=== PATIENT | male | born 1945 | race Caucasian/White ===

== ENCOUNTER → 2017-11-04 11:43 | Outpatient (CLI) | payer OTHER, SELFPAY | PROVIDERS: Family Provider Family Medicine; PCP Family Medicine; Visit Provider Orthopaedic Surgery | DX: Z01.818 Encounter for other preprocedural examination (principal); E78.2 Mixed hyperlipidemia; Z12.5 Encounter for screening for malignant neoplasm of prostate | CPT/HCPCS: 93005 ==

== ENCOUNTER → 2017-11-05 07:19 | Outpatient (CLI) | payer OTHER, SELFPAY ==
[2017-11-05 09:30] LABS: Add Manual Diff / Slide Review NO; Basophils Percent Auto 0.7 % (0-2); Eosinophils Percent Auto 2.9 % (2-4); Hematocrit 37.7 % (41-53); Hemoglobin 13.3 g/dL (13.5-17.5); Lymphocytes Percent Auto 21.4 % (25-40); Mean Corpuscular HGB Conc 35.3 % (30-36); Mean Corpuscular Volume 87.9 fL (80-100); Monocytes Percent Auto 10.5 % (3-14); Neutrophils Absolute Auto 3200 /uL (3000-5900); Neutrophils Percent Auto 64.5 % (50-75); Platelet Count 149 X10^3/uL (150-400); Red Blood Cell Count 4.29 X10^6/uL (4.5-5.9); Red Cell Distribution Width 13.4 % (11.6-14.8)
[2017-11-05 10:06] LABS: BUN Creatinine Ratio 35.7 (6-22); Blood Urea Nitrogen 25 mg/dL (9-20); Calcium 9.8 mg/dL (8.4-10.2); Carbon Dioxide 27 mmol/L (22-32); Chloride 101 mmol/L (98-107); Cholesterol 225 mg/dL (140-199); Estimated Glomerular Filt Rate > 60.0 mL/min (>60); Glucose 127 mg/dL (80-110); HDL Cholesterol 46 mg/dL (40-60); HEMOLYSIS < 15 (0-50); LDL Cholesterol Calculated 140 mg/dL (<100); Potassium 4.2 mmol/L (3.4-5.1); Sodium 142 mmol/L (137-145); Triglycerides 194 mg/dL (35-150)
[2017-11-05 10:23] LABS: Prostate Specific Antigen Scrn < 0.064 ng/mL (0.1-4.0)
== END ==
PROVIDERS: Family Provider Family Medicine; PCP Family Medicine; Visit Provider Orthopaedic Surgery
DX: E78.2 Mixed hyperlipidemia (principal); Z12.5 Encounter for screening for malignant neoplasm of prostate; Z01.818 Encounter for other preprocedural examination
CPT/HCPCS: 36415; 80048; 80061; 85025; G0103

== ENCOUNTER 2017-11-12 06:32 | Inpatient (IN) | payer OTHER, SELFPAY ==
[2017-11-09 13:07] VITALS: BMI 37.3
[2017-11-12] VITALS (15 sets, daily range): BP systolic 114–166; BP diastolic 68–95; PULSE 67–101; RESP 12–22; TEMP 36.2–37.1; O2SAT 91–98; BMI 37.3
--- NOTE | 2017-11-12 | PATH_ITS ---
[facility] Accession Number: [id number] . 01 Material submitted: . L5 FRACTURE SITE . 02 Diagnosis: Bone from L5 Fracture Site: Fragments of bone and fibrous tissue, negative for evidence of neoplasm. [facility]/11/15/2017 . 02 Electronically signed: . Jose Irene MD, Pathologist NPI- [id number] . 01 Gross description: . Received one formalin-filled container, labeled with the patient's name, labeled L5 fracture site. The specimen consists of multiple 0.3-0.5 cm, pink-land to land-prieto, rough fragments of bone. the specimen is filtered and entirely submitted in one cassette. The specimen will be placed in Decal for softening. ([id number]) /FRR . 02 Pathologist provided ICD-10: S32.050A . 02 CPT . 116485, [id number] Performed at: 01 [facility] [address] [facility], [place], [place] [id number] MD Pee Archer MD Phone: [phone] Performed at: 02 [facility] [address] [place], [place] [id number] MD Quentin Aleman MD Phone: [phone]
--- NOTE | 2017-11-12 07:28 | PM.PREOP ---
Pre-operative Note Interval Note Pre-op Check: History & Physical Reviewed by Physician and Exam Performed
--- NOTE | 2017-11-12 07:39 | PM.OP.1 ---
Operative Date/Time/Diagnoses - Date of procedure: 11/12/17 Time of procedure: 12:20 Pre-op diagnosis: L5 fracture Lumbar stenosis with radiculopathy Lumbar spondylolisthesis Post-op diagnosis: same Procedure & Clinicians Procedure: L5-S1 TLIF (post/post innerbody fusion) with cage L4, L5, S1 screws Iliac crest bone graft L4-5 laminectomy L5-S1 laminectomy Microscope Same procedure as scheduled: Yes Indications: 71-year-old male with intractable right leg pain. He was found to have an acute fracture through his transverse process pedicle and facet on the right side at L5. The fracture was causing foraminal stenosis corresponding with the severe right leg pain. He requested operative intervention after failing conservative management. Risks and benefits of surgery were discussed and appropriate consent obtained. Surgeon: Buddy Tavera Anesthesia Type: General Operative Notes Findings: none Closure Type: primary Specimen(s): none sent Implants & Drains: Nuvasive Reline MAS screws Globus Rise cage Applied: catheter Estimated Blood Loss (mL): 650 Procedure in detail: The patient was brought to the operating room and intubated on the table. A time-out was performed. He was then rolled over to the well-padded Marco A table in the prone position. Preoperative antibiotics were given. The back was prepped and draped in the standard sterile fashion. His initial intraoperative films showed collapse on the right side with progression and rotation to a grade 2 spondylolisthesis at L5-S1. Using fluoroscopy, a 4 cm longitudinal incision was made to the right of the midline. We used Bovie to come down to and split the lumbodorsal fascia. Using fluoroscopy and monitoring, we then percutaneously placed Jamshidi needles down the pedicles of L4, L5, and S1 on the right side. These were changed out to guidewires and then we tapped and then placed the NuVasive MAS Reline screw shanks. We then opened up the retractors and used Bovie to clear up the posterolateral gutter as well as medially along the lamina to the spinous processes. A bur was used to decorticate the transverse processes. Using a combination of bur and Kerrison rongeurs, a laminectomy was performed at L4-5 and L5-S1 from the right side. We performed a complete facetectomy at L5-S1 for the decompression. We traced out the L4 and L5 nerve roots. This was separate and distinct from the TLIF approach as we had to do such an extensive decompression of the neural foramen to adequately explore the nerve roots as well as the lumbar fracture. The L5 nerve root was getting crushed between the collapse and listhesis. We could barely passed a ball probe part of the way out the foramen. The L4 root was encased in thick fibrinous tissue consistent with probable fracture callus. Some of this bone and fracture callus material sent off for pathology. We then began the TLIF portion. The disc was prepped with bipolar and then an annulotomy was performed. We performed a diskectomy using a combination of paddles, emma, Kerrison, and curettes. We distracted the disc using a paddle and locked the retractor in an open position. We then filled the disc space with Osteocell bone graft. We then placed the globus Rise cage under fluoroscopy and then filled this in with more bone graft. The distraction on the retractor was released to compress down. This completed the posterior interbody fusion portion of the TLIF at L5-S1. At this point we were able to run the ball probe out through the neural foramen and everything was wide open as we had had so much distraction. We then placed the screw heads, joann, and locked down the set screws. The wound was copiously irrigated. A small stab incision was made over the PSIS. We used a Jamshidi needle to aspirate several mL of bone marrow from the pelvis. This was mixed with the remaining Osteocell and combined with all of the locally harvested bone graft and placed in the posterolateral gutter for the posterior fusion of the TLIF at L5-S1. The fascia was closed. We then went to the opposite side. Again using fluoroscopy, a 3 cm incision was made and Bovie was used to come down to split the fascia. Using neural monitoring and fluoroscopy, Jamshidi needles were advanced down the pedicles of L5 and S1 on the left side. These were switched over guidewires, tapped, and screws placed. We then placed a joann and locked the set screws on this side. The wound was irrigated. The fascia was closed. Vancomycin powder was placed in the wounds. The superficial and skin were closed. A sterile dressing was placed. The patient was then rolled over extubated and brought to recovery room without complications. Complications: none Condition: stable Disposition: PACU Plan for aftercare: Inpatient. Up with physical therapy.
[2017-11-12] MEDS: LACTATED RINGERS 1,000 ML 42 ML IV ×4 (07:54→13:10)
--- NOTE | 2017-11-12 08:00 | DI.RAD.S_ITS ---
PROCEDURE: XR LUMBAR SPINE 2-3V INDICATIONS: L5-S1 TLIF TECHNIQUE: 2 views of the lumbar spine were acquired. COMPARISON: [facility], RF, LUMBAR TRANSFORAMINAL KATERYNA, 10/11/2017, 7:17. [facility], CT, L-SPINE WITHOUT CONTRAST, 10/01/2017, 8:24. [facility] [place], CR, XR LUMBAR SPINE 2 OR 3 VIEWS, 07/15/2017, 8:42. [facility] [place], CR, XR LUMBAR SPINE 2 OR 3 VIEWS, 03/10/2017, 9:07. [facility], CR, L-SPINE 2-3 VIEWS, 06/18/2016, 9:32. [facility], CR, L-SPINE 2-3 VIEWS, 03/29/2012, 14:47. FINDINGS: Bones: This study represents surgical intervention in addition to previous postsurgical change along the lumbosacral spine. The most recent prior lumbosacral spine imaging was from CT scanning 10/01/17 at [facility], documenting a left-sided L2-L4 facet of transverse pedicle screws and a unilateral left vertical fixation joann present at that time. The current study shows addition of a set of left-sided L5-S1 transverse pedicle screws and a vertical fixation joann. Additionally, there is a set of L4-S1 transverse pedicle screws and a vertical fixation joann and interbody disc prosthesis L5-S1. Soft tissues: Overlying bowel gas pattern is normal. No suspicious soft tissue calcifications. IMPRESSION: Normal postsurgical alignment after revision of previous posterior spine fusion procedures, as detailed above. Fixation now includes previous left L2-L4 posterior fixation in addition to new posterior left-sided L5-S1 fixation. Also present is new right-sided L4-S1 posterior fusion. Dictated by: Miguel Ángel Donnelly M.D. on 11/12/2017 at 13:30 Approved by: Miguel Ángel Donnelly M.D. on 11/12/2017 at 13:45
[2017-11-12] MEDS: CEFAZOLIN 2 GM/100 ML FROZ.PIGGY IV ×2 (08:03→19:47)
[2017-11-12] MEDS: ACETAMINOPHEN 325 MG TABLET 975 MG PO (08:12)
[2017-11-12] MEDS: GABAPENTIN 600 MG TABLET PO (08:13)
--- NOTE | 2017-11-12 08:48 | SUR.OPER ---
Prone on spine table, head in foam head support, padded chest and pelvic supports, gel pad at knees, lower legs supported by pillows; nipples, genitalia and toes free of pressure, arms secured on foam padded arm boards at <90 degrees abduction. Tape over blanket at thigh secured to table.
[2017-11-12] MEDS: THROMBIN (BOVINE) 5,000 UNIT VIAL 5000 UNIT TOP (08:56)
[2017-11-12] MEDS: SODIUM CHLORIDE 0.9% 1,000 ML, GENTAMICIN 80 MG IRR ×2 (08:57→11:44)
[2017-11-12] MEDS: BUPIVACAINE LIPOSOME 266 MG/20 ML VIAL INJ (08:57)
[2017-11-12] MEDS: VANCOMYCIN 1,000 MG VIAL 1000 MG TOP (08:57)
[2017-11-12] MEDS: BUPIVACAINE 0.5% (PF) 30 ML VIAL 20 ML INJ (08:59)
[2017-11-12] MEDS: CEFAZOLIN 1 GM VIAL 2 GM IV (12:06)
[2017-11-12] MEDS: HYDROMORPHONE 2 MG INJ 0.5 MG IV ×4 (13:05→13:25)
[2017-11-12] MEDS: LACTATED RINGERS 1,000 ML 125 ML IV ×2 (15:00→22:24)
--- NOTE | 2017-11-12 15:26 | PC.NURSE ---
Pt arrived to room around 1400. He is a&ox3 but groggy. Denies pain. Incision to lower back with bulky dressing that is cdi. Pt is on LR at 125cc/hr. He has feeling to back and lower extremities. CMS wnl at this time and patient denies any numbness or tingling. SCDs present and pt is tolerating well. 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 He is 95% on ra with cpap on. Report passed on to cammy Clement .
[2017-11-12] MEDS: NEO/POLYMIX B/DEX OPHTH SUSP 1 DROPS EYE-BOTH ×2 (17:39→20:29)
[2017-11-12] MEDS: LISINOPRIL 20 MG TABLET PO (17:39)
[2017-11-12] MEDS: OXYCODONE/ACETAMINOPHEN 5/325 TABLET 2 TAB PO ×2 (17:39→22:01)
--- NOTE | 2017-11-12 18:03 | PT.IIE ---
Current Diagnoses Spinal stenosis, lumbar region with neurogenic claudication (11/12/17) Unspecified fracture of fifth lumbar vertebra, subsequent encounter for fracture with routine healing (11/12/17) Other specified postprocedural states (11/12/17) Surgery Performed Operation Date: 11/12/17 07:45 Actual Procedures p L5-S1 TLIF (posterior instrumented fusion )W/ Bone Graft - Buddy Tavera MD s L4-L5, L5-S1 Laminectomy - Buddy Tavera MD Surgical History (Last Updated 11/09/17 @ 13:36 by Jana Chan RN) History of back surgery (Acute) History of lumbar spinal fusion (Acute) History of penile implant (Acute) History of radical retropubic prostatectomy (Acute) History of tonsillectomy and adenoidectomy (Acute) History of vein stripping (Acute) Hx of right inguinal hernia repair (Acute) History of cataract removal with insertion of prosthetic lens (03/12/09) History of cataract removal with insertion of prosthetic lens (04/09/09) Status post LASIK surgery Status post biopsy (05/10/09) Status post bunionectomy Status post eye surgery (08/18/13) Status post eye surgery (08/29/13) Status post laminectomy Status post radical cystoprostatectomy (11/23/08) Status post sclerotherapy of varicose veins Status post tonsillectomy and adenoidectomy Medical History (Last Updated 11/09/17 @ 13:27 by Jana Chan, MATY) DDD (degenerative disc disease) (Acute) Diverticulosis (Acute) HTN (hypertension) (Acute) Hyperlipidemia (Acute) Internal hemorrhoids (Acute) JOANIE on CPAP (Acute) Prostate cancer (Acute) Scoliosis (Acute) Physical Therapy Inpatient Evaluation/Re-Eval M1 PT/OT-IP Prior Functional Status Start: 11/12/17 17:56 Freq: NEEDED Status: Active Protocol: Document 11/12/17 17:56 [facility] (Rec: 11/12/17 18:03 [facility] [id number]) Medical Review Prior Functional Status Medical History Reviewed Yes Diet/Fluid Consistency Regular Mobility and Gait Pt has been using 4WW for past 2 months due to start of RLE pain. 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 Son is staying with her while he is in hospital. Social History Household Members spouse Living Arrangements House Number of Floors (Floors) Two Floors Number of Stairs To Enter/Railing? Only requires use of main level though; 1 SHORTY Home Environment High Toilet Walk in Shower Built-In Shower Seat Home Equipment Four Wheel Walker Long Handled Shoe Horn Lead Electrical Engineer Sock Aid Grab Bars In Shower Employment Status Retired M2 PT-IP Current Condition Start: 11/12/17 17:56 Freq: NEEDED Status: Active Protocol: Document 11/12/17 17:56 [facility] (Rec: 11/12/17 18:03 [facility] [id number]) Physical Therapy Current Condition Current Condition Evaluation Date 11/12/17 Treatment Diagnosis TLIF Onset Date 11/12/17 Precautions Lumbar Precautions Log Roll No Twisting Limit Bending Lifting Restriction of 10 lbs Gait Belt above Incisional Area Weight Bearing Status Weight Bearing Status Full Weight Bearing M3 PT-IP Subjective Start: 11/12/17 17:56 Freq: NEEDED Status: Active Protocol: Document 11/12/17 17:56 [facility] (Rec: 11/12/17 18:03 [facility] [id number]) Subjective Physical Therapy Visit Type Type Initial Evaluation Visit Start Time 17:10 Visit Stop Time 17:55 Total Visit Minutes 45 Physical Therapy Visit Comments Patient/Caregiver Goals Pt wants to go home when he is safe and his pain is managable Therapy Pain Assessment Pain When Pain Assessed During Mobility Pain Present Pain Present Pain Reported Location Right Lower Leg Intensity 5 Scale Used Numeric (1 - 10) Description Aching M4 PT-IP Mobility and Gait Start: 11/12/17 17:56 Freq: NEEDED Status: Active Protocol: Document 11/12/17 17:56 [facility] (Rec: 11/12/17 18:03 [facility] [id number]) PT-Bed Mobility Assessment Rolling Type of Rolling Log Rolling Roll to Right Level of Assist Minimal Assistance Supine to Sit Supine to Sit Moderate Assistance Bedrails Scooting Scooting to Edge of Bed Standby Assistance PT-Transfer Assessment Sit to and From Stand Sit to and from Stand Moderate Assistance Equipment Transfer Assistive Device Gait Belt Front Wheeled Walker Orthotic/Prosthetic Devices or Brace: No Gait Assessment Gait Gait Assistance Required: Contact Guard Assist Distance (Feet) (feet) 8 Able to Maintain Weight Bearing Status Yes During Gait Assistive Devices Assistive Device Gait Belt Front Wheeled Walker Orthotic/Prosthetic Devices or Brace: No Gait Deviations General Gait Pattern Antalgic Decreased Stride Length Flexed Trunk Factors Limiting Gait Function Factors Limiting Gait Function Decreased Strength Pain PT-Balance Assessment Sitting Balance and Reactions Static Sitting Balance Ability Good Dynamic Sitting Balance Ability Good Standing Balance and Reactions Static Standing Balance Ability Fair Dynamic Standing Balance Ability Poor M5 PT-IP Objective Assessments Start: 11/12/17 17:56 Freq: NEEDED Status: Active Protocol: Document 11/12/17 17:56 [facility] (Rec: 11/12/17 18:03 [facility] [id number]) Orientation Orientation/Cognition Level of Alertness Alert Strength Lower Extremity Strength Assessment Bilaterally Impaired Muscle Tone Muscle Tone WNL No M6 PT-IP Treatment Start: 11/12/17 17:56 Freq: NEEDED Status: Active Protocol: Document 11/12/17 17:56 [facility] (Rec: 11/12/17 18:03 [facility] [id number]) Physical Therapy Treatment Education Education Provided Precautions Post-Op Packet Safety M7 PT-IP Assessment and Plan Start: 11/12/17 17:56 Freq: NEEDED Status: Active Protocol: Document 11/12/17 17:56 [facility] (Rec: 11/12/17 18:03 [facility] [id number]) PT Summary Assessment and Plan Potential Rehabilitation Potential Good Status of Condition at Evaluation Evolving Summary Impairments Pain Strength Balance Bed Mobility Transfers Gait Assessment Summary Pt is very motivated and cooperative with realistic expectations after lumbar surgery. He is likey to progress well, but will require a high level of mobility when he returns home as he is CG for his . Pt would benefit from . Goals Bed Mobility Goal Independent Transfer Goal Independent Four Wheeled Walker Gait Goal Independent Four Wheel Walker Gait Distance 150ft Other Goals Up/down 1 step without rail indep Days to Meet Goals 4 Frequency of Treatment Frequency Of Treatment Twice a Day Treatment Plan Physical Therapy Treatment Plan Bed Mobility Training Transfer Training Gait Training Therapeutic Exercise Balance Retraining Discharge Planning Hot or Cold Pack Other Recommendations and Next Treatment Gait & advance log rolling Focus Recommendations To Nursing Amount of Assist Needed 1 Person Assist Discharge Recommendations PT Discharge Recommendations Home Home Health Provider Visit Care Team Role Provider Type Franco Damon MD Family Provider Physician Primary Care Provider Specialty: Family Practice Buddy Tavera MD Admit Provider Physician Attending Provider Specialty: Orthopedic Surgery
[2017-11-12] MEDS: SENNOSIDES 8.6 MG TABLET 17.2 MG PO (20:29)
[2017-11-12] MEDS: DOCUSATE 100 MG CAPSULE PO (20:29)
[2017-11-12] MEDS: GABAPENTIN 300 MG CAPSULE PO (20:29)
[2017-11-13] VITALS (7 sets, daily range): BP systolic 120–148; BP diastolic 51–83; PULSE 75–99; RESP 16–18; TEMP 37.1–38.5; O2SAT 92–97
[2017-11-13] MEDS: MELOXICAM 7.5 MG TABLET PO (00:32)
[2017-11-13] MEDS: OXYCODONE/ACETAMINOPHEN 5/325 TABLET 2 TAB PO (01:52)
[2017-11-13] MEDS: CEFAZOLIN 2 GM/100 ML FROZ.PIGGY IV (04:09)
--- NOTE | 2017-11-13 04:18 | PC.NURSE ---
Pt. C/O pain even after medicated with Mobic & 2 tabs. of Percocet. Woke up with the pain scale of 7/10, states I slept for a little while, but my Rt. leg & back very painful. the medication only lasted not even an hour. RELIGIOUS EDUCATOR Dilaudid initiated, re-assessed in 30 mins. reported pain level was down to 3-4/10 pain scale. Will monitor.
[2017-11-13] MEDS: HYDROMORPHONE PCA 6 MG/30 ML PCA.VIAL IV ×2 (05:55→14:19)
[2017-11-13 06:05] LABS: Hemoglobin 10.2 g/dL (13.5-17.5)
[2017-11-13 06:09] LABS: BUN Creatinine Ratio 21.7 (6-22); Blood Urea Nitrogen 13 mg/dL (9-20); Calcium 8.6 mg/dL (8.4-10.2); Carbon Dioxide 26 mmol/L (22-32); Chloride 101 mmol/L (98-107); Estimated Glomerular Filt Rate > 60.0 mL/min (>60); Glucose 132 mg/dL (80-110); HEMOLYSIS < 15 (0-50); Sodium 137 mmol/L (137-145)
--- NOTE | 2017-11-13 07:37 | PM.PNPO.1 ---
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 Mostly R lower back pain but still pain down the back of the right leg (although much better). Exam Vital Signs (past 8 hours): Vital Signs - 8 hr 11/13/17 00:05 11/13/17 05:47 Temperature 98.7 F 99.0 F Pulse Rate 77 78 Respiratory Rate 16 16 Blood Pressure 124/58 H 120/58 L Pulse Oximetry 96 97 Pulse Oximetry 97 Oxygen Delivery Method Room Air Oxygen Flow Rate 0 Const Orientation: alert and oriented x3 Back/Spine/Pelvis Other: dressing CDI 5/5 motor BLE except 4/5 R EHL Objective Labs Result Diagrams: 11/13/17 05:36 11/13/17 05:36 Labs: Laboratory Results - last 24 hr 11/13/17 11/13/17 05:36 05:36 Hgb 10.2 L Hct 29.0 L Sodium 137 Potassium 4.0 Chloride 101 Carbon Dioxide 26 BUN 13 Creatinine 0.60 L Estimated GFR > 60.0 BUN/Creatinine Ratio 21.7 Glucose 132 H Calcium 8.6 Assessment & Plan Post-op Postoperative Procedures Operation Date: 11/12/17 07:45 Actual Procedures Side Surgeon p L5-S1 TLIF (posterior instrumented fusion )W/ Bone Graft Buddy Tavera MD s L4-L5, L5-S1 Laminectomy Buddy Tavera MD Doing well after surgery. The leg pain should continue to improve as the inflammation along the nerve calms down. Mobilize with PT. Time Spent With Patient less than 15 minutes Quality VTE Deep Vein Thrombosis/Pulmonary Embolism Present on Admission: No
--- NOTE | 2017-11-13 09:11 | CM.DANOTE ---
DCP: assessment: Case received, EMR reviewed, discussed POC with ortho ISABEL Rosales and met with pt. Introduced self and role. DCP template completed with info currently available. Pt is a 71 year old male who admitted yesterday for a planned spinal surgery. He notes this is his 5th spinal procure, all but the first one under care of Surgeon: Dr. Tavera. PCP: Dr. Melisa Damon Payer: [facility] FIFI. PT and OT are ordered. Pt reports his d/c goal as home when his pain is controlled (severe L side pain last night) and he is able to manage basic functional mobility. He says he and his were swimming at the pool 5 x week and he looks forward to being able to return to this after he recovers. His sons Ananth and Ramiro (both living in [place]) will be staying over to assist with Eulalia and to support pt in his recovery. Currently Ananth is at the home. Pt uses a 4ww but says he has access to a FWW owned by very helpful neighbors Gilberto and Ayush Simpson. Gilberto is part of the Machining Technician program. 2018 Senior Resource Guide discussed as pt and his are making plans for future needs and pt readily accepts a copy.
[2017-11-13] MEDS: MULTIVIT,CALC,MINS/IRON/FOLIC 1 TABLET 1 TAB PO (09:41)
[2017-11-13] MEDS: DOCUSATE 100 MG CAPSULE PO ×2 (09:42→20:40)
[2017-11-13] MEDS: NEO/POLYMIX B/DEX OPHTH SUSP 1 DROPS EYE-BOTH ×3 (09:42→20:41)
[2017-11-13] MEDS: LISINOPRIL 20 MG TABLET PO (09:47)
[2017-11-13] MEDS: ASPIRIN EC 81 MG TABLET PO (09:48)
--- NOTE | 2017-11-13 11:29 | PT.IPTN ---
Current Diagnoses Spinal stenosis, lumbar region with neurogenic claudication (11/12/17) Unspecified fracture of fifth lumbar vertebra, subsequent encounter for fracture with routine healing (11/12/17) Other specified postprocedural states (11/12/17) Surgery Performed Operation Date: 11/12/17 07:45 Actual Procedures p L5-S1 TLIF (posterior instrumented fusion )W/ Bone Graft - Buddy Tavera MD s L4-L5, L5-S1 Laminectomy - Buddy Tavera MD Physical Therapy Treatment Note M2 PT-IP Current Condition Start: 11/12/17 17:56 Freq: NEEDED Status: Active Protocol: Document 11/13/17 11:00 [facility] (Rec: 11/13/17 11:29 [facility] [id number]) Physical Therapy Current Condition Current Condition Evaluation Date 11/12/17 Treatment Diagnosis TLIF Onset Date 11/12/17 Precautions Lumbar Precautions Log Roll No Twisting Limit Bending Lifting Restriction of 10 lbs Gait Belt above Incisional Area Weight Bearing Status Weight Bearing Status Weight Bear as Tolerated M3 PT-IP Subjective Start: 11/12/17 17:56 Freq: NEEDED Status: Active Protocol: Document 11/13/17 11:00 [facility] (Rec: 11/13/17 11:29 [facility] [id number]) Subjective Physical Therapy Visit Type Type Treatment Note Visit Start Time 10:30 Visit Stop Time 11:00 Total Visit Minutes 30 Number of INVENTORY ACCOUNTANT Visits 0 Physical Therapy Visit Comments Patient Comments Pt's goal is to be able to go home, his son can only stay with his at home until Wednesday. Therapy Pain Assessment Pain When Pain Assessed At Rest Pain Present Pain Present Pain Reported Location Right Lower Leg Intensity 6 Scale Used Numeric (1 - 10) Description Aching Burning Stabbing Pain Behaviors Facial Grimacing Wincing Pain Management Techniques Modification of Treatment Timing of Activity with Medications M4 PT-IP Mobility and Gait Start: 11/12/17 17:56 Freq: NEEDED Status: Active Protocol: Document 11/13/17 11:00 [facility] (Rec: 11/13/17 11:29 [facility] [id number]) PT-Bed Mobility Assessment Rolling Type of Rolling Log Rolling Level of Assist Moderate Assistance 1 Person Assistance Supine to Sit Supine to Sit Moderate Assistance 1 Person Assistance Bedrails Scooting Scooting to Edge of Bed Moderate Assistance PT-Transfer Assessment Sit to and From Stand Sit to and from Stand Minimal Assistance 1 Person Assistance Use of Upper Extremities Equipment Transfer Assistive Device Front Wheeled Walker Transfers Transfer Destination Chair Transfer Technique Stand Step Pivot Transfer Ability Level of Assist Moderate Assistance 1 Person Assistance Use of Upper Extremities Comments Mobility Comments Pt without heel contact on ground, forward flexed posture , max VC for posture and safety. Required manual assistance with FWW management. Gait Assessment Gait Gait Assistance Required: Moderate Assistance 1 Person Assist Distance (Feet) (feet) 10 Assistive Devices Assistive Device Gait Belt Gait Deviations General Gait Pattern Antalgic Decreased Stride Length Decreased Feet Clearance Flexed Trunk Step-to Gait Wide Based Gait Factors Limiting Gait Function Factors Limiting Gait Function Decreased Activity Tolerance Decreased Strength Pain Poor Balance Poor Safety Awareness Comments Gait Comments Wide based gait, bilateral foot ER. Max VC for turning and safety with gait, and manual assistance wth FWW management. BP 131/78 after session. PT-Balance Assessment Sitting Balance and Reactions Static Sitting Balance Ability Fair Dynamic Sitting Balance Ability Fair Standing Balance and Reactions Static Standing Balance Ability Poor Dynamic Standing Balance Ability Poor Device Used FWW M5 PT-IP Objective Assessments Start: 11/12/17 17:56 Freq: NEEDED Status: Active Protocol: Document 11/13/17 11:00 [facility] (Rec: 11/13/17 11:29 [facility] [id number]) Orientation Orientation/Cognition Level of Alertness Alert M6 PT-IP Treatment Start: 11/12/17 17:56 Freq: NEEDED Status: Active Protocol: Document 11/13/17 11:00 [facility] (Rec: 11/13/17 11:29 [facility] [id number]) Physical Therapy Treatment Education Education Provided Precautions Safety M7 PT-IP Assessment and Plan Start: 11/12/17 17:56 Freq: NEEDED Status: Active Protocol: Document 11/13/17 11:00 [facility] (Rec: 11/13/17 11:29 [facility] [id number]) PT Summary Assessment and Plan Summary Assessment Summary Pt with pain in bilateral LEs, R>L. Pt unable to get either heel onto ground during standing, and demonstrated forward flexed posture which significantly increases his risk for falls. Pt fatigued very rapidly, and a chair had to be placed behind pt to safely sit down. Pt is not safe to return home on this date. He is motivated to improve and d/c home, but pt will need to improve mobility and activity tolerance much greater to be cleared by PT. Goals Bed Mobility Goal Independent Transfer Goal Independent Four Wheeled Walker Gait Goal Independent Four Wheel Walker Gait Distance 150ft Other Goals Up/down 1 step without rail indep Days to Meet Goals 4 Frequency of Treatment Frequency Of Treatment Twice a Day Treatment Plan Physical Therapy Treatment Plan Bed Mobility Training Transfer Training Gait Training Therapeutic Exercise Balance Retraining Discharge Planning Hot or Cold Pack Other Recommendations and Next Treatment Gait, standing, & advance log Focus rolling Recommendations To Nursing Amount of Assist Needed 2 Person Assist Discharge Recommendations PT Discharge Recommendations Home Equipment Needed for Home Before FWW Discharge
--- NOTE | 2017-11-13 12:59 | PT.IPTN ---
Current Diagnoses Spinal stenosis, lumbar region with neurogenic claudication (11/12/17) Unspecified fracture of fifth lumbar vertebra, subsequent encounter for fracture with routine healing (11/12/17) Other specified postprocedural states (11/12/17) Surgery Performed Operation Date: 11/12/17 07:45 Actual Procedures p L5-S1 TLIF (posterior instrumented fusion )W/ Bone Graft - Buddy Tavera MD s L4-L5, L5-S1 Laminectomy - Buddy Tavera MD Physical Therapy Treatment Note M2 PT-IP Current Condition Start: 11/12/17 17:56 Freq: NEEDED Status: Active Protocol: Document 11/13/17 12:50 [facility] (Rec: 11/13/17 12:59 [facility] [id number]) Physical Therapy Current Condition Current Condition Evaluation Date 11/12/17 Treatment Diagnosis TLIF Onset Date 11/12/17 Precautions Lumbar Precautions Log Roll No Twisting Limit Bending Lifting Restriction of 10 lbs Gait Belt above Incisional Area Weight Bearing Status Weight Bearing Status Weight Bear as Tolerated M3 PT-IP Subjective Start: 11/12/17 17:56 Freq: NEEDED Status: Active Protocol: Document 11/13/17 12:50 [facility] (Rec: 11/13/17 12:59 [facility] [id number]) Subjective Physical Therapy Visit Type Type Treatment Note Visit Start Time 12:30 Visit Stop Time 12:50 Total Visit Minutes 20 Notes Partial co-treat with RORY Gonzales Number of FLATWORK FEEDER Visits 0 Physical Therapy Visit Comments Patient Comments Pt wishes to get BTB, states he feels hot. Therapy Pain Assessment Pain When Pain Assessed At Rest Pain Present Pain Present Pain Reported Location Right Lower Leg Intensity 6 Scale Used Numeric (1 - 10) Description Stabbing Throbbing Pain Behaviors Facial Grimacing Wincing Pain Management Techniques Modification of Treatment M4 PT-IP Mobility and Gait Start: 11/12/17 17:56 Freq: NEEDED Status: Active Protocol: Document 11/13/17 12:50 [facility] (Rec: 11/13/17 12:59 [facility] [id number]) PT-Bed Mobility Assessment Rolling Type of Rolling Log Rolling Level of Assist Moderate Assistance 2 Person Assistance Sit to Supine Sit to Supine Moderate Assistance 2 Person Assistance Scooting Scooting to Edge of Bed Contact Guard Assistance PT-Transfer Assessment Sit to and From Stand Sit to and from Stand Minimal Assistance 1 Person Assistance Use of Upper Extremities Equipment Transfer Assistive Device Front Wheeled Walker Transfers Transfer Destination Bed Transfer Technique Stand Step Pivot Transfer Ability Level of Assist Moderate Assistance 1 Person Assistance Use of Upper Extremities Comments Mobility Comments Forward flexed posture, VC for posture and leg positioning. Short steps, difficulty turning req. manual assist with FWW. Gait Assessment Gait Gait Assistance Required: Moderate Assistance 1 Person Assist Distance (Feet) (feet) 10 Assistive Devices Assistive Device Gait Belt Front Wheeled Walker Gait Deviations General Gait Pattern Antalgic Decreased Stride Length Decreased Feet Clearance Flexed Trunk Step-to Gait Wide Based Gait Factors Limiting Gait Function Factors Limiting Gait Function Decreased Activity Tolerance Decreased Strength Pain Poor Balance Poor Safety Awareness Comments Gait Comments Fatigues rapidly. PT-Balance Assessment Sitting Balance and Reactions Static Sitting Balance Ability Fair Dynamic Sitting Balance Ability Fair Standing Balance and Reactions Static Standing Balance Ability Poor Dynamic Standing Balance Ability Poor Device Used FWW M5 PT-IP Objective Assessments Start: 11/12/17 17:56 Freq: NEEDED Status: Active Protocol: Document 11/13/17 12:50 [facility] (Rec: 11/13/17 12:59 [facility] [id number]) Orientation Orientation/Cognition Level of Alertness Alert M6 PT-IP Treatment Start: 11/12/17 17:56 Freq: NEEDED Status: Active Protocol: Document 11/13/17 12:50 [facility] (Rec: 11/13/17 12:59 [facility] [id number]) Physical Therapy Treatment Education Education Provided Safety M7 PT-IP Assessment and Plan Start: 11/12/17 17:56 Freq: NEEDED Status: Active Protocol: Document 11/13/17 12:50 [facility] (Rec: 11/13/17 12:59 [facility] [id number]) PT Summary Assessment and Plan Summary Assessment Summary Pt required 2 assist to get from sit to supine with reverse log roll. He fatigues very rapidly, and his step length decreases significantly to the point where he is hardly advancing either LE ( more difficulty advancing L foot due to RLE pain). Pt appears to be anxious, requires cuing to calm down, likely due to pain. Pt is not safe to return home at this point, and may not be able to return home unless he makes significant improvements. Along with pain, pt appears to have very poor activity tolerance. Goals Bed Mobility Goal Independent Transfer Goal Independent Four Wheeled Walker Gait Goal Independent Four Wheel Walker Gait Distance 150ft Other Goals Up/down 1 step without rail indep Days to Meet Goals 4 Frequency of Treatment Frequency Of Treatment Twice a Day Treatment Plan Physical Therapy Treatment Plan Bed Mobility Training Transfer Training Gait Training Therapeutic Exercise Balance Retraining Discharge Planning Hot or Cold Pack Other Recommendations and Next Treatment gait, log roll, review Focus precautions Recommendations To Nursing Amount of Assist Needed 2 Person Assist Discharge Recommendations PT Discharge Recommendations Home SNF Rehab Equipment Needed for Home Before FWW Discharge
[2017-11-13] MEDS: hydrOXYzine pamoate 25 MG CAPSULE PO (14:21)
--- NOTE | 2017-11-13 15:03 | OT.IP.EVAL ---
Current Diagnoses Spinal stenosis, lumbar region with neurogenic claudication (11/12/17) Unspecified fracture of fifth lumbar vertebra, subsequent encounter for fracture with routine healing (11/12/17) Other specified postprocedural states (11/12/17) Surgery Performed Operation Date: 11/12/17 07:45 Actual Procedures p L5-S1 TLIF (posterior instrumented fusion )W/ Bone Graft - Buddy Tavera MD s L4-L5, L5-S1 Laminectomy - Buddy Tavera MD Past Medical History (Last Updated 11/09/17 @ 13:27 by Jana Chan RN) DDD (degenerative disc disease) (Acute) Diverticulosis (Acute) HTN (hypertension) (Acute) Hyperlipidemia (Acute) Internal hemorrhoids (Acute) JOANIE on CPAP (Acute) Prostate cancer (Acute) Scoliosis (Acute) Surgical History (Last Updated 11/09/17 @ 13:36 by Jana Chan RN) History of back surgery (Acute) History of lumbar spinal fusion (Acute) History of penile implant (Acute) History of radical retropubic prostatectomy (Acute) History of tonsillectomy and adenoidectomy (Acute) History of vein stripping (Acute) Hx of right inguinal hernia repair (Acute) History of cataract removal with insertion of prosthetic lens (03/12/09) History of cataract removal with insertion of prosthetic lens (04/09/09) Status post LASIK surgery Status post biopsy (05/10/09) Status post bunionectomy Status post eye surgery (08/18/13) Status post eye surgery (08/29/13) Status post laminectomy Status post radical cystoprostatectomy (11/23/08) Status post sclerotherapy of varicose veins Status post tonsillectomy and adenoidectomy Occupational Therapy Inpatient Evaluation/Re-Eval M1 PT/OT-IP Prior Functional Status Start: 11/12/17 17:56 Freq: NEEDED Status: Active Protocol: Document 11/12/17 17:56 [facility] (Rec: 11/12/17 18:03 [facility] [id number]) Medical Review Prior Functional Status Medical History Reviewed Yes Diet/Fluid Consistency Regular Mobility and Gait Pt has been using 4WW for past 2 months due to start of RLE pain. 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 Son is staying with her while he is in hospital. Social History Household Members spouse Living Arrangements House Number of Floors (Floors) Two Floors Number of Stairs To Enter/Railing? Only requires use of main level though; 1 SHORTY Home Environment High Toilet Walk in Shower Built-In Shower Seat Home Equipment Four Wheel Walker Long Handled [place] Wildlife Officer Sock Aid Grab Bars In Shower Employment Status Retired M1 PT/OT-IP Prior Functional Status Start: 11/13/17 14:48 Freq: NEEDED Status: Active Protocol: Document 11/13/17 12:30 [facility] (Rec: 11/13/17 15:02 [facility] [id number]) Medical Review Prior Functional Status Medical History Reviewed Yes Diet/Fluid Consistency Regular Mobility and Gait Pt has been using 4WW for past 2 months due to start of RLE pain. 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 Son is staying with her while he is in hospital. Activities of Daily Living and IADL's States was independent prior with all ADL's and someone came to help with cleaning. Social History Household Members spouse Living Arrangements House Number of Floors (Floors) Two Floors Number of Stairs To Enter/Railing? Only requires use of main level though; 1 SHORTY Home Environment High Toilet Walk in Shower Built-In Shower Seat Home Equipment Four Wheel Walker Long Handled [place] Wildlife Officer Sock Aid Grab Bars In Shower Employment Status Retired M2 OT-IP Current Condition Start: 11/13/17 14:48 Freq: Status: Active Protocol: Document 11/13/17 12:30 [facility] (Rec: 11/13/17 15:02 [facility] [id number]) Occupational Therapy Current Condition Post Operative Precautions Lumbar Precautions Log Roll No Twisting Limit Bending Lifting Restriction of 10 lbs Gait Belt above Incisional Area Weight Bearing Status Weight Bearing Status Weight Bear as Tolerated M3 OT- IP Subjective and Pain Start: 11/13/17 14:48 Freq: Status: Active Protocol: Document 11/13/17 12:30 [facility] (Rec: 11/13/17 15:02 [facility] [id number]) OT- Subjective Occupational Therapy Visit Type Type Initial Evaluation Visit Start Time 13:05 Visit Stop Time 13:40 Total Visit Minutes 35 Occupational Therapy Visit Comments Patient/Caregiver Goals To get stronger and be able to go home. OT Pain Assessment Pain When Pain Assessed During Mobility Pain Present Pain Present Pain Reported M6 OT- IP Functional Cognition Start: 11/13/17 14:48 Freq: Status: Active Protocol: Document 11/13/17 12:30 [facility] (Rec: 11/13/17 15:02 [facility] [id number]) Cognitive Factors Limiting Selfcare Function Cognitive Ability Level of Alertness Alert Patient Orientation Name Age Birthday Month Date Year Day of Week Place Situation Attention Span Ability Capable of Focused Attention Capable of Sustained Attention Ability to Follow Commands Able to Follow Multi-Step Commands Memory Description Immediate Intact Short Term Intact Compounder Sterile Products Intact Working Impaired Safety Awareness Underestimates Need for Assistance Cognitive Comments Cognitive Assessment Comments Pt able to recall baack precautions however inconsistent for telling providers as to what help he will have at home. OT- Vision and Hearing OT- Hearing Assessment OT- Hearing Assessment WFL OT- Vision Assessment Visual Acuity WFL M7 OT- IP Mobility and Balance Start: 11/13/17 14:48 Freq: Status: Active Protocol: Document 11/13/17 12:30 [facility] (Rec: 11/13/17 15:02 [facility] [id number]) OT- Bed Mobility Assessment Sit to Supine Sit to Supine Assist Maximum Assistance 2 Person Assistance OT-Transfer Assessment Sit to and From Stand Sit to and from Stand Moderate Assistance 1 Person Assistance Transfers Transfer Ability Moderate Assistance Use of Upper Extremities Technique Transfer Destination Bed Devices Transfer Assistive Devices Front Wheeled Walker Comments Mobility Comments Pt does not straighten up when up on his feet and heavily dependent fro his arms on FWW plus assist of therapist. M8 OT- IP Objective Assessments Start: 11/13/17 14:48 Freq: Status: Active Protocol: Document 11/13/17 12:30 [facility] (Rec: 11/13/17 15:02 [facility] [id number]) OT Gross Range of Motion Upper Extremity Range of Motion ROM Impairments WFL OT Strength Comments Strength Comments WFL M9 OT- IP Assessment and Plan Start: 11/13/17 14:48 Freq: Status: Active Protocol: Document 11/13/17 12:30 [facility] (Rec: 11/13/17 15:02 [facility] [id number]) OT Summary Assessment and Plan Potential Rehabilitation Potential Fair Analytic Complexity at Evaluation Low Summary OT Impairments Pain Range of Motion Strength Balance Functional Cognition Functional Mobility Grooming Dressing Toileting Bathing Toilet Transfers Shower Transfers Progress Towards Goals Slow Progress due to Pain Slow Progress due to Activity Tolerance Slow Progress due to Cognition Assessment Summary At this time pain, activity tolerance, LB dressing, bathing, functional mobilty, and bed mobility requiring extensive assist and would benefit from 24/7 assist at home versus skilled rehab. 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 Goals Grooming Goal Standby Assistance Dressing Goal Minimal Assistance Toileting Goal Minimal Assistance Bathing Goal Moderate Assistance Toilet Transfer Goal Minimal Assistance Shower Transfer Goal Minimal Assistance Patient/Caregiver Education Goal Caregiver Independent Assisting Patient Days to Meet Goals 7 Frequency of Treatment Frequency Of Treatment Once a Day Treatment Plan OT Treatment Plan ADL Training Functional Cognition Training Functional Mobility Patient/Family Education Discharge Planning Discharge Recommendations OT Discharge Recommendations Home with 24/7 Assist SNF Rehab Other Discharge Recommendations At this time pt would need assist at all times or would benefit from short skilled rehab to improve ADl and functional mobility needs to MOD I. Home Equipment Needs Pt has all AED at home.
[2017-11-13] MEDS: GABAPENTIN 300 MG CAPSULE PO (20:40)
[2017-11-13] MEDS: CLOTRIMAZOLE/BETAMETHASONE CRM 15 GM 1 APPLIC TOP (20:40)
[2017-11-13] MEDS: SENNOSIDES 8.6 MG TABLET 17.2 MG PO (20:40)
[2017-11-14 00:06] VITALS: BP 148/87; PULSE 83; RESP 16; TEMP 37.2; O2SAT 97
--- NOTE | 2017-11-14 05:58 | PC.NURSE ---
Pt. refused to DC hannah @ 0600. States I'll wait until I get up with PT this morning. Will report to day RN.
[2017-11-14] MEDS: HYDROMORPHONE PCA 6 MG/30 ML PCA.VIAL IV (06:10)
--- NOTE | 2017-11-14 07:35 | P.PN_ITS ---
Subjective Date Patient Seen: 11/14/17 Time Patient Seen: 07:33 Interval history: He had a rough time in PT yesterday. Leg pain is still very severe with standing. Exam Vital Signs (past 8 hours): Vital Signs - 8 hr 3 11/14/17 00:06 Temperature 99.0 F Pulse Rate 83 Respiratory Rate 16 Blood Pressure 148/87 H Pulse Oximetry 97 Pulse Oximetry 97 Oxygen Delivery Method Room Air Oxygen Flow Rate 0 Back/Spine/Pelvis Other: dressing cdi 5/5 motor BLE except 4/5 R AT/EHL Objective Labs Result Diagrams: 11/13/17 05:36 11/13/17 05:36 Assessment & Plan Post-op Postoperative Procedures Operation Date: 11/12/17 07:45 Actual Procedures Side Surgeon p L5-S1 TLIF (posterior instrumented fusion )W/ Bone Graft Buddy Tavera MD s L4-L5, L5-S1 Laminectomy Buddy Tavera MD He's having a rough time still. I am going to add IV steroids to try to calm the nerve pain down. dc standards analyst and young Time Spent With Patient less than 15 minutes Quality VTE Deep Vein Thrombosis/Pulmonary Embolism Present on Admission: No
[2017-11-14 08:00] VITALS: BP 152/86; PULSE 82; RESP 17; TEMP 37.3; O2SAT 97
[2017-11-14] MEDS: NEO/POLYMIX B/DEX OPHTH SUSP 1 DROPS EYE-BOTH ×3 (08:24→20:43)
[2017-11-14] MEDS: ASPIRIN EC 81 MG TABLET PO (08:25)
[2017-11-14] MEDS: LISINOPRIL 20 MG TABLET PO (08:25)
[2017-11-14] MEDS: MULTIVIT,CALC,MINS/IRON/FOLIC 1 TABLET 1 TAB PO (08:25)
[2017-11-14] MEDS: DOCUSATE 100 MG CAPSULE PO ×2 (08:25→20:44)
[2017-11-14] MEDS: DEXAMETHASONE 10 MG/ML VIAL IV (08:26)
[2017-11-14] MEDS: OXYCODONE/ACETAMINOPHEN 5/325 TABLET 2 TAB PO ×4 (08:28→20:45)
--- NOTE | 2017-11-14 13:15 | PT.IPTN ---
Current Diagnoses Spinal stenosis, lumbar region with neurogenic claudication (11/12/17) Unspecified fracture of fifth lumbar vertebra, subsequent encounter for fracture with routine healing (11/12/17) Other specified postprocedural states (11/12/17) Surgery Performed Operation Date: 11/12/17 07:45 Actual Procedures p L5-S1 TLIF (posterior instrumented fusion )W/ Bone Graft - Buddy Tavera MD s L4-L5, L5-S1 Laminectomy - Buddy Tavera MD Physical Therapy Treatment Note M2 PT-IP Current Condition Start: 11/12/17 17:56 Freq: NEEDED Status: Active Protocol: Document 11/14/17 10:34 RCC (Rec: 11/14/17 13:15 RCC [email or web address]) Physical Therapy Current Condition Current Condition Evaluation Date 11/12/17 Treatment Diagnosis TLIF Onset Date 11/12/17 Precautions Lumbar Precautions Log Roll No Twisting Limit Bending Lifting Restriction of 10 lbs Gait Belt above Incisional Area Weight Bearing Status Weight Bearing Status Weight Bear as Tolerated M3 PT-IP Subjective Start: 11/12/17 17:56 Freq: NEEDED Status: Active Protocol: Document 11/14/17 10:34 RCC (Rec: 11/14/17 13:15 RCC [email or web address]) Subjective Physical Therapy Visit Type Type Treatment Note Visit Start Time 10:00 Visit Stop Time 10:34 Total Visit Minutes 34 Notes Pt given dexamethasone this a. m. taken off of [facility]. Number of BIAS CUTTER Visits 0 Physical Therapy Visit Comments Patient Comments Pt feels a little better, did not have a good night. He thinks his is going to stay with their eldest son until he is ready to return to assistance for her. Therapy Pain Assessment Pain When Pain Assessed At Rest Pain Present Pain Present Pain Reported Location Right Lower Leg Intensity 5 Scale Used Numeric (1 - 10) Description Sharp Spasm Pain Behaviors Wincing Pain Management Techniques Modification of Treatment M4 PT-IP Mobility and Gait Start: 11/12/17 17:56 Freq: NEEDED Status: Active Protocol: Document 11/14/17 10:34 RCC (Rec: 11/14/17 13:15 RCC [email or web address]) PT-Bed Mobility Assessment Rolling Type of Rolling Log Rolling Roll to Left Level of Assist Moderate Assistance 1 Person Assistance Supine to Sit Supine to Sit Moderate Assistance 1 Person Assistance Scooting Scooting to Edge of Bed Contact Guard Assistance PT-Transfer Assessment Sit to and From Stand Sit to and from Stand Minimal Assistance 1 Person Assistance Equipment Transfer Assistive Device Gait Belt Front Wheeled Walker Transfers Transfer Destination Chair Transfer Technique Stand Step Pivot Transfer Ability Level of Assist Minimal Assistance 1 Person Assistance Comments Mobility Comments Wide FWW given to pt. Gait Assessment Gait Gait Assistance Required: Minimum Assistance Distance (Feet) (feet) 25 Assistive Devices Assistive Device Front Wheeled Walker Gait Deviations General Gait Pattern Antalgic Decreased Stride Length Decreased Feet Clearance Flexed Trunk Step-to Gait Wide Based Gait Factors Limiting Gait Function Factors Limiting Gait Function Decreased Activity Tolerance Decreased Strength Pain Poor Balance Poor Safety Awareness Comments Gait Comments Slow paced gait, B LE ER and VC for upright posture continuously throughout session. PT-Balance Assessment Sitting Balance and Reactions Static Sitting Balance Ability Good Dynamic Sitting Balance Ability Good Standing Balance and Reactions Static Standing Balance Ability Fair Dynamic Standing Balance Ability Poor Device Used wide FWW M5 PT-IP Objective Assessments Start: 11/12/17 17:56 Freq: NEEDED Status: Active Protocol: Document 11/13/17 12:50 RCC (Rec: 11/13/17 12:59 RCC [id number]) Orientation Orientation/Cognition Level of Alertness Alert M6 PT-IP Treatment Start: 11/12/17 17:56 Freq: NEEDED Status: Active Protocol: Document 11/14/17 10:34 RCC (Rec: 11/14/17 13:15 RCC [email or web address]) Physical Therapy Treatment Education Education Provided Precautions Safety M7 PT-IP Assessment and Plan Start: 11/12/17 17:56 Freq: NEEDED Status: Active Protocol: Document 11/14/17 10:34 RCC (Rec: 11/14/17 13:15 RCC [email or web address]) PT Summary Assessment and Plan Summary Progress Towards Goals Slow Progress due to Pain Slow Progress due to Activity Tolerance Assessment Summary Pt with slight improvement with tolerance to gait, but still significantly slow paced and multiple standing rest breaks required. Pt seems to have had a fair response to dexamethasone and oral medications, and more alert. Pt is still well below a safe functional level to recommend home d/c, as he requires assistance with all mobility and cannot ambulate safe household distances. He is very motivated and would greatly benefit from the continuation of skilled physical therapy treatment to continue to progress. Pt likely will not be safe to d/c home this date or tomorrow, and if he does not meet established physical therapy goals it would be ideal for him to d/c to SNF rehabilitation to get to a safe level of mobility to promote a safe d/c, decrease fall risk and risk for further injury or damage to surgical repair. Goals Bed Mobility Goal Independent Transfer Goal Independent Four Wheeled Walker Gait Goal Independent Four Wheel Walker Gait Distance 150ft Other Goals Up/down 1 step without rail indep Days to Meet Goals 4 Frequency of Treatment Frequency Of Treatment Twice a Day Treatment Plan Physical Therapy Treatment Plan Bed Mobility Training Transfer Training Gait Training Therapeutic Exercise Balance Retraining Discharge Planning Hot or Cold Pack Other Recommendations and Next Treatment gait, log roll, standing Focus balance. Recommendations To Nursing Amount of Assist Needed 2 Person Assist Discharge Recommendations PT Discharge Recommendations Home SNF Rehab Equipment Needed for Home Before FWW Discharge
[2017-11-14] MEDS: DEXAMETHASONE 4 MG/ML VIAL IV ×2 (13:28→18:11)
--- NOTE | 2017-11-14 14:06 | PT.IPTN ---
Current Diagnoses Spinal stenosis, lumbar region with neurogenic claudication (11/12/17) Unspecified fracture of fifth lumbar vertebra, subsequent encounter for fracture with routine healing (11/12/17) Other specified postprocedural states (11/12/17) Surgery Performed Operation Date: 11/12/17 07:45 Actual Procedures p L5-S1 TLIF (posterior instrumented fusion )W/ Bone Graft - Buddy Tavera MD s L4-L5, L5-S1 Laminectomy - Buddy Tavera MD Physical Therapy Treatment Note M2 PT-IP Current Condition Start: 11/12/17 17:56 Freq: NEEDED Status: Active Protocol: Document 11/14/17 10:34 RCC (Rec: 11/14/17 13:15 RCC [email or web address]) Physical Therapy Current Condition Current Condition Evaluation Date 11/12/17 Treatment Diagnosis TLIF Onset Date 11/12/17 Precautions Lumbar Precautions Log Roll No Twisting Limit Bending Lifting Restriction of 10 lbs Gait Belt above Incisional Area Weight Bearing Status Weight Bearing Status Weight Bear as Tolerated M3 PT-IP Subjective Start: 11/12/17 17:56 Freq: NEEDED Status: Active Protocol: Document 11/14/17 13:20 CLB (Rec: 11/14/17 14:06 CLB [id number]) Subjective Physical Therapy Visit Type Type Treatment Note Visit Start Time 13:20 Visit Stop Time 13:45 Total Visit Minutes 25 Number of DIRECTOR VETERINARY Visits 1 Physical Therapy Visit Comments Patient Comments Pt states he feels like the steroid is helping. Therapy Pain Assessment Pain When Pain Assessed During Mobility Pain Present Pain Present Pain Reported Location Right Lower Leg Intensity 6 Scale Used Numeric (1 - 10) Description Aching Radiating Pain Behaviors Facial Grimacing Wincing Pain Management Techniques Modification of Treatment Timing of Activity with Medications M4 PT-IP Mobility and Gait Start: 11/12/17 17:56 Freq: NEEDED Status: Active Protocol: Document 11/14/17 13:20 CLB (Rec: 11/14/17 14:06 CLB [id number]) PT-Transfer Assessment Sit to and From Stand Sit to and from Stand Minimal Assistance 1 Person Assistance Use of Upper Extremities Equipment Transfer Assistive Device Gait Belt Front Wheeled Walker Transfers Transfer Destination Chair Toilet Transfer Technique ambulated Transfer Ability Level of Assist Minimal Assistance 1 Person Assistance Comments Mobility Comments Pt needs Min A and continues to need VC for posture. He needed CGA for standing balance when using toilet and cues for toilet/chair approach . Gait Assessment Gait Gait Assistance Required: Minimum Assistance Distance (Feet) (feet) 20 Assistive Devices Assistive Device Gait Belt Front Wheeled Walker Gait Deviations General Gait Pattern Antalgic Decreased Stride Length Decreased Feet Clearance Flexed Trunk Step-to Gait Wide Based Gait Factors Limiting Gait Function Factors Limiting Gait Function Decreased Activity Tolerance Decreased Strength Pain Poor Balance Poor Safety Awareness Comments Gait Comments Pt continues to ambulate slowly needing assist with walker and cues for step sequencing. PT-Balance Assessment Sitting Balance and Reactions Static Sitting Balance Ability Good Dynamic Sitting Balance Ability Good Standing Balance and Reactions Static Standing Balance Ability Fair Dynamic Standing Balance Ability Poor Device Used wide FWW M5 PT-IP Objective Assessments Start: 11/12/17 17:56 Freq: NEEDED Status: Active Protocol: Document 11/13/17 12:50 RCC (Rec: 11/13/17 12:59 RCC [id number]) Orientation Orientation/Cognition Level of Alertness Alert M6 PT-IP Treatment Start: 11/12/17 17:56 Freq: NEEDED Status: Active Protocol: Document 11/14/17 10:34 RCC (Rec: 11/14/17 13:15 RCC [email or web address]) Physical Therapy Treatment Education Education Provided Precautions Safety M7 PT-IP Assessment and Plan Start: 11/12/17 17:56 Freq: NEEDED Status: Active Protocol: Document 11/14/17 13:20 CLB (Rec: 11/14/17 14:06 CLB [id number]) PT Summary Assessment and Plan Summary Progress Towards Goals Slow Progress due to Pain Slow Progress due to Activity Tolerance Assessment Summary Pt continues to ambulate slowly needing assist with walker and cues for step sequencing. Pt has poor safety awareness with walker and needed VC's to manuver around doorways and bed. Pt also needs cues to prevent breaking BLT back precautions. Pt would benefit from skilled rehab to increase gait tolerance and endurance and for overall safety before returning home. Goals Bed Mobility Goal Independent Transfer Goal Independent Four Wheeled Walker Gait Goal Independent Four Wheel Walker Gait Distance 150ft Other Goals Up/down 1 step without rail indep Days to Meet Goals 4 Frequency of Treatment Frequency Of Treatment Twice a Day Treatment Plan Physical Therapy Treatment Plan Bed Mobility Training Transfer Training Gait Training Therapeutic Exercise Balance Retraining Discharge Planning Hot or Cold Pack Other Recommendations and Next Treatment gait, log roll, standing Focus balance. Recommendations To Nursing Amount of Assist Needed 2 Person Assist Discharge Recommendations PT Discharge Recommendations Home SNF Rehab Equipment Needed for Home Before FWW Discharge
--- NOTE | 2017-11-14 14:20 | PC.NURSE ---
Pts young cath removed at 1230. Pt has since voided. Given 2 percocet after working with p.t. and pt sitting up in chair. D/cd Dilaudid [employer] ARCHIT[employer] per MD order. Pt is ambulating with walker and doing better. He is still weak but getting to bathroom and after decadron started pt is feeling better. Allergies state that he is allergic to Corticosteroids but pt only gets the hiccups when with steroids and he tolerated iv decadron well, o hiccups. He is resting comfortably at this time.
[2017-11-14 16:19] VITALS: BP 140/84; PULSE 99; RESP 18; TEMP 36.3; O2SAT 93
[2017-11-14] MEDS: hydrOXYzine pamoate 25 MG CAPSULE PO (18:12)
[2017-11-14 20:31] VITALS: BP 154/82; PULSE 84; RESP 18; TEMP 36.4; O2SAT 96
[2017-11-14] MEDS: GABAPENTIN 300 MG CAPSULE PO (20:44)
[2017-11-14] MEDS: SENNOSIDES 8.6 MG TABLET 17.2 MG PO (20:44)
[2017-11-14 23:28] VITALS: BP 153/76; PULSE 77; RESP 18; TEMP 36.8; O2SAT 96
[2017-11-15] MEDS: hydrOXYzine pamoate 25 MG CAPSULE PO ×5 (01:27→21:54)
[2017-11-15] MEDS: OXYCODONE/ACETAMINOPHEN 5/325 TABLET 2 TAB PO (01:28)
[2017-11-15] MEDS: DEXAMETHASONE 4 MG/ML VIAL IV ×2 (01:28→06:29)
--- NOTE | 2017-11-15 05:19 | PC.NURSE ---
Addendum entered by Irene Mack R.N. 11/15/17 07:04: 0630- dressing changed to back. (silver dollar sized drainage spot to dressing.) Original Note: Assumed care of pt from outgoing shift at 2300 6-10. pt asleep, rr regular on cpap. no distress at this time. bed in lowest, locked position . belongings and call light within reach. bed alarm on. side rails up x4 at pt request/ for pt safety. will continue to monitor pt for safety. 0115 update- assessment completed and charted, pt complains of pain and medication given per AUG. pt alert and oriented. pt able to log roll. denies further needs at this time. will continue to monitor pt for safety.
[2017-11-15 05:38] VITALS: BP 137/80; PULSE 67; RESP 19; TEMP 36.3; O2SAT 98
[2017-11-15] MEDS: OXYCODONE/ACETAMINOPHEN 5/325 TABLET 1 TAB PO ×4 (06:29→21:54)
[2017-11-15] MEDS: SODIUM CHLORIDE 0.9% FLUSH 10 ML IV ×3 (06:30→21:54)
[2017-11-15 07:30] VITALS: BP 142/89; PULSE 84; RESP 16; TEMP 36.6; O2SAT 99
--- NOTE | 2017-11-15 07:37 | P.DS_ITS ---
History of Present Illness Date Patient Seen: 11/15/17 Time Patient Seen: 07:20 Chief complaint: L551 TLIF w/bone graft L45 and L5S1 see col notes Narrative: Patient admitted 11/12/2017 status post the above procedure. He is postop day 3. He feels that his pain is better controlled now. He is voiding and had a bowel movement yesterday. He is still not stable enough to be discharged home and will go to a SNF instead. Discharge Providers Date of admission: 11/12/17 06:32 Primary care physician: Franco Damon MD Consults: 11/12/17 14:35 Consult to Discharge Planning Routine Comment: Consult to Occupational Therapy Evaluate & Treat Comment: Physician Instructions: Evaluate and treat Consult to Physical Therapy Evaluate & Treat Comment: Physician Instructions: Evaluate and Treat 11/12/17 16:23 Consult to Dietitian, Adult Routine Comment: Reason For Exam: Recent 30 pound weight loss per pt since September 05 Discharge provider: Maci Avila PA-C Summary Discharge Diagnosis: Patient admitted 11/12/2017 status post the above procedure. He is postop day 3. He feels that his pain is better controlled now. He is voiding and had a bowel movement yesterday. He is still not stable enough to be discharged home and will go to a SNF instead. Exam Vital Signs (past 8 hours): Vital Signs - 8 hr 3 11/15/17 05:38 Temperature 97.3 F L Pulse Rate 67 Respiratory Rate 19 Blood Pressure 137/80 H Pulse Oximetry 98 Pulse Oximetry 98 Oxygen Delivery Method Room Air Oxygen Flow Rate 0 Narrative Exam Narrative: Patient is well-developed well-nourished in no acute distress. Patient is oriented x3. Exam of patient's dressing is clean dry and intact, calves are soft and nontender. He is neurovascularly intact in both lower extremities. Respirations are normal and extremities are well perfused. Objective Labs Result Diagrams: 11/13/17 05:36 11/13/17 05:36 Discharge Plan Discharge Plan Patient Disposition: SNF Transfer to: [facility] Transportation: Facility vehicle I certify the postop hospital nursing home care is medically necessary on a continuing basis for any conditions for which he/ she received care during this hospitalization.: Yes The receiving facility has agreed to accept transfer and provide medical treatment.: Yes Discharge Med Rec/Prescriptions Prescriptions: New gabapentin [Neurontin] 300 mg Capsule 300 mg PO BEDTIME Qty: 30 RF: 0 hydroxyzine pamoate 25 mg Capsule 25 mg PO Q4HR PRN (Reason: muscle spasms) Qty: 60 RF: 0 oxycodone 10 mg tablet 10 mg PO Q4-6H PRN (Reason: pain) Qty: 60 RF: 0 Continue MULTIVITAMIN (#MULTIPLE VITAMINS) 1 cap PO Q DAY Qty: 0 RF: 0 Flaxseed Oil (#FLAXSEED OIL) 2 tab PO BID Qty: 0 RF: 0 lisinopril [Prinivil] 20 MG tablet 20 mg PO Q DAY Qty: 90 RF: 3 clotrimazole-betamethasone [Lotrisone] 15 GM cream 1 cre TP BID Qty: 45 RF: 3 aspirin 81 mg Tablet,Delayed Release (Dr/Ec) 81 mg PO DAILY RF: 0 oxycodone-acetaminophen 7.5-325 mg tablet 1 - 2 tab PO Q6HR PRN (Reason: pain) RF: 0 Discontinued oxycodone-acetaminophen [Percocet] 5 MG/325 MG tablet 1 - 2 tab PO Q4HP PRNQty: 20 RF: 0 oxycodone-acetaminophen 7.5 MG/325 MG tablet 1 - 2 tab PO Q6HP PRNQty: 20 RF: 0 oxycodone-acetaminophen 5-325 mg tablet 1 - 2 tab PO Q4H PRN (Reason: Pain, Severe) RF: 0 oxycodone-acetaminophen 5-325 mg tablet 1 - 2 tab PO Q4H PRN (Reason: Pain, Severe) RF: 0 oxycodone-acetaminophen 5-325 mg tablet 1 - 2 tab PO Q4HR PRN (Reason: Pain, Severe) RF: 0 Follow up/Referrals: Franco Damon MD [Primary Care Provider] - (appt: Follow up in 2 weeks' time at regularly scheduled post-op appointment.) Provider Discharge Instructions Diet: Diet as Tolerated Activity: WBAT, walk once an hour, no lifting greater than 20 lbs Cold/Heat Therapy: Apply ice to incision site as needed Wound Care Report to your healthcare provider any signs of infection, such as:: chills, fever and night sweats Dressing: Keep dressing clean, dry and intact. Do not remove. Special Rehabilitation Services Reason for rehabilitation: Post-operative therapy Rehab type: Physical therapy and Occupational therapy Visit Report/Discharge Packet Instructions: DI for Transforaminal Lumbar Interbody Fusion Visit Report Forms: Stroke Signs & Symptoms Discharge Data Primary Care Provider: Franco Damon Attending Provider: Buddy Tavera Admit Date/Time: 11/12/17 06:32 Quality VTE Deep Vein Thrombosis/Pulmonary Embolism Present on Admission: No
[2017-11-15 08:23] VITALS: BP 142/89; PULSE 84
[2017-11-15] MEDS: DOCUSATE 100 MG CAPSULE PO ×2 (08:23→21:53)
[2017-11-15] MEDS: ASPIRIN EC 81 MG TABLET PO (08:23)
[2017-11-15] MEDS: LISINOPRIL 20 MG TABLET PO (08:23)
[2017-11-15] MEDS: MULTIVIT,CALC,MINS/IRON/FOLIC 1 TABLET 1 TAB PO (08:23)
[2017-11-15] MEDS: NEO/POLYMIX B/DEX OPHTH SUSP 1 DROPS EYE-BOTH ×3 (08:29→21:54)
--- NOTE | 2017-11-15 08:29 | CM.DPNOTE ---
SNF/Planning: PT and OT both recommending SNF. Met with patient. Patient is certain he will require a SNF and would like SW to initiate SNF auth. Patient provided with [facility] SNF choice and would like [facility] to review for acceptance. SW asked admin to fax SNF auth packet to [facility]. Called and left voicemail for [facility] to review patient for acceptance. Plan: SNF. SW to work on SNF auth with [place], follow up with [facility] for acceptance and complete PASRR.
--- NOTE | 2017-11-15 10:36 | P.PN_ITS ---
Subjective Date Patient Seen: 11/15/17 Time Patient Seen: 10:33 Interval history: Hospital day 4, postop day 3 following L4-5, L5-S1 laminectomy by Dr. Tavera. Patient apparently initially thought he might be able to go home but he is having continued right leg pain and difficulty with transferring from bed to chair. Having difficulty with ambulation needing assist. The patient is at home alone and does not have anyone to help him at this time. PT and OT both feel patient would benefit from short stay at SNF. He did note some improvement with prednisone given yesterday. Exam Vital Signs (past 8 hours): Vital Signs - 8 hr 3 11/15/17 05:38 11/15/17 07:30 11/15/17 08:23 Temperature 97.3 F L 97.8 F Pulse Rate 67 84 84 Respiratory Rate 19 16 Blood Pressure 137/80 H 142/89 H 142/89 H Pulse Oximetry 98 99 Pulse Oximetry 99 Oxygen Delivery Method Room Air Oxygen Flow Rate 0 Narrative Exam Narrative: Alert, oriented and no acute distress sitting in chair complaining of low back and right leg pain. The back. Dressing to lumbar area is dry without drainage or inflammation. Legs. No calf pain or swelling. Pulses symmetrical. Good sensation to touch to the lower legs. Good strength on foot dorsiflexion plantar flexion. Objective Labs Result Diagrams: 11/13/17 05:36 11/13/17 05:36 Assessment & Plan Post-op Postoperative Procedures Operation Date: 11/12/17 07:45 Actual Procedures Side Surgeon p L5-S1 TLIF (posterior instrumented fusion )W/ Bone Graft Buddy Tavera MD s L4-L5, L5-S1 Laminectomy Buddy Tavera MD Assessment: Status post L4-5, L5-S1 laminectomy, L5-S1 TLIF. Plan: I had the patient would benefit from few days of stay at SNF prior to going home as he is not a completely stable and still needing some assist with transfers and ambulation. He is alone at home at this time. Others fall risk involved. Await authorization from insurance. Time Spent With Patient less than 15 minutes Quality VTE Deep Vein Thrombosis/Pulmonary Embolism Present on Admission: No
[2017-11-15 11:00] VITALS: BP 150/82; PULSE 76; RESP 16; TEMP 36.5; O2SAT 100
--- NOTE | 2017-11-15 11:20 | OT.IP.TRT ---
Current Diagnoses Spinal stenosis, lumbar region with neurogenic claudication (11/12/17) Unspecified fracture of fifth lumbar vertebra, subsequent encounter for fracture with routine healing (11/12/17) Other specified postprocedural states (11/12/17) Surgery Performed Operation Date: 11/12/17 07:45 Actual Procedures p L5-S1 TLIF (posterior instrumented fusion )W/ Bone Graft - Buddy Tavrea MD s L4-L5, L5-S1 Laminectomy - Buddy Tavera MD Occupational Therapy Treatment Note M2 OT-IP Current Condition Start: 11/13/17 14:48 Freq: Status: Active Protocol: Document 11/13/17 12:30 [facility] (Rec: 11/13/17 15:02 [facility] [email or web address]) Occupational Therapy Current Condition Post Operative Precautions Lumbar Precautions Log Roll No Twisting Limit Bending Lifting Restriction of 10 lbs Gait Belt above Incisional Area Weight Bearing Status Weight Bearing Status Weight Bear as Tolerated M3 OT- IP Subjective and Pain Start: 11/13/17 14:48 Freq: Status: Active Protocol: Document 11/15/17 09:15 [facility] (Rec: 11/15/17 11:19 [facility] [email or web address]) OT- Subjective Occupational Therapy Visit Type Type Treatment Note Visit Start Time 09:15 Visit Stop Time 10:45 Total Visit Minutes 90 Occupational Therapy Visit Comments Patient Comments Pt agreeable to get up to shower and brush his teeth. OT Pain Assessment Pain When Pain Assessed During Mobility Pain Present Pain Present Pain Reported Location Right Lower Leg Intensity 6 Scale Used Numeric (1 - 10) Description Shooting Pain Behaviors Facial Grimacing Management Techniques Apply Cold Re-positioning M4 OT- IP ADL's Start: 11/13/17 14:48 Freq: Status: Active Protocol: Document 11/15/17 09:15 [facility] (Rec: 11/15/17 11:19 [facility] [email or web address]) OT ADL-Grooming General Evaluation Grooming Ability Contact Guard Assistance Areas Needing Assistance Retrieving/Set-up of Grooming Items Comments OT Grooming Comments Pt needing vc to keep FWW in front of him as trying to place walker to the left of himself. CGA for balance when letting go of FWW and counter for grooming needs. OT ADL-Oral Care General Eval Oral Care Ability Independent Standby Assistance Comments Oral Care Comments SBA for balance otherwise independent. OT ADL-Dressing General Eval Upper Body Dressing Ability Standby Assistance Lower Body Dressing Ability Moderate Assistance Areas Needing Assistance Underpants/Brief Socks Assistive Devices Dressing Assistive Devices Clinical Support Associate Sock Aid Comments OT Dressing Comments Pt needing MOD vc to use AED for LB dressing as trying to bend over to get his foot in, had to assist MODA for brief and CGA for balance while standing to pull up brief over his hips. Per pt able to comfortable cross his left foot to mecca the socks , however recommneded to use socks aid. Assist had to be given for right foot as pt's foot too wide for sock aid. Pt states has a wider sock aid at home. OT ADL-Toileting General Evaluation Toileting Ability Moderate Assistance Areas Needing Assistance Perform Perineal Hygiene Devices Toileting Assistive Devices Grab Bars Comments OT Toileting Comments Per Pt aid had to assist for pericare needs. Pt heavy use of grab brs and vc not to twist. OT ADL-Bathing Bathing Type Bathing Type Shower General Evaluation Bathing Ability Moderate Assistance Areas Needing Assistance Retrieving/Setting Up Items Wash/Dry Back Wash/Dry Lower Extremities Devices Bathing Equipment Long Handled Sponge or Napoleon Shower Chair with Arms Grab Bars Comments OT Bathing Comments Pt not able to reach to get his feet and also needing assist for his back. Pt needs MOD vc to remember not to bend down or twist while showering while sitting. M6 OT- IP Functional Cognition Start: 11/13/17 14:48 Freq: Status: Active Protocol: Document 11/15/17 09:15 [facility] (Rec: 11/15/17 11:19 [facility] [email or web address]) Cognitive Factors Limiting Selfcare Function Cognitive Ability Level of Alertness Alert Patient Orientation Name Age Birthday Month Date Year Day of Week Place Situation Attention Span Ability Capable of Focused Attention Capable of Sustained Attention Ability to Follow Commands Able to Follow Multi-Step Commands Memory Description Immediate Intact Short Term Intact Short Term Impaired Halfway Intact Working Impaired Safety Awareness Decreased Ability to Apply Precautions Underestimates Need for Assistance Cognitive Comments Cognitive Assessment Comments Pt able to recall back precautions, but having trouble inicorporating during ADL needs and needs MOD vc to correct him. M7 OT- IP Mobility and Balance Start: 11/13/17 14:48 Freq: Status: Active Protocol: Document 11/15/17 09:15 [facility] (Rec: 11/15/17 11:19 [facility] [email or web address]) OT- Bed Mobility Assessment Rolling Type of Rolling Roll to Right Supine to Sit Supine to Sit Assist Moderate Assistance Sit to Supine Sit to Supine Assist Moderate Assistance OT-Transfer Assessment Sit to and From Stand Sit to and from Stand Minimal Assistance Transfers Transfer Ability Contact Guard Assistance Minimal Assistance Technique Transfer Destination Bed Chair Shower Stall Toilet Transfer Technique Stand Step Pivot Devices Transfer Assistive Devices Front Wheeled Walker Comments Mobility Comments Pt continues to need MAX A vc for safety of log roll and hands on assist of MODA to guide him throught the sequence and to be sure pt not twisting. Pt has trouble coming up and going do from sidelying and needs physical assist. Pt also needing vc to place one hand on surface sitting up from as pt tends to pull on FWW or heavily lean onto FWW to sit when in a fall risk. OT- Balance Assessment Sitting Balance and Reactions Static Sitting Balance Ability Normal Dynamic Sitting Balance Ability Normal Standing Balance and Reactions Static Standing Balance Ability Good Dynamic Standing Balance Ability Fair M8 OT- IP Objective Assessments Start: 11/13/17 14:48 Freq: Status: Active Protocol: Document 11/13/17 12:30 [facility] (Rec: 11/13/17 15:02 [facility] [email or web address]) OT Gross Range of Motion Upper Extremity Range of Motion ROM Impairments WFL OT Strength Comments Strength Comments WFL M9 OT- IP Assessment and Plan Start: 11/13/17 14:48 Freq: Status: Active Protocol: Document 11/15/17 09:15 [facility] (Rec: 11/15/17 11:19 [facility] [email or web address]) OT Summary Assessment and Plan Potential Rehabilitation Potential Excellent Analytic Complexity at Evaluation Low Summary OT Impairments Pain Balance Functional Cognition Functional Mobility Dressing Toileting Bathing Progress Towards Goals Slow Progress due to Pain Slow Progress due to Cognition Assessment Summary At this time pt continues to need MODA for bed mobility and MOD to MAX vc for safety for back precautions during ADl and functional mobility needs. Pt would benefit from short rehab stay to continue to practice with safety and incorporation of back precautions for needs as pt is a high fall risk at this time . Goals Grooming Goal Standby Assistance Dressing Goal Standby Assistance Toileting Goal Standby Assistance Bathing Goal Minimal Assistance Toilet Transfer Goal Standby Assistance Shower Transfer Goal Contact Guard Assistance Patient/Caregiver Education Goal Caregiver Independent Assisting Patient Days to Meet Goals 5 Frequency of Treatment Frequency Of Treatment Once a Day Treatment Plan OT Treatment Plan ADL Training Functional Cognition Training Functional Mobility Patient/Family Education Discharge Planning Discharge Recommendations OT Discharge Recommendations SNF Rehab Other Discharge Recommendations At this time pt would need assist at all times or would benefit from short skilled rehab to improve ADl and functional mobility needs to MOD I. Home Equipment Needs Pt has all AED at home.
[2017-11-15 16:10] VITALS: BP 168/87; PULSE 73; RESP 18; TEMP 37.2; O2SAT 99
[2017-11-15 20:00] VITALS: BP 142/74; PULSE 71; RESP 16; TEMP 36.8; O2SAT 96
[2017-11-15] MEDS: GABAPENTIN 300 MG CAPSULE PO (21:53)
[2017-11-15] MEDS: SENNOSIDES 8.6 MG TABLET 17.2 MG PO (21:54)
--- NOTE | 2017-11-15 22:49 | PC.NURSE ---
Evening Shift Note A&O, VSS, 96% on RA, CMS intact. Percocet/Vistaril for pain. Up w/ SBA/FWW to bathroom. Dressing intact w/ old drainage. L H PIV SL. DC to rehab tomorrow.
[2017-11-16 01:41] VITALS: BP 146/79; PULSE 68; RESP 18; TEMP 36.6; O2SAT 99
[2017-11-16] MEDS: OXYCODONE/ACETAMINOPHEN 5/325 TABLET 1 TAB PO ×2 (01:52→06:02)
[2017-11-16] MEDS: hydrOXYzine pamoate 25 MG CAPSULE PO ×4 (01:52→21:27)
[2017-11-16 06:03] VITALS: BP 140/69; PULSE 62; RESP 18; TEMP 36.6; O2SAT 98
--- NOTE | 2017-11-16 07:48 | P.PN_ITS ---
Subjective Date Patient Seen: 11/16/17 Time Patient Seen: 07:47 Interval history: He is about 50% better after the steroid medication. Able to get up and move to the bathroom but still requiring assistance up and down the halls. Exam Vital Signs (past 8 hours): Vital Signs - 8 hr 3 11/16/17 01:41 11/16/17 06:03 Temperature 97.8 F 97.8 F Pulse Rate 68 62 Respiratory Rate 18 18 Blood Pressure 146/79 H 140/69 H Pulse Oximetry 99 98 Pulse Oximetry 98 Oxygen Delivery Method Room Air Oxygen Flow Rate 0 Back/Spine/Pelvis Other: Minimal dry drainage. 5/5 motor in both lower extremities Objective Labs Result Diagrams: 11/13/17 05:36 11/13/17 05:36 Assessment & Plan Post-op Postoperative Procedures Operation Date: 11/12/17 07:45 Actual Procedures Side Surgeon p L5-S1 TLIF (posterior instrumented fusion )W/ Bone Graft Buddy Tavera MD s L4-L5, L5-S1 Laminectomy Buddy Tavera MD he is doing much better. I think he should be fine for discharge to SNF today. Time Spent With Patient less than 15 minutes Quality VTE Deep Vein Thrombosis/Pulmonary Embolism Present on Admission: No
[2017-11-16 07:50] VITALS: BP 157/87; PULSE 62; RESP 20; TEMP 36.5
[2017-11-16] MEDS: DOCUSATE 100 MG CAPSULE PO (09:15)
[2017-11-16] MEDS: NEO/POLYMIX B/DEX OPHTH SUSP 1 DROPS EYE-BOTH ×2 (09:15→15:00)
[2017-11-16] MEDS: LISINOPRIL 20 MG TABLET PO (09:15)
[2017-11-16] MEDS: MULTIVIT,CALC,MINS/IRON/FOLIC 1 TABLET 1 TAB PO (09:15)
[2017-11-16] MEDS: ASPIRIN EC 81 MG TABLET PO (09:16)
--- NOTE | 2017-11-16 10:10 | PT.IPTN ---
Current Diagnoses Spinal stenosis, lumbar region with neurogenic claudication (11/12/17) Unspecified fracture of fifth lumbar vertebra, subsequent encounter for fracture with routine healing (11/12/17) Other specified postprocedural states (11/12/17) Surgery Performed Operation Date: 11/12/17 07:45 Actual Procedures p L5-S1 TLIF (posterior instrumented fusion )W/ Bone Graft - Buddy Tavera MD s L4-L5, L5-S1 Laminectomy - Buddy Tavera MD Physical Therapy Treatment Note M2 PT-IP Current Condition Start: 11/12/17 17:56 Freq: NEEDED Status: Active Protocol: Document 11/14/17 10:34 [facility] (Rec: 11/14/17 13:15 [facility] [email or web address]) Physical Therapy Current Condition Current Condition Evaluation Date 11/12/17 Treatment Diagnosis TLIF Onset Date 11/12/17 Precautions Lumbar Precautions Log Roll No Twisting Limit Bending Lifting Restriction of 10 lbs Gait Belt above Incisional Area Weight Bearing Status Weight Bearing Status Weight Bear as Tolerated M3 PT-IP Subjective Start: 11/12/17 17:56 Freq: NEEDED Status: Active Protocol: Document 11/15/17 09:25 [facility] (Rec: 11/15/17 10:18 [facility] [email or web address]) Subjective Physical Therapy Visit Type Type Treatment Note Visit Start Time 09:25 Visit Stop Time 09:52 Total Visit Minutes 27 Number of EARLY CHILDHOOD EDUCATION SPECIALIST Visits 2 Physical Therapy Visit Comments Patient Comments Pt states he is still having pain from his buttocks to the arch of his foot especially with ambulation and bed mobility. Therapy Pain Assessment Pain When Pain Assessed During Mobility Pain Present Pain Present Pain Reported Location Right Lower Leg Intensity 6 Scale Used Numeric (1 - 10) Description Radiating Sharp Pain Behaviors Facial Grimacing Holding Area Wincing Pain Management Techniques Modification of Treatment Timing of Activity with Medications M4 PT-IP Mobility and Gait Start: 11/12/17 17:56 Freq: NEEDED Status: Active Protocol: Document 11/15/17 09:25 [facility] (Rec: 11/15/17 10:18 [facility] [email or web address]) PT-Bed Mobility Assessment Rolling Type of Rolling Log Rolling Level of Assist Moderate Assistance 1 Person Assistance Supine to Sit Supine to Sit Moderate Assistance 1 Person Assistance Sit to Supine Sit to Supine Moderate Assistance 1 Person Assistance PT-Transfer Assessment Sit to and From Stand Sit to and from Stand Contact Guard Assistance 1 Person Assistance Use of Upper Extremities Transfers Transfer Destination Bed Chair Transfer Technique ambulated Transfer Ability Level of Assist Moderate Assistance 1 Person Assistance Use of Upper Extremities Comments Mobility Comments Pt needs Mod A for bed mobility and Max verbal cues for sequencing log roll and to prevent breaking back precautions. Gait Assessment Gait Gait Assistance Required: Contact Guard Assist 1 Person Assist Distance (Feet) (feet) 130 Assistive Devices Assistive Device Gait Belt Front Wheeled Walker Gait Deviations General Gait Pattern Antalgic Decreased Stride Length Decreased Feet Clearance Flexed Trunk Step-to Gait Comments Gait Comments Pt increased ambulation w/CGA but needed VC for walker use, step sequencing and posture for safety. Pt needed rest breaks during gait due to increased shooting pain in RLE . PT-Balance Assessment Sitting Balance and Reactions Static Sitting Balance Ability Good Dynamic Sitting Balance Ability Good Standing Balance and Reactions Static Standing Balance Ability Fair Dynamic Standing Balance Ability Poor Device Used wide FWW M5 PT-IP Objective Assessments Start: 11/12/17 17:56 Freq: NEEDED Status: Active Protocol: Document 11/13/17 12:50 [facility] (Rec: 11/13/17 12:59 [facility] [id number]) Orientation Orientation/Cognition Level of Alertness Alert M6 PT-IP Treatment Start: 11/12/17 17:56 Freq: NEEDED Status: Active Protocol: Document 11/14/17 10:34 [facility] (Rec: 11/14/17 13:15 [facility] [email or web address]) Physical Therapy Treatment Education Education Provided Precautions Safety M7 PT-IP Assessment and Plan Start: 11/12/17 17:56 Freq: NEEDED Status: Active Protocol: Document 11/15/17 09:25 [facility] (Rec: 11/15/17 10:18 [facility] [email or web address]) PT Summary Assessment and Plan Summary Progress Towards Goals Slow Progress due to Pain Slow Progress due to Activity Tolerance Assessment Summary Pt continues to need Mod A for bed mobility with Max cues for sequencing log roll to prevent breaking back precautions. Pt needs cues for safety when ambulating and CGA for balance due to pain in RLE. Pt would benefit from skilled rehab to increase activity tolerance, endurance and safety. Goals Bed Mobility Goal Independent Transfer Goal Independent Four Wheeled Walker Gait Goal Independent Four Wheel Walker Gait Distance 150ft Other Goals Up/down 1 step without rail indep Days to Meet Goals 4 Frequency of Treatment Frequency Of Treatment Twice a Day Treatment Plan Physical Therapy Treatment Plan Bed Mobility Training Transfer Training Gait Training Therapeutic Exercise Balance Retraining Discharge Planning Hot or Cold Pack Recommendations To Nursing Amount of Assist Needed 1 Person Assist Discharge Recommendations PT Discharge Recommendations SNF Rehab Equipment Needed for Home Before FWW Discharge
[2017-11-16 11:00] VITALS: BP 143/87; PULSE 71; RESP 18; TEMP 36.6; O2SAT 99
[2017-11-16] MEDS: OXYCODONE/ACETAMINOPHEN 5/325 TABLET 2 TAB PO ×3 (12:03→21:26)
[2017-11-16 15:40] VITALS: BP 129/78; PULSE 65; RESP 18; TEMP 36.7; O2SAT 99
--- NOTE | 2017-11-16 15:54 | CM.DPC ---
DCP Cont: Per PT/OT, recommending SNF rehab at d/c before safe return home alone. RONNA spoke to David Fonseca CM for the pt, and she confirmed that they received updated clinicals and their Physician would be reviewing for SNF auth. SW updated the pt and he is aware that [facility] has not auth'd SNF yet. Pt stated he would only go to [facility] due to location and that if [facility] was not an option then he had a brother, neighbors, and some friends who could assist in his home if needed and his kids would take care of pt's spouse who has Parkinsons. RONNA received call back from Marian at [facility] stating pt's SNF auth was denied and Marian called pt with update and pt decision is to appeal. Marian provided SW with the appeal process information and phone number and RONNA met bedside with pt and supported him in calling the appeal line with [facility] and Marian's phone number for the pt. The appeal process has begun and could take up to 72 hours for determination. SW updated RN, PT/OT, and could not reach MD/PA for update on SNF denial and appeal process. Plan: SW to follow closely in the morning to determine appeal process outcome vs pt progressing enough to return home with family/friend support. JOON Orr
--- NOTE | 2017-11-16 16:00 | OT.IP.TRT ---
Current Diagnoses Spinal stenosis, lumbar region with neurogenic claudication (11/12/17) Unspecified fracture of fifth lumbar vertebra, subsequent encounter for fracture with routine healing (11/12/17) Other specified postprocedural states (11/12/17) Surgery Performed Operation Date: 11/12/17 07:45 Actual Procedures p L5-S1 TLIF (posterior instrumented fusion )W/ Bone Graft - Buddy Tavera MD s L4-L5, L5-S1 Laminectomy - Buddy Tavera MD Occupational Therapy Treatment Note M2 OT-IP Current Condition Start: 11/13/17 14:48 Freq: Status: Active Protocol: Document 11/13/17 12:30 [facility] (Rec: 11/13/17 15:02 [facility] [email or web address]) Occupational Therapy Current Condition Post Operative Precautions Lumbar Precautions Log Roll No Twisting Limit Bending Lifting Restriction of 10 lbs Gait Belt above Incisional Area Weight Bearing Status Weight Bearing Status Weight Bear as Tolerated M3 OT- IP Subjective and Pain Start: 11/13/17 14:48 Freq: Status: Active Protocol: Document 11/16/17 11:52 [facility] (Rec: 11/16/17 16:00 [facility] [id number]) OT- Subjective Occupational Therapy Visit Type Type Treatment Note Visit Start Time 11:13 Visit Stop Time 11:52 Total Visit Minutes 39 Occupational Therapy Visit Comments Patient Comments I hope my pain will get better now. OT Pain Assessment Pain When Pain Assessed After Treatment Pain Present Pain Present Pain Reported Location Right Lower Leg Intensity 4 Scale Used Numeric (1 - 10) Description Acute M4 OT- IP ADL's Start: 11/13/17 14:48 Freq: Status: Active Protocol: Document 11/16/17 11:52 [facility] (Rec: 11/16/17 16:00 [facility] [id number]) OT [id number] General Evaluation Self-Feeding Ability Independent OT ADL-Dressing General Eval Lower Body Dressing Ability Standby Assistance Areas Needing Assistance Pants/Shorts Socks Assistive Devices Dressing Assistive Devices Oriental Rug Repairer Sock Aid Comments OT Dressing Comments Pt familiar with mine patrol and sock aid use from previous back surgeries. Trial of wide sock aid successful today and pt able to don and doff socks with SBA and min cues for use of new AED. Pt has long shoe horn at home and wears slip on shoes. Provided resource info for wide sock aid. OT ADL-Toileting Devices Toileting Assistive Devices Toilet Paper Aid Comments OT Toileting Comments Provided education and resource information for 2 types of toilet paper aid and provided education re: body mechanics during toileting. OT ADL-Bathing Comments OT Bathing Comments Pt has long bath sponge at home. M6 OT- IP Functional Cognition Start: 11/13/17 14:48 Freq: Status: Active Protocol: Document 11/16/17 11:52 [facility] (Rec: 11/16/17 16:00 [facility] [id number]) Cognitive Factors Limiting Selfcare Function Cognitive Ability Level of Alertness Alert Cognitive Comments Cognitive Assessment Comments Pt very verbal and needs cues to direct attention to task. Pt recalls 3/3 spine precautions. M7 OT- IP Mobility and Balance Start: 11/13/17 14:48 Freq: Status: Active Protocol: Document 11/15/17 09:15 [facility] (Rec: 11/15/17 11:19 [facility] [email or web address]) OT- Bed Mobility Assessment Rolling Type of Rolling Roll to Right Supine to Sit Supine to Sit Assist Moderate Assistance Sit to Supine Sit to Supine Assist Moderate Assistance OT-Transfer Assessment Sit to and From Stand Sit to and from Stand Minimal Assistance Transfers Transfer Ability Contact Guard Assistance Minimal Assistance Technique Transfer Destination Bed Chair Shower Stall Toilet Transfer Technique Stand Step Pivot Devices Transfer Assistive Devices Front Wheeled Walker Comments Mobility Comments Pt continues to need MAX A vc for safety of log roll and hands on assist of MODA to guide him throught the sequence and to be sure pt not twisting. Pt has trouble coming up and going do from sidelying and needs physical assist. Pt also needing vc to place one hand on surface sitting up from as pt tends to pull on FWW or heavily lean onto FWW to sit when in a fall risk. OT- Balance Assessment Sitting Balance and Reactions Static Sitting Balance Ability Normal Dynamic Sitting Balance Ability Normal Standing Balance and Reactions Static Standing Balance Ability Good Dynamic Standing Balance Ability Fair M8 OT- IP Objective Assessments Start: 11/13/17 14:48 Freq: Status: Active Protocol: Document 11/13/17 12:30 [facility] (Rec: 11/13/17 15:02 [facility] [email or web address]) OT Gross Range of Motion Upper Extremity Range of Motion ROM Impairments WFL OT Strength Comments Strength Comments WFL M9 OT- IP Assessment and Plan Start: 11/13/17 14:48 Freq: Status: Active Protocol: Document 11/16/17 11:52 [facility] (Rec: 11/16/17 16:00 [facility] [id number]) OT Summary Assessment and Plan Potential Rehabilitation Potential Excellent Summary OT Impairments Pain Progress Towards Goals Progressing Toward Goals Assessment Summary Pt familiar with lower body dressing AED from previous back surgery but has not used recently. He will benefit from further practice to achieve modified independence. Pt has decreased activity tolerance due to current pain level. Note pt's has Parkinson's and cannot provide any assist to pt at home. Pt needs to be independent with all self care and functional mobility/ transfers to return home. Pt does have paid caregiver who can assist with IADLS 1-2x week. Goals Grooming Goal Independent Dressing Goal Independent Long Handled Shoe Horn Oriental Rug Repairer Sock Aid Toileting Goal Independent Toilet Paper Aid Bathing Goal Independent Grab Bars Hand Held Shower Sprayer Long Handled Sponge or Venus Toilet Transfer Goal Independent ADA High Toilet Shower Transfer Goal Independent Shower Chair Grab Bars Patient/Caregiver Education Goal Demonstrate Post-Op Precautions Demonstrate Energy Conservation and Pacing Days to Meet Goals 4 Frequency of Treatment Frequency Of Treatment Once a Day Treatment Plan OT Treatment Plan ADL Training Functional Cognition Training Functional Mobility Patient/Family Education Discharge Planning Discharge Recommendations OT Discharge Recommendations Home with / Assist vs. SNF Rehab
--- NOTE | 2017-11-16 16:35 | PT.IPTN ---
Current Diagnoses Spinal stenosis, lumbar region with neurogenic claudication (11/12/17) Unspecified fracture of fifth lumbar vertebra, subsequent encounter for fracture with routine healing (11/12/17) Other specified postprocedural states (11/12/17) Surgery Performed Operation Date: 11/12/17 07:45 Actual Procedures p L5-S1 TLIF (posterior instrumented fusion )W/ Bone Graft - Buddy Tavera MD s L4-L5, L5-S1 Laminectomy - Buddy Tavera MD Physical Therapy Treatment Note M2 PT-IP Current Condition Start: 11/12/17 17:56 Freq: NEEDED Status: Active Protocol: Document 11/14/17 10:34 [facility] (Rec: 11/14/17 13:15 [facility] [email or web address]) Physical Therapy Current Condition Current Condition Evaluation Date 11/12/17 Treatment Diagnosis TLIF Onset Date 11/12/17 Precautions Lumbar Precautions Log Roll No Twisting Limit Bending Lifting Restriction of 10 lbs Gait Belt above Incisional Area Weight Bearing Status Weight Bearing Status Weight Bear as Tolerated M3 PT-IP Subjective Start: 11/12/17 17:56 Freq: NEEDED Status: Active Protocol: Document 11/16/17 16:33 [facility] (Rec: 11/16/17 16:34 [facility] [email or web address]) Subjective Physical Therapy Visit Type Type Patient Refusal Notes Pt refused therapy stating he had just got back into bed and agreed to walk with nursing staff later this evening. Will check back with pt in AM.
[2017-11-16] MEDS: MAGNESIUM HYDROXIDE 30 ML UDC PO (17:29)
[2017-11-16] MEDS: GABAPENTIN 300 MG CAPSULE PO (21:27)
--- NOTE | 2017-11-16 22:36 | PC.NURSE ---
Evening Shift Note A&O, VSS, 99% RA. CMS intact. Percocet/Vistaril for pain. Up w/ SBA/FWW to bathroom. Dressing D/I w/ old drainage. No IV access. Dc to rehab tomorrow if approval of pt's insurance.
[2017-11-17] VITALS (7 sets, daily range): BP systolic 122–146; BP diastolic 57–84; PULSE 57–88; RESP 16–20; TEMP 36.3–37.4; O2SAT 95–99
[2017-11-17] MEDS: OXYCODONE/ACETAMINOPHEN 5/325 TABLET 2 TAB PO (01:15)
[2017-11-17] MEDS: hydrOXYzine pamoate 25 MG CAPSULE PO ×4 (01:16→23:45)
[2017-11-17] MEDS: OXYCODONE/ACETAMINOPHEN 5/325 TABLET 1 TAB PO ×4 (08:11→23:45)
--- NOTE | 2017-11-17 08:12 | PC.NURSE ---
patient is a&o x3 pleasant and cooperative w/ staff and is able to make needs known. Patient was up walking in room when nurse came to round. Discussed w/ patient the need to use call light w/ needs to have staff in room when up and walking around. Patient states understanding, just that he forgot he needs to call. Dr. Tavera in room rounding on patient is discussing plan to D/C, at this time issue w/ d/c is insurance has refused to pay of SNIF for rehab. CMS intact, PP ++, SBA w/ fww. Drg. to site is Dry and intact w/ some sero/sang drainage to center of the drg. covering bulk of drg. Call light w/ in reach, up to chair for breakfast.
--- NOTE | 2017-11-17 08:17 | P.PN_ITS ---
Subjective Date Patient Seen: 11/17/17 Time Patient Seen: 08:16 Interval history: still with R leg spasms but better. insurance denied SNF, appealing Exam Vital Signs (past 8 hours): Vital Signs - 8 hr 3 11/17/17 01:32 11/17/17 04:58 Temperature 97.7 F 97.4 F L Pulse Rate 57 L 57 L Respiratory Rate 18 18 Blood Pressure 130/84 H 144/78 H Pulse Oximetry 97 95 Pulse Oximetry 95 Oxygen Delivery Method Room Air Oxygen Flow Rate 98 Back/Spine/Pelvis Other: 5/5 BLE Objective Labs Result Diagrams: 11/13/17 05:36 11/13/17 05:36 Assessment & Plan Post-op Postoperative Procedures Operation Date: 11/12/17 07:45 Actual Procedures Side Surgeon p L5-S1 TLIF (posterior instrumented fusion )W/ Bone Graft Buddy Tavera MD s L4-L5, L5-S1 Laminectomy Buddy Tavera MD Making progress. Ready for a SNF but not for DC straight home. May be able to dc tomorrow. Time Spent With Patient less than 15 minutes Quality VTE Deep Vein Thrombosis/Pulmonary Embolism Present on Admission: No
[2017-11-17] MEDS: ASPIRIN EC 81 MG TABLET PO (10:09)
[2017-11-17] MEDS: MULTIVIT,CALC,MINS/IRON/FOLIC 1 TABLET 1 TAB PO (10:10)
[2017-11-17] MEDS: DOCUSATE 100 MG CAPSULE PO ×2 (10:10→19:43)
[2017-11-17] MEDS: LISINOPRIL 20 MG TABLET PO (10:10)
[2017-11-17] MEDS: MELOXICAM 7.5 MG TABLET PO (10:13)
--- NOTE | 2017-11-17 13:38 | PT.IPTN ---
Current Diagnoses Spinal stenosis, lumbar region with neurogenic claudication (11/12/17) Unspecified fracture of fifth lumbar vertebra, subsequent encounter for fracture with routine healing (11/12/17) Other specified postprocedural states (11/12/17) Surgery Performed Operation Date: 11/12/17 07:45 Actual Procedures p L5-S1 TLIF (posterior instrumented fusion )W/ Bone Graft - Buddy Tavera MD s L4-L5, L5-S1 Laminectomy - Buddy Tavera MD Physical Therapy Treatment Note M2 PT-IP Current Condition Start: 11/12/17 17:56 Freq: NEEDED Status: Active Protocol: Document 11/14/17 10:34 RCC (Rec: 11/14/17 13:15 RCC [email or web address]) Physical Therapy Current Condition Current Condition Evaluation Date 11/12/17 Treatment Diagnosis TLIF Onset Date 11/12/17 Precautions Lumbar Precautions Log Roll No Twisting Limit Bending Lifting Restriction of 10 lbs Gait Belt above Incisional Area Weight Bearing Status Weight Bearing Status Weight Bear as Tolerated M3 PT-IP Subjective Start: 11/12/17 17:56 Freq: NEEDED Status: Active Protocol: Document 11/17/17 11:47 CLB (Rec: 11/17/17 13:38 CLB [email or web address]) Subjective Physical Therapy Visit Type Type Treatment Note Visit Start Time 11:47 Visit Stop Time 12:10 Total Visit Minutes 23 Number of VICE PRESIDENT & GENERAL MANAGER [employer] [place] Visits 3 Physical Therapy Visit Comments Patient Comments Pt continues to c/o pain in right calf during sit<>stand and ambulation. Therapy Pain Assessment Pain When Pain Assessed During Mobility Pain Present Pain Present Pain Reported Location Right Lower Leg Intensity 6 Scale Used Numeric (1 - 10) Pain Behaviors Facial Grimacing Wincing Pain Management Techniques Modification of Treatment Timing of Activity with Medications M4 PT-IP Mobility and Gait Start: 11/12/17 17:56 Freq: NEEDED Status: Active Protocol: Document 11/17/17 11:47 CLB (Rec: 11/17/17 13:38 CLB [id number]) PT-Transfer Assessment Sit to and From Stand Sit to and from Stand Minimal Assistance 1 Person Assistance Use of Upper Extremities Equipment Transfer Assistive Device Gait Belt Front Wheeled Walker Transfers Transfer Destination Chair Toilet Transfer Technique ambulated Transfer Ability Level of Assist Contact Guard Assistance Comments Mobility Comments Pt needing increased assistance with sit-stand due to pain in RLE. Gait Assessment Gait Gait Assistance Required: Contact Guard Assist 1 Person Assist Distance (Feet) (feet) 130 Assistive Devices Assistive Device Gait Belt Front Wheeled Walker Gait Deviations General Gait Pattern Antalgic Decreased Stride Length Decreased Feet Clearance Flexed Trunk Step-to Gait Comments Gait Comments Pt continues to need Max cuing for posture and walker use. Pt pushes walker too far out in front and leans forward. Pt needed several rest breaks during ambulation. M5 PT-IP Objective Assessments Start: 11/12/17 17:56 Freq: NEEDED Status: Active Protocol: Document 11/13/17 12:50 RCC (Rec: 11/13/17 12:59 RCC [id number]) Orientation Orientation/Cognition Level of Alertness Alert M6 PT-IP Treatment Start: 11/12/17 17:56 Freq: NEEDED Status: Active Protocol: Document 11/14/17 10:34 RCC (Rec: 11/14/17 13:15 RCC [email or web address]) Physical Therapy Treatment Education Education Provided Precautions Safety M7 PT-IP Assessment and Plan Start: 11/12/17 17:56 Freq: NEEDED Status: Active Protocol: Document 11/17/17 11:47 CLB (Rec: 11/17/17 13:38 CLB [id number]) PT Summary Assessment and Plan Summary Progress Towards Goals Slow Progress due to Pain Slow Progress due to Activity Tolerance Assessment Summary Pt needed increased assist with sit-stand and continues to need cues for safety and posture when ambulating. Pt needs assist with standing balance during urination. Pt would benefit from skilled rehab due to increased pain and safety as pt is 's main caregiver and will need to be independent once home. Goals Bed Mobility Goal Independent Transfer Goal Independent Four Wheeled Walker Gait Goal Independent Four Wheel Walker Gait Distance 150ft Other Goals Up/down 1 step without rail indep Frequency of Treatment Frequency Of Treatment Twice a Day Treatment Plan Other Recommendations and Next Treatment stairs, gait, standing balance Focus . Recommendations To Nursing Amount of Assist Needed 1 Person Assist Discharge Recommendations PT Discharge Recommendations SNF Rehab
--- NOTE | 2017-11-17 15:29 | PT.IPTN ---
Current Diagnoses Spinal stenosis, lumbar region with neurogenic claudication (11/12/17) Unspecified fracture of fifth lumbar vertebra, subsequent encounter for fracture with routine healing (11/12/17) Other specified postprocedural states (11/12/17) Surgery Performed Operation Date: 11/12/17 07:45 Actual Procedures p L5-S1 TLIF (posterior instrumented fusion )W/ Bone Graft - Buddy Tavera MD s L4-L5, L5-S1 Laminectomy - Buddy Tavera MD Physical Therapy Treatment Note M2 PT-IP Current Condition Start: 11/12/17 17:56 Freq: NEEDED Status: Active Protocol: Document 11/14/17 10:34 RCC (Rec: 11/14/17 13:15 RCC [email or web address]) Physical Therapy Current Condition Current Condition Evaluation Date 11/12/17 Treatment Diagnosis TLIF Onset Date 11/12/17 Precautions Lumbar Precautions Log Roll No Twisting Limit Bending Lifting Restriction of 10 lbs Gait Belt above Incisional Area Weight Bearing Status Weight Bearing Status Weight Bear as Tolerated M3 PT-IP Subjective Start: 11/12/17 17:56 Freq: NEEDED Status: Active Protocol: Document 11/17/17 14:20 CLB (Rec: 11/17/17 15:28 CLB [email or web address]) Subjective Physical Therapy Visit Type Type Treatment Note Visit Start Time 14:20 Visit Stop Time 14:45 Total Visit Minutes 25 Number of PECAN GROWER Visits 4 Physical Therapy Visit Comments Patient Comments Pt c/o pain in right calf during sit<>stand, stair training and ambulation. Therapy Pain Assessment Pain When Pain Assessed During Mobility Pain Present Pain Present Pain Reported Location Right Lower Leg Intensity 7 Scale Used Numeric (1 - 10) Description Cramping Sharp Pain Behaviors Facial Grimacing Moaning Wincing Pain Management Techniques Modification of Treatment Timing of Activity with Medications M4 PT-IP Mobility and Gait Start: 11/12/17 17:56 Freq: NEEDED Status: Active Protocol: Document 11/17/17 14:20 CLB (Rec: 11/17/17 15:28 CLB [email or web address]) PT-Transfer Assessment Sit to and From Stand Sit to and from Stand Minimal Assistance 1 Person Assistance Use of Upper Extremities Equipment Transfer Assistive Device Gait Belt Front Wheeled Walker Transfers Transfer Destination Chair Transfer Ability Level of Assist Minimal Assistance Comments Mobility Comments Pt Pt continuingto need increased assistance with sit- stand due to pain in RLE. Gait Assessment Gait Gait Assistance Required: Contact Guard Assist 1 Person Assist Distance (Feet) (feet) 130 Assistive Devices Assistive Device Gait Belt Front Wheeled Walker Gait Deviations General Gait Pattern Antalgic Decreased Stride Length Decreased Feet Clearance Flexed Trunk Step-to Gait Comments Gait Comments Pt needs cues for safety and posture during ambulation to prevent falls and breaking back precautions. Stair Climbing Assessment Evaluation Level of Assist On Stairs Minimal Assistance Devices Stair Climbing Assistive Devices Front Wheel Walker Technique/Endurance Stair Climbing Direction Ascend and Descend Stair Climbing Technique Step to Step Number of Steps Climbed 1 Query Text: Stair Climbing Set # Repetitions (reps) 2 Comments Stair Climbing Comments Pt needing Min A and Max cuing for sequencing walker and steps as well as foot placement. M5 PT-IP Objective Assessments Start: 11/12/17 17:56 Freq: NEEDED Status: Active Protocol: Document 11/13/17 12:50 RCC (Rec: 11/13/17 12:59 RCC [id number]) Orientation Orientation/Cognition Level of Alertness Alert M6 PT-IP Treatment Start: 11/12/17 17:56 Freq: NEEDED Status: Active Protocol: Document 11/14/17 10:34 RCC (Rec: 11/14/17 13:15 RCC [email or web address]) Physical Therapy Treatment Education Education Provided Precautions Safety M7 PT-IP Assessment and Plan Start: 11/12/17 17:56 Freq: NEEDED Status: Active Protocol: Document 11/17/17 14:20 CLB (Rec: 11/17/17 15:28 CLB [email or web address]) PT Summary Assessment and Plan Summary Impairments Pain Strength Coordination Bed Mobility Activity Tolerance Progress Towards Goals Slow Progress due to Pain Slow Progress due to Activity Tolerance Assessment Summary Pt still having severe pain in RLE which makes it difficult for him to progress with transfers and gait. Pt had difficulty with stair training due to pain and needed Max cues for safety. Goals Bed Mobility Goal Independent Transfer Goal Independent Four Wheeled Walker Gait Goal Independent Four Wheel Walker Gait Distance 150ft Other Goals Up/down 1 step without rail indep Frequency of Treatment Frequency Of Treatment Twice a Day Treatment Plan Other Recommendations and Next Treatment platform stair, gait and bed Focus mobility. Recommendations To Nursing Amount of Assist Needed 1 Person Assist Discharge Recommendations PT Discharge Recommendations SNF Rehab Equipment Needed for Home Before FWW Discharge
--- NOTE | 2017-11-17 17:13 | OT.IP.TRT ---
Current Diagnoses Spinal stenosis, lumbar region with neurogenic claudication (11/12/17) Unspecified fracture of fifth lumbar vertebra, subsequent encounter for fracture with routine healing (11/12/17) Other specified postprocedural states (11/12/17) Surgery Performed Operation Date: 11/12/17 07:45 Actual Procedures p L5-S1 TLIF (posterior instrumented fusion )W/ Bone Graft - Buddy Tavera MD s L4-L5, L5-S1 Laminectomy - Buddy Tavera MD Occupational Therapy Treatment Note M2 OT-IP Current Condition Start: 11/13/17 14:48 Freq: Status: Active Protocol: Document 11/13/17 12:30 CCC (Rec: 11/13/17 15:02 CCC [email or web address]) Occupational Therapy Current Condition Post Operative Precautions Lumbar Precautions Log Roll No Twisting Limit Bending Lifting Restriction of 10 lbs Gait Belt above Incisional Area Weight Bearing Status Weight Bearing Status Weight Bear as Tolerated M3 OT- IP Subjective and Pain Start: 11/13/17 14:48 Freq: Status: Active Protocol: Document 11/17/17 09:54 PJM (Rec: 11/17/17 17:13 PJM [id number]) OT- Subjective Occupational Therapy Visit Type Type Treatment Note Visit Start Time 09:12 Visit Stop Time 09:54 Total Visit Minutes 42 Occupational Therapy Visit Comments Patient Comments My R leg is still really sore . OT Pain Assessment Pain When Pain Assessed After Treatment Pain Present Pain Present Pain Reported Location Right Lower Leg Intensity 4 Scale Used Numeric (1 - 10) Description Aching Cramping Pain Behaviors Facial Grimacing Guarding Management Techniques Distraction Re-positioning Timing of Activity with Medications M4 OT- IP ADL's Start: 11/13/17 14:48 Freq: Status: Active Protocol: Document 11/17/17 09:54 PJM (Rec: 11/17/17 17:13 PJM [email or web address]) OT [id number] General Evaluation Self-Feeding Ability Independent OT ADL-Grooming General Evaluation Grooming Ability Standby Assistance Comments OT Grooming Comments pt stood at sink 4 min with no loss of balance noted OT ADL-Oral Care General Eval Oral Care Ability Standby Assistance Comments Oral Care Comments standing at sink; provided education re: body mechanics while standing at sink OT ADL-Dressing General Eval Upper Body Dressing Ability Standby Assistance Lower Body Dressing Ability Standby Assistance Areas Needing Assistance Underpants/Brief Socks Assistive Devices Dressing Assistive Devices Outpatient Services Director Sock Aid Comments OT Dressing Comments Pt still needs occasional cues for use of nail polish brush machine feeder and sock aid for lower body dressing seated in chair. Provided education re: chair selection at home, sitting posture and body mechanics. Pt verbalizes understanding. OT ADL-Toileting General Evaluation Toileting Ability Standby Assistance Comments OT Toileting Comments standing at toilet with FWW for urination; pt has not yet ordered toilet paper aid OT ADL-Bathing Bathing Type Bathing Type Sponge Bath General Evaluation Bathing Ability Standby Assistance Areas Needing Assistance Retrieving/Setting Up Items Comments OT Bathing Comments upper body sponge bath completed in chair M6 OT- IP Functional Cognition Start: 11/13/17 14:48 Freq: Status: Active Protocol: Document 11/16/17 11:52 PJM (Rec: 11/16/17 16:00 PJM [email or web address]) Cognitive Factors Limiting Selfcare Function Cognitive Ability Level of Alertness Alert Cognitive Comments Cognitive Assessment Comments Pt very verbal and needs cues to direct attention to task. Pt recalls 3/3 spine precautions. M7 OT- IP Mobility and Balance Start: 11/13/17 14:48 Freq: Status: Active Protocol: Document 11/17/17 09:54 PJM (Rec: 11/17/17 17:13 PJM [email or web address]) OT-Transfer Assessment Sit to and From Stand Sit to and from Stand Contact Guard Assistance 1 Person Assistance Use of Upper Extremities OT- Gait Assessment Gait Gait Assistance Required: Contact Guard Assist Assistive Devices Assistive Device Gait Belt Front Wheeled Walker Comments Gait Ability Comments pt ambulate total of 20 ft in room with FWW; no LOB noted OT- Balance Assessment Sitting Balance and Reactions Static Sitting Balance Ability Normal Dynamic Sitting Balance Ability Normal Standing Balance and Reactions Static Standing Balance Ability Good Dynamic Standing Balance Ability Fair Comments Other Balance Tests/Deviations/Treatment Pt needs verbal cues to : achieve good balance before attempting clothing management tasks M8 OT- IP Objective Assessments Start: 11/13/17 14:48 Freq: Status: Active Protocol: Document 11/13/17 12:30 CCC (Rec: 11/13/17 15:02 CCC [email or web address]) OT Gross Range of Motion Upper Extremity Range of Motion ROM Impairments WFL OT Strength Comments Strength Comments WFL M9 OT- IP Assessment and Plan Start: 11/13/17 14:48 Freq: Status: Active Protocol: Document 11/17/17 09:54 PJM (Rec: 11/17/17 17:13 PJM [email or web address]) OT Summary Assessment and Plan Potential Rehabilitation Potential Excellent Summary OT Impairments Pain Balance Functional Mobility Dressing Toileting Bathing Toilet Transfers Shower Transfers Progress Towards Goals Progressing Toward Goals Assessment Summary Pt making daily progress with independence in self care tasks. RLE spasms and cramping limit activity tolerance. Pt still not independent with gait per P.T. notes. Pt's cannot provide any assist at home due to Parkinson's, so pt needs to be indep prior to return home. Other family, friends to assist with IADLS after d/c PRN. Goals Grooming Goal Independent Dressing Goal Independent Long Handled [place] Outpatient Services Director Sock Aid Toileting Goal Independent Toilet Paper Aid Bathing Goal Independent Grab Bars Hand Held Shower Sprayer Long Handled Sponge or Whitt Toilet Transfer Goal Independent ADA High Toilet Shower Transfer Goal Independent Shower Chair Grab Bars Patient/Caregiver Education Goal Demonstrate Post-Op Precautions Demonstrate Energy Conservation and Pacing Days to Meet Goals 2 Treatment Plan OT Treatment Plan ADL Training Functional Cognition Training Functional Mobility Patient/Family Education Discharge Planning Discharge Recommendations OT Discharge Recommendations Home with 24/7 Assist SNF Rehab
[2017-11-17] MEDS: GABAPENTIN 300 MG CAPSULE PO (19:43)
[2017-11-17] MEDS: NEO/POLYMIX B/DEX OPHTH SUSP 1 DROPS EYE-BOTH (19:44)
[2017-11-18 03:15] VITALS: BP 142/81; PULSE 71; RESP 16; TEMP 36.9; O2SAT 96
[2017-11-18 08:00] VITALS: BP 137/73; PULSE 78; RESP 18; TEMP 36.4; O2SAT 98
[2017-11-18] MEDS: DOCUSATE 100 MG CAPSULE PO (08:28)
[2017-11-18] MEDS: LISINOPRIL 20 MG TABLET PO (08:28)
[2017-11-18] MEDS: MULTIVIT,CALC,MINS/IRON/FOLIC 1 TABLET 1 TAB PO (08:28)
[2017-11-18] MEDS: hydrOXYzine pamoate 25 MG CAPSULE PO (08:28)
[2017-11-18] MEDS: ASPIRIN EC 81 MG TABLET PO (08:29)
[2017-11-18] MEDS: MELOXICAM 7.5 MG TABLET PO (08:29)
[2017-11-18] MEDS: NEO/POLYMIX B/DEX OPHTH SUSP 1 DROPS EYE-BOTH (08:29)
--- NOTE | 2017-11-18 10:15 | PT.IPTN ---
Current Diagnoses Spinal stenosis, lumbar region with neurogenic claudication (11/12/17) Unspecified fracture of fifth lumbar vertebra, subsequent encounter for fracture with routine healing (11/12/17) Other specified postprocedural states (11/12/17) Surgery Performed Operation Date: 11/12/17 07:45 Actual Procedures p L5-S1 TLIF (posterior instrumented fusion )W/ Bone Graft - Buddy Tavera MD s L4-L5, L5-S1 Laminectomy - Buddy Tavera MD Physical Therapy Treatment Note M2 PT-IP Current Condition Start: 11/12/17 17:56 Freq: NEEDED Status: Active Protocol: Document 11/14/17 10:34 RCC (Rec: 11/14/17 13:15 RCC [email or web address]) Physical Therapy Current Condition Current Condition Evaluation Date 11/12/17 Treatment Diagnosis TLIF Onset Date 11/12/17 Precautions Lumbar Precautions Log Roll No Twisting Limit Bending Lifting Restriction of 10 lbs Gait Belt above Incisional Area Weight Bearing Status Weight Bearing Status Weight Bear as Tolerated M3 PT-IP Subjective Start: 11/12/17 17:56 Freq: NEEDED Status: Active Protocol: Document 11/18/17 10:15 GGD (Rec: 11/18/17 12:09 GGD [email or web address]) Subjective Physical Therapy Visit Type Type Treatment Note Visit Start Time 09:35 Visit Stop Time 10:15 Total Visit Minutes 40 Number of FOOT CUTTER Visits 5 Physical Therapy Visit Comments Patient Comments Pt states that pain is better. Therapy Pain Assessment Pain When Pain Assessed During Mobility Pain Present Pain Present Pain Reported M4 PT-IP Mobility and Gait Start: 11/12/17 17:56 Freq: NEEDED Status: Active Protocol: Document 11/18/17 10:15 GGD (Rec: 11/18/17 12:09 GGD [email or web address]) PT-Bed Mobility Assessment Supine to Sit Supine to Sit Contact Guard Assistance Bedrails Sit to Supine Sit to Supine Standby Assistance Bedrails Scooting Scooting to Edge of Bed Independent Scooting Up and Down in Bed Minimal Assistance PT-Transfer Assessment Sit to and From Stand Sit to and from Stand Contact Guard Assistance Use of Upper Extremities Equipment Transfer Assistive Device Gait Belt Front Wheeled Walker Transfers Transfer Destination Bed Chair Toilet Transfer Technique ambulated Transfer Ability Level of Assist Contact Guard Assistance Gait Assessment Gait Gait Assistance Required: Contact Guard Assist 1 Person Assist Distance (Feet) (feet) 200 Assistive Devices Assistive Device Gait Belt Front Wheeled Walker Gait Deviations General Gait Pattern Antalgic Decreased Stride Length Decreased Feet Clearance Flexed Trunk Comments Gait Comments needs cues for posture. Stair Climbing Assessment Evaluation Level of Assist On Stairs Standby Assistance Devices Stair Climbing Assistive Devices Front Wheel Walker Technique/Endurance Stair Climbing Direction Ascend and Descend Stair Climbing Technique Step to Step Number of Steps Climbed 1 Query Text: Stair Climbing Set # Repetitions (reps) 2 M5 PT-IP Objective Assessments Start: 11/12/17 17:56 Freq: NEEDED Status: Active Protocol: Document 11/13/17 12:50 RCC (Rec: 11/13/17 12:59 RCC [id number]) Orientation Orientation/Cognition Level of Alertness Alert M6 PT-IP Treatment Start: 11/12/17 17:56 Freq: NEEDED Status: Active Protocol: Document 11/18/17 10:15 GGD (Rec: 11/18/17 12:09 GGD [email or web address]) Physical Therapy Treatment Education Education Provided Precautions Safety M7 PT-IP Assessment and Plan Start: 11/12/17 17:56 Freq: NEEDED Status: Active Protocol: Document 11/18/17 10:15 GGD (Rec: 11/18/17 12:09 GGD [email or web address]) PT Summary Assessment and Plan Summary Assessment Summary Pt progressing with mobility. He needs less cues and assist with mobility. He was safe and stable on the stairs. Frequency of Treatment Frequency Of Treatment Twice a Day Treatment Plan Other Recommendations and Next Treatment platform stair, gait and bed Focus mobility. Recommendations To Nursing Amount of Assist Needed 1 Person Assist Discharge Recommendations PT Discharge Recommendations Home with Assistance Home Health Outpatient PT
--- NOTE | 2017-11-18 11:29 | PM.DS.1 ---
History of Present Illness Chief complaint: L551 TLIF w/bone graft L45 and L5S1 see col notes Narrative: Patient admitted 11/12/2017 status post the above procedure. He is postop day 6. Patient has been cleared by Physical therapy and Occupational therapy to go home. Patient would like to go home. Discharge Providers Date of admission: 11/12/17 06:32 Primary care physician: Franco Damon MD Consults: 11/12/17 14:35 Consult to Discharge Planning Routine Comment: Consult to Occupational Therapy Evaluate & Treat Comment: Physician Instructions: Evaluate and treat Consult to Physical Therapy Evaluate & Treat Comment: Physician Instructions: Evaluate and Treat 11/12/17 16:23 Consult to Dietitian, Adult Routine Comment: Reason For Exam: Recent 30 pound weight loss per pt since September 05 Discharge provider: Maci Avila PA-C Summary Discharge Diagnosis: Right L5 vertebral fracture with stenosis Hospital Course: Patient admitted after L5S1 TLIF (posterior instrumented fusion) with bone graft, L45 and L5S1 laminectomies on 11/12/2017. Patient was taken to the surgical floor and had physical therapy and occupational therapy who originally recommended the patient be discharged to SNF. However patient did not meet SNF criteria. Patient was stable to be discharged home on 11/18/2017. Status at Discharge Cognitive/behavioral status at discharge: Alert and oriented x4. Functional status at discharge: uses cane/walker Overall status at discharge: patient is progressing back to baseline Time Spent with Patient Less than 30 minutes Exam Vital Signs (past 8 hours): Vital Signs - 8 hr 11/18/17 08:00 Temperature 97.5 F L Pulse Rate 78 Respiratory Rate 18 Blood Pressure 137/73 H Pulse Oximetry 98 Pulse Oximetry 98 Oxygen Delivery Method Room Air Oxygen Flow Rate 0 Narrative Exam Narrative: Patient is well-developed well-nourished in no acute distress. Patient alert and oriented x3. On examination surgical dressing is clean dry and intact. No signs of discharge. Right calf is soft compressible negative Holmans sign. He is neurovascularly intact in both lower extremities. He is perfusing well. Objective Labs Result Diagrams: 11/13/17 05:36 11/13/17 05:36 Discharge Plan Discharge Plan Patient Disposition: Home, Self-Care Discharge comment: I believe that the patient's right calf pain is secondary to nerve pain related to the surgery. D/c home Discharge Med Rec/Prescriptions Prescriptions: New gabapentin [Neurontin] 300 mg Capsule 300 mg PO BEDTIME Qty: 30 RF: 0 hydroxyzine pamoate 25 mg Capsule 25 mg PO Q4HR PRN (Reason: muscle spasms) Qty: 60 RF: 0 oxycodone 10 mg tablet 10 mg PO Q4-6H PRN (Reason: pain) Qty: 60 RF: 0 Continue MULTIVITAMIN (#MULTIPLE VITAMINS) 1 cap PO Q DAY Qty: 0 RF: 0 Flaxseed Oil (#FLAXSEED OIL) 2 tab PO BID Qty: 0 RF: 0 lisinopril [Prinivil] 20 MG tablet 20 mg PO Q DAY Qty: 90 RF: 3 clotrimazole-betamethasone [Lotrisone] 15 GM cream 1 cre TP BID Qty: 45 RF: 3 aspirin 81 mg Tablet,Delayed Release (Dr/Ec) 81 mg PO DAILY RF: 0 oxycodone-acetaminophen 7.5-325 mg tablet 1 - 2 tab PO Q6HR PRN (Reason: pain) RF: 0 Discontinued oxycodone-acetaminophen [Percocet] 5 MG/325 MG tablet 1 - 2 tab PO Q4HP PRNQty: 20 RF: 0 oxycodone-acetaminophen 7.5 MG/325 MG tablet 1 - 2 tab PO Q6HP PRNQty: 20 RF: 0 oxycodone-acetaminophen 5-325 mg tablet 1 - 2 tab PO Q4H PRN (Reason: Pain, Severe) RF: 0 oxycodone-acetaminophen 5-325 mg tablet 1 - 2 tab PO Q4H PRN (Reason: Pain, Severe) RF: 0 oxycodone-acetaminophen 5-325 mg tablet 1 - 2 tab PO Q4HR PRN (Reason: Pain, Severe) RF: 0 Follow up/Referrals: [facility] [Provider Group] - 11/24/17 3:00 pm (Delonte De Los Santos PA-C, [address] office.) Provider Discharge Instructions Diet: Diet as Tolerated Activity: WBAT, walk once an hour, no lifting greater than 20 lbs Cold/Heat Therapy: Apply ice to incision site as needed Wound Care Report to your healthcare provider any signs of infection, such as:: chills, fever, night sweats, increased pain and unusual drainage Dressing: Keep dressing clean, dry and intact. Do not remove. Visit Report/Discharge Packet Instructions: DI for Laminectomy, DI for Transforaminal Lumbar Interbody Fusion Stand Alone Forms: Surgery Discharge Visit Report Forms: Stroke Signs & Symptoms Discharge Data Primary Care Provider: Franco Damon Attending Provider: Buddy Tavera Admit Date/Time: 11/12/17 06:32 Quality VTE Deep Vein Thrombosis/Pulmonary Embolism Present on Admission: No
--- NOTE | 2017-11-18 17:02 | OT.IP.TRT ---
Current Diagnoses Spinal stenosis, lumbar region with neurogenic claudication (11/12/17) Unspecified fracture of fifth lumbar vertebra, subsequent encounter for fracture with routine healing (11/12/17) Other specified postprocedural states (11/12/17) Surgery Performed Operation Date: 11/12/17 07:45 Actual Procedures p L5-S1 TLIF (posterior instrumented fusion )W/ Bone Graft - Buddy Tavera MD s L4-L5, L5-S1 Laminectomy - Buddy Tavera MD Occupational Therapy Treatment Note M3 OT- IP Subjective and Pain Start: 11/13/17 14:48 Freq: Status: Active Protocol: Document 11/18/17 11:23 PJM (Rec: 11/18/17 17:02 PJM [email or web address]) OT- Subjective Occupational Therapy Visit Type Type Treatment Note Visit Start Time 10:25 Visit Stop Time 11:23 Total Visit Minutes 58 Occupational Therapy Visit Comments Patient Comments I think I am doing well enough that I could go home today. OT Pain Assessment Pain When Pain Assessed After Treatment Pain Present Pain Present Pain Reported Location Right Lower Leg Intensity 4 Scale Used primarily in R posterior calf, pt discussed with PRoberto during this session Description Sharp Shooting Pain Behaviors Facial Grimacing Guarding Wincing Management Techniques Re-positioning Timing of Activity with Medications M4 OT- IP ADL's Start: 11/13/17 14:48 Freq: Status: Active Protocol: Document 11/18/17 11:23 PJM (Rec: 11/18/17 17:02 PJM [email or web address]) OT ADL-Grooming General Evaluation Grooming Ability Independent Comments OT Grooming Comments standing at sink to brush hair with FWW OT ADL-Oral Care General Eval Oral Care Ability Independent Comments Oral Care Comments standing at sing with FWW OT ADL-Dressing General Eval Upper Body Dressing Ability Independent Lower Body Dressing Ability Minimal Assistance Areas Needing Assistance Socks Shoes Assistive Devices Dressing Assistive Devices Long Handled Shoe Horn Staff Educator Sock Aid Comments OT Dressing Comments Pt needing min assist with socks and shoes due to tight fit and sandal back strap. Pt states he will have 24 assist from friend and or sons at home for next 2-3 days. OT ADL-Toileting General Evaluation Toileting Ability Independent Devices Toileting Assistive Devices Grab Bars Raised Toilet Seat Comments OT Toileting Comments pt to order toilet paper aid OT ADL-Bathing Bathing Type Bathing Type Shower General Evaluation Bathing Ability Standby Assistance Areas Needing Assistance Retrieving/Setting Up Items Wash/Dry Upper Body Devices Bathing Equipment Hand Held Shower Sprayer Shower Chair with Arms Grab Bars Comments OT Bathing Comments Pt will have long bath sponge at home also. Son can provide SBA per pt. M7 OT- IP Mobility and Balance Start: 11/13/17 14:48 Freq: Status: Active Protocol: Document 11/18/17 11:23 PJM (Rec: 11/18/17 17:02 PJ [email or web address]) OT-Transfer Assessment Sit to and From Stand Sit to and from Stand Independent Technique Transfer Destination Chair Toilet Devices Transfer Assistive Devices Front Wheeled Walker Comments Mobility Comments SBA for shower stall transfer with FWW and grab bars as per home set up. Pt has built in seat with wall grab bar. OT- Gait Assessment Gait Gait Assistance Required: Independent Assistive Devices Assistive Device Front Wheeled Walker Comments Gait Ability Comments Still needs occasional cues for posture but no LOB throughout session. OT- Balance Assessment Sitting Balance and Reactions Static Sitting Balance Ability Good Dynamic Sitting Balance Ability Good Standing Balance and Reactions Static Standing Balance Ability Good Dynamic Standing Balance Ability Good M9 OT- IP Assessment and Plan Start: 11/13/17 14:48 Freq: Status: Active Protocol: Document 11/18/17 11:23 PJM (Rec: 11/18/17 17:02 PJ [email or web address]) OT Summary Assessment and Plan Potential Rehabilitation Potential Good Summary Progress Towards Goals Safe For Discharge Goals Met Assessment Summary All OT goals achieved for this admission. Pt to d/c home today with 24 hr assist for first several days. Discharge Recommendations OT Discharge Recommendations Home with Assistance Home Equipment Needs P to order wide sock aid and toilet paper aid. Has resource information.
--- NOTE | 2017-11-19 10:14 | CM.DPNOTE ---
DC Note/Late Entry: Pt went home yesterday per notes. Pt was cleared by therapy team. Oupt PT scheduled. Updated David Ladd that pt had DC home 11/18/17. SHASHI
== END 2017-11-18 13:33 | disposition home or self-care (01) | DRG 455 ==
PROVIDERS: Admitting Provider Orthopaedic Surgery; Family Provider Family Medicine; PCP Family Medicine; Visit Provider Orthopaedic Surgery
PROC: 0SG30AJ Fusion of Lumbosacral Joint with Interbody Fusion Device, Posterior Approach, Anterior Column, Open Approach (ICD-10-PCS; principal; 2017-11-12 07:45)
PROC: 0SG30AJ Fusion of Lumbosacral Joint with Interbody Fusion Device, Posterior Approach, Anterior Column, Open Approach (ICD-10-PCS; 2017-11-12 07:45)
DX: M84.48XA Pathological fracture, other site, initial encounter for fracture (principal); M48.062 Spinal stenosis, lumbar region with neurogenic claudication; M48.07 Spinal stenosis, lumbosacral region; M43.16 Spondylolisthesis, lumbar region; G47.30 Sleep apnea, unspecified; I10 Essential (primary) hypertension; E66.9 Obesity, unspecified; Z68.37 Body mass index [BMI] 37.0-37.9, adult; M79.604 Pain in right leg; R25.2 Cramp and spasm
CPT/HCPCS: 36415; 36592; 72100; 76001; 80048; 85014; 85018; 94762; 97116; 97162; 97165; 97530; 97535; C1776; C1788; C9290; J0330; J0690; J1100; J1170; J2250; J2405; J2704; J3010

== ENCOUNTER 2018-01-11 11:15 | Outpatient (RCR) | payer OTHER, SELFPAY ==
[2017-11-12 16:03] VITALS: BMI 37.3
--- NOTE | 2017-12-28 15:12 | PT.OIE ---
Current Diagnoses Benign paroxysmal vertigo, unspecified ear (12/28/17) Benign paroxysmal vertigo, left ear (12/28/17) Past Medical History (Last Updated 11/09/17 @ 13:27 by Jana Chan RN) DDD (degenerative disc disease) (Acute) Diverticulosis (Acute) HTN (hypertension) (Acute) Hyperlipidemia (Acute) Internal hemorrhoids (Acute) JOANIE on CPAP (Acute) Prostate cancer (Acute) Scoliosis (Acute) Past Surgical History (Last Updated 11/09/17 @ 13:36 by Jana Chan RN) History of back surgery (Acute) History of lumbar spinal fusion (Acute) History of penile implant (Acute) History of radical retropubic prostatectomy (Acute) History of tonsillectomy and adenoidectomy (Acute) History of vein stripping (Acute) Hx of right inguinal hernia repair (Acute) History of cataract removal with insertion of prosthetic lens (03/12/09) History of cataract removal with insertion of prosthetic lens (04/09/09) Status post LASIK surgery Status post biopsy (05/10/09) Status post bunionectomy Status post eye surgery (08/18/13) Status post eye surgery (08/29/13) Status post laminectomy Status post radical cystoprostatectomy (11/23/08) Status post sclerotherapy of varicose veins Status post tonsillectomy and adenoidectomy Provider Visit Care Team Role Provider Type Franco Damon MD Attending Provider Physician Family Provider Primary Care Provider Specialty: Family Practice Address: [address] [place] [address] Email: [email or web address] Physical Therapy Initial Evaluation PT-OP-A Visit Information Start: 12/28/17 13:33 Freq: Status: Active Protocol: Document 12/28/17 15:10 MDD (Rec: 12/28/17 16:02 MDD [email or web address]) Out-Patient Physical Therapy Visit Information Visit Information Visit Type Initial Evaluation Visit Start Time 14:33 Visit Stop Time 15:12 Total Visit Minutes 45 Visit Number 1 Number of MECHANICAL DESIGN ENGINEER Visits 0 Evaluation Information Evaluation Date 12/28/17 PT-OP-B Current Condition Start: 12/28/17 13:33 Freq: Status: Active Protocol: Document 12/28/17 15:10 MDD (Rec: 12/28/17 16:02 MDD [email or web address]) Current Condition History of Current Condition Onset Date 6 weeks ago Current Complaints low level dizziness, intermittent History of Current Condition Pt recently underwent lumbar surgery (6 weeks ago) and began to feel intermittent dizziness shortly after his surgery. He has a history of intermittent BPPV (every few years). When it occurs, he typically comes in for a few sessions of PT and symptoms are relieved. He reports that he currently only really feels symptoms at night when turning in bed. Still recovering from his surgery and ambulating gingerly. He also notes that he lost 40# since his surgery and was suffering from percocet withdrawal. His taste has changed a bit as well. It is hard for him to identify if the dizzy symptoms are the same as his previous incidences of BPPV or attributed to his medical issues since his surgery. Denies nausea. Treatment Goals Patient/Caregiver Goals resolve dizziness. 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 PT-OP-C Subjective Start: 12/28/17 13:33 Freq: Status: Active Protocol: Document 12/28/17 15:10 MDD (Rec: 12/28/17 16:02 MDD [email or web address]) Patient Questionnaires ABC- Activity Specific Balance Confidence Scale ABC Score 69% ABC Functional Impairment 20 to <40% Impaired (Score 61- 80) PT-OP-G Mobility & Gait Start: 12/28/17 13:33 Freq: Status: Active Protocol: Document 12/28/17 15:10 MDD (Rec: 12/28/17 16:02 MDD [email or web address]) OP Mobility Evaluation Bed Mobility Rolling slow and cautious Supine to and from Sit log roll, slow and cautious OP Gait Assessment Gait Gait Assistance Required: Independent Distance (Feet) (feet) 30 Able to Maintain Weight Bearing Status Yes During Gait Assistive Devices Assistive Device None Gait Deviations General Gait Pattern Antalgic Wide Based Gait Factors Limiting Gait Function Factors Limiting Gait Function Limited Range of Motion PT-OP-O Vestibular Start: 12/28/17 13:33 Freq: Status: Active Protocol: Document 12/28/17 15:10 MDD (Rec: 12/28/17 16:02 [facility] [email or web address]) Vestibular Assessment Visual Testing Smooth Pursuits Horizontal nml Smooth Pursuits Vertical nml Saccades Horizontal nml Saccades Vertical nml Gaze Evoked Nystagmus With Fixation Negative Gaze Evoked Nystagmus Without Fixation Negative Convergence Test WNL Head Shake Negative Vestibulo-Ocular Reflex (VOR1) Negative Positional Testing Pep-Hallpike Negative Left Negative Right Rolling Test Negative Left Negative Right Supine to Sit Negative Sit to Supine Negative PT-OP-T Assessment and Plan Start: 12/28/17 13:33 Freq: Status: Active Protocol: Document 12/28/17 15:10 MDD (Rec: 12/28/17 16:02 [facility] [email or web address]) Physical Therapy Assessment Rehab Potential Rehabilitation Potential Good Evaluation Complexity Number of Personal Factors/Comorbidities 1-2 Number of Body Systems Impaired 1-2 Clinical Presentation at Evaluation Stable Impairments Impairments Activity Tolerance Gait ROM Vestibular Goals One Impairment vestibular Short Term Goal (STG) Pt will report no dizziness during the night for the next 2 weeks. STG Duration 2 weeks Assessment Summary Assessment Pt is a pleasant gentleman complaining of intermittent dizziness that is mostly only affecting him at night. On examination today, he does not have any positive signs and symptoms that would suggest BPPV. Radha Hallpike and roll tests were negative. We will do an additional f/u appointment in 1-2 weeks to reassess. Physical Therapy Plan Frequency and Duration Frequency of Treatment 1x/Week Duration of Treatment 2-3 weeks Plan of Care Start Date 12/28/17 Plan of Care End Date 01/18/18 Therapeutic Interventions Therapeutic Interventions Balance Training Canalithic Repositioning Self-Care/Home Management Vestibular Rehabilitation Next Visit Focus/Plan Next Note Type Treatment Note Next Visit Plan Reassess dizziness symptoms, roll test, radha hallpike as needed. May d/c at this time due to resolution of symptoms.
--- NOTE | 2017-12-28 15:12 | PT.OPPOC ---
Current Diagnoses Benign paroxysmal vertigo, unspecified ear (12/28/17) Benign paroxysmal vertigo, left ear (12/28/17) Provider Visit Care Team Role Provider Type Franco Damon MD Attending Provider Physician Family Provider Primary Care Provider Specialty: Family Practice Address: [address] [place] [address], [id number] Email: [email or web address] Plan Of Care PT-OP-T Assessment and Plan Start: 12/28/17 13:33 Freq: Status: Active Protocol: Document 12/28/17 15:10 MDD (Rec: 12/28/17 16:02 MDD [email or web address]) Physical Therapy Assessment Rehab Potential Rehabilitation Potential Good Evaluation Complexity Number of Personal Factors/Comorbidities 1-2 Number of Body Systems Impaired 1-2 Clinical Presentation at Evaluation Stable Impairments Impairments Activity Tolerance Gait ROM Vestibular Goals One Impairment vestibular Short Term Goal (STG) Pt will report no dizziness during the night for the next 2 weeks. STG Duration 2 weeks Assessment Summary Assessment Pt is a pleasant gentleman complaining of intermittent dizziness that is mostly only affecting him at night. On examination today, he does not have any positive signs and symptoms that would suggest BPPV. Julia Hallpike and roll tests were negative. We will do an additional f/u appointment in 1-2 weeks to reassess. Physical Therapy Plan Frequency and Duration Frequency of Treatment 1x/Week Duration of Treatment 2-3 weeks Plan of Care Start Date 12/28/17 Plan of Care End Date 01/18/18 Therapeutic Interventions Therapeutic Interventions Balance Training Canalithic Repositioning Self-Care/Home Management Vestibular Rehabilitation Next Visit Focus/Plan Next Note Type Treatment Note Next Visit Plan Reassess dizziness symptoms, roll test, julia hallpike as needed. May d/c at this time due to resolution of symptoms. Plan of Care Dates Plan of Care Start Date 12/28/17 Plan of Care End Date 01/18/18 Please Sign and Return: I have reviewed this Plan of Care and certify that the skilled therapy services above are required to meet the patient?s needs. Physician Signature Date Printed Name and Credentials Clinical Instructor Signature Printed Name and Credentials
--- NOTE | 2018-01-11 11:35 | PT.OTN ---
Current Diagnoses Benign paroxysmal vertigo, unspecified ear (01/11/18) Benign paroxysmal vertigo, left ear (01/11/18) Physical Therapy Treatment Note PT-OP-A Visit Information Start: 12/28/17 13:33 Freq: Status: Active Protocol: Document 01/11/18 11:35 MDD (Rec: 01/11/18 11:38 MDD [email or web address]) Out-Patient Physical Therapy Visit Information Visit Information Visit Type Administrative Note Visit Start Time 11:20 Visit Stop Time 11:30 Total Visit Minutes 10 Visit Number 2 Number of FPGA DESIGN ENGINEER Visits 0 Evaluation Information Evaluation Date 12/28/17 PT-OP-O Vestibular Start: 12/28/17 13:33 Freq: Status: Active Protocol: Document 01/11/18 11:35 MDD (Rec: 01/11/18 11:38 MDD [email or web address]) Vestibular Assessment Visual Testing Smooth Pursuits Horizontal nml Smooth Pursuits Vertical nml Saccades Horizontal nml Saccades Vertical nml Gaze Evoked Nystagmus With Fixation Negative Gaze Evoked Nystagmus Without Fixation Negative Convergence Test WNL Head Shake Negative Vestibulo-Ocular Reflex (VOR1) Negative Positional Testing Supine to Sit Negative Sit to Supine Negative PT-OP-T Assessment and Plan Start: 12/28/17 13:33 Freq: Status: Active Protocol: Document 01/11/18 11:35 MDD (Rec: 01/11/18 11:38 MDD [email or web address]) Physical Therapy Assessment Rehab Potential Rehabilitation Potential Good Goals One Impairment vestibular Short Term Goal (STG) Pt will report no dizziness during the night for the next 2 weeks. STG Duration 2 weeks Progress Towards Goals Progress Towards Goals Goals Met Progress Comments Pt has not had any dizziness at night since his last visit. Assessment Summary Assessment Pt demonstrates resolution of dizzy symptoms since his last visit. Physical Therapy Plan Discharge Physical Therapy Discharge Reasons Goals Met
== END 2018-03-21 16:09 ==
LOC: PHYS 11:15
PROVIDERS: Family Provider Family Medicine; PCP Family Medicine; Visit Provider Family Medicine
DX: H81.10 Benign paroxysmal vertigo, unspecified ear (principal); H81.12 Benign paroxysmal vertigo, left ear
CPT/HCPCS: 97161

== ENCOUNTER 2018-03-21 11:23 | Emergency (ER) | payer OTHER, SELFPAY ==
[2017-11-12 16:03] VITALS: BMI 37.3
[2018-03-21 11:25] VITALS: BP 143/85; PULSE 92; RESP 14; TEMP 36.4; O2SAT 96; BMI 31.8
--- NOTE | 2018-03-21 12:07 | ED_ITS ---
HPI - Abdominal Pain General Chief Complaint: Abdominal Pain Stated Complaint: CONSTIPATION, PAIN IN [place], WEIGHT LOSS Time Seen by Provider: 03/21/18 11:42 Source: patient Mode of arrival: ambulatory Limitations: no limitations History of Present Illness HPI narrative: 72-year-old male here for evaluation of abdominal pain and constipation. Patient states that he saw his primary care doctor's office at the end the last week and was prescribed medications for constipation. He states that he normally has soft bowel movements every day but has had small bowel movements over the past week / month. Does have abdominal pain periumbilical left-sided. Some nausea but no vomiting. Has had prostate cancer in the past and has had a prostate removal surgery. Also has been told that he has had diverticulosis in the past. No blood in his stool. No change in urination. No fevers. Related Data Home Medications Medication Instructions Recorded Confirmed Flaxseed Oil (#FLAXSEED OIL) 2 tab PO BID #0 03/22/11 03/18/18 MULTIVITAMIN (#MULTIPLE VITAMINS) 1 cap PO Q DAY #0 03/22/11 03/18/18 aspirin 81 mg PO DAILY 11/12/17 03/18/18 Previous Rx's Medication Instructions Recorded lisinopril [Prinivil] 20 mg PO Q DAY #90 tab 04/14/17 clotrimazole-betamethasone 1 1 applictn TOP BID 14 Days #15 gram 02/09/18 %-0.05 % topical cream Allergies Allergy/AdvReac Type Severity Reaction Status Date / Time Corticosteroids AdvReac Mild HICCUPS X Verified 03/21/18 11:31 (Glucocorticoids) 24 HRS walnut [WALNUT] AdvReac Mild canker Verified 03/21/18 11:31 sores in mouth Review of Systems Constitutional Denies fever(s) Cardiovascular Denies chest pain and Denies dyspnea Respiratory Denies dyspnea Gastrointestinal Gastrointestinal: Reports abdominal pain, Reports constipation, Denies diarrhea , Reports nausea and Denies vomiting Genitourinary Denies dysuria Musculoskeletal Denies myalgias and Denies arthralgias Integumentary/Breasts Denies lesions and Denies rash Neurologic Denies confusion Psychiatric Denies confusion Hematologic/Lymphatic Denies easy bleeding and Denies easy bruising [facility] Medical History Chronic back pain (Chronic 1996) Diverticulosis (Chronic) HTN (hypertension) (Chronic 1995) Hyperlipidemia (Chronic) Internal hemorrhoids (Chronic) Lumbar disc disease (Chronic 1996) Scoliosis (Chronic) Cataracts, bilateral (Resolved 2008) DDD (degenerative disc disease) (Resolved 09/11/09) Prostate cancer (Resolved 2008) Sleep apnea (Resolved 1998) Surgical History Anesthesia (Resolved) History of cataract removal with insertion of prosthetic lens (Resolved 03/12/09 ) History of cataract removal with insertion of prosthetic lens (Resolved 04/09/09 ) History of colonoscopy with polypectomy (Resolved 04/12/17) History of lumbar spinal fusion (Resolved 06/18/16) History of penile implant (Resolved 05/22/11) History of radical prostatectomy (Resolved 11/23/08) Hx of right inguinal hernia repair (Resolved 12/1965) S/P matrixectomy of toe (Resolved 03/05/09) Status post LASIK surgery (Resolved 05/1999) Status post YAG capsulotomy of left eye (Resolved 08/18/13) Status post YAG capsulotomy of right eye (Resolved 08/29/13) Status post biopsy (Resolved 05/10/09) Status post bunionectomy (Resolved 08/1976) Status post epidural steroid injection (Resolved 01/22/09) Status post epidural steroid injection (Resolved 11/19/09) Status post laminectomy (Resolved 12/1997) Status post lumbar surgery (Resolved 01/27/10) Status post lumbar surgery (Resolved 03/29/12) Status post sclerotherapy of varicose veins (Resolved 01/2004) Status post tonsillectomy and adenoidectomy (Resolved ~1952) Status post eye surgery (08/18/13) Status post eye surgery (08/29/13) Status post radical cystoprostatectomy (11/23/08) Family History Brother Age: 70 Diabetes mellitus Obesity Brother Age: 67 Drug abuse Father Cancer Diabetes mellitus Heart disease Hypertension High cholesterol Stroke Sister Age: 74 Arthritis Mother No problems noted. Social History household members: spouse Smoking Status: Never smoker alcohol intake: current Exam Initial Vital Signs Initial Vital Signs: Vital Signs Temperature 97.6 F 03/21/18 11:25 Pulse Rate 92 H 03/21/18 11:25 Respiratory Rate 14 03/21/18 11:25 Blood Pressure 143/85 H 03/21/18 11:25 Pulse Oximetry 96 03/21/18 11:25 Const General: cooperative, healthy appearing, comfortable, well developed, well groomed and No acute distress Orientation: alert, awake and oriented x3 HENMT Head: normal to inspection and normocephalic Resp Effort & Inspection: normal respiratory effort Auscultation: clear to auscultation bilaterally Cardio Rate: regular rate Rhythm: regular rhythm GI Inspection: non-distended Palpation: soft, No firm and tender ( Periumbilical) Other: does have a painful umbilicus. Skin Lesions: no lesions Rashes: no rashes Neuro General: alert, awake and oriented x3 Extrem General: normal to inspection, full ROM and No edema Psych Appearance: grossly normal and well kempt Course Orders Ordered: ED Orders 03/21/18 12:30 Complete Blood Count AUTO DIFF Stat Comprehensive Metabolic Panel Stat Lipase Stat 03/21/18 12:56 CT abdomen pelvis w con Stat Discontinued Medications Sodium Chloride (Normal Saline 0.9%) 1,000 mls @ 1,000 mls/hr IV BOLUS ONE Stop: 03/21/18 13:15 Last Admin: 03/21/18 12:33 Dose: 1,000 mls/hr Vital Signs - 8 hr 03/21/18 11:25 03/21/18 12:55 Temperature 97.6 F Pulse Rate 92 H 81 Respiratory Rate 14 16 Blood Pressure 143/85 H Blood Pressure [Left Arm] 127/77 Pulse Oximetry 96 96 MDM - Abdominal Pain Lab Data Attestation: I reviewed the patient's lab results. Result diagrams: 03/21/18 12:30 03/21/18 12:30 Lab Results 03/21/18 03/21/18 Range/Units 12:30 12:30 WBC 7.9 (4.5-11.0) X10^3/uL RBC 4.31 L (4.5-5.9) X10^6/uL Hgb 12.7 L (13.5-17.5) g/dL Hct 37.2 L (41-53) % MCV 86.4 (80-100) fL MCH 29.4 (26-34) PG MCHC 34.0 (30-36) % RDW 12.7 (11.6-14.8) % Plt Count 190 (150-400) X10^3/uL Neut % (Auto) 73.1 (50-75) % Lymph % (Auto) 13.1 L (25-40) % [place] % (Auto) 11.6 (3-14) % Eos % (Auto) 1.7 L (2-4) % Baso % (Auto) 0.5 (0-2) % Neut # (Auto) 5700 (0455-2716) /uL Sodium 142 (137-145) mmol/L Potassium 4.6 (3.4-5.1) mmol/L Chloride 101 (98-107) mmol/L Carbon Dioxide 28 (22-32) mmol/L BUN 23 H (9-20) mg/dL Creatinine 0.90 (0.66-1.25) mg/dL Estimated GFR > 60.0 (>60) mL/min BUN/Creatinine Ratio 25.6 H (6-22) Glucose 127 H (80-110) mg/dL Calcium 9.8 (8.4-10.2) mg/dL Total Bilirubin 0.9 (0.2-1.3) mg/dL AST 99 H (17-59) IU/L ALT 133 H (21-72) IU/L Alkaline Phosphatase 276 H (38-126) U/L Total Protein 7.9 (6.3-8.2) g/dL Albumin 4.8 (3.5-5.0) g/dL Globulin 3.1 (1.7-4.1) g/dL Albumin/Globulin Ratio 1.5 (1.0-2.8) Lipase 147 (23-300) U/L Point of care testing: Urine Dip Bedside Urine Glucose Negative Bedside Urine Bilirubin - Negative Bedside Urine Ketone - Negative Urine Specific [place] 1.020 Bedside Urine Occult Blood - Negative Bedside Urine pH 6.0 Bedside Urine Protein +/- 15 Bedside Urine Urobilinogen - Negative Bedside Urine Nitrite - Negative Bedside Urine Leukocytes - Negative Esterase Imaging Data CT scan - abdomen: Radiologist's impression: PROCEDURE: CT ABDOMEN PELVIS W CON INDICATIONS: Left-sided abdominal pain and umbilical pain TECHNIQUE: After the administration of intravenous contrast, 5 mm thick sections acquired from the diaphragm to the symphysis. 5 mm coronal and sagittal reformats were acquired. For radiation dose reduction, the following was used: automated exposure control, adjustment of mA and/or kV according to patient size. COMPARISON: None. FINDINGS: Image quality: Excellent. ABDOMEN: Lung bases: Lung bases are clear. Heart size is normal. Atherosclerotic calcifications are noted visualized coronary vasculature. Solid organs: Numerous hypoattenuating, heterogeneously enhancing lesions are scattered throughout the liver concerning for metastatic disease. Gallbladder is within normal limits. Biliary system is non dilated. There is a 4.8 x 5.5 x 4.9 cm heterogeneously enhancing mass arising from the tail of the pancreas. Pancreatic mass surrounds the distal splenic artery. Multiple hypoattenuating, heterogeneously enhancing lesions are noted in the spleen concerning for metastatic disease. No adrenal nodules. Kidneys demonstrate normal size and enhancement, without hydronephrosis. Peritoneum and bowel: Bowel loops demonstrate normal wall thickness and caliber. Scattered colonic diverticuli without evidence of diverticulitis. No free fluid or air. The appendix is normal. Nodes and vessels: Periportal lymphadenopathy is noted with largest node measuring 1.6 cm in short axis. Gastrohepatic lymphadenopathy is noted with largest node measuring 1.2 cm in short axis. Periaortic lymphadenopathy is noted with largest node measuring 1.4 cm and the short axis. Multiple left lower quadrant mesenteric lymph nodes with spiculated margins are noted ranging in size from 1 cm-2.2 cm.. Aorta and inferior vena cava are normal in size. Scattered atherosclerotic calcifications involving the abdominal and pelvic vasculature. Miscellaneous: No ventral hernias. PELVIS: Genitourinary: Bladder wall thickness is normal. Penile prosthesis with left lower pelvic reservoir is noted. Prostate is surgically absent. Miscellaneous: No inguinal hernias or adenopathy. Bones: 9 mm lytic lesion noted in the anterior margin of the T12 vertebral body. No vertebral body compression fractures. Macro spine. Postsurgical changes noted in the lumbosacral spine. IMPRESSION: 1. Large heterogeneously enhancing mass arising from the tail of pancreas highly suspicious for pancreatic carcinoma. 2. Multiple hepatic and splenic metastatic lesions. 3. Gastrohepatic, periportal, periaortic and left mesenteric metastatic lymphadenopathy. 4. 9 mm T12 lytic lesion concerning for osseous metastatic disease. Dictated by: Christianne Myers MD, PhD on 03/21/2018 at 13:18 Approved by: Christianne Myers MD, PhD on 03/21/2018 at 13:40 [facility] Narrative Medical decision making narrative: patient's CT scan shows no signs of obstruction. He does have diverticula but no signs of diverticulitis. No signs of an umbilical hernia. Appendix is normal. Patient's CT scan is concerning for metastatic pancreatic cancer. I did discuss this with the patient. I did discuss his findings. I do suspect that this could be the reason for his abdominal pain. There is no signs of obstruction secondary to this. I contacted the patient's primary doctor and talked to his nurse. We were able to schedule an appointment for him on of this week. Patient was informed of this. He states that he may have to change just appointment. All questions were answered at the time of discharge. Discharge Plan Departure Patient Disposition: Home Clinical Impression: Mass of pancreas, Constipation Instructions: Constipation Activity Restrictions/Additional Instructions: you have an appointment scheduled for of this week at 0915 in the morning with your primary doctor. If you cannot make this appointment call them to reschedule. your CT scan is very concerning for pancreatic cancer. It is a poor that you follow-up with your primary care doctor regarding this. Return to the emergency department for any new or worsening symptoms Prescriptions: No Action MULTIVITAMIN (#MULTIPLE VITAMINS) 1 cap PO Q DAY Qty: 0 RF: 0 Flaxseed Oil (#FLAXSEED OIL) 2 tab PO BID Qty: 0 RF: 0 lisinopril [Prinivil] 20 MG tablet 20 mg PO Q DAY Qty: 90 RF: 3 clotrimazole-betamethasone [Lotrisone] 1-0.05 % cream 1 applictn TOP BID 14 Days Qty: 15 RF: 2 aspirin 81 mg Tablet,Delayed Release (Dr/Ec) 81 mg PO DAILY RF: 0
[2018-03-21] MEDS: SODIUM CHLORIDE 0.9% 1,000 ML 1000 ML IV (12:33)
[2018-03-21 12:40] LABS: Add Manual Diff / Slide Review NO; Basophils Percent Auto 0.5 % (0-2); Eosinophils Percent Auto 1.7 % (2-4); Hematocrit 37.2 % (41-53); Hemoglobin 12.7 g/dL (13.5-17.5); Lymphocytes Percent Auto 13.1 % (25-40); Mean Corpuscular Hemoglobin 29.4 PG (26-34); Mean Corpuscular Volume 86.4 fL (80-100); Monocytes Percent Auto 11.6 % (3-14); Neutrophils Absolute Auto 5700 /uL (3000-5900); Neutrophils Percent Auto 73.1 % (50-75); Platelet Count 190 X10^3/uL (150-400); Red Blood Cell Count 4.31 X10^6/uL (4.5-5.9); Red Cell Distribution Width 12.7 % (11.6-14.8); White Blood Cell Count 7.9 X10^3/uL (4.5-11.0)
[2018-03-21 12:52] LABS: Alanine Aminotransferase 133 IU/L (21-72); Albumin 4.8 g/dL (3.5-5.0); Albumin Globulin Ratio 1.5 (1.0-2.8); Alkaline Phosphatase 276 U/L (38-126); Aspartate Aminotransferase 99 IU/L (17-59); BUN Creatinine Ratio 25.6 (6-22); Bilirubin Total 0.9 mg/dL (0.2-1.3); Blood Urea Nitrogen 23 mg/dL (9-20); Calcium 9.8 mg/dL (8.4-10.2); Carbon Dioxide 28 mmol/L (22-32); Chloride 101 mmol/L (98-107); Estimated Glomerular Filt Rate > 60.0 mL/min (>60); Globulin 3.1 g/dL (1.7-4.1); Glucose 127 mg/dL (80-110); HEMOLYSIS < 15 (0-50); Lipase 147 U/L (23-300); Potassium 4.6 mmol/L (3.4-5.1); Sodium 142 mmol/L (137-145); Total Protein 7.9 g/dL (6.3-8.2)
[2018-03-21 12:55] VITALS: BP 127/77; PULSE 81; RESP 16; O2SAT 96
--- NOTE | 2018-03-21 12:56 | DI.CT.S_ITS ---
PROCEDURE: CT ABDOMEN PELVIS W CON INDICATIONS: Left-sided abdominal pain and umbilical pain TECHNIQUE: After the administration of intravenous contrast, 5 mm thick sections acquired from the diaphragm to the symphysis. 5 mm coronal and sagittal reformats were acquired. For radiation dose reduction, the following was used: automated exposure control, adjustment of mA and/or kV according to patient size. COMPARISON: None. FINDINGS: Image quality: Excellent. ABDOMEN: Lung bases: Lung bases are clear. Heart size is normal. Atherosclerotic calcifications are noted visualized coronary vasculature. Solid organs: Numerous hypoattenuating, heterogeneously enhancing lesions are scattered throughout the liver concerning for metastatic disease. Gallbladder is within normal limits. Biliary system is non dilated. There is a 4.8 x 5.5 x 4.9 cm heterogeneously enhancing mass arising from the tail of the pancreas. Pancreatic mass surrounds the distal splenic artery. Multiple hypoattenuating, heterogeneously enhancing lesions are noted in the spleen concerning for metastatic disease. No adrenal nodules. Kidneys demonstrate normal size and enhancement, without hydronephrosis. Peritoneum and bowel: Bowel loops demonstrate normal wall thickness and caliber. Scattered colonic diverticuli without evidence of diverticulitis. No free fluid or air. The appendix is normal. Nodes and vessels: Periportal lymphadenopathy is noted with largest node measuring 1.6 cm in short axis. Gastrohepatic lymphadenopathy is noted with largest node measuring 1.2 cm in short axis. Periaortic lymphadenopathy is noted with largest node measuring 1.4 cm and the short axis. Multiple left lower quadrant mesenteric lymph nodes with spiculated margins are noted ranging in size from 1 cm-2.2 cm.. Aorta and inferior vena cava are normal in size. Scattered atherosclerotic calcifications involving the abdominal and pelvic vasculature. Miscellaneous: No ventral hernias. PELVIS: Genitourinary: Bladder wall thickness is normal. Penile prosthesis with left lower pelvic reservoir is noted. Prostate is surgically absent. Miscellaneous: No inguinal hernias or adenopathy. Bones: 9 mm lytic lesion noted in the anterior margin of the T12 vertebral body. No vertebral body compression fractures. Macro spine. Postsurgical changes noted in the lumbosacral spine. IMPRESSION: 1. Large heterogeneously enhancing mass arising from the tail of pancreas highly suspicious for pancreatic carcinoma. 2. Multiple hepatic and splenic metastatic lesions. 3. Gastrohepatic, periportal, periaortic and left mesenteric metastatic lymphadenopathy. 4. 9 mm T12 lytic lesion concerning for osseous metastatic disease. Dictated by: Christianne Myers MD, PhD on 03/21/2018 at 13:18 Approved by: Christianne Myers MD, PhD on 03/21/2018 at 13:40
[2018-03-21 14:00] VITALS: BP 160/86; PULSE 86; RESP 16; O2SAT 98
[2018-03-21 14:17] VITALS: BP 160/86; PULSE 86; RESP 16; O2SAT 98
== END 2018-03-21 14:19 | disposition home or self-care (01) ==
PROVIDERS: Emergency Provider Emergency Medicine; PCP Family Medicine
DX: K86.9 Disease of pancreas, unspecified (principal); K59.00 Constipation, unspecified
CPT/HCPCS: 36591; 74177; 80053; 81003; 83690; 85025; 96360; 96361; 99283; 99285; Q9967

== ENCOUNTER → 2018-03-28 10:07 | Outpatient (CLI) | payer OTHER, SELFPAY ==
[2018-03-25 09:47] VITALS: BMI 37.3
--- NOTE | 2018-03-28 | DI.CT.S_ITS ---
PROCEDURE: CT CHEST W CON INDICATIONS: PANCREATIC CANCER TECHNIQUE: After the administration of intravenous contrast, 5 mm thick sections acquired from the pulmonary apices to the posterior costophrenic angles. 7 mm thick coronal and sagittal MIP reformats were acquired. For radiation dose reduction, the following was used: automated exposure control, adjustment of mA and/or kV according to patient size. COMPARISON: [facility], CT, CT ABDOMEN PELVIS W CON, 03/21/2018, 12:49. [facility], CR, CHEST 2 VIEW, 11/21/2008, 8:14. FINDINGS: Image quality: Excellent. Lungs and pleura: No acute air space opacities. No pleural effusions or pneumothorax. Central and peripheral airways are patent and normal in caliber. Mediastinum: Heart size is normal. No pericardial effusion. No mediastinal or hilar adenopathy by size criteria. Thoracic aorta and central pulmonary arteries are normal in size. Esophagus is normal in caliber. No hiatal hernia. Bones and chest wall: No suspicious bony lesions. No vertebral body compression fractures. No axillary or supraclavicular adenopathy by size criteria. Thyroid gland appears normal where well visualized. Abdomen: Visualized upper abdominal solid organs again show evidence of underlying malignancy. The liver, for example, contains a multitude of metastatic lesions previously documented 03/21/18. Careful measurements over several of these metastatic liver lesions show a consistent pattern of mild growth in size despite the short time interval, in my opinion. 3 separate lesions measured in the same area within each lesion have increased by 2 mm, 6 mm, and 4 mm respectively shown in the montage set of selected images. The mass effect within the liver parenchyma produces appreciable effacement of the intrahepatic IVC when compared to the prior study from 03/21/18. Mild adenopathy in the gastrohepatic ligament appears stable. A large mass at the pancreatic tail associated with focal adjacent splenic hypodensity appears stable over time. Upper abdominal bowel loops are normal in caliber. IMPRESSION: 1. No pulmonary mass lesion is found. 2. Interval growth in size of multiple hepatic metastatic lesions from a comparison CT of the abdomen/pelvis performed 03/21/18. The increased mass effect within the liver parenchyma is most convincingly demonstrated by comparing the appearance of the intrahepatic IVC previously to the current study, and the current study shows the IVC to be appreciably effaced versus normal in appearance previously. 3. Stable mild upper abdominal adenopathy, stable appearance of a large pancreatic tail mass with associated subjacent splenic hypoenhancement focally, most likely representing early invasive change affecting either the parenchyma directly, or the blood flow to that portion of the parenchyma. Dictated by: Miguel Ángel Donnelly M.D. on 03/28/2018 at 11:04 Approved by: Miguel Ángel Donnelly M.D. on 03/28/2018 at 11:20
--- NOTE | 2018-03-30 13:31 | ONC.NAV ---
Description: T/C Activity: Pt left a message that he was having very severe nose-bleeds, and requested a call with instructions on what to do. RICE DRIER relayed this to Becky, outside barrel lathe operator.
--- NOTE | 2018-04-01 10:43 | ONC.NAV ---
Description: T/C from pt re: concerns moving forward with treatment Activity: Pt called to express concerns re: moving forward with his port placement, stating that I might be too far gone for chemo, and my [id number] says it's a very invasive surgery. He's concerned about what the results of his recent labs are, and is questioning whether it will be worth it. FUEL CELL SYSTEMS ENGINEER offered teaching and reassurance re: calling and asking these types of questions, and suggested that we ask Dr. Mace to call him and discuss these concerns. He was agreeable to this plan. FUEL CELL SYSTEMS ENGINEER will speak with Dr. Mace and request that he call patient.
== END ==
PROVIDERS: PCP Family Medicine; Visit Provider Internal Medicine Hematology & Oncology
DX: C25.9 Malignant neoplasm of pancreas, unspecified (principal)
CPT/HCPCS: 71260; Q9967

== ENCOUNTER 2018-03-29 09:18 | Day surgery (SDC) | payer OTHER, SELFPAY ==
[2018-03-25 09:47] VITALS: BMI 37.3
[2018-03-29] VITALS (12 sets, daily range): BP systolic 123–157; BP diastolic 71–96; PULSE 65–91; RESP 15–20; TEMP 36.7–37.5; O2SAT 94–100; BMI 32.2
--- NOTE | 2018-03-29 | PATH_ITS ---
[facility] Accession Number: [id number] . 01 Material submitted: . LIVER . 01 Clinical history: . PANCREATIC TAIL MASS WITH MULTIPLE LIVER LESIONS PRESUMED ADENOCARCINOMA . 02 Diagnosis: Liver, Core Needle Biopsies: Adenocarcinoma, moderately differentiated, with a pancreaticobiliary or upper gastrointestinal immunophenotype. Please see comment. MRV/04/01/2018 . 02 Comment: The immunophenotype is compatible with a pancreaticobiliary or upper gastrointestinal adenocarcinoma in the appropriate clinical and radiologic context. . As part of routine it quality analyst, Dr. Milan also reviewed this case and agrees with the diagnosis. Dr. Akbar called Dr. Mace's office on 03/31/2018 and on 04/01/2018 to discuss the results. . 02 Electronically signed: . Irene Akbar MD, Pathologist NPI- [id number] . 01 Gross description: . Received in one formalin-filled container labeled with the patient's name and labeled pancreatic metastatic liver lesions, are multiple 0.1 cm in diameter cylindrical-shaped portions of tissue which range in length from 0.1 cm to 0.5 cm. The specimen is filtered, wrapped, and entirely submitted in one cassette. (DC:[id number]) /FRR . 02 Microscopic: . Immunohistochemical stains were performed to characterize the cells of interest. Control stains showed appropriate reactivity. . RESULTS: Cytokeratin 7: Uniformly positive. CDX2: Variably positive. CK20: Negative. . INTERPRETATION: The pattern of expression is consistent with a pancreaticobiliary or upper gastrointestinal immunophenotype. Lung carcinoma with an enteric immunophenotype can not be completely excluded. . * This test was developed and its performance characteristics determined by [employer]. It has not been cleared or approved by the U.S. Food and Drug Administration. The FDA has determined that such clearance or approval is not necessary. This test is used for clinical purposes. It should not be regarded as investigational or for research. . 02 Pathologist provided ICD-10: C78.7 . 02 CPT . 494976, X99632, Y26846 Performed at: 01 [facility] [address] [id number] MD Pee Archer MD Phone: [phone] Performed at: 02 [facility] [address] [place] [id number] MD Quentin Aleman MD Phone: [phone]
--- NOTE | 2018-03-29 10:58 | DI.CT.S_ITS ---
PROCEDURE: CT BIOPSY LIVER Sedation analgesia for 30 minutes. INDICATIONS: liver lesion TECHNIQUE: The indications, alternatives, benefits, risks, and possible complications of the procedure were communicated to the patient. Informed written consent from the patient was obtained and placed in the chart. Continuous EKG and hemodynamic monitoring was started by trained personnel. The patient was brought to the CT suite and supervisor uranium processing spiral CT imaging was performed with localization grid. The appropriate site for percutaneous access to the biopsy target was marked, was prepped and draped sterilely, and was infused with local anaesthesia. Under CT guidance, a core biopsy trocar and needle set was advanced to the biopsy target, and specimen(s) were obtained. The trocar and needle were then removed, and the patient was sent for post-procedure monitoring. COMPARISON: None. FINDINGS: Biopsy site: Anterior left lateral hepatic segment mass in this patient with pancreatic tail mass and multiple liver metastatic lesions. Needle: 20 gauge biopsy needle with introducer trocar. Number of passes: 6 Medications: 1% lidocaine for local anaesthesia. IV Fentanyl and Versed for conscious sedation for 30 minutes (see nursing record). Complications: None. IMPRESSION: Successful CT-guided biopsy of a anterior left lateral hepatic segment liver mass in the setting of multifocal hepatic metastatic disease presumably from pancreatic adenocarcinoma. At termination of the study no hemorrhage was present at the anterior transhepatic access site, and a single small gas bubble was identifiable within the target lesion that was biopsied for histologic analysis. Dictated by: Miguel Ángel Donnelly M.D. on 03/29/2018 at 15:32 Approved by: Miguel Ángel Donnelly M.D. on 03/29/2018 at 15:36
[2018-03-29 14:58] LABS: Hematocrit 33.4 % (41-53); Hemoglobin 11.4 g/dL (13.5-17.5)
--- NOTE | 2018-03-29 15:30 | SUR.PHASEII ---
dressing intact no drainage and artea looks intact with no signs of bleeding or infection. pt had post op h& h and results were reviewd with dr Donnelly and pt prior to discharge. dr Donnelly also came and spoke with and examined pt prior to discharge
[2018-03-29] MEDS: fentaNYL 100 MCG/2 ML INJ IV (16:43)
[2018-03-29] MEDS: MIDAZOLAM 2 MG/2 ML VIAL 1 MG IV (16:43)
== END 2018-03-29 15:28 ==
LOC: OR 09:22
PROVIDERS: Radiology Diagnostic Radiology; PCP Family Medicine; Visit Provider Internal Medicine Hematology & Oncology
PROC: BF25ZZZ Computerized Tomography (CT Scan) of Liver (ICD-10-PCS; CPT 47000; principal; 2018-03-29 10:30)
DX: C78.7 Secondary malignant neoplasm of liver and intrahepatic bile duct (principal); C25.9 Malignant neoplasm of pancreas, unspecified; I10 Essential (primary) hypertension; E78.5 Hyperlipidemia, unspecified
CPT/HCPCS: 36415; 47000; 77012; 85014; 85018; J2250; J3010

== ENCOUNTER 2018-04-06 09:14 | Day surgery (SDC) | payer OTHER, SELFPAY ==
[2018-03-25 09:47] VITALS: BMI 37.3
[2018-04-04 08:10] VITALS: BMI 30.9
--- NOTE | 2018-04-06 | DI.RAD.S_ITS ---
PROCEDURE: XR CHEST 1V INDICATIONS: Port placement TECHNIQUE: One view of the chest was acquired. COMPARISON: [facility], , CHEST 2 VIEW, 11/21/2008, 8:14. FINDINGS: Surgical changes and devices: A Port-A-Cath from a left-sided approach extends into the confluence of the right and left brachiocephalic veins and the upper margin of the superior vena cava the Lungs and pleura: No pleural effusions or pneumothorax. Lungs are clear. Mediastinum: Mediastinal contours appear normal. Heart size is normal. Bones and chest wall: No suspicious bony lesions. Overlying soft tissues appear unremarkable. IMPRESSION: No pneumothorax after central line placement as noted. Dictated by: Miguel Ángel Donnelly M.D. on 04/06/2018 at 13:43 Approved by: Miguel Ángel Donnelly M.D. on 04/06/2018 at 13:44
--- NOTE | 2018-04-06 | PATH_ITS ---
[facility] Accession Number: [id number] . 01 Material submitted: . PART A: ANTRAL BIOPSY PART B: DUODENAL BIOPSY PART C: GE JUNCTION BIOPSY . 02 Diagnosis: A. Antral Biopsy: Antral mucosa with hyperemia, but negative for significant inflammation. Negative for Helicobacter on H/E stain. Negative for intestinal metaplasia. Negative for dysplasia and malignancy. . B. Biopsies Duodenum: Fragments of normal appearing duodenum mucosa. Normal delicate mucosal villi are present. Negative for significant inflammation, dysplasia and malignancy. . C. Gastroesophageal Junction Biopsy: Fragments of squamous epithelium with nonspecific reactive changes and no glandular epithelium identified. Negative for dysplasia and malignancy. Negative for intraepithelial eosinophils. [facility]/04/07/2018 . 02 Electronically signed: . Jose Irene MD, Pathologist NPI- [id number] . 01 Gross description: . Received three formalin-filled containers each labeled with the patient's name. . A. In a container labeled antral are two 0.2 to 0.4 cm portions of tissue. Entirely submitted in cassette A. B. In a container labeled duodenal, the specimen consists of a 0.3 cm portion of tissue. Entirely submitted in cassette B. C. In a container labeled GE junction, the specimen consists of a 0.1 cm portion of tissue. Entirely submitted in cassette C. ([facility] [place]:[id number]) /[facility] . 02 Pathologist provided ICD-10: R10.13 . 02 CPT . 970064, 699528, 247402 Performed at: 01 [facility] [address] [address], [place], [place] [id number] MD Pee Archer MD Phone: [phone] Performed at: 02 [facility] [address] [place] [id number] MD Quentin Aleman MD Phone: [phone]
[2018-04-06 10:12] VITALS: BP 146/92; PULSE 104; RESP 16; TEMP 36.4; O2SAT 99; BMI 30.4
[2018-04-06 10:25] VITALS: BMI 30.4
[2018-04-06] MEDS: LACTATED RINGERS 1,000 ML 42 ML IV (10:43)
--- NOTE | 2018-04-06 11:10 | SUR.OPER ---
Supine on padded OR bed, head on pillow, arms secured on padded arm boards at <90 degrees abduction, legs uncrossed, safety belt at thigh, tape over blanket over lower legs.
--- NOTE | 2018-04-06 11:18 | PM.PREOP ---
Pre-operative Note Interval Note Pre-op Check: Yes History & Physical Reviewed by Physician Changes: No
[2018-04-06] MEDS: CEFAZOLIN 2 GM/100 ML FROZ.PIGGY IV (11:40)
[2018-04-06] MEDS: BUPIVACAINE 0.5% (PF) VIAL 30 ML INJ (11:44)
[2018-04-06] MEDS: SODIUM CHLORIDE 0.9% FLUSH 10 ML IV (11:44)
[2018-04-06] MEDS: LIDOCAINE 1% W/EPI INJ 20 ML INJ (11:45)
--- NOTE | 2018-04-06 12:27 | P.OP_ITS ---
Operative Date/Time/Diagnoses Date of procedure: 04/06/18 Time of procedure: 12:23 Pre-op diagnosis: Metastatic pancreatic cancer Post-op diagnosis: same Procedure & Clinicians Procedure: Left subclavian port placement and esophagogastroduodenoscopy with biopsies Same procedure as scheduled: Yes Indications: Metastatic pancreatic cancer in need of chemotherapy Abdominal pain and nausea Surgeon: Flakita Smallwood Click Yes if Unassisted: Yes Anesthesia Type: General (Goetter) Operative Notes Findings: 1. Duodenal ulcerations with stigmata of recent bleeding 2. Functioning pylorus 3. Normal-appearing antrum without evidence of gastritis 4. GE junction at 42 cm from the incisors. Mildly irregular Z-line. 5. Normal-appearing posterior oropharynx 6. Power port in good position in the superior vena cava Closure Type: primary Implants & Drains: Low-profile power port Estimated Blood Loss (mL): 5 Procedure in detail: After obtaining informed consent, the patient was brought to the operating room and placed in the supine position on the operating table. Following successful induction of general endotracheal anesthesia, appropriate padding of all bony prominences, and placement of appropriate monitors, the left chest was prepped and draped in a standard surgical fashion. A timeout was held per SCOAP protocol. A mixture of local anesthetics was infiltrated in the deltopectoral groove on the left side. The right subclavian vein was accessed via the Seldinger technique and a wire was gently placed into the vein. Fluoroscopy was used to verify position of the wire in the subclavian vein. We next created a pocket of approximately 2 cm inferior to the access site of the vein. This was checked for size and found to fit the port nicely. The included tunneling device was used to place the tubing and the pocket connecting it to the access site of the subclavian vein. The tubing was trimmed to an appropriate length and connected to the Port-A-Cath. The Port-A-Cath was sewn into place in the pocket using interrupted Prolene sutures. The pocket was closed in 2 layers. The dilator and introducer were then gently passed over the wire and into the subclavian vein. The wire and dilator were removed leaving only the introducer. The tubing was then placed in the introducer and the introducer removed per architectural draftsman's directions. The port was then flushed with saline solution and found to be functional and in good position. It was then hep- locked with 2000 units of heparin. The incision was closed in 2 layers with Vicryl and Monocryl sutures. Dermabond was applied to the skin. All sponge, needle, and instrument counts were correct at the conclusion of this portion of the procedure. We now turned our attention to the endoscopy portion of the procedure. A bite block was gently placed between the patient's teeth. The endoscope was lubricated and then passed into the patient's posterior oropharynx. The esophagus was cannulated under direct vision and the scope was passed to the second portion of the duodenum without difficulty. The scope was then withdrawn with careful examination of all areas of the upper GI tract and mucosa. In the stomach, the instrument was retroflexed and the GE junction examined. The scope was straightened and the procedure continued with examination of the remainder of the upper GI tract. Findings are noted above. Air was aspirated from the stomach and the endoscope gently removed from the esophagus. The patient was allowed to wake from anesthesia without difficulty and taken to the postanesthesia care unit in good condition Complications: none Disposition: PACU Plan for aftercare: 1. Discharge to home 2. The port is ready for use 3. Await pathology results 4. We will contact you with these results and any further recommendations.
[2018-04-06 12:29] VITALS: BP 137/82; PULSE 89; RESP 10; TEMP 36.7; O2SAT 96
[2018-04-06 12:35] VITALS: BP 134/86; PULSE 85; RESP 21; O2SAT 96
[2018-04-06 12:45] VITALS: BP 159/91; PULSE 85; RESP 21; O2SAT 99
[2018-04-06 12:55] VITALS: BP 142/85; PULSE 84; RESP 22; TEMP 37.1; O2SAT 98
[2018-04-06 13:05] VITALS: BP 141/85; PULSE 82; RESP 18; TEMP 36.7; O2SAT 98
--- NOTE | 2018-04-06 13:50 | SUR.PHASEII ---
1330: IV D/C'd cannula intact 1336: Pt at bedside getting dressed. Denies dizziness at this time and Pt is stable on feet. Discharge home instructions reviewed with Pt and and both indicate understanding. 1337: [employer] called for Pt and to be picked up at the ER entrance 1343: Pt d/c'd Phase II in stable condition and has met discharge criteria
== END 2018-04-06 13:43 | disposition home or self-care (01) ==
PROVIDERS: PCP Family Medicine; Visit Provider Surgery
PROC: (CPT 36561; principal; 2018-04-06 10:15)
PROC: 0DJ08ZZ Inspection of Upper Intestinal Tract, Via Natural or Artificial Opening Endoscopic (ICD-10-PCS; CPT 43235; 2018-04-06 10:15)
DX: C25.9 Malignant neoplasm of pancreas, unspecified (principal); Z45.2 Encounter for adjustment and management of vascular access device; D50.0 Iron deficiency anemia secondary to blood loss (chronic); K26.4 Chronic or unspecified duodenal ulcer with hemorrhage
CPT/HCPCS: 36561; 43239; 71045; C1788; J0690; J1644; J2250; J2405; J2704; J3010

== ENCOUNTER 2018-04-15 01:36 | Emergency (ER) | payer OTHER, SELFPAY ==
[2018-03-25 09:47] VITALS: BMI 37.3
[2018-04-15 01:46] VITALS: BP 157/87; PULSE 108; RESP 20; TEMP 36.7; O2SAT 98; BMI 30.4
--- NOTE | 2018-04-15 02:23 | ED_ITS ---
HPI - Epistaxis General Chief complaint: Nasal Problem Stated complaint: BLOODY NOSE X2 HOURS Time Seen by Provider: 04/15/18 01:50 Source: patient Mode of arrival: ambulatory Limitations: no limitations History of Present Illness HPI Narrative: This is a 72-year-old gentleman who comes in with complaint of bleeding from the right nostril. Patient states it started about midnight. He states that he has had problems with having thin blood because he has terminal cancer and has had issues with coagulopathy. Patient states that he remotely had issues with nosebleeds when he was younger. He does use a CPAP and states his nose and mouth have been very dry recently. He did have any other trauma recently. He is not on any blood thinners currently. Patient is not having any lightheadedness, no shortness of breath, no chest pain. No nausea or vomiting currently. He has been taking antinausea medications for chronic nausea from his chemotherapy. Related Data Home Medications Medication Instructions Recorded Confirmed MULTIVITAMIN (#MULTIPLE VITAMINS) 1 cap PO Q DAY #0 03/22/11 04/08/18 dexamethasone 4 mg PO DAILY 04/14/18 04/14/18 lorazepam 0.5 mg PO Q6HR PRN 04/14/18 04/14/18 Previous Rx's Medication Instructions Recorded zolpidem 5 mg tablet 5 mg PO BEDTIME PRN #20 tab 03/22/18 alprazolam 1 mg tablet 1 mg PO Q8H PRN #45 tab 03/31/18 hydromorphone 2 mg PO Q6H PRN #14 tab 04/06/18 olanzapine 10 mg PO DAILY #16 tab 04/11/18 prochlorperazine maleate 10 mg PO Q6H PRN #30 tab 04/11/18 ondansetron [Zofran ODT] 4 mg PO Q6-8H PRN #30 tab 04/12/18 Allergies Allergy/AdvReac Type Severity Reaction Status Date / Time Corticosteroids AdvReac Mild HICCUPS X Verified 04/04/18 08:14 (Glucocorticoids) 24 HRS walnut [WALNUT] AdvReac Mild canker Verified 04/04/18 08:14 sores in mouth Review of Systems Review of Systems All systems reviewed & are unremarkable except as noted in HPI and below ENT Ears, Nose, Mouth, and Throat: Denies dizziness, Reports epistaxis, Denies nasal congestion, Denies nasal discharge and Denies nasal trauma Cardiovascular Denies chest pain and Denies dyspnea Respiratory Denies dyspnea Gastrointestinal Gastrointestinal: Denies nausea and Denies vomiting Neurologic Denies dizziness FOR[facility]LY [facility] Medical History Hepatic lesion (Acute) Unexplained weight loss (Acute) Chronic back pain (Chronic 1996) Diverticulosis (Chronic) HTN (hypertension) (Chronic 1995) Hyperlipidemia (Chronic) Internal hemorrhoids (Chronic) Lumbar disc disease (Chronic 1996) Scoliosis (Chronic) Cataracts, bilateral (Resolved 2008) DDD (degenerative disc disease) (Resolved 09/11/09) Prostate cancer (Resolved 2008) Sleep apnea (Resolved 1998) Surgical History History of laminectomy (Acute) Anesthesia (Resolved) History of cataract removal with insertion of prosthetic lens (Resolved 03/12/09 ) History of cataract removal with insertion of prosthetic lens (Resolved 04/09/09 ) History of colonoscopy with polypectomy (Resolved 04/12/17) History of lumbar spinal fusion (Resolved 06/18/16) History of penile implant (Resolved 05/22/11) History of radical prostatectomy (Resolved 11/23/08) Hx of right inguinal hernia repair (Resolved 12/1965) S/P matrixectomy of toe (Resolved 03/05/09) Status post LASIK surgery (Resolved 05/1999) Status post YAG capsulotomy of left eye (Resolved 08/18/13) Status post YAG capsulotomy of right eye (Resolved 08/29/13) Status post biopsy (Resolved 05/10/09) Status post bunionectomy (Resolved 08/1976) Status post epidural steroid injection (Resolved 01/22/09) Status post epidural steroid injection (Resolved 11/19/09) Status post laminectomy (Resolved 12/1997) Status post lumbar surgery (Resolved 01/27/10) Status post lumbar surgery (Resolved 03/29/12) Status post sclerotherapy of varicose veins (Resolved 01/2004) Status post tonsillectomy and adenoidectomy (Resolved ~1952) Status post eye surgery (08/18/13) Status post eye surgery (08/29/13) Status post radical cystoprostatectomy (11/23/08) Social History household members: spouse Smoking Status: Never smoker alcohol intake: current Exam Narrative Exam Narrative: GEN: well nourished, well appearing male, alert and oriented x 3 , patient appears to be in mild distress. HEENT: Atraumatic, pupils are equal round reactive to light, extraocular movements are intact, right ear has active bleeding with a large clot removed. Patient I am not able to visualize an actual source. As the bleeding is too brisk. there is dried blood in the mouth also, none from the left nare. TMs are clear with no fluid.. Throat is clear without any exudates, erythema, tonsillar enlargement or uvular deviation HEART: Regular rate and rhythm without murmur, clicks, rubs. LUNGS:Lungs clear to auscultation, no wheezes, rales, crackles, chest moves symmetrically ABD:bowel sounds normal, soft, non-tender, no guarding, rebound, rigidity, no masses noted, no hepatosplenomegaly MSCL: Non-tender, no muscle atrophy, muscles strength 5/5 upper and lower extremities, full range of motion, normal gait NEURO:CN 2-12 intact, sensation normal Initial Vital Signs Initial Vital Signs: Vital Signs Temperature 98.1 F 04/15/18 01:46 Pulse Rate 108 H 04/15/18 01:46 Respiratory Rate 20 04/15/18 01:46 Blood Pressure 157/87 H 04/15/18 01:46 Pulse Oximetry 98 04/15/18 01:46 Course Vital Signs - 8 hr 04/15/18 01:46 04/15/18 03:11 04/15/18 05:02 Temperature 98.1 F Pulse Rate 108 H 100 H 72 Respiratory Rate 20 18 18 Blood Pressure 157/87 H 129/79 Blood Pressure [Right Arm] 127/80 Pulse Oximetry 98 97 98 MDM - Epistaxis MDM Narrative Medical decision making narrative: Patient's bleeding is stopped with the rhino rocket in place. After removal there is a small area on the lateral portion of the nose there is able to cauterize that had some ooze. I did not see any other obvious areas of bleeding. After 25 min patient did not have any additional bleeding and was DC home with a nasal clamp, Afrin directions as well as ENT referral. Discharge Plan Departure Patient Disposition: Home Clinical Impression: Epistaxis Discharge Date/Time: 04/15/18 05:03 Interventions: ED Discharge Assessment Last Done: 04/15/18 05:02 Instructions: DI for Nosebleed Activity Restrictions/Additional Instructions: Follow-up with the ENT specialist provided. Follow directions as noted below. Return to emergency department if self-care directions do not work and urine able to stop the bleeding, or if you become lightheaded, began vomiting. Use medications as directed. Nosebleed self-care - With the right self-care, most nosebleeds stop on their own. Here's what you should do: 1. Blow your nose. This might increase the bleeding for a moment, but that's OK. 2. Sit or stand while bending forward a little at the waist. DO NOT lie down or tilt your head back. 3. Pinch the soft area towards the bottom of your nose, below the bone (picture 1). DO NOT candy separator hard the bridge of your nose between your eyes. That will not work. DO NOT press on just 1 side, even if the bleeding is only on 1 side. That will not work either. 4. Squeeze your nose shut for at least 15 minutes. (In children, squeeze for only 5 minutes.) Use a clock to time yourself. Do not release the pressure before the time is up to check if the bleeding has stopped. If you keep checking , you will ruin your chances of getting the bleeding to stop. If you follow these steps, and your nose keeps bleeding, repeat all the steps once more. Apply pressure for a total of at least 30 minutes (or 10 minutes for children). If you are still bleeding, go to the emergency room or an urgent care clinic. What if I get repeated nosebleeds? - Frequent nosebleeds can be caused by: Breathing dry air all the time Using cold or allergy nasal sprays too much Frequent colds Snorting drugs into your nose, such as cocaine In some cases, repeat nosebleeds can be a sign that your blood does not clot like it should. If that is the case, there are often other clues. For instance, people with clotting problems bruise easily and might bleed more than you would expect after a small cut or scrape. Nosebleed treatment - If you end up seeing a doctor or nurse for your nosebleed , he or she will make sure you can breathe OK. Then he or she will try to get the bleeding to stop. To do that, he or she might have to put a device or some packing material up your nose. What can I do to keep from getting nosebleeds? - You can: Use a humidifier (a machine that makes the air less dry) in your bedroom when you sleep Keep the inside of your nose moist with a nasal saline spray or gel Not pick your nose, or at least clip your nails before you do to avoid injury Prescriptions: No Action MULTIVITAMIN (#MULTIPLE VITAMINS) 1 cap PO Q DAY Qty: 0 RF: 0 zolpidem [Ambien] 5 mg tablet 5 mg PO BEDTIME PRN (Reason: insomnia) Qty: 20 RF: 0 alprazolam 1 mg tablet 1 mg PO Q8H PRN (Reason: anxiety) Qty: 45 RF: 0 olanzapine 10 mg Tablet 10 mg PO DAILY Qty: 16 RF: 0 prochlorperazine maleate 10 mg Tablet 10 mg PO Q6H PRN (Reason: Nausea) Qty: 30 RF: 0 ondansetron [Zofran ODT] 4 mg Tablet,Disintegrating 4 mg PO Q6-8H PRN (Reason: Nausea) Qty: 30 RF: 2 lorazepam 0.5 mg Tablet 0.5 mg PO Q6HR PRN (Reason: Nausea) RF: 0 dexamethasone 4 mg Tablet 4 mg PO DAILY RF: 0 hydromorphone 2 mg tablet 2 mg PO Q6H PRN (Reason: pain after surgery) Qty: 14 RF: 0 Referrals: Franco Damon MD [Primary Care Provider] - Keaton Mcmahon MD [Physician] -
--- NOTE | 2018-04-15 02:48 | PC.NURSE ---
DR Breen applied nasal pack to right nare,bleeding controlled.
[2018-04-15 03:11] VITALS: BP 127/80; PULSE 100; RESP 18; O2SAT 97
[2018-04-15 05:02] VITALS: BP 129/79; PULSE 72; RESP 18; O2SAT 98
== END 2018-04-15 05:03 | disposition home or self-care (01) ==
PROVIDERS: Emergency Provider Emergency Medicine; PCP Family Medicine
DX: R04.0 Epistaxis (principal)
CPT/HCPCS: 99282

== ENCOUNTER → 2018-04-18 11:37 | Outpatient (CLI) | payer OTHER, SELFPAY ==
[2018-03-25 09:47] VITALS: BMI 37.3
--- NOTE | 2018-04-22 09:41 | DIET.PN ---
Met for initial consultation during pt's oncology infusion per his request Reports wt loss, ongoing nausea, N/V on chemo tx days. Has taste changes and no appetite. Forces himself to eats - only able to take small quantities at time. DX: pandreatic cancer, stage IV. Palliative chemotherapy Wt: 4 month ago- 240# Now- 220# Wt change: 20# loss for 8% change Assessment: Inadequate PO nutrition r/t side effects of cancer tx; moderate pcm r/t anorexia AEB rapid wt loss w/8% change INtervention: Porvided ed on strategies for dealing w/side effects of tx - taste changes, anorexia, wt loss. Encouraged nutrient dense food choices, continue small frequent feedings Plan: No f/u planned. Pt or famly may call w/questions, concerns.
== END ==
PROVIDERS: PCP Family Medicine; Visit Provider Internal Medicine Hematology & Oncology
DX: R63.4 Abnormal weight loss (principal)
CPT/HCPCS: 97802

== ENCOUNTER → 2018-05-03 08:54 | Outpatient (CLI) | payer OTHER, SELFPAY ==
[2018-03-25 09:47] VITALS: BMI 37.3
--- NOTE | 2018-05-03 08:56 | DI.US.S_ITS ---
PROCEDURE: US PERIPH VENOUS LOW EXTREM RT INDICATIONS: SWELLING IN RIGHT LEG TECHNIQUE: Real-time imaging, as well as color and pulse Doppler interrogation, were performed of the lower extremity deep veins from the inguinal ligament to the popliteal fossa. COMPARISON: None. FINDINGS: Thrombus is identified within the popliteal vein, which does not extend into the superficial femoral vein. Otherwise, the superficial femoral vein, profunda femoral vein, saphenous confluence and common femoral vein are patent and demonstrate normal compressibility, Doppler augmentation, and color flow. IMPRESSION: Small deep vein thrombosis of the popliteal vein. Note: Concordant findings were discussed with Samantha Juarez R.N. by the grinding wheel inspector at 0914 hours (PST) on 05/03/18. Dictated by: Adams Gunderson M.D. on 05/03/2018 at 8:32 Approved by: Adams Gunderson M.D. on 05/03/2018 at 8:34
== END ==
PROVIDERS: PCP Family Medicine; Visit Provider Internal Medicine Hematology & Oncology
DX: I82.431 Acute embolism and thrombosis of right popliteal vein (principal); R60.0 Localized edema
CPT/HCPCS: 93971

== ENCOUNTER 2018-05-14 09:00 | Emergency (ER) | payer OTHER, SELFPAY ==
[2018-05-03 11:43] VITALS: BMI 37.3
--- NOTE | 2018-05-14 09:14 | ED.EPISTAXIS ---
HPI - Epistaxis General Chief complaint: Nasal Problem Stated complaint: nose bleeds Time Seen by Provider: 05/14/18 09:02 Source: patient Mode of arrival: ambulatory Limitations: no limitations History of Present Illness HPI Narrative: 72-year-old male, nonsmoker presents by himself with a chief complaint of left-sided epistaxis this morning. He has no stranger to nose bleeds and has been a frequent visitor to emergency department and ear nose and throat, in fact doctor Ozzie quintero called ahead to notify us of this patient's plan to visit. He is chronically dizzy, weak and lightheaded and is terminal with stomach cancer. He states the symptoms are no worse than normal. He is taking Coumadin for a DVT in his lower extremity. He states his numbers have been stable lately. He also admits he frequently has trouble with his platelets. He is not actively bleeding and had placed a cotton swab with Afrin prior to his arrival. MD complaint: epistaxis Location: left nostril Onset (ago): hour(s) Duration: now resolved Context: history of previous Treatment prior to arrival: nose pinching Related Data Home Medications Medication Instructions Recorded Confirmed MULTIVITAMIN (#MULTIPLE VITAMINS) 1 cap PO Q DAY #0 03/22/11 04/21/18 dexamethasone 4 mg PO DAILY 04/14/18 04/14/18 Previous Rx's Medication Instructions Recorded zolpidem 5 mg tablet 5 mg PO BEDTIME PRN #20 tab 03/22/18 hydromorphone 2 mg PO Q6H PRN #14 tab 04/06/18 prochlorperazine maleate 10 mg PO Q6H PRN #30 tab 04/11/18 ondansetron [Zofran ODT] 4 mg PO Q6-8H PRN #30 tab 04/12/18 enoxaparin [Lovenox] 100 mg SUBCUT Q12H #60 ml 05/09/18 lorazepam 0.5 mg PO Q6HR PRN #60 tab 05/09/18 olanzapine 10 mg PO DAILY #16 tab 05/09/18 Allergies Allergy/AdvReac Type Severity Reaction Status Date / Time Corticosteroids AdvReac Mild HICCUPS X Verified 04/04/18 08:14 (Glucocorticoids) 24 HRS walnut [WALNUT] AdvReac Mild canker Verified 04/04/18 08:14 sores in mouth Review of Systems Review of Systems All systems reviewed & are unremarkable except as noted in HPI and below Constitutional Denies chills, Denies fever(s), Denies lethargy and Denies weakness Eyes Denies change in vision, Denies eye discharge, Denies irritation and Denies loss of vision ENT Ears, Nose, Mouth, and Throat: Denies change in voice, Reports epistaxis, Denies neck pain and Denies sore throat Cardiovascular Denies chest pain, Denies irregular heart rhythm, Denies lightheadedness, Denies palpitations, Denies dyspnea, Denies dyspnea on exertion and Denies orthopnea Respiratory Denies cough, Denies dyspnea, Denies dyspnea on exertion and Denies wheezing Gastrointestinal Gastrointestinal: Denies abdominal pain, Denies change in bowel habits, Denies diarrhea, Denies nausea and Denies vomiting Genitourinary Denies hematuria, Denies flank pain, Denies urinary incontinence and Denies urinary urgency Musculoskeletal Denies neck pain Integumentary/Breasts Denies pruritus, Denies erythema, Denies rash and Denies wounds Neurologic Denies confusion, Denies loss of vision and Denies weakness Psychiatric Denies anxiety, Denies confusion, Denies depression, Denies homicidal ideation and Denies suicidal ideation Endocrine Denies palpitations Hematologic/Lymphatic Denies easy bruising Allergic/Immunologic Denies wheezing PFSH Medical History Hepatic lesion (Acute) Unexplained weight loss (Acute) Chronic back pain (Chronic 1996) Diverticulosis (Chronic) HTN (hypertension) (Chronic 1995) Hyperlipidemia (Chronic) Internal hemorrhoids (Chronic) Lumbar disc disease (Chronic 1996) Scoliosis (Chronic) Cataracts, bilateral (Resolved 2008) DDD (degenerative disc disease) (Resolved 09/11/09) Prostate cancer (Resolved 2008) Sleep apnea (Resolved 1998) Surgical History History of laminectomy (Acute) Anesthesia (Resolved) History of cataract removal with insertion of prosthetic lens (Resolved 03/12/09) History of cataract removal with insertion of prosthetic lens (Resolved 04/09/09) History of colonoscopy with polypectomy (Resolved 04/12/17) History of lumbar spinal fusion (Resolved 06/18/16) History of penile implant (Resolved 05/22/11) History of radical prostatectomy (Resolved 11/23/08) Hx of right inguinal hernia repair (Resolved 12/1965) S/P matrixectomy of toe (Resolved 03/05/09) Status post LASIK surgery (Resolved 05/1999) Status post YAG capsulotomy of left eye (Resolved 08/18/13) Status post YAG capsulotomy of right eye (Resolved 08/29/13) Status post biopsy (Resolved 05/10/09) Status post bunionectomy (Resolved 08/1976) Status post epidural steroid injection (Resolved 01/22/09) Status post epidural steroid injection (Resolved 11/19/09) Status post laminectomy (Resolved 12/1997) Status post lumbar surgery (Resolved 01/27/10) Status post lumbar surgery (Resolved 03/29/12) Status post sclerotherapy of varicose veins (Resolved 01/2004) Status post tonsillectomy and adenoidectomy (Resolved ~1952) Status post eye surgery (08/18/13) Status post eye surgery (08/29/13) Status post radical cystoprostatectomy (11/23/08) Family History Brother Age: 70 Diabetes mellitus Obesity Brother Age: 67 Drug abuse Father Cancer Diabetes mellitus Heart disease Hypertension High cholesterol Stroke Sister Age: 74 Arthritis Mother No problems noted. Social History household members: spouse Smoking Status: Never smoker alcohol intake: current Exam Narrative Exam Narrative: GEN: Ill-appearing 72-year-old male appears older than stated age, appears unwell and pale EYES: Pupils are equal, round, and reactive to light and accommodation. Extraoccular muscles are intact bilaterally. There is no subconjunctival hemorrhage or exudate. NOSE: fresh clots in L nare, no active bleeding. CHEST: Lungs are clear to auscultation bilaterally and free of wheezes, rales, or rhonchi. Heart rate is regular rhythm, there are no murmurs, clicks, rubs, or gallops. There is no chest wall tenderness. ABD: Abdomen is soft and nontender. There is no guarding or rebound. Bowel sounds are normal in all 4 quadrants. There is no mass or organomegaly. EXT: Full painless ROM of all extremities with no loss of sensation or strength. SKIN: Warm, pink, and dry. No erythema or rash Pale Initial Vital Signs Initial Vital Signs: Vital Signs Temperature 98 F 05/14/18 09:17 Pulse Rate 102 H 05/14/18 09:17 Respiratory Rate 18 05/14/18 09:17 Blood Pressure 137/77 05/14/18 09:17 Pulse Oximetry 100 05/14/18 09:17 Procedures Epistaxis Control Time Out Performed: No Nostril: left Nose Prepped With: oxymetazoline Direct Inspection: yes Clots Removed by: blowing nose Cautery Used: none Patient Tolerated Procedure: well Course Orders Ordered: Discontinued Medications Oxymetazoline HCl (Afrin) 2 sprays NASAL NOW ONE Stop: 05/14/18 09:15 Last Admin: 05/14/18 10:00 Dose: 2 sprays Vital Signs - 8 hr 05/14/18 10:34 Pulse Rate 93 H Respiratory Rate 14 Blood Pressure [Left Arm] 123/76 Pulse Oximetry 98 MDM - Epistaxis Lab Data Result diagrams: 05/14/18 09:20 Lab Results 05/14/18 05/14/18 Range/Units 09:20 09:20 WBC 3.0 L (4.5-11.0) X10^3/uL RBC 2.38 L (4.5-5.9) X10^6/uL Hgb 8.5 L (13.5-17.5) g/dL Hct 25.3 L (41-53) % MCV 105.9 H (80-100) fL MCH 35.5 H (26-34) PG MCHC 33.5 (30-36) % RDW 22.2 H (11.6-14.8) % Plt Count 106 L (150-400) X10^3/uL Neut % (Auto) 74.4 (50-75) % Lymph % (Auto) 17.1 L (25-40) % [place] % (Auto) 7.0 (3-14) % Eos % (Auto) 0.7 L (2-4) % Baso % (Auto) 0.8 (0-2) % Neut # (Auto) 2200 L (6492-7125) /uL RBC Morphology See below Anisocytosis 2+ H PT 18.8 H (10.1-12.7) SECONDS INR 1.6 H (0.9-1.3) Discharge Plan Departure Patient Disposition: Home Clinical Impression: Acute anterior epistaxis Discharge Date/Time: 05/14/18 10:42 Interventions: ED Discharge Assessment Last Done: 05/14/18 10:35 Instructions: DI for Nosebleed Activity Restrictions/Additional Instructions: *You have been diagnosed with [ nosebleed ] *What to do: * continue to Take medications as directed. Please apply vaseline to your nostrils a few times daily *Follow up with your ENT provider on Wednesday. Let them know you were seen in the Emergency Department by Dr. Orourke and that Dr. Quintero asks that you be seen in follow up *Return to ER if you should have any new, worsening or concerning symptoms Prescriptions: No Action MULTIVITAMIN (#MULTIPLE VITAMINS) 1 cap PO Q DAY Qty: 0 RF: 0 zolpidem [Ambien] 5 mg tablet 5 mg PO BEDTIME PRN (Reason: insomnia) Qty: 20 RF: 0 prochlorperazine maleate 10 mg Tablet 10 mg PO Q6H PRN (Reason: Nausea) Qty: 30 RF: 0 ondansetron [Zofran ODT] 4 mg Tablet,Disintegrating 4 mg PO Q6-8H PRN (Reason: Nausea) Qty: 30 RF: 2 dexamethasone 4 mg Tablet 4 mg PO DAILY RF: 0 enoxaparin [Lovenox] 100 mg/mL Syringe 100 mg SUBCUT Q12H Qty: 60 RF: 0 lorazepam 0.5 mg Tablet 0.5 mg PO Q6HR PRN (Reason: Nausea) Qty: 60 RF: 0 olanzapine 10 mg Tablet 10 mg PO DAILY Qty: 16 RF: 0 hydromorphone 2 mg tablet 2 mg PO Q6H PRN (Reason: pain after surgery) Qty: 14 RF: 0 Referrals: Franco Damon MD [Primary Care Provider] -
[2018-05-14 09:17] VITALS: BP 137/77; PULSE 102; RESP 18; TEMP 36.6; O2SAT 100
[2018-05-14 09:32] LABS: Add Manual Diff / Slide Review NO; Basophils Percent Auto 0.8 % (0-2); Eosinophils Percent Auto 0.7 % (2-4); Hematocrit 25.3 % (41-53); Hemoglobin 8.5 g/dL (13.5-17.5); Lymphocytes Percent Auto 17.1 % (25-40); Mean Corpuscular HGB Conc 33.5 % (30-36); Mean Corpuscular Hemoglobin 35.5 PG (26-34); Mean Corpuscular Volume 105.9 fL (80-100); Neutrophils Absolute Auto 2200 /uL (3000-5900); Neutrophils Percent Auto 74.4 % (50-75); Platelet Count 106 X10^3/uL (150-400); Red Blood Cell Count 2.38 X10^6/uL (4.5-5.9); Red Cell Distribution Width 22.2 % (11.6-14.8)
--- NOTE | 2018-05-14 09:32 | PC.NURSE ---
Used Afrin and packing at home. Resolved upon arrival.
[2018-05-14 09:35] LABS: INR 1.6 (0.9-1.3); Prothrombin Time 18.8 SECONDS (10.1-12.7)
[2018-05-14 09:54] LABS: Anisocytosis 2+
[2018-05-14] MEDS: OXYMETAZOLINE NASAL SPRAY 15 ML 2 SPRAYS NASAL (10:00)
[2018-05-14 10:34] VITALS: BP 123/76; PULSE 93; RESP 14; O2SAT 98
== END 2018-05-14 10:42 | disposition home or self-care (01) ==
PROVIDERS: Emergency Provider Emergency Medicine; Family Provider Otolaryngology; PCP Family Medicine
DX: R04.0 Epistaxis (principal)
CPT/HCPCS: 30901; 30905; 36415; 85025; 85610; 99283

== ENCOUNTER 2018-05-15 22:39 | Emergency (ER) | payer OTHER, SELFPAY ==
[2018-05-03 11:43] VITALS: BMI 37.3
[2018-05-15 22:49] VITALS: BP 144/115; PULSE 92; RESP 18; TEMP 36.4; O2SAT 100; BMI 27.8
--- NOTE | 2018-05-15 23:29 | PC.NURSE ---
Provider in room and placed rhino rocket. Per patient, bleeding has subsided.
[2018-05-16 00:08] VITALS: BP 143/60; PULSE 82; RESP 18; O2SAT 96
--- NOTE | 2018-05-19 19:15 | ED_ITS ---
HPI - Epistaxis General Chief complaint: Nasal Problem Stated complaint: bloody nose Time Seen by Provider: 05/15/18 22:51 Source: patient Mode of arrival: ambulatory Limitations: no limitations History of Present Illness HPI Narrative: Patient complains of epistaxis from his right naris for the past 12 hr, on and off. Patient states this has happened before, and that he has seen ENT, cauterized with silver nitrate. Prior to that he had packing in the nasal passage. Patient is currently being treated for metastatic pancreatic cancer. He denies any trauma to his nose or recent URI or allergies. He has not been vomiting or coughing. He has not been hypotensive. No other complaints at this time. He states he has been holding pressure on and off, and that the bleeding only stops temporarily and then starts up again. Related Data Home Medications Medication Instructions Recorded Confirmed MULTIVITAMIN (#MULTIPLE VITAMINS) 1 cap PO Q DAY #0 03/22/11 04/21/18 dexamethasone 4 mg PO DAILY 04/14/18 04/14/18 Previous Rx's Medication Instructions Recorded zolpidem 5 mg tablet 5 mg PO BEDTIME PRN #20 tab 03/22/18 hydromorphone 2 mg PO Q6H PRN #14 tab 04/06/18 prochlorperazine maleate 10 mg PO Q6H PRN #30 tab 04/11/18 ondansetron [Zofran ODT] 4 mg PO Q6-8H PRN #30 tab 04/12/18 enoxaparin [Lovenox] 100 mg SUBCUT Q12H #60 ml 05/09/18 lorazepam 0.5 mg PO Q6HR PRN #60 tab 05/09/18 olanzapine 10 mg PO DAILY #16 tab 05/09/18 Allergies Allergy/AdvReac Type Severity Reaction Status Date / Time Corticosteroids AdvReac Mild HICCUPS X Verified 04/04/18 08:14 (Glucocorticoids) 24 HRS walnut [WALNUT] AdvReac Mild canker Verified 04/04/18 08:14 sores in mouth Review of Systems Review of Systems All systems reviewed & are unremarkable except as noted in HPI and below Constitutional Denies chills, Denies fever(s), Denies lethargy and Denies weakness Eyes Denies change in vision, Denies eye discharge, Denies irritation and Denies loss of vision ENT Ears, Nose, Mouth, and Throat: Denies change in voice, Reports epistaxis, Denies neck pain and Denies sore throat Cardiovascular Denies chest pain, Denies irregular heart rhythm, Denies lightheadedness, Denies palpitations, Denies dyspnea, Denies dyspnea on exertion and Denies orthopnea Respiratory Denies cough, Denies dyspnea, Denies dyspnea on exertion and Denies wheezing Gastrointestinal Gastrointestinal: Denies abdominal pain, Denies change in bowel habits, Denies diarrhea, Denies nausea and Denies vomiting Genitourinary Denies hematuria, Denies flank pain, Denies urinary incontinence and Denies urinary urgency Musculoskeletal Denies neck pain Integumentary/Breasts Denies pruritus, Denies erythema, Denies rash and Denies wounds Neurologic Denies confusion, Denies loss of vision and Denies weakness Psychiatric Denies anxiety, Denies confusion, Denies depression, Denies homicidal ideation and Denies suicidal ideation Endocrine Denies palpitations Hematologic/Lymphatic Denies easy bruising Allergic/Immunologic Denies wheezing [facility] Medical History Hepatic lesion (Acute) Unexplained weight loss (Acute) Chronic back pain (Chronic 1996) Diverticulosis (Chronic) HTN (hypertension) (Chronic 1995) Hyperlipidemia (Chronic) Internal hemorrhoids (Chronic) Lumbar disc disease (Chronic 1996) Scoliosis (Chronic) Cataracts, bilateral (Resolved 2008) DDD (degenerative disc disease) (Resolved 09/11/09) Prostate cancer (Resolved 2008) Sleep apnea (Resolved 1998) Surgical History History of laminectomy (Acute) Anesthesia (Resolved) History of cataract removal with insertion of prosthetic lens (Resolved 03/12/09 ) History of cataract removal with insertion of prosthetic lens (Resolved 04/09/09 ) History of colonoscopy with polypectomy (Resolved 04/12/17) History of lumbar spinal fusion (Resolved 06/18/16) History of penile implant (Resolved 05/22/11) History of radical prostatectomy (Resolved 11/23/08) Hx of right inguinal hernia repair (Resolved 12/1965) S/P matrixectomy of toe (Resolved 03/05/09) Status post LASIK surgery (Resolved 05/1999) Status post YAG capsulotomy of left eye (Resolved 08/18/13) Status post YAG capsulotomy of right eye (Resolved 08/29/13) Status post biopsy (Resolved 05/10/09) Status post bunionectomy (Resolved 08/1976) Status post epidural steroid injection (Resolved 01/22/09) Status post epidural steroid injection (Resolved 11/19/09) Status post laminectomy (Resolved 12/1997) Status post lumbar surgery (Resolved 01/27/10) Status post lumbar surgery (Resolved 03/29/12) Status post sclerotherapy of varicose veins (Resolved 01/2004) Status post tonsillectomy and adenoidectomy (Resolved ~1952) Status post eye surgery (08/18/13) Status post eye surgery (08/29/13) Status post radical cystoprostatectomy (11/23/08) Family History Brother Age: 70 Diabetes mellitus Obesity Brother Age: 67 Drug abuse Father Cancer Diabetes mellitus Heart disease Hypertension High cholesterol Stroke Sister Age: 74 Arthritis Mother No problems noted. Social History household members: spouse Smoking Status: Never smoker alcohol intake: current Exam Initial Vital Signs Initial Vital Signs: Vital Signs Temperature 97.5 F L 05/15/18 22:49 Pulse Rate 92 H 05/15/18 22:49 Respiratory Rate 18 05/15/18 22:49 Blood Pressure 144/115 H 05/15/18 22:49 Pulse Oximetry 100 05/15/18 22:49 Const General: cooperative and well developed Nutritional Appearance: well nourished Orientation: alert, awake, oriented x3 and not confused [facility] Head: normocephalic and atraumatic Ears: external ears normal Nose: external nose normal, epistaxis (Controlled, with excoriations/abrasion of right septal mucosa.) and No nasal discharge Face and sinus: face symmetric and No dry mucous membranes Mouth: oral mucosae normal and moist mucous membranes Teeth and gingiva: dentition normal Eyes General: appearance normal, both eyes and all related structures Eyelids: eyelids normal Conjunctivae: conjunctivae normal Sclera: sclerae normal Pupils: PERRL EOM: EOM intact bilaterally Neck Neck: normal visual inspection, trachea midline, No lymphadenopathy, No midline deformity and No JVD Lymphatic: No lymphedema Chest Chest: normal inspection of the chest Resp Effort & Inspection: normal respiratory effort, able to speak in complete sentences, no respiratory distress and no use of accessory muscles Auscultation: clear to auscultation bilaterally, no rales, no rhonchi and no wheezes Cardio Rate: regular rate Rhythm: regular rhythm Heart Sounds: no click, no gallops, no murmurs and no rubs Pulses: normal peripheral pulses Back/Spine/Pelvis Back: No CVA tenderness Cervical Spine: cervical ROM normal and No pain with cervical ROM Thoracic/Lumbar Spine: thoracic and lumbar spine normal to inspection Skin General: no rashes or lesions noted, No jaundice and No petechiae Neuro General: alert, oriented x3, gait normal and no focal motor deficits Speech: speech normal Extrem General: full ROM, no clubbing, cyanosis or edema, no pedal edema and no calf tenderness Psych Appearance: well kempt Mental Status: mental status grossly normal Attitude: cooperative Thought Content: normal and suicidality Judgment: judgment good Procedures Epistaxis Control Time Out Performed: No Nostril: right Nose Prepped With: oxymetazoline Direct Inspection: yes and anterior source identified Clots Removed by: blowing nose Cautery Used: none Device Inserted: nasal tampon (5.5 cm) and hemostatic balloon (Contained within Rhino Rocket tampon) Patient Tolerated Procedure: well and no complications Course Course Narrative: Epistaxis was managed with oxymetazoline and nasal tampon, as noted above. I have discussed with the patient that he will need to follow up with ENT again within the next several days, and patient states that he does have an appointment. Until then, he should keep the rhino rocket in his nose. Patient is advised to avoid blowing, coughing, or sneezing. He should avoid bending over. Patient expresses understanding. [facility] - Epistaxis Medical Records Attestation: I reviewed the patient's medical records. Discharge Plan Departure Patient Disposition: Home Clinical Impression: Acute anterior epistaxis Discharge Date/Time: 05/16/18 00:10 Interventions: ED Discharge Assessment Last Done: 05/16/18 00:08 Instructions: DI for Nosebleed Prescriptions: No Action MULTIVITAMIN (#MULTIPLE VITAMINS) 1 cap PO Q DAY Qty: 0 RF: 0 zolpidem [Ambien] 5 mg tablet 5 mg PO BEDTIME PRN (Reason: insomnia) Qty: 20 RF: 0 prochlorperazine maleate 10 mg Tablet 10 mg PO Q6H PRN (Reason: Nausea) Qty: 30 RF: 0 ondansetron [Zofran ODT] 4 mg Tablet,Disintegrating 4 mg PO Q6-8H PRN (Reason: Nausea) Qty: 30 RF: 2 dexamethasone 4 mg Tablet 4 mg PO DAILY RF: 0 enoxaparin [Lovenox] 100 mg/mL Syringe 100 mg SUBCUT Q12H Qty: 60 RF: 0 lorazepam 0.5 mg Tablet 0.5 mg PO Q6HR PRN (Reason: Nausea) Qty: 60 RF: 0 olanzapine 10 mg Tablet 10 mg PO DAILY Qty: 16 RF: 0 hydromorphone 2 mg tablet 2 mg PO Q6H PRN (Reason: pain after surgery) Qty: 14 RF: 0 Referrals: Franco Damon MD [Primary Care Provider] - Keaton Mcmahon MD [Family Provider] -
== END 2018-05-16 00:10 | disposition home or self-care (01) ==
PROVIDERS: Emergency Provider Emergency Medicine; Family Provider Otolaryngology; PCP Family Medicine
DX: R04.0 Epistaxis (principal)
CPT/HCPCS: 30903; 99282

== ENCOUNTER 2018-05-30 14:31 | Emergency (ER) | payer OTHER, SELFPAY ==
[2018-05-03 11:43] VITALS: BMI 37.3
[2018-05-30 14:38] VITALS: BP 130/90; PULSE 102; RESP 20; TEMP 36.4; O2SAT 98
--- NOTE | 2018-05-30 14:38 | ED_ITS ---
HPI - General Adult General Chief complaint: Recheck/Abnormal Lab/Rx Stated complaint: Jaundice Time Seen by Provider: 05/30/18 14:36 Source: patient Mode of arrival: ambulatory Limitations: no limitations History of Present Illness HPI narrative: 72-year-old male with known metastatic pancreatic cancer. Please see Oncology notes for staging and current treatment plan. Patient is here because he states that his family members are telling him that he is becoming more jaundiced over the past several days. He has no new complaints. Related Data Home Medications Medication Instructions Recorded Confirmed MULTIVITAMIN (#MULTIPLE VITAMINS) 1 cap PO Q DAY #0 03/22/11 05/23/18 dexamethasone 4 mg PO DAILY 04/14/18 05/23/18 Previous Rx's Medication Instructions Recorded zolpidem 5 mg tablet 5 mg PO BEDTIME PRN #20 tab 03/22/18 hydromorphone 2 mg PO Q6H PRN #14 tab 04/06/18 prochlorperazine maleate 10 mg PO Q6H PRN #30 tab 04/11/18 ondansetron [Zofran ODT] 4 mg PO Q6-8H PRN #30 tab 04/12/18 enoxaparin [Lovenox] 100 mg SUBCUT Q12H #60 ml 05/09/18 lorazepam 0.5 mg PO Q6HR PRN #60 tab 05/09/18 olanzapine 10 mg PO DAILY #16 tab 05/09/18 Allergies Allergy/AdvReac Type Severity Reaction Status Date / Time Corticosteroids AdvReac Mild HICCUPS X Verified 04/04/18 08:14 (Glucocorticoids) 24 HRS walnut [WALNUT] AdvReac Mild canker Verified 04/04/18 08:14 sores in mouth Review of Systems Constitutional Denies fever(s) Cardiovascular Denies chest pain and Denies dyspnea Respiratory Denies dyspnea Gastrointestinal Gastrointestinal: Denies abdominal pain Genitourinary Denies dysuria Musculoskeletal Denies myalgias and Denies arthralgias Integumentary/Breasts Reports jaundice Neurologic Denies behavioral changes Psychiatric Denies behavioral changes Hematologic/Lymphatic Comments: Currently not on anticoagulation PFSH Social History household members: spouse Smoking Status: Never smoker alcohol intake: current Exam Initial Vital Signs Initial Vital Signs: Vital Signs Temperature 97.5 F L 05/30/18 14:38 Pulse Rate 102 H 05/30/18 14:38 Respiratory Rate 20 05/30/18 14:38 Blood Pressure 130/90 05/30/18 14:38 Pulse Oximetry 98 05/30/18 14:38 Const General: comfortable Orientation: alert, awake and oriented x3 HENMT Head: normal to inspection and normocephalic Eyes Sclera: scleral abnormality bilaterally (Jaundice) Resp Effort & Inspection: normal respiratory effort Cardio Rate: regular rate Skin General: jaundice Neuro General: alert, awake and oriented x3 Extrem General: normal to inspection and capillary refill normal Psych Appearance: grossly normal and well kempt Course Orders Ordered: ED Orders 05/30/18 15:01 Basic Metabolic Panel Stat Complete Blood Count AUTO DIFF Stat Hepatic (Liver) Panel Stat Lipase Stat Vital Signs - 8 hr 05/30/18 14:38 05/30/18 15:22 Temperature 97.5 F L Pulse Rate 102 H 95 H Respiratory Rate 20 16 Blood Pressure 130/90 Blood Pressure [Left Arm] 127/84 Pulse Oximetry 98 95 Medical Decision Making Lab Data Lab results reviewed: Yes I reviewed the patient's lab results. Result diagrams: 05/30/18 15:01 05/30/18 15:01 Lab Results 05/30/18 05/30/18 Range/Units 15:01 15:01 WBC 9.3 (4.5-11.0) X10^3/uL RBC 3.26 L (4.5-5.9) X10^6/uL Hgb 11.8 L (13.5-17.5) g/dL Hct 34.5 L (41-53) % MCV 105.8 H (80-100) fL MCH 36.1 H (26-34) PG MCHC 34.2 (30-36) % RDW 18.8 H (11.6-14.8) % Plt Count 156 (150-400) X10^3/uL Neut % (Auto) 86.6 H (50-75) % Lymph % (Auto) 8.0 L (25-40) % [place] % (Auto) 4.9 (3-14) % Eos % (Auto) 0.1 L (2-4) % Baso % (Auto) 0.4 (0-2) % Neut # (Auto) 8100 H (3954-4252) /uL Sodium 138 (137-145) mmol/L Potassium 4.2 (3.4-5.1) mmol/L Chloride 104 (98-107) mmol/L Carbon Dioxide 24 (22-32) mmol/L BUN 19 (9-20) mg/dL Creatinine 0.70 (0.66-1.25) mg/dL Estimated GFR > 60.0 (>60) mL/min BUN/Creatinine Ratio 27.1 H (6-22) Glucose 151 H (80-110) mg/dL Calcium 8.9 (8.4-10.2) mg/dL Total Bilirubin 11.7 H (0.2-1.3) mg/dL Conjugated Bilirubin 5.6 H (0.0-0.3) md/dL Unconjugated Bilirubin 1.7 H (0.0-1.1) mg/dL AST 179 H (17-59) IU/L ALT 96 H (21-72) IU/L Alkaline Phosphatase 611 H (38-126) U/L Total Protein 6.1 L (6.3-8.2) g/dL Albumin 3.0 L (3.5-5.0) g/dL Globulin 3.1 (1.7-4.1) g/dL Albumin/Globulin Ratio 1.0 (1.0-2.8) Lipase 211 (23-300) U/L MDM Narrative Medical decision making narrative: Patient has painless jaundice today. H&H improved from blood drawn on the 10th of this month. LFTs and lipase unchanged from the 10th of this month. Bilirubin is elevated today. I discussed his case with Dr. Mahoney who is his oncologist who states that if he is not having any symptoms he recommended discharging the patient home and following up later this week in the clinic to discuss the indications for referral to see Gastroenterology. I discussed this with the patient. He again denies any abdominal pain. We did discuss his blood results. He will call his oncologist for follow-up. He was given return precautions. He expressed understanding and agreement from plan. Discharge Plan Departure Patient Disposition: Home Clinical Impression: Hyperbilirubinemia Activity Restrictions/Additional Instructions: I spoke with Dr. Mahoney today regarding her lab results. He would like you to call his office on Wednesday so that he can see you later this week. Return to the emergency department for any worsening or new abdominal pain. Continue all of your medication as directed. Prescriptions: No Action MULTIVITAMIN (#MULTIPLE VITAMINS) 1 cap PO Q DAY Qty: 0 RF: 0 zolpidem [Ambien] 5 mg tablet 5 mg PO BEDTIME PRN (Reason: insomnia) Qty: 20 RF: 0 prochlorperazine maleate 10 mg Tablet 10 mg PO Q6H PRN (Reason: Nausea) Qty: 30 RF: 0 ondansetron [Zofran ODT] 4 mg Tablet,Disintegrating 4 mg PO Q6-8H PRN (Reason: Nausea) Qty: 30 RF: 2 dexamethasone 4 mg Tablet 4 mg PO DAILY RF: 0 enoxaparin [Lovenox] 100 mg/mL Syringe 100 mg SUBCUT Q12H Qty: 60 RF: 0 lorazepam 0.5 mg Tablet 0.5 mg PO Q6HR PRN (Reason: Nausea) Qty: 60 RF: 0 olanzapine 10 mg Tablet 10 mg PO DAILY Qty: 16 RF: 0 hydromorphone 2 mg tablet 2 mg PO Q6H PRN (Reason: pain after surgery) Qty: 14 RF: 0
[2018-05-30 15:14] LABS: Add Manual Diff / Slide Review NO; Basophils Percent Auto 0.4 % (0-2); Eosinophils Percent Auto 0.1 % (2-4); Hematocrit 34.5 % (41-53); Hemoglobin 11.8 g/dL (13.5-17.5); Mean Corpuscular HGB Conc 34.2 % (30-36); Mean Corpuscular Hemoglobin 36.1 PG (26-34); Mean Corpuscular Volume 105.8 fL (80-100); Monocytes Percent Auto 4.9 % (3-14); Neutrophils Absolute Auto 8100 /uL (1500-7000); Neutrophils Percent Auto 86.6 % (50-75); Platelet Count 156 X10^3/uL (150-400); Red Blood Cell Count 3.26 X10^6/uL (4.5-5.9); Red Cell Distribution Width 18.8 % (11.6-14.8); White Blood Cell Count 9.3 X10^3/uL (4.5-11.0)
[2018-05-30 15:20] LABS: Alanine Aminotransferase 96 IU/L (21-72); Alkaline Phosphatase 611 U/L (38-126); Aspartate Aminotransferase 179 IU/L (17-59); BUN Creatinine Ratio 27.1 (6-22); Bilirubin Conjugated 5.6 md/dL (0.0-0.3); Bilirubin Total 11.7 mg/dL (0.2-1.3); Bilirubin Unconjugated 1.7 mg/dL (0.0-1.1); Blood Urea Nitrogen 19 mg/dL (9-20); Calcium 8.9 mg/dL (8.4-10.2); Carbon Dioxide 24 mmol/L (22-32); Chloride 104 mmol/L (98-107); Estimated Glomerular Filt Rate > 60.0 mL/min (>60); Globulin 3.1 g/dL (1.7-4.1); Glucose 151 mg/dL (80-110); HEMOLYSIS < 15 (0-50); Lipase 211 U/L (23-300); Potassium 4.2 mmol/L (3.4-5.1); Sodium 138 mmol/L (137-145); Total Protein 6.1 g/dL (6.3-8.2)
[2018-05-30 15:22] VITALS: BP 127/84; PULSE 95; RESP 16; O2SAT 95
== END 2018-05-30 16:32 | disposition home or self-care (01) ==
PROVIDERS: Emergency Provider Emergency Medicine; Family Provider Otolaryngology; PCP Family Medicine
DX: E80.6 Other disorders of bilirubin metabolism (principal)
CPT/HCPCS: 36591; 80048; 80076; 83690; 85025; 99282; 99283

== ENCOUNTER → 2018-06-02 14:30 | Oncology outpatient (ONC) | payer OTHER, SELFPAY ==
[2017-11-12 16:03] VITALS: BMI 37.3
--- NOTE | 2018-03-25 08:33 | ONC.CONS ---
History of Present Illness - Data of Consult Consult date: 03/25/18 Requesting Physician: Dr. Franco Damon Primary Care Provider: Franco Damon MD - Consult Narrative Reason for consult: Metastatic pancreatic cancer? Narrative: Mr. Nakul Dempsey is a 72 year old male with medical problems most notable for hypertension, hyperlipidemia and lots of back problems with multiple surgeries. Patient reported that a couple of months ago, he started to experience abdominal pain, located around umbilicus, mild to moderate, and comes and goes. At the same time, patient has noticed significant decrease in appetite and also weight loss. According to patient he probably lost about 10 lb over the last couple of months. In addition patient has developed significant constipation. He claimed that he used to have very normal bowel movement daily. Patient denies bright red blood per rectum or black stool. Patient reports some gag reflex problems which he thought might be due to lisinopril. Therefore lisinopril was held. He denies any headache. Denies any double vision or blurred vision. He denies any nausea or vomiting. He denies any diarrhea. On 03/21/2018, he was evaluated at ER of for recurrent abdominal pain. CT scan of the abdomen and pelvis on Mar 21, 2018 showed a large heterogeneously enhancing mass measuring 4.8 x 5.5,x 4.9 cm arising from the tail of the pancreas highly suspicious for pancreatic cancer, multiple hepatic and splenic metastatic lesions, gastrohepatic, periportal, periaortic, and left mesenteric metastatic lymphadenopathy as well as a 9 mm T12 lytic lesion concerning for osseous metastasis. Therefore patient was referred to Medical Oncology for further evaluation. Patient came in here today accompanied by his and his daughter in law. Patient reports pain?: Yes - Pain Details Pain location: Periumbilical Pain Scale Used: mild Pain Frequency: Intermittent Pain Description: Dull Home Medications and Allergies Home Medications Medication Instructions Recorded Confirmed Type Flaxseed Oil (#FLAXSEED OIL) 2 tab PO BID #0 03/22/11 03/25/18 History MULTIVITAMIN (#MULTIPLE VITAMINS) 1 cap PO Q DAY #0 03/22/11 03/25/18 History aspirin 81 mg PO DAILY 11/12/17 03/25/18 History zolpidem 5 mg tablet 5 mg PO BEDTIME PRN #20 tab 03/22/18 03/25/18 Rx Allergies Allergy/AdvReac Type Severity Reaction Status Date / Time Corticosteroids AdvReac Mild HICCUPS X Verified 03/22/18 16:08 (Glucocorticoids) 24 HRS walnut [WALNUT] AdvReac Mild canker Verified 03/22/18 16:08 sores in mouth Medical History - Medical, Surgical, Family History Medical History: Medical History (Last Updated 03/25/18 @ 09:04 by El Mace MD) Chronic back pain Onset Date: 1996 Diverticulosis HTN (hypertension) Onset Date: 1995 Hyperlipidemia Internal hemorrhoids Lumbar disc disease Onset Date: 1996 Scoliosis Cataracts, bilateral Onset Date: 2008 DDD (degenerative disc disease) Onset Date: 09/11/09 Prostate cancer Onset Date: 2008 Sleep apnea Onset Date: 1998 Surgical History: Surgical History (Last Reviewed 03/21/18 @ 12:28 by Sunny Gomez DO) Anesthesia History of cataract removal with insertion of prosthetic lens Onset Date: 03/12/09 History of cataract removal with insertion of prosthetic lens Onset Date: 04/09/09 History of colonoscopy with polypectomy Onset Date: 04/12/17 History of lumbar spinal fusion Onset Date: 06/18/16 History of penile implant Onset Date: 05/22/11 History of radical prostatectomy Onset Date: 11/23/08 Hx of right inguinal hernia repair Onset Date: 12/1965 S/P matrixectomy of toe Onset Date: 03/05/09 Status post LASIK surgery Onset Date: 05/1999 Status post YAG capsulotomy of left eye Onset Date: 08/18/13 Status post YAG capsulotomy of right eye Onset Date: 08/29/13 Status post biopsy Onset Date: 05/10/09 Status post bunionectomy Onset Date: 08/1976 Status post epidural steroid injection Onset Date: 01/22/09 Status post epidural steroid injection Onset Date: 11/19/09 Status post laminectomy Onset Date: 12/1997 Status post lumbar surgery Onset Date: 01/27/10 Status post lumbar surgery Onset Date: 03/29/12 Status post sclerotherapy of varicose veins Onset Date: 01/2004 Status post tonsillectomy and adenoidectomy Onset Date: Status post eye surgery Onset Date: 08/18/13 Status post eye surgery Onset Date: 08/29/13 Status post radical cystoprostatectomy Onset Date: 11/23/08 Family History: Family History (Last Reviewed 03/21/18 @ 12:28 by Sunny Gomez DO) Brother Age: 70 Diabetes mellitus Obesity Brother Age: 67 Drug abuse Father Cancer Diabetes mellitus Heart disease Hypertension High cholesterol Stroke Sister Age: 74 Arthritis Mother No problems noted. - Social History Smoking Status: Never smoker Review of Systems All systems PM: reviewed and no additional remarkable complaints except as stated Exam Vital signs: Temp 99.0 F 03/25/18 08:47 Pulse 99 H 03/25/18 08:47 Resp 20 03/25/18 08:47 BP 138/84 03/25/18 08:47 Pulse Ox 96 03/25/18 08:47 ECOG 1 Narrative: Constitutional: Well developed, well nourished, not in any acute respiratory distress, average body habitus, well groomed, pleasant and cooperative. HEENT: Normocephalic atraumatic. Extraocular muscle movement intact. Pupils are round, equal and reactive to light and accommodations. Anicteric sclera. No hearing difficulty; Oral mucus membrane moist and without ulcers. Neck: Supple, symmetrical, and tracheal midline; No palpable thyromegaly and no palpable lymph nodes. Respiratory: No use of accessory muscles. Clear to auscultation, and no wheezes or rales or rubs. Cardiovascular: Regular rate and rhythm, S1 and S2 normal, no murmurs gallops or rubs. No JVD. No pitting edema of lower extremities. Abdomen: Soft, nontender, non-distended, bowel sounds normal, palpable hepatomeglay 8 cm below right costal margin along MCL. no hernia, no palpable masses. Lower extremities: No palpable pedal edema. Lymphatic: no palpable lymph nodes in the neck, axillae, or groins. Musculoskeletal: normal gait and station, no clubbing, no cyanosis, no pitting edema. Skin: no rashes, no ulcers, no petechiae Neurological: Awake and alert and oriented x3. CN II-XII grossly intact. No focal motor or sensory deficit. Psychiatric: Good judgment, good insight, normal affect, normal thought process, cooperative, no depression, no anxiety. Results - Labs 03/21/2018: WBC 7.9, HGB 12.7, HCT 37.2, plt 190, Na 142. K 4.6, Cl 101, Bun 23, Cr 0.9, Glu 127, Ca 9.8, Tb 0.9, Ast 99, Alt 133, Alp 276, Tp 7.9, Alb 4.8, lipase 147, - Imaging CT scan - abdomen: report reviewed, image reviewed (1. Large heterogeneously enhancing mass arising from the tail of the pancreas highly suspicious for pancreatic carcinoma. 2. Multiple hepatic and splenic metastatic lesions. 3. Gastrohepatic, periportal, periaortic and left mesenteric metastatic lymphadenopathy. 4. 9 mm T12 lytic lesion concerning for osseous metastatic disease.) CT scan - pelvis: report reviewed, image reviewed Additional studies: Procedures ANESTH INJECT-SPIN CANAL (11/19/09) Excision of Lumbar Vertebral Disc, Open Approach (06/18/16) Excision of Lumbosacral Disc, Open Approach (11/12/17) Extraction of Iliac Bone Marrow, Percutaneous Approach (11/12/17) Fusion of 2 or more Lumbar Vertebral Joints with Interbody Fusion Device, Anterior Approach, Anterior Column, Open Approach (06/18/16) Fusion of 2 or more Lumbar Vertebral Joints with Synthetic Substitute, Posterior Approach, Posterior Column, Open Approach (06/18/16) Fusion of Lumbosacral Joint with Autologous Tissue Substitute, Posterior Approach, Posterior Column, Open Approach (11/12/17) Fusion of Lumbosacral Joint with Interbody Fusion Device, Posterior Approach, Anterior Column, Open Approach (11/12/17) Fusion or refusion of 2-3 vertebrae (03/29/12) INJECT STEROID (11/19/09) Insertion of interbody spinal fusion device (03/29/12) Insertion or replacement of inflatable penile prosthesis (05/22/11) Lumbar and lumbosacral fusion of the anterior column, anterior technique (03/29/12) Other exploration and decompression of spinal canal (03/29/12) Release Lumbar Nerve, Open Approach (11/12/17) SPINAL CANAL INJECT NEC (11/19/09) Assessment and Plan (1) Mass of pancreas Onset Date: 03/21/[address] scan. The location and the clinical symptoms highly suggest this is a primary pancreatic cancer. I have ordered interventional radiology evaluation to see if it is accessible for CT-guided needle biopsy. I talked with the patient that it is most important 1st step. Patient and patient's family verbalized understanding. (2) Mass of multiple sites of liver Onset Date: 10/15/[address] imaging is consistent with most likely metastatic current ache cancer. However other possibilities even though remote should be excluded for example cholangiocarcinoma. I will obtain blood samples to check for CEA as well as CA 19-9. If the pancreatic mass is not accessible for CT-guided biopsy, I would favor a CT-guided biopsy the liver lesion for tissue diagnosis. (3) Abdominal lymphadenopathy The lymphadenopathy is consistent with regional metastasis from the presumed pancreatic cancer. The abdominal pain may be related. (4) Transaminitis Onset Date: 03/21/18 Likely due to the extensive hepatic metastasis. We will continue to monitor and avoid hepatotoxic medications. (5) Anemia Onset Date: 03/21/18 The anemia most likely is related to the new diagnosis metastatic cancer. We will continue to monitor. - Time Spent with Patient I spent considerable amount of time today discussing with the patient, patient's , and patient's [id number]. First of all I reviewed the CT scan on the computer screen with the patient, patient's [id number] and patient's . I pointed out to them where the pancreatic mass is and where the multiple liver lesions are. I also pointed out to them where the lymph nodes are. I explained to them based on the available information, the mostly likely diagnosis is metastatic pancreatic adenocarcinoma with metastasis to the liver, to the regional lymph nodes and possibly to the bone. The first step is to obtain tissue diagnosis. I will refer him to interventional Radiology to see if there is any possibility to obtain needle core biopsy of the pancreatic lesion and/or the liver lesions. I talked with them that the pathology will tell us exactly the diagnosis. I also would like to send the pathological sample for molecular studies. I talked with the patient that he has already had abdominal and pelvic scan but has not had the CT scan of the chest. To complete staging I will order a CT scan of the chest with a CT with contrast. I talked with the patient that I agree with Dr. Damon it is a stage IV metastatic cancer. I do not think that the surgery and or radiation treatment are indicated. However patient will need chemotherapy if patient wishes and for chemotherapy, he will need a port. I will refer the patient to surgeon to have a port placed. I will schedule the patient to come back in about 2 weeks to review the results and to discuss further the treatment options. Plan in summary: 1. Refer to Surgery for EGD and Port placement 2. IR to evaluate CT-guided biopsy of pancreatic lesion or liver lesion 3. CT chest w/contrast to complete the staging 4. CA19-9, and CEA 5. RTC in 2 weeks.
--- NOTE | 2018-03-25 08:36 | P.CONONC_ITS ---
History of Present Illness - Data of Consult Consult date: 03/25/18 Requesting Physician: Dr. Franco Damon Primary Care Provider: Franco Damon MD - Consult Narrative Reason for consult: Metastatic pancreatic cancer? Narrative: Mr. Nakul Dempsey is a 72 year old male with medical problems most notable for hypertension, hyperlipidemia and lots of back problems with multiple surgeries. Patient reported that a couple of months ago, he started to experience abdominal pain, located around umbilicus, mild to moderate, and comes and goes. At the same time, patient has noticed significant decrease in appetite and also weight loss. According to patient he probably lost about 10 lb over the last couple of months. In addition patient has developed significant constipation. He claimed that he used to have very normal bowel movement daily. Patient denies bright red blood per rectum or black stool. Patient reports some gag reflex problems which he thought might be due to lisinopril. Therefore lisinopril was held. He denies any headache. Denies any double vision or blurred vision. He denies any nausea or vomiting. He denies any diarrhea. On 03/21/2018, he was evaluated at ER of for recurrent abdominal pain. CT scan of the abdomen and pelvis on Mar 21, 2018 showed a large heterogeneously enhancing mass measuring 4.8 x 5.5,x 4.9 cm arising from the tail of the pancreas highly suspicious for pancreatic cancer, multiple hepatic and splenic metastatic lesions, gastrohepatic, periportal, periaortic, and left mesenteric metastatic lymphadenopathy as well as a 9 mm T12 lytic lesion concerning for osseous metastasis. Therefore patient was referred to Medical Oncology for further evaluation. Patient came in here today accompanied by his and his daughter in law. Patient reports pain?: Yes - Pain Details Pain location: Periumbilical Pain Scale Used: mild Pain Frequency: Intermittent Pain Description: Dull Home Medications and Allergies Home Medications Medication Instructions Recorded Confirmed Type Flaxseed Oil (#FLAXSEED OIL) 2 tab PO BID #0 03/22/11 03/25/18 History MULTIVITAMIN (#MULTIPLE VITAMINS) 1 cap PO Q DAY #0 03/22/11 03/25/18 History aspirin 81 mg PO DAILY 11/12/17 03/25/18 History zolpidem 5 mg tablet 5 mg PO BEDTIME PRN #20 tab 03/22/18 03/25/18 Rx Allergies Allergy/AdvReac Type Severity Reaction Status Date / Time Corticosteroids AdvReac Mild HICCUPS X Verified 03/22/18 16:08 (Glucocorticoids) 24 HRS walnut [WALNUT] AdvReac Mild canker Verified 03/22/18 16:08 sores in mouth Medical History - Medical, Surgical, Family History Medical History: Medical History (Last Updated 03/25/18 @ 09:04 by El Mace MD) Chronic back pain Onset Date: 1996 Diverticulosis HTN (hypertension) Onset Date: 1995 Hyperlipidemia Internal hemorrhoids Lumbar disc disease Onset Date: 1996 Scoliosis Cataracts, bilateral Onset Date: 2008 DDD (degenerative disc disease) Onset Date: 09/11/09 Prostate cancer Onset Date: 2008 Sleep apnea Onset Date: 1998 Surgical History: Surgical History (Last Reviewed 03/21/18 @ 12:28 by Sunny Gomez DO) Anesthesia History of cataract removal with insertion of prosthetic lens Onset Date: 11/13 History of cataract removal with insertion of prosthetic lens Onset Date: 08/13 History of colonoscopy with polypectomy Onset Date: 04/12/17 History of lumbar spinal fusion Onset Date: 06/18/16 History of penile implant Onset Date: 05/22/11 History of radical prostatectomy Onset Date: 11/23/08 Hx of right inguinal hernia repair Onset Date: 12/1965 S/P matrixectomy of toe Onset Date: 03/05/09 Status post LASIK surgery Onset Date: 05/1999 Status post YAG capsulotomy of left eye Onset Date: 08/18/13 Status post YAG capsulotomy of right eye Onset Date: 08/29/13 Status post biopsy Onset Date: 05/10/09 Status post bunionectomy Onset Date: 08/1976 Status post epidural steroid injection Onset Date: 01/22/09 Status post epidural steroid injection Onset Date: 11/19/09 Status post laminectomy Onset Date: 12/1997 Status post lumbar surgery Onset Date: 01/27/10 Status post lumbar surgery Onset Date: 03/29/12 Status post sclerotherapy of varicose veins Onset Date: 01/2004 Status post tonsillectomy and adenoidectomy Onset Date: Status post eye surgery Onset Date: 08/18/13 Status post eye surgery Onset Date: 08/29/13 Status post radical cystoprostatectomy Onset Date: 11/23/08 Family History: Family History (Last Reviewed 03/21/18 @ 12:28 by Sunny Gomez DO) Brother Age: 70 Diabetes mellitus Obesity Brother Age: 67 Drug abuse Father Cancer Diabetes mellitus Heart disease Hypertension High cholesterol Stroke Sister Age: 74 Arthritis Mother No problems noted. - Social History Smoking Status: Never smoker Review of Systems All systems PM: reviewed and no additional remarkable complaints except as stated Exam Vital signs: 3 Temp 99.0 F 03/25/18 08:47 Pulse 99 H 03/25/18 08:47 Resp 20 03/25/18 08:47 BP 138/84 03/25/18 08:47 Pulse Ox 96 03/25/18 08:47 ECOG 1 Narrative: Constitutional: Well developed, well nourished, not in any acute respiratory distress, average body habitus, well groomed, pleasant and cooperative. HEENT: Normocephalic atraumatic. Extraocular muscle movement intact. Pupils are round, equal and reactive to light and accommodations. Anicteric sclera. No hearing difficulty; Oral mucus membrane moist and without ulcers. Neck: Supple, symmetrical, and tracheal midline; No palpable thyromegaly and no palpable lymph nodes. Respiratory: No use of accessory muscles. Clear to auscultation, and no wheezes or rales or rubs. Cardiovascular: Regular rate and rhythm, S1 and S2 normal, no murmurs gallops or rubs. No JVD. No pitting edema of lower extremities. Abdomen: Soft, nontender, non-distended, bowel sounds normal, palpable hepatomeglay 8 cm below right costal margin along MCL. no hernia, no palpable masses. Lower extremities: No palpable pedal edema. Lymphatic: no palpable lymph nodes in the neck, axillae, or groins. Musculoskeletal: normal gait and station, no clubbing, no cyanosis, no pitting edema. Skin: no rashes, no ulcers, no petechiae Neurological: Awake and alert and oriented x3. CN II-XII grossly intact. No focal motor or sensory deficit. Psychiatric: Good judgment, good insight, normal affect, normal thought process , cooperative, no depression, no anxiety. Results - Labs 03/21/2018: WBC 7.9, HGB 12.7, HCT 37.2, plt 190, Na 142. K 4.6, Cl 101, Bun 23, Cr 0.9, Glu 127, Ca 9.8, Tb 0.9, Ast 99, Alt 133, Alp 276, Tp 7.9, Alb 4.8, lipase 147, - Imaging CT scan - abdomen: report reviewed, image reviewed (1. Large heterogeneously enhancing mass arising from the tail of the pancreas highly suspicious for pancreatic carcinoma. 2. Multiple hepatic and splenic metastatic lesions. 3. Gastrohepatic, periportal, periaortic and left mesenteric metastatic lymphadenopathy. 4. 9 mm T12 lytic lesion concerning for osseous metastatic disease.) CT scan - pelvis: report reviewed, image reviewed Additional studies: Procedures ANESTH INJECT-SPIN CANAL (11/19/09) Excision of Lumbar Vertebral Disc, Open Approach (06/18/16) Excision of Lumbosacral Disc, Open Approach (11/12/17) Extraction of Iliac Bone Marrow, Percutaneous Approach (11/12/17) Fusion of 2 or more Lumbar Vertebral Joints with Interbody Fusion Device, Anterior Approach, Anterior Column, Open Approach (06/18/16) Fusion of 2 or more Lumbar Vertebral Joints with Synthetic Substitute, Posterior Approach, Posterior Column, Open Approach (06/18/16) Fusion of Lumbosacral Joint with Autologous Tissue Substitute, Posterior Approach, Posterior Column, Open Approach (11/12/17) Fusion of Lumbosacral Joint with Interbody Fusion Device, Posterior Approach, Anterior Column, Open Approach (11/12/17) Fusion or refusion of 2-3 vertebrae (03/29/12) INJECT STEROID (11/19/09) Insertion of interbody spinal fusion device (03/29/12) Insertion or replacement of inflatable penile prosthesis (05/22/11) Lumbar and lumbosacral fusion of the anterior column, anterior technique () Other exploration and decompression of spinal canal (03/29/12) Release Lumbar Nerve, Open Approach (11/12/17) SPINAL CANAL INJECT NEC (11/19/09) Assessment and Plan (1) Mass of pancreas Onset Date: 03/21/[address] scan. The location and the clinical symptoms highly suggest this is a primary pancreatic cancer. I have ordered interventional radiology evaluation to see if it is accessible for CT-guided needle biopsy. I talked with the patient that it is most important 1st step. Patient and patient 's family verbalized understanding. (2) Mass of multiple sites of liver Onset Date: 03/21/[address] imaging is consistent with most likely metastatic current ache cancer. However other possibilities even though remote should be excluded for example cholangiocarcinoma. I will obtain blood samples to check for CEA as well as CA 19-9. If the pancreatic mass is not accessible for CT-guided biopsy, I would favor a CT-guided biopsy the liver lesion for tissue diagnosis. (3) Abdominal lymphadenopathy The lymphadenopathy is consistent with regional metastasis from the presumed pancreatic cancer. The abdominal pain may be related. (4) Transaminitis Onset Date: 03/21/18 Likely due to the extensive hepatic metastasis. We will continue to monitor and avoid hepatotoxic medications. (5) Anemia Onset Date: 03/21/18 The anemia most likely is related to the new diagnosis metastatic cancer. We will continue to monitor. - Time Spent with Patient I spent considerable amount of time today discussing with the patient, patient' s , and patient's [id number]. First of all I reviewed the CT scan on the computer screen with the patient, patient's [id number] and patient's . I pointed out to them where the pancreatic mass is and where the multiple liver lesions are. I also pointed out to them where the lymph nodes are. I explained to them based on the available information, the mostly likely diagnosis is metastatic pancreatic adenocarcinoma with metastasis to the liver, to the regional lymph nodes and possibly to the bone. The first step is to obtain tissue diagnosis. I will refer him to interventional Radiology to see if there is any possibility to obtain needle core biopsy of the pancreatic lesion and/or the liver lesions. I talked with them that the pathology will tell us exactly the diagnosis. I also would like to send the pathological sample for molecular studies. I talked with the patient that he has already had abdominal and pelvic scan but has not had the CT scan of the chest. To complete staging I will order a CT scan of the chest with a CT with contrast. I talked with the patient that I agree with Dr. Damon it is a stage IV metastatic cancer. I do not think that the surgery and or radiation treatment are indicated. However patient will need chemotherapy if patient wishes and for chemotherapy, he will need a port. I will refer the patient to surgeon to have a port placed. I will schedule the patient to come back in about 2 weeks to review the results and to discuss further the treatment options. Plan in summary: 1. Refer to Surgery for EGD and Port placement 2. IR to evaluate CT-guided biopsy of pancreatic lesion or liver lesion 3. CT chest w/contrast to complete the staging 4. CA19-9, and CEA 5. RTC in 2 weeks.
[2018-03-25 08:47] VITALS: BP 138/84; PULSE 99; RESP 20; TEMP 37.2; O2SAT 96
--- NOTE | 2018-03-25 10:48 | ONC.NAV ---
Description: New Pt Intro Activity: Met with pt, spouse and dtr-in-law, Romi, to introduce myself as the Pt Alfa/APPRAISAL SPECIALIST, offer services card, and establish initial rapport. Pt was just diagnosed with this new cancer diagnosis 4-days ago, and presents as understandably very upset, tearful at times, and in a state of overwhelm as he and his family grapple to process the severity of disease and impending cancer treatment. Pt indicated a (10) on his distress screening, expressing sadness, fear, depression, transportation need, ADL's and support for family. See Oncology Psychosocial Assessment in the Worklist for details. Plan: APPRAISAL SPECIALIST will meet with the family again when they return for their next appointment with Dr. Mace.
[2018-03-28 13:31] LABS: Carcinoembryonic Antigen 13.1 ng/mL (0.1-3.0)
[2018-03-28 16:46] LABS: Platelet Count 179 X10^3/uL (150-400)
[2018-03-28 17:25] LABS: INR 1.5 (0.9-1.3); Prothrombin Time 16.1 SECONDS (10.1-12.7)
[2018-03-30 14:39] LABS: Add Manual Diff / Slide Review NO; Basophils Percent Auto 0.8 % (0-2); Eosinophils Percent Auto 1.2 % (2-4); Hematocrit 33.7 % (41-53); Hemoglobin 11.5 g/dL (13.5-17.5); Lymphocytes Percent Auto 12.6 % (25-40); Mean Corpuscular HGB Conc 34.1 % (30-36); Mean Corpuscular Hemoglobin 29.9 PG (26-34); Mean Corpuscular Volume 87.6 fL (80-100); Monocytes Percent Auto 12.5 % (3-14); Neutrophils Absolute Auto 6100 /uL (3000-5900); Neutrophils Percent Auto 72.9 % (50-75); Platelet Count 175 X10^3/uL (150-400); Red Blood Cell Count 3.85 X10^6/uL (4.5-5.9); Red Cell Distribution Width 12.8 % (11.6-14.8); White Blood Cell Count 8.4 X10^3/uL (4.5-11.0)
--- NOTE | 2018-03-30 14:40 | PC.NURSE ---
Addendum entered by Becky Cameron R.N. 03/30/18 14:57: Pts CBC stable. Encouraged gently inserting a 2x2 gauze rolled and sprayed with Afrin nose spray leaving enough gauze to easily remove it. Explained the reasoning behind this and encouraged him to call if he had any further questions or needs. Original Note: Pt called our navigator to advise of several epistaxis episodes that were quite long in duration. Pt was asked to come to the clinic and a CBC was drawn to check his platelet count.
[2018-03-30 15:46] LABS: Cancer (Carbohydrate) Ag 19-9 78123 U/mL (< 34)
[2018-04-08 15:58] VITALS: BP 125/61; PULSE 111; RESP 21; TEMP 37.1; O2SAT 97
--- NOTE | 2018-04-08 16:14 | ONC.PN ---
PN -Subjective Interval history: Mr. Nakul Dempsey is a 72 year old male with medical problems most notable for hypertension, hyperlipidemia and lots of back problems with multiple surgeries. Patient reported that a couple of months ago, he started to experience abdominal pain, located around umbilicus, mild to moderate, and comes and goes. At the same time, patient has noticed significant decrease in appetite and also weight loss. According to patient he probably lost about 10 lb over the last couple of months. In addition patient has developed significant constipation. He claimed that he used to have very normal bowel movement daily. Patient denies bright red blood per rectum or black stool. Patient reports some gag reflex problems which he thought might be due to lisinopril. Therefore lisinopril was held. He denies any headache. Denies any double vision or blurred vision. He denies any nausea or vomiting. He denies any diarrhea. On 03/21/2018, he was evaluated at ER of for recurrent abdominal pain. CT scan of the abdomen and pelvis on Mar 21, 2018 showed a large heterogeneously enhancing mass measuring 4.8 x 5.5,x 4.9 cm arising from the tail of the pancreas highly suspicious for pancreatic cancer, multiple hepatic and splenic metastatic lesions, gastrohepatic, periportal, periaortic, and left mesenteric metastatic lymphadenopathy as well as a 9 mm T12 lytic lesion concerning for osseous metastasis. Therefore patient was referred to Medical Oncology for further evaluation. Patient came in here today accompanied by his and his daughter in law. Interim Events: On 03/29/2018, he underwent CT guided biopsy of the liver lesion. 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 Patient underwent CT scan of the chest on March 28, 2018. The scan showed no pulmonary mass lesion, but interval growth in size of multiple hepatic metastatic lesions, and stable mild upper abdominal adenopathy, stable appearance of a large pancreatic tail mass with associated subjacent splenic hypoenhancement focally, most likely representing early invasive change affecting either the parenchyma directly, or the blood flow to that portion of the parenchyma. Patient underwent port placement on April 06, [address] Smallwood. The port is now ready for use. On the same day, Dr. Smallwood also performed EGD. No apparent malignant findings. - Patient Self-Reported Symptoms SR Constitution: Weight loss/gain, Fatigue/Malaise SR ears, nose, mouth, throat issues: Cough SR respiratory issues: Cough SR Gastrointestinal issues: Poor or no appetite, Change in bowel pattern, Nausea, Vomiting, Diarrhea, Constipation SR Genitourinary issues: Frequent urination SR Musculoskeletal issues: Muscle weakness, Cold hands or feet, Difficulty walking, Bone pain SR Neuro issues: Difficulty balancing SR Endocrine issues: Excessive thirst - Additional ROS All systems PM: reviewed and no additional remarkable complaints except as stated Home Medications and Allergies Home Medications Medication Instructions Recorded Confirmed Type MULTIVITAMIN (#MULTIPLE VITAMINS) 1 cap PO Q DAY #0 03/22/11 04/08/18 History zolpidem 5 mg tablet 5 mg PO BEDTIME PRN #20 tab 03/22/18 04/08/18 Rx alprazolam 1 mg tablet 1 mg PO Q8H PRN #45 tab 03/31/18 04/08/18 Rx hydromorphone 2 mg PO Q6H PRN #14 tab 04/06/18 04/08/18 Rx Allergies Allergy/AdvReac Type Severity Reaction Status Date / Time Corticosteroids AdvReac Mild HICCUPS X Verified 04/04/18 08:14 (Glucocorticoids) 24 HRS walnut [WALNUT] AdvReac Mild canker Verified 04/04/18 08:14 sores in mouth Exam Vital signs: Temp 98.7 F 04/08/18 15:58 Pulse 111 H 04/08/18 15:58 Resp 21 04/08/18 15:58 BP 125/61 04/08/18 15:58 Pulse Ox 97 04/08/18 15:58 ECOG 1 Narrative: Constitutional: Well developed, well nourished, not in any acute respiratory distress, average body habitus, well groomed, pleasant and cooperative. HEENT: Normocephalic atraumatic. Extraocular muscle movement intact. Pupils are round, equal and reactive to light and accommodations. Anicteric sclera. No hearing difficulty; Oral mucus membrane moist and without ulcers. Neck: Supple, symmetrical, and tracheal midline; No palpable thyromegaly and no palpable lymph nodes. Respiratory: No use of accessory muscles. Clear to auscultation, and no wheezes or rales or rubs. Cardiovascular: Regular rate and rhythm, S1 and S2 normal, no murmurs gallops or rubs. No JVD. No pitting edema of lower extremities. Abdomen: Soft, nontender, non-distended, bowel sounds normal, palpable hepatomeglay 8 cm below right costal margin along MCL. no hernia, no palpable masses. Lower extremities: No palpable pedal edema. Lymphatic: no palpable lymph nodes in the neck, axillae, or groins. Musculoskeletal: normal gait and station, no clubbing, no cyanosis, no pitting edema. Skin: no rashes, no ulcers, no petechiae Neurological: Awake and alert and oriented x3. CN II-XII grossly intact. No focal motor or sensory deficit. Psychiatric: Good judgment, good insight, normal affect, normal thought process, cooperative, no depression, no anxiety. Results - Labs WBC 8.4 X10^3/uL (4.5-11.0) 03/30/18 14: RBC 3.85 X10^6/uL (4.5-5.9) L 03/30/18 14:26 Hgb 11.5 g/dL (13.5-17.5) L 03/30/18 14:26 Hct 33.7 % (41-53) L 03/30/18 14:26 MCV 87.6 fL (80-100) 03/30/18 14:26 MCH 29.9 PG (26-34) 03/30/18 14:26 MCHC 34.1 % (30-36) 03/30/18 14:26 RDW 12.8 % (11.6-14.8) 03/30/18 14:26 Plt Count 175 X10^3/uL (150-400) 03/30/18 14:26 Neut % (Auto) 72.9 % (50-75) 03/30/18 14:26 Lymph % (Auto) 12.6 % (25-40) L 03/30/18 14:26 Loving % (Auto) 12.5 % (3-14) 03/30/18 14:26 Eos % (Auto) 1.2 % (2-4) L 03/30/18 14:26 Baso % (Auto) 0.8 % (0-2) 03/30/18 14:26 Neut # (Auto) 6100 /uL (2294-3289) H 03/30/18 14:26 PT 16.1 SECONDS (10.1-12.7) H 03/28/18 16:14 INR 1.5 (0.9-1.3) H 03/28/18 16:14 Carcinoembryonic Ag 13.1 ng/mL (0.1-3.0) H 03/28/18 10:59 CA 19-9 Antigen 15705 U/mL (< 34) H 03/28/18 10:59 - Imaging CT scan - abdomen: report reviewed, image reviewed CT scan - chest: report reviewed, image reviewed Additional studies: Procedures ANESTH INJECT-SPIN CANAL (11/19/09) Excision of Lumbar Vertebral Disc, Open Approach (06/18/16) Excision of Lumbosacral Disc, Open Approach (11/12/17) Extraction of Iliac Bone Marrow, Percutaneous Approach (11/12/17) Fusion of 2 or more Lumbar Vertebral Joints with Interbody Fusion Device, Anterior Approach, Anterior Column, Open Approach (06/18/16) Fusion of 2 or more Lumbar Vertebral Joints with Synthetic Substitute, Posterior Approach, Posterior Column, Open Approach (06/18/16) Fusion of Lumbosacral Joint with Autologous Tissue Substitute, Posterior Approach, Posterior Column, Open Approach (11/12/17) Fusion of Lumbosacral Joint with Interbody Fusion Device, Posterior Approach, Anterior Column, Open Approach (11/12/17) Fusion or refusion of 2-3 vertebrae (03/29/12) INJECT STEROID (11/19/09) Insertion of interbody spinal fusion device (03/29/12) Insertion or replacement of inflatable penile prosthesis (05/22/11) Lumbar and lumbosacral fusion of the anterior column, anterior technique (03/29/12) Other exploration and decompression of spinal canal (03/29/12) Release Lumbar Nerve, Open Approach (11/12/17) SPINAL CANAL INJECT NEC (11/19/09) Assessment and Plan (1) Pancreatic cancer Primary: pancreatic tail. Metastasis: liver (bx confirmed); gastrohepatic, periportal, periaortic, and left mesenteric metastatic lymphadenopathy; as well as a 9 mm T12 lytic lesion I explained to the patient about the diagnosis of pancreatic cancer. It is supported by the pathology as well as the exceedingly high level of CA 19-9 in the serum. In addition upper endoscopy was without any abnormal malignant findings excluding the possibility of upper gastrointestinal malignancy. I talked with the patient that the outcome of pancreatic cancer is guarded. It is considered incurable, and the goal of therapy is palliative. Patient is interested in pursuing chemotherapy. Hopefully we will see shrinkage of the pancreatic mass with improvement in quality of time. I had a long and detailed discussion with patient and patient's very supportive family. I answered all the questions to the best of my knowledge. Plan: 1. Tentatively scheduled to start chemotherapy: nab-paclitaxel and gemcitabine on Wednesday. 2. I will see the patient on cycle 2 day 8. CBC CMP. 3. We will give patient 1 L of normal saline today. 4. Biopsy sample for molecular profiling (2) Transaminitis Likely due to the extensive hepatic metastasis. We will continue to monitor and avoid hepatotoxic medications. (3) Anemia The anemia most likely is related to the new diagnosis metastatic cancer. We will continue to monitor.
[2018-04-08] MEDS: SODIUM CHLORIDE 0.9% 1,000 ML 1000 ML IV (16:18)
--- NOTE | 2018-04-08 17:07 | PC.NURSE ---
Wheeled pt to room 201 to complete IV fluids. rejector aware and report given, call light given to pt.
[2018-04-11] MEDS: DEXAMETHASONE 10 MG/ML VIAL 8 MG IV (11:50)
[2018-04-11] MEDS: ONDANSETRON 8 MG in SODIUM CHLORIDE 0.9% 50 ML 216 ML IV (12:08)
[2018-04-11] MEDS: SODIUM CHLORIDE 0.9% 100 ML 21 ML IV (12:09)
[2018-04-11] MEDS: SODIUM CHLORIDE 0.9% IV ×2 (13:33→14:37)
[2018-04-11] MEDS: PACLITAXEL PROTEIN BOUND IV (13:33)
[2018-04-11] MEDS: GEMCITABINE IV (14:37)
--- NOTE | 2018-04-12 09:36 | PM.CHEMOCOU ---
Chemotherapy Counseling - History of present illness History of present illness: Newly diagnosed metastatic pancreatic cancer Luis became acutely ill during the visit with sudden onset nausea and vomiting. He was taken by WC to infusion room for further attention. he was provided with 1 L NS over 60 mins, 4mg IV zofran, 0.5mg IV ativan. VS were stable. His condition improved. Head to toe exam unremarkable, abd NT non distended with adequate bowel sounds. I advised the pt to call or go directly to ER if vomiting continues. Also reviewed other red flags requiring urgent evaluation. The pt and his verbalized understanding - Chemotherapy Counseling Chemotherapy Counseling: Chemotherapy Education: Nakul Dempsey provided written information on all topics discussed. Written materials printed from www.[facility] and [email or web address]. Nakul was given an overview of cancer and mechanism of action of cancer cells, that cancer is caused by cells that are dividing rapidly, and out of control. Traditional chemotherapy works by targeting the fast dividing cells and killing them. Chemotherapy affecting healthy cells dividing quickly causes many of the side effects (hair follicles, bone marrow, mucus membranes). Overview of blood cell functions of white cells to fight infection, red cells to carry oxygen, and platelets to stop bleeding was discussed, and that when bone marrow is affected by chemo, there is a decrease in production of these cells. Home care of the patient following chemotherapy was discussed. Body fluids will be contaminated for 48 hours following treatment, and any body fluids handled by caregivers should be handled wearing gloves, surfaces need to be cleaned with soap and water, any soiled linens or clothing need to be washed separately in hot water, toilet lid should be closed when flushing, person cleaning the toilet should wear gloves. How chemotherapy is administered by the RN?s in the clinic, that orders are double checked by pharmacy and checked again by two RN?s prior to administration. Nurses wear protective gear to prevent exposure to them of the chemotherapy agents which can also cause cancer. Cancer center information discussed and written hand out provided listing on-call oncologist available weekends and after hours triage R.N. hours and infusion room guide. New patient binder given to Nakul, which includes clinic names, phone numbers, clinic information, calendar, cancer glossary, and list of resources. Handout on advanced directives Common side effects of chemotherapy were discussed with self care tips for prevention of complications. Information also provided in writing. These included: Low blood counts (anemia, thrombocytopenia, neutropenia) Hair loss (alopecia) Nausea and vomiting Decreased appetite Loss of fertility Diarrhea Mouth sores Constipation Peripheral neuropathy Chemo brain/cognitive changes Fatigue Instructions on when to call your healthcare team or on-call physician immediately: Fever of 100.4 or higher, chills, any signs of infection Shortness of breath, wheezing, difficulty breathing, closing of throat, swelling of face, hives (signs of possible allergic reaction) Chest pain, fast heart beat or feelings of a different heart rhythm Swelling of an extremity with or without pain signs of stroke Instructions on when to call your healthcare team within the next 24 hours Nausea that interferes with ability to eat and unrelieved with prescribed medication Diarrhea (4-6 episodes in 24 hour period). Unusual bleeding or bruising Black or tarry stools, or blood in your stools Blood in the urine pain or burning with urination Extreme fatigue (unable to perform self-care activities) Mouth sores or sore areas in your mouth Bad headache Dizziness or lightheadedness Large weight gain over a short period of time General self-care tips while undergoing treatment discussed were as follows. Written materials were provided covering in detail and additional self care tips. Drink at least 2-3 quarts (8-10 glasses) of no-caffeinated beverages daily unless you are instructed otherwise and empty your bladder frequently Report any concerning symptoms to your healthcare team Avoid crowds and sick people, wash your hands frequently Use a soft bristled toothbrush, rinse three times a day with 1 tsp baking soda or 1 tsp salt mixed with warm water Avoid any mouthwashes or oral and skin products containing alcohol or fragrances Use electric razors to avoid cutting yourself Avoid contact sports or activities that could cause head injury or bleeding Avoid sun exposure, wear SPF 15 or higher, wear protective clothing Get plenty of rest, meter your activities Maintain good nutrition Avoid alcoholic beverages Attend your scheduled appointments and lab draws Treatment regimen reviewed and medications were discussed with attention to specific side effects and self care for the pt?s treatment regimen which includes [gemzar, taxol]. Nakul was provided with literature regarding [gemzar, taxol] and common side effects. Additionally, Nakul was provided with literature regarding the diagnosis of [pancreatic cancer]. Nakul instructed to read literature at home. Keep a list of questions which we are happy to go over at future visits. For any urgent questions please feel free to call any time. - Referrals Referrals: [employer]
[2018-04-12] MEDS: ONDANSETRON 4 MG/2 ML INJ IV (09:41)
[2018-04-12] MEDS: LORazepam 2 MG/ML SYRINGE 0.5 MG IV (09:41)
[2018-04-12] MEDS: SODIUM CHLORIDE 0.9% 1,000 ML 1000 ML IV (09:42)
[2018-04-12 09:54] VITALS: BP 130/71; PULSE 85; RESP 16; TEMP 36.7; O2SAT 96
--- NOTE | 2018-04-12 10:19 | ONC.NAV ---
Description: Transportation, Resources Activity: CLUB DIRECTOR called the [employer] and requested transportation for pt's upcoming visit on 04/18.. They will f/u with him once a volunteer commercial trailer truck driver has been arranged. Completed a referral for [employer], per pt's request, and faxed to dietary. Plan: Ongoing assistance and care coordination.
--- NOTE | 2018-04-14 09:51 | PC.NURSE ---
Addendum entered by Irene Juarez R.N. 04/14/18 12:01: Dr Mace would like to add lorazepam and ondansetron to pt home meds. Will call into [facility]. Also add Dexamethasone 4 mg tabs daily per Dr Mace. Received message from laminating machine tender Iona that she plans on meeting Luis over here Wednesday 04/18 at around 1030 while he's here in our cancer center getting treatment. Original Note: Pt called and was talking to Nancy, patient coordinator and mentioned that he continues to experience nausea and vomiting. Called pt to get more details about his symptoms. Pt reports that he is able to keep fluids down but that anytime he tries to eat food, he vomits. He states he vomits about once a day, although he experiences nausea continuously. He has been forcing himself to drink fluids. He states he drinks about 1-2 Ensures a day, as well as Gatorade and Eggnog and ice water. He denies abdominal bloating or pain, except some cramping occasionally. Last bowel movement was Wednesday 04/11. He states he is passing gas. He is taking his antiemetic around the clock every 6 hours. He has completed his Olanzepine course for this cycle. Will notify Dr Mace of our discussion. Pt has appt with Dr Mace on Wednesday 04/18. Informed pt that if Dr Mace wants to add anything or make any changes/has any other suggestions, that I would call him to relay Dr Mace's input. Pt was satisfied with this.
[2018-04-18 09:29] LABS: Add Manual Diff / Slide Review NO; Basophils Percent Auto 0.4 % (0-2); Hematocrit 28.9 % (41-53); Hemoglobin 9.8 g/dL (13.5-17.5); Lymphocytes Percent Auto 11.2 % (25-40); Mean Corpuscular Hemoglobin 30.1 PG (26-34); Mean Corpuscular Volume 88.5 fL (80-100); Monocytes Percent Auto 9.4 % (3-14); Neutrophils Absolute Auto 5700 /uL (3000-5900); Platelet Count 77 X10^3/uL (150-400); Red Blood Cell Count 3.26 X10^6/uL (4.5-5.9); White Blood Cell Count 7.3 X10^3/uL (4.5-11.0)
[2018-04-18 09:43] LABS: Alanine Aminotransferase 209 IU/L (21-72); Albumin 3.6 g/dL (3.5-5.0); Albumin Globulin Ratio 1.2 (1.0-2.8); Alkaline Phosphatase 648 U/L (38-126); Aspartate Aminotransferase 218 IU/L (17-59); BUN Creatinine Ratio 22.5 (6-22); Bilirubin Total 2.3 mg/dL (0.2-1.3); Blood Urea Nitrogen 18 mg/dL (9-20); Calcium 8.6 mg/dL (8.4-10.2); Carbon Dioxide 27 mmol/L (22-32); Chloride 101 mmol/L (98-107); Estimated Glomerular Filt Rate > 60.0 mL/min (>60); Globulin 2.9 g/dL (1.7-4.1); Glucose 125 mg/dL (80-110); HEMOLYSIS < 15 (0-50); Potassium 3.8 mmol/L (3.4-5.1); Sodium 138 mmol/L (137-145); Total Protein 6.5 g/dL (6.3-8.2)
[2018-04-18 10:08] VITALS: BP 142/62; PULSE 88; RESP 18; TEMP 36.4; O2SAT 99
--- NOTE | 2018-04-18 10:10 | ONC.PN ---
PN -Subjective Interval history: He started palliative chemotherapy with nab-paclitaxel and gemcitabine on 04/11/2018. During the past one week, his main issue has been eating difficulty. He can only eat very small portion. If too large a size, he threw up. When he is not eating, he does not have nausea or vomiting. He is taking ondasetrone. He is not taking any narcotics. No fever, no chills. No diarrhea. He is constipation and is taking senna. He reported one episode of right nostril bleeding and was cauterized on Wednesday by Dr. Mcmahon. He has follow up visit with Dr. Mcmahon next week. Oncological History: Mr. Nakul Dempsey is a 72 year old male with medical problems most notable for hypertension, hyperlipidemia and lots of back problems with multiple surgeries. Patient reported that a couple of months ago, he started to experience abdominal pain, located around umbilicus, mild to moderate, and comes and goes. At the same time, patient has noticed significant decrease in appetite and also weight loss. According to patient he probably lost about 10 lb over the last couple of months. In addition patient has developed significant constipation. He claimed that he used to have very normal bowel movement daily. Patient denies bright red blood per rectum or black stool. Patient reports some gag reflex problems which he thought might be due to lisinopril. Therefore lisinopril was held. He denies any headache. Denies any double vision or blurred vision. He denies any nausea or vomiting. He denies any diarrhea. On 03/21/2018, he was evaluated at ER of for recurrent abdominal pain. CT scan of the abdomen and pelvis on Mar 21, 2018 showed a large heterogeneously enhancing mass measuring 4.8 x 5.5,x 4.9 cm arising from the tail of the pancreas highly suspicious for pancreatic cancer, multiple hepatic and splenic metastatic lesions, gastrohepatic, periportal, periaortic, and left mesenteric metastatic lymphadenopathy as well as a 9 mm T12 lytic lesion concerning for osseous metastasis. Therefore patient was referred to Medical Oncology for further evaluation. Patient came in here today accompanied by his and his daughter in law. Patient underwent CT scan of the chest on March 28, 2018. The scan showed no pulmonary mass lesion, but interval growth in size of multiple hepatic metastatic lesions, and stable mild upper abdominal adenopathy, stable appearance of a large pancreatic tail mass with associated subjacent splenic hypoenhancement focally, most likely representing early invasive change affecting either the parenchyma directly, or the blood flow to that portion of the parenchyma. His serum CA19-9 was 15110, CEA 13.1. On 03/29/2018, he underwent CT guided biopsy of the liver lesion. 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 Patient underwent port placement on April 06, [address] Smallwood. On the same day, Dr. Smallwood also performed EGD. No apparent malignant findings. - Patient Self-Reported Symptoms SR Constitution: Weight loss/gain, Fatigue/Malaise SR ears, nose, mouth, throat issues: Cough SR respiratory issues: Cough SR Gastrointestinal issues: Poor or no appetite, Change in bowel pattern, Nausea, Vomiting, Diarrhea, Constipation SR Genitourinary issues: Frequent urination SR Musculoskeletal issues: Muscle weakness, Cold hands or feet, Difficulty walking, Bone pain SR Neuro issues: Difficulty balancing SR Endocrine issues: Excessive thirst - Additional ROS All systems PM: reviewed and no additional remarkable complaints except as stated Home Medications and Allergies Home Medications Medication Instructions Recorded Confirmed Type MULTIVITAMIN (#MULTIPLE VITAMINS) 1 cap PO Q DAY #0 03/22/11 04/08/18 History zolpidem 5 mg tablet 5 mg PO BEDTIME PRN #20 tab 03/22/18 04/08/18 Rx alprazolam 1 mg tablet 1 mg PO Q8H PRN #45 tab 03/31/18 04/08/18 Rx hydromorphone 2 mg PO Q6H PRN #14 tab 04/06/18 04/08/18 Rx olanzapine 10 mg PO DAILY #16 tab 04/11/18 Rx prochlorperazine maleate 10 mg PO Q6H PRN #30 tab 04/11/18 Rx ondansetron [Zofran ODT] 4 mg PO Q6-8H PRN #30 tab 04/12/18 Rx dexamethasone 4 mg PO DAILY 04/14/18 04/14/18 History lorazepam 0.5 mg PO Q6HR PRN 04/14/18 04/14/18 History Allergies Allergy/AdvReac Type Severity Reaction Status Date / Time Corticosteroids AdvReac Mild HICCUPS X Verified 04/04/18 08:14 (Glucocorticoids) 24 HRS walnut [WALNUT] AdvReac Mild canker Verified 04/04/18 08:14 sores in mouth Exam Vital signs: Temp 97.6 F 04/18/18 10:08 Pulse 88 04/18/18 10:08 Resp 18 04/18/18 10:08 BP 142/62 H 04/18/18 10:08 Pulse Ox 99 04/18/18 10:08 ECOG 1 Narrative: Constitutional: Well developed, well nourished, not in any acute respiratory distress, average body habitus, well groomed, pleasant and cooperative. HEENT: Normocephalic atraumatic. Extraocular muscle movement intact. Pupils are round, equal and reactive to light and accommodations. Anicteric sclera. No hearing difficulty; Oral mucus membrane moist and without ulcers. Neck: Supple, symmetrical, and tracheal midline; No palpable thyromegaly and no palpable lymph nodes. Respiratory: No use of accessory muscles. Clear to auscultation, and no wheezes or rales or rubs. Cardiovascular: Regular rate and rhythm, S1 and S2 normal, no murmurs gallops or rubs. No JVD. No pitting edema of lower extremities. Abdomen: Soft, nontender, non-distended, bowel sounds normal, palpable hepatomeglay 8 cm below right costal margin along MCL. no hernia, no palpable masses. Lower extremities: No palpable pedal edema. Lymphatic: no palpable lymph nodes in the neck, axillae, or groins. Musculoskeletal: normal gait and station, no clubbing, no cyanosis, no pitting edema. Skin: no rashes, no ulcers, no petechiae Neurological: Awake and alert and oriented x3. CN II-XII grossly intact. No focal motor or sensory deficit. Psychiatric: Good judgment, good insight, normal affect, normal thought process, cooperative, no depression, no anxiety. Results - Labs WBC 7.3 X10^3/uL (4.5-11.0) 04/18/18 09:18 RBC 3.26 X10^6/uL (4.5-5.9) L 04/18/18 09:18 Hgb 9.8 g/dL (13.5-17.5) L 04/18/18 09:18 Hct 28.9 % (41-53) L 04/18/18 09:18 MCV 88.5 fL (80-100) 04/18/18 09:18 MCH 30.1 PG (26-34) 04/18/18 09:18 MCHC 34.0 % (30-36) 04/18/18 09:18 RDW 14.0 % (11.6-14.8) 04/18/18 09:18 Plt Count 77 X10^3/uL (150-400) L 04/18/18 09:18 Neut % (Auto) 78.0 % (50-75) H 04/18/18 09:18 Lymph % (Auto) 11.2 % (25-40) L 04/18/18 09:18 Mccone % (Auto) 9.4 % (3-14) 04/18/18 09:18 Eos % (Auto) 1.0 % (2-4) L 04/18/18 09:18 Baso % (Auto) 0.4 % (0-2) 04/18/18 09:18 Neut # (Auto) 5700 /uL (0169-8785) 04/18/18 09:18 PT 16.1 SECONDS (10.1-12.7) H 03/28/18 16:14 INR 1.5 (0.9-1.3) H 03/28/18 16:14 Sodium 138 mmol/L (137-145) 04/18/18 09:18 Potassium 3.8 mmol/L (3.4-5.1) 04/18/18 09:18 Chloride 101 mmol/L (98-107) 04/18/18 09:18 Carbon Dioxide 27 mmol/L (22-32) 04/18/18 09:18 BUN 18 mg/dL (9-20) 04/18/18 09:18 Creatinine 0.80 mg/dL (0.66-1.25) 04/18/18 09:18 Estimated GFR > 60.0 mL/min (>60) 04/18/18 09:18 BUN/Creatinine Ratio 22.5 (6-22) H 04/18/18 09:18 Glucose 125 mg/dL (80-110) H 04/18/18 09:18 Calcium 8.6 mg/dL (8.4-10.2) 04/18/18 09:18 Total Bilirubin 2.3 mg/dL (0.2-1.3) H 04/18/18 09:18 AST 218 IU/L (17-59) H 04/18/18 09:18 ALT 209 IU/L (21-72) H 04/18/18 09:18 Alkaline Phosphatase 648 U/L (38-126) H 04/18/18 09:18 Total Protein 6.5 g/dL (6.3-8.2) 04/18/18 09:18 Albumin 3.6 g/dL (3.5-5.0) 04/18/18 09:18 Globulin 2.9 g/dL (1.7-4.1) 04/18/18 09:18 Albumin/Globulin Ratio 1.2 (1.0-2.8) 04/18/18 09:18 Carcinoembryonic Ag 13.1 ng/mL (0.1-3.0) H 03/28/18 10:59 CA 19-9 Antigen 77513 U/mL (< 34) H 03/28/18 10:59 - Imaging Additional studies: Procedures ANESTH INJECT-SPIN CANAL (11/19/09) Excision of Lumbar Vertebral Disc, Open Approach (06/18/16) Excision of Lumbosacral Disc, Open Approach (11/12/17) Extraction of Iliac Bone Marrow, Percutaneous Approach (11/12/17) Fusion of 2 or more Lumbar Vertebral Joints with Interbody Fusion Device, Anterior Approach, Anterior Column, Open Approach (06/18/16) Fusion of 2 or more Lumbar Vertebral Joints with Synthetic Substitute, Posterior Approach, Posterior Column, Open Approach (06/18/16) Fusion of Lumbosacral Joint with Autologous Tissue Substitute, Posterior Approach, Posterior Column, Open Approach (11/12/17) Fusion of Lumbosacral Joint with Interbody Fusion Device, Posterior Approach, Anterior Column, Open Approach (11/12/17) Fusion or refusion of 2-3 vertebrae (03/29/12) INJECT STEROID (11/19/09) Insertion of interbody spinal fusion device (03/29/12) Insertion or replacement of inflatable penile prosthesis (05/22/11) Lumbar and lumbosacral fusion of the anterior column, anterior technique (03/29/12) Other exploration and decompression of spinal canal (03/29/12) Release Lumbar Nerve, Open Approach (11/12/17) SPINAL CANAL INJECT NEC (11/19/09) Assessment and Plan (1) Pancreatic cancer Primary: pancreatic tail. Metastasis: liver (bx confirmed); gastrohepatic, periportal, periaortic, and left mesenteric metastatic lymphadenopathy; as well as a 9 mm T12 lytic lesion. He started nab-paclitaxel and gemcitabine on 04/11/2018 Overall he has tolerated relatively well. He denies any fever or chills. Denies any shortness of breath or chest pain. Patient reported that when he eats, he throws up. When he is not eating, he does not have any significant nausea vomiting. In addition patient reported that the pain seems to be okay and he is not using any narcotics at this time for pain control. He is using ondansetron only before going to bed. Plan: 1. Ok to proceed to C1D8 nab-paclitaxel and gemcitabine today with 50% dose reduction due to platelet count of 77K 2. I will see the patient on cycle 1 day 15. CBC, CMP. (2) Transaminitis Likely due to the extensive hepatic metastasis. We will continue to monitor and avoid hepatotoxic medications. Plan: Monitor (3) Anemia The anemia most likely is related to the new diagnosis metastatic cancer. We will continue to monitor. Plan: Transfuse if H/H < 8/24. (4) Nausea & vomiting He is eating small proportion multiple times. He said if he eats large proportion size, he would throw up. If he is not eating, actually he is doing well. He is not using any nausea medications except the ondansetron which he uses only before going to bed. Plan: 1. I advised him to take ondansetron sublingual 30 min prior to eating 2. RTC in one week for reevaluation to see if additional anti-nausea meds needed. 3. Call for any concerns or questions.
[2018-04-18] MEDS: DEXAMETHASONE 10 MG/ML VIAL 8 MG IV (11:15)
[2018-04-18] MEDS: SODIUM CHLORIDE 0.9% 100 ML 21 ML IV (11:17)
[2018-04-18] MEDS: ONDANSETRON 8 MG in SODIUM CHLORIDE 0.9% 50 ML 216 ML IV (11:47)
[2018-04-18] MEDS: PACLITAXEL PROTEIN BOUND IV (12:22)
[2018-04-18] MEDS: SODIUM CHLORIDE 0.9% IV ×2 (12:22→13:27)
[2018-04-18] MEDS: GEMCITABINE IV (13:27)
--- NOTE | 2018-04-22 10:26 | ONC.NAV ---
Description: T/C-Care Coordination Activity: Pt called to ask for assistance in getting a humidifier for his C-Pap machine. He had seen Dr. Mcmahon this morning due to another severe nose-bleed, which required cauterization. He wasn't sure who to call. PSYCH RN determined that is was from [facility]. Called [facility] and requested assistance on pt's behalf. They will f/u with calling pt to determine what parts he needs, and set an appointment appropriately.
--- NOTE | 2018-04-25 10:20 | ONC.PN ---
PN -Subjective Interval history: 72-year-old gentleman with advanced pancreatic adenocarcinoma presents here today for cycle 5 day 15 Nab paclitaxel and gemcitabine. Patient's second week chemo was given a week ago with 50% dose reduction of both Nab paclitaxel and gemcitabine. Patient reported that he has tolerated well. Remarkably patient said that his appetite seems to be slightly better than before. He is able to eat some apples and some food. And the nausea and vomiting also have improved quite a bit. Of note patient is using nausea medications under the time. He denies any fever or chills. Patient said that he is having some abdominal achness. Denies any diarrhea or constipation. He is using marijuana before bed for sleeping. Oncological History: Mr. Nakul Dempsey is a 72 year old male with medical problems most notable for hypertension, hyperlipidemia and lots of back problems with multiple surgeries. Patient reported that a couple of months ago, he started to experience abdominal pain, located around umbilicus, mild to moderate, and comes and goes. At the same time, patient has noticed significant decrease in appetite and also weight loss. According to patient he probably lost about 10 lb over the last couple of months. In addition patient has developed significant constipation. He claimed that he used to have very normal bowel movement daily. Patient denies bright red blood per rectum or black stool. Patient reports some gag reflex problems which he thought might be due to lisinopril. Therefore lisinopril was held. He denies any headache. Denies any double vision or blurred vision. He denies any nausea or vomiting. He denies any diarrhea. On 03/21/2018, he was evaluated at ER of for recurrent abdominal pain. CT scan of the abdomen and pelvis on Mar 21, 2018 showed a large heterogeneously enhancing mass measuring 4.8 x 5.5,x 4.9 cm arising from the tail of the pancreas highly suspicious for pancreatic cancer, multiple hepatic and splenic metastatic lesions, gastrohepatic, periportal, periaortic, and left mesenteric metastatic lymphadenopathy as well as a 9 mm T12 lytic lesion concerning for osseous metastasis. Therefore patient was referred to Medical Oncology for further evaluation. Patient came in here today accompanied by his and his daughter in law. Patient underwent CT scan of the chest on March 28, 2018. The scan showed no pulmonary mass lesion, but interval growth in size of multiple hepatic metastatic lesions, and stable mild upper abdominal adenopathy, stable appearance of a large pancreatic tail mass with associated subjacent splenic hypoenhancement focally, most likely representing early invasive change affecting either the parenchyma directly, or the blood flow to that portion of the parenchyma. His serum CA19-9 was [id number], CEA 13.1. On 03/29/2018, he underwent CT guided biopsy of the liver lesion. 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 Patient underwent port placement on April 06, [address] Smallwood. On the same day, Dr. Smallwood also performed EGD. No apparent malignant findings. He started palliative chemotherapy with nab-paclitaxel and gemcitabine on 04/11/2018. - Patient Self-Reported Symptoms SR Constitution: Weight loss/gain, Fatigue/Malaise SR ears, nose, mouth, throat issues: Cough SR respiratory issues: Cough SR Gastrointestinal issues: Poor or no appetite, Change in bowel pattern, Nausea, Vomiting, Diarrhea, Constipation SR Genitourinary issues: Frequent urination SR Musculoskeletal issues: Muscle weakness, Cold hands or feet, Difficulty walking, Bone pain SR Neuro issues: Difficulty balancing SR Endocrine issues: Excessive thirst - Additional ROS All systems PM: reviewed and no additional remarkable complaints except as stated Home Medications and Allergies Home Medications Medication Instructions Recorded Confirmed Type MULTIVITAMIN (#MULTIPLE VITAMINS) 1 cap PO Q DAY #0 03/22/11 04/21/18 History zolpidem 5 mg tablet 5 mg PO BEDTIME PRN #20 tab 03/22/18 04/08/18 Rx alprazolam 1 mg tablet 1 mg PO Q8H PRN #45 tab 03/31/18 04/08/18 Rx hydromorphone 2 mg PO Q6H PRN #14 tab 04/06/18 04/21/18 Rx olanzapine 10 mg PO DAILY #16 tab 04/11/18 04/21/18 Rx prochlorperazine maleate 10 mg PO Q6H PRN #30 tab 04/11/18 04/21/18 Rx ondansetron [Zofran ODT] 4 mg PO Q6-8H PRN #30 tab 04/12/18 04/21/18 Rx dexamethasone 4 mg PO DAILY 04/14/18 04/14/18 History lorazepam 0.5 mg PO Q6HR PRN 04/14/18 04/21/18 History Allergies Allergy/AdvReac Type Severity Reaction Status Date / Time Corticosteroids AdvReac Mild HICCUPS X Verified 04/04/18 08:14 (Glucocorticoids) 24 HRS walnut [WALNUT] AdvReac Mild canker Verified 04/04/18 08:14 sores in mouth Exam Vital signs: Last Vital Signs Temp 97.1 F L 04/25/18 10:44 Pulse 93 H 04/25/18 10:44 Resp 18 04/25/18 10:44 BP 132/69 04/25/18 10:44 Pulse Ox 99 04/25/18 10:44 ECOG 1 Narrative: Constitutional: Well developed, well nourished, not in any acute respiratory distress, average body habitus, well groomed, pleasant and cooperative. HEENT: Normocephalic atraumatic. Extraocular muscle movement intact. Pupils are round, equal and reactive to light and accommodations. Anicteric sclera. No hearing difficulty; Oral mucus membrane moist and without ulcers. Neck: Supple, symmetrical, and tracheal midline; No palpable thyromegaly and no palpable lymph nodes. Respiratory: No use of accessory muscles. Clear to auscultation, and no wheezes or rales or rubs. Cardiovascular: Regular rate and rhythm, S1 and S2 normal, no murmurs gallops or rubs. No JVD. No pitting edema of lower extremities. Abdomen: Soft, nontender, non-distended, bowel sounds normal, palpable hepatomeglay 8 cm below right costal margin along MCL. no hernia, no palpable masses. Lower extremities: 1+ ankle edema bilaterally noted. Lymphatic: no palpable lymph nodes in the neck, axillae, or groins. Musculoskeletal: normal gait and station, no clubbing, no cyanosis, no pitting edema. Skin: no rashes, no ulcers, no petechiae Neurological: Awake and alert and oriented x3. CN II-XII grossly intact. No focal motor or sensory deficit. Psychiatric: Good judgment, good insight, normal affect, normal thought process, cooperative, no depression, no anxiety. Results - Labs Laboratory Last Values WBC 8.0 X10^3/uL (4.5-11.0) 04/25/18 10:32 RBC 3.08 X10^6/uL (4.5-5.9) L 04/25/18 10:32 Hgb 9.6 g/dL (13.5-17.5) L 04/25/18 10:32 Hct 28.9 % (41-53) L 04/25/18 10:32 MCV 94.0 fL (80-100) D 04/25/18 10:32 MCH 31.3 PG (26-34) 04/25/18 10:32 MCHC 33.3 % (30-36) 04/25/18 10:32 RDW 15.7 % (11.6-14.8) H 04/25/18 10:32 Plt Count 107 X10^3/uL (150-400) L 04/25/18 10:32 Neut % (Auto) 70.6 % (50-75) 04/25/18 10:32 Lymph % (Auto) 14.3 % (25-40) L 04/25/18 10:32 [place] % (Auto) 14.0 % (3-14) 04/25/18 10:32 Eos % (Auto) 0.2 % (2-4) L 04/25/18 10:32 Baso % (Auto) 0.9 % (0-2) 04/25/18 10:32 Neut # (Auto) 5600 /uL (1755-2595) 04/25/18 10:32 PT 16.1 SECONDS (10.1-12.7) H 03/28/18 16:14 INR 1.5 (0.9-1.3) H 03/28/18 16:14 Sodium 136 mmol/L (137-145) L 04/25/18 10:32 Potassium 3.9 mmol/L (3.4-5.1) 04/25/18 10:32 Chloride 103 mmol/L (98-107) 04/25/18 10:32 Carbon Dioxide 26 mmol/L (22-32) 04/25/18 10:32 BUN 13 mg/dL (9-20) 04/25/18 10:32 Creatinine 0.80 mg/dL (0.66-1.25) 04/25/18 10:32 Estimated GFR > 60.0 mL/min (>60) 04/25/18 10:32 BUN/Creatinine Ratio 16.3 (6-22) 04/25/18 10:32 Glucose 151 mg/dL (80-110) H 04/25/18 10:32 Calcium 8.5 mg/dL (8.4-10.2) 04/25/18 10:32 Total Bilirubin 3.6 mg/dL (0.2-1.3) H 04/25/18 10:32 AST 188 IU/L (17-59) H 04/25/18 10:32 ALT 181 IU/L (21-72) H 04/25/18 10:32 Alkaline Phosphatase 680 U/L (38-126) H 04/25/18 10:32 Total Protein 6.4 g/dL (6.3-8.2) 04/25/18 10:32 Albumin 3.4 g/dL (3.5-5.0) L 04/25/18 10:32 Globulin 3.0 g/dL (1.7-4.1) 04/25/18 10:32 Albumin/Globulin Ratio 1.1 (1.0-2.8) 04/25/18 10:32 Carcinoembryonic Ag 13.1 ng/mL (0.1-3.0) H 03/28/18 10:59 CA 19-9 Antigen 14346 U/mL (< 34) H 03/28/18 10:59 - Imaging Additional studies: Procedures ANESTH INJECT-SPIN CANAL (11/19/09) Excision of Lumbar Vertebral Disc, Open Approach (06/18/16) Excision of Lumbosacral Disc, Open Approach (11/12/17) Extraction of Iliac Bone Marrow, Percutaneous Approach (11/12/17) Fusion of 2 or more Lumbar Vertebral Joints with Interbody Fusion Device, Anterior Approach, Anterior Column, Open Approach (06/18/16) Fusion of 2 or more Lumbar Vertebral Joints with Synthetic Substitute, Posterior Approach, Posterior Column, Open Approach (06/18/16) Fusion of Lumbosacral Joint with Autologous Tissue Substitute, Posterior Approach, Posterior Column, Open Approach (11/12/17) Fusion of Lumbosacral Joint with Interbody Fusion Device, Posterior Approach, Anterior Column, Open Approach (11/12/17) Fusion or refusion of 2-3 vertebrae (03/29/12) INJECT STEROID (11/19/09) Insertion of interbody spinal fusion device (03/29/12) Insertion or replacement of inflatable penile prosthesis (12/16/11) Lumbar and lumbosacral fusion of the anterior column, anterior technique (03/29/12) Other exploration and decompression of spinal canal (03/29/12) Release Lumbar Nerve, Open Approach (11/12/17) SPINAL CANAL INJECT NEC (11/19/09) Assessment and Plan (1) Pancreatic cancer Problem details: Primary: pancreatic tail. Metastasis: liver (bx confirmed); gastrohepatic, periportal, periaortic, and left mesenteric metastatic lymphadenopathy; as well as a 9 mm T12 lytic lesion. He started nab-paclitaxel and gemcitabine on 04/11/2018 Assessment: I talked with the patient about the laboratory tests from today. Patient's platelet counts have improved to 107. Patient clinically seems to be getting slightly better especially the appetite. Patient's energy level has remained about the same. Patient's abdominal pain is under excellent control with pain medications. After discussion with the patient, he wishes to continue the cycle 1 day 15 treatment. Plan: 1. Ok to proceed to C1D15 nab-paclitaxel and gemcitabine, again with 50% dose reduction. 2. I will see the patient on cycle 1 day 22. CBC, CMP, CA 19-9 3. NS 1000 cc iv over 1-2 hours today (2) Transaminitis Assessment and Plan: Likely due to the extensive hepatic metastasis. We will continue to monitor and avoid hepatotoxic medications. Continue monitor regularly. (3) Anemia Assessment: The anemia most likely is related to the new diagnosis metastatic cancer. We will continue to monitor. Plan: Transfuse if H/H < 8/24. No blood transfusion indicated today (4) Nausea & vomiting Assessment: Nausea and vomiting have improved quite a bit with the use of ondansetron sublingual. Plan: 1. Continue ondansetron sublingual 30 min prior to eating 2. Call for any concerns or questions. (5) Hyperbilirubinemia Assessment and Plan: Patient has a slowly rising total bilirubin level. Clinically patient does not have significant pain associated with the rising total bilirubin level. Patient has a metastatic adenocarcinoma of the pancreas with eugene portal lymphadenopathy as well as intra hepatic metastasis. It is concerning for possible cholecystitis stasis. And given the relatively paucity of symptoms, I will check the total bilirubin with direct and indirect in 1 week. I also instructed the patient to call if there is any fever, chills, or abdominal pain. Patient voiced understanding.
[2018-04-25 10:42] LABS: Add Manual Diff / Slide Review NO; Basophils Percent Auto 0.9 % (0-2); Eosinophils Percent Auto 0.2 % (2-4); Hematocrit 28.9 % (41-53); Hemoglobin 9.6 g/dL (13.5-17.5); Lymphocytes Percent Auto 14.3 % (25-40); Mean Corpuscular HGB Conc 33.3 % (30-36); Mean Corpuscular Hemoglobin 31.3 PG (26-34); Neutrophils Absolute Auto 5600 /uL (3000-5900); Neutrophils Percent Auto 70.6 % (50-75); Platelet Count 107 X10^3/uL (150-400); Red Blood Cell Count 3.08 X10^6/uL (4.5-5.9); Red Cell Distribution Width 15.7 % (11.6-14.8)
[2018-04-25 10:44] VITALS: BP 132/69; PULSE 93; RESP 18; TEMP 36.2; O2SAT 99
[2018-04-25 10:53] LABS: Alanine Aminotransferase 181 IU/L (21-72); Albumin 3.4 g/dL (3.5-5.0); Albumin Globulin Ratio 1.1 (1.0-2.8); Alkaline Phosphatase 680 U/L (38-126); Aspartate Aminotransferase 188 IU/L (17-59); BUN Creatinine Ratio 16.3 (6-22); Bilirubin Total 3.6 mg/dL (0.2-1.3); Blood Urea Nitrogen 13 mg/dL (9-20); Calcium 8.5 mg/dL (8.4-10.2); Carbon Dioxide 26 mmol/L (22-32); Chloride 103 mmol/L (98-107); Estimated Glomerular Filt Rate > 60.0 mL/min (>60); Glucose 151 mg/dL (80-110); HEMOLYSIS < 15 (0-50); Potassium 3.9 mmol/L (3.4-5.1); Sodium 136 mmol/L (137-145); Total Protein 6.4 g/dL (6.3-8.2)
[2018-04-25] MEDS: DEXAMETHASONE 10 MG/ML VIAL 8 MG IV (11:57)
[2018-04-25] MEDS: SODIUM CHLORIDE 0.9% 1,000 ML 999 ML IV (11:58)
[2018-04-25] MEDS: ONDANSETRON 8 MG in SODIUM CHLORIDE 0.9% 50 ML 216 ML IV (12:21)
[2018-04-25] MEDS: SODIUM CHLORIDE 0.9% IV ×2 (13:11→14:34)
[2018-04-25] MEDS: PACLITAXEL PROTEIN BOUND IV (13:11)
[2018-04-25] MEDS: GEMCITABINE IV (14:34)
[2018-05-02 14:24] LABS: Hematocrit 25.2 % (41-53); Hemoglobin 8.6 g/dL (13.5-17.5); Mean Corpuscular HGB Conc 34.2 % (30-36); Mean Corpuscular Hemoglobin 33.4 PG (26-34); Mean Corpuscular Volume 97.6 fL (80-100); Platelet Count 111 X10^3/uL (150-400); Red Blood Cell Count 2.58 X10^6/uL (4.5-5.9); Red Cell Distribution Width 21.8 % (11.6-14.8); White Blood Cell Count 7.6 X10^3/uL (4.5-11.0)
[2018-05-02 14:26] LABS: Add Manual Diff / Slide Review YES
--- NOTE | 2018-05-02 14:29 | ONC.PN ---
PN -Subjective Interval history: 72-year-old gentleman with advanced pancreatic adenocarcinoma. He completed the C1D15 nab-paclitaxel and gemcitabine on 04/25/2018. Dose reduction of 50% of both nab-paclitaxel and gemcitabine were required for C1D8 and C1D15 treatment due to grade 2 thrombocytopenia . He presents here today for scheduled follow-up visit. During past one week, patient reported overall, he has been doing well. His nausea and vomiting has been under excellent control with the use of Zofran sublingual. He is not using any pain medications. Patient said that the eugene-umbilical pain has improved. Patient said that he is able to swallow pills without any difficulties. However, patient is complaining of significant constipation. He has been using [id number] stool softeners including Ex-Lax with limited effect. He denies fever or chills. Patient's jaundice has improved. Oncological History: Mr. Nakul Dempsey is a 72 year old male with medical problems most notable for hypertension, hyperlipidemia and lots of back problems with multiple surgeries. Patient reported that a couple of months ago, he started to experience abdominal pain, located around umbilicus, mild to moderate, and comes and goes. At the same time, patient has noticed significant decrease in appetite and also weight loss. According to patient he probably lost about 10 lb over the last couple of months. In addition patient has developed significant constipation. He claimed that he used to have very normal bowel movement daily. Patient denies bright red blood per rectum or black stool. Patient reports some gag reflex problems which he thought might be due to lisinopril. Therefore lisinopril was held. He denies any headache. Denies any double vision or blurred vision. He denies any nausea or vomiting. He denies any diarrhea. On 03/21/2018, he was evaluated at ER of for recurrent abdominal pain. CT scan of the abdomen and pelvis on Mar 21, 2018 showed a large heterogeneously enhancing mass measuring 4.8 x 5.5,x 4.9 cm arising from the tail of the pancreas highly suspicious for pancreatic cancer, multiple hepatic and splenic metastatic lesions, gastrohepatic, periportal, periaortic, and left mesenteric metastatic lymphadenopathy as well as a 9 mm T12 lytic lesion concerning for osseous metastasis. Therefore patient was referred to Medical Oncology for further evaluation. Patient came in here today accompanied by his and his daughter in law. Patient underwent CT scan of the chest on March 28, 2018. The scan showed no pulmonary mass lesion, but interval growth in size of multiple hepatic metastatic lesions, and stable mild upper abdominal adenopathy, stable appearance of a large pancreatic tail mass with associated subjacent splenic hypoenhancement focally, most likely representing early invasive change affecting either the parenchyma directly, or the blood flow to that portion of the parenchyma. His serum CA19-9 was 66206, CEA 13.1. On 03/29/2018, he underwent CT guided biopsy of the liver lesion. 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 Patient underwent port placement on April 06, [address] Smallwood. On the same day, Dr. Smallwood also performed EGD. No apparent malignant findings. He started palliative chemotherapy with nab-paclitaxel and gemcitabine on 04/11/2018. - Patient Self-Reported Symptoms SR Constitution: Weight loss/gain, Fatigue/Malaise SR ears, nose, mouth, throat issues: Cough SR respiratory issues: Cough SR Gastrointestinal issues: Poor or no appetite, Change in bowel pattern, Nausea, Vomiting, Diarrhea, Constipation SR Genitourinary issues: Frequent urination SR Musculoskeletal issues: Muscle weakness, Cold hands or feet, Difficulty walking, Bone pain SR Neuro issues: Difficulty balancing SR Endocrine issues: Excessive thirst - Additional ROS All systems PM: reviewed and no additional remarkable complaints except as stated Home Medications and Allergies Home Medications Medication Instructions Recorded Confirmed Type MULTIVITAMIN (#MULTIPLE VITAMINS) 1 cap PO Q DAY #0 03/22/11 04/21/18 History zolpidem 5 mg tablet 5 mg PO BEDTIME PRN #20 tab 03/22/18 04/08/18 Rx alprazolam 1 mg tablet 1 mg PO Q8H PRN #45 tab 03/31/18 04/08/18 Rx hydromorphone 2 mg PO Q6H PRN #14 tab 04/06/18 04/21/18 Rx olanzapine 10 mg PO DAILY #16 tab 04/11/18 04/21/18 Rx prochlorperazine maleate 10 mg PO Q6H PRN #30 tab 04/11/18 04/21/18 Rx ondansetron [Zofran ODT] 4 mg PO Q6-8H PRN #30 tab 04/12/18 04/21/18 Rx dexamethasone 4 mg PO DAILY 04/14/18 04/14/18 History lorazepam 0.5 mg PO Q6HR PRN 04/14/18 04/21/18 History Allergies Allergy/AdvReac Type Severity Reaction Status Date / Time Corticosteroids AdvReac Mild HICCUPS X Verified 04/04/18 08:14 (Glucocorticoids) 24 HRS walnut [WALNUT] AdvReac Mild canker Verified 04/04/18 08:14 sores in mouth Exam Vital signs: Last Vital Signs Temp 97.6 F 05/02/18 14:30 Pulse 93 H 05/02/18 14:30 Resp 18 05/02/18 14:30 BP 118/83 05/02/18 14:30 Pulse Ox 99 05/02/18 14:30 ECOG 1 Narrative: Constitutional: Well developed, well nourished, not in any acute respiratory distress, average body habitus, well groomed, pleasant and cooperative. HEENT: Normocephalic atraumatic. Extraocular muscle movement intact. Pupils are round, equal and reactive to light and accommodations. Anicteric sclera. No hearing difficulty; Oral mucus membrane moist and without ulcers. Neck: Supple, symmetrical, and tracheal midline; No palpable thyromegaly and no palpable lymph nodes. Respiratory: No use of accessory muscles. Clear to auscultation, and no wheezes or rales or rubs. Cardiovascular: Regular rate and rhythm, S1 and S2 normal, no murmurs gallops or rubs. No JVD. No pitting edema of lower extremities. Abdomen: Soft, nontender, non-distended, bowel sounds normal, palpable hepatomeglay 8 cm below right costal margin along MCL. no hernia, no palpable masses. Lower extremities: 1+ ankle edema LEFT, 2+ edema on the RIGHT. Lymphatic: no palpable lymph nodes in the neck, axillae, or groins. Musculoskeletal: no clubbing, no cyanosis, no pitting edema. Skin: no rashes, no ulcers, no petechiae Neurological: Awake and alert and oriented x3. CN II-XII grossly intact. No focal motor or sensory deficit. Psychiatric: Good judgment, good insight, normal affect, normal thought process, cooperative, no depression, no anxiety. Results - Labs Laboratory Last Values WBC 7.6 X10^3/uL (4.5-11.0) 05/02/18 14:10 RBC 2.58 X10^6/uL (4.5-5.9) L 05/02/18 14:10 Hgb 8.6 g/dL (13.5-17.5) L 05/02/18 14:10 Hct 25.2 % (41-53) L 05/02/18 14:10 MCV 97.6 fL (80-100) D 05/02/18 14:10 MCH 33.4 PG (26-34) 05/02/18 14:10 MCHC 34.2 % (30-36) 05/02/18 14:10 RDW 21.8 % (11.6-14.8) H 05/02/18 14:10 Plt Count 111 X10^3/uL (150-400) L 05/02/18 14:10 Neut % (Auto) Not Reportable 05/02/18 14:10 Lymph % (Auto) Not Reportable 05/02/18 14:10 [place] % (Auto) Not Reportable 05/02/18 14:10 Eos % (Auto) Not Reportable 05/02/18 14:10 Baso % (Auto) Not Reportable 05/02/18 14:10 Neut # (Auto) 5600 /uL ([id number]) 04/25/18 10:32 Total Counted 100 05/02/18 14:10 Seg Neutrophils % 72.0 % (38-70) H 05/02/18 14:10 Band Neutrophils % 2.0 % (3-7) L 05/02/18 14:10 Lymphocytes % (Manual) 14.0 % (25-45) L 05/02/18 14:10 Monocytes % (Manual) 12.0 % (2-11) H 05/02/18 14:10 Neutrophils # (Manual) 5624 /uL ([id number]) 05/02/18 14:10 Nucleated RBCs 6 #/Diff (-0) H 05/02/18 14:10 RBC Morphology Not Reportable 05/02/18 14:10 Polychromasia 1+ H 05/02/18 14:10 Anisocytosis 3+ H 05/02/18 14:10 Tear Drop Cells 1+ H 05/02/18 14:10 PT 16.1 SECONDS (10.1-12.7) H 03/28/18 16:14 INR 1.5 (0.9-1.3) H 03/28/18 16:14 Sodium 139 mmol/L (137-145) 05/02/18 14:10 Potassium 3.9 mmol/L (3.4-5.1) 05/02/18 14:10 Chloride 102 mmol/L (98-107) 05/02/18 14:10 Carbon Dioxide 28 mmol/L (22-32) 05/02/18 14:10 BUN 15 mg/dL (9-20) 05/02/18 14:10 Creatinine 0.80 mg/dL (0.66-1.25) 05/02/18 14:10 Estimated GFR > 60.0 mL/min (>60) 05/02/18 14:10 BUN/Creatinine Ratio 18.8 (6-22) 05/02/18 14:10 Glucose 128 mg/dL (80-110) H 05/02/18 14:10 Calcium 8.7 mg/dL (8.4-10.2) 05/02/18 14:10 Total Bilirubin 3.7 mg/dL (0.2-1.3) H 05/02/18 14:10 AST 177 IU/L (17-59) H 05/02/18 14:10 ALT 146 IU/L (21-72) H 05/02/18 14:10 Alkaline Phosphatase 626 U/L (38-126) H 05/02/18 14:10 Total Protein 6.1 g/dL (6.3-8.2) L 05/02/18 14:10 Albumin 3.4 g/dL (3.5-5.0) L 05/02/18 14:10 Globulin 2.7 g/dL (1.7-4.1) 05/02/18 14:10 Albumin/Globulin Ratio 1.3 (1.0-2.8) 05/02/18 14:10 Carcinoembryonic Ag 13.1 ng/mL (0.1-3.0) H 03/28/18 10:59 CA 19-9 Antigen 19295 U/mL (< 34) H 03/28/18 10:59 - Imaging Additional studies: Procedures ANESTH INJECT-SPIN CANAL (11/19/09) Excision of Lumbar Vertebral Disc, Open Approach (06/18/16) Excision of Lumbosacral Disc, Open Approach (11/12/17) Extraction of Iliac Bone Marrow, Percutaneous Approach (11/12/17) Fusion of 2 or more Lumbar Vertebral Joints with Interbody Fusion Device, Anterior Approach, Anterior Column, Open Approach (06/18/16) Fusion of 2 or more Lumbar Vertebral Joints with Synthetic Substitute, Posterior Approach, Posterior Column, Open Approach (06/18/16) Fusion of Lumbosacral Joint with Autologous Tissue Substitute, Posterior Approach, Posterior Column, Open Approach (11/12/17) Fusion of Lumbosacral Joint with Interbody Fusion Device, Posterior Approach, Anterior Column, Open Approach (11/12/17) Fusion or refusion of 2-3 vertebrae (03/29/12) INJECT STEROID (11/19/09) Insertion of interbody spinal fusion device (03/29/12) Insertion or replacement of inflatable penile prosthesis (05/22/11) Lumbar and lumbosacral fusion of the anterior column, anterior technique (03/29/12) Other exploration and decompression of spinal canal (03/29/12) Release Lumbar Nerve, Open Approach (11/12/17) SPINAL CANAL INJECT NEC (11/19/09) Assessment and Plan (1) Pancreatic cancer Problem details: Primary: pancreatic tail. Metastasis: liver (bx confirmed); gastrohepatic, periportal, periaortic, and left mesenteric metastatic lymphadenopathy; as well as a 9 mm T12 lytic lesion. He started nab-paclitaxel and gemcitabine on 04/11/2018 Assessment: I talked with the patient about the laboratory tests from today. Patient's platelet counts have improved to 111. Patient clinically seems to be getting slightly better, especially the appetite. Patient's energy level has remained about the same. Patient's abdominal pain is under excellent control with pain medications. His liver function tests are also improving , but rather slowly. Overall speaking, I think probably he is responding to the chemotherapy with Nab-paclitaxel and gemcitabine. In addition the dosage he is now getting is probably the dosage he is able to tolerate. My plan is to continue for 2 cycles followed by interim CT scan analysis. Plan: 1. RTC in one week, check CBC, CMP, and C2D1 nab-pac/gem therapy (50% dose reduction) (2) Transaminitis Assessment and Plan: Likely due to the extensive hepatic metastasis. Slightly improving. We will continue to monitor and avoid hepatotoxic medications. (3) Anemia Assessment: The anemia most likely is related to the diagnosis metastatic cancer and to the cytoxic chemotherapy. Plan: Weekly check H/H Transfuse if H/H < 8/24. No blood transfusion indicated today (4) Constipation Problem details: Constipation likely is related to the use of Zofran. Patient currently is not on any narcotic. Assessment and plan I reviewed the available nausea medications with the patient. Patient has been prescribed Ativan, Compazine, Olazapin, and dexamethasone. I explained to the patient that these medications usually do not cause constipation. I have explained to the patient that he can try one at a time. If it is not working, he can try the other one. In addition I encouraged the patient to use over the counter stool softeners daily, for example MiraLax daily. Patient voiced understanding. Patient should try to limit the use of Zofran which might be the cause for the constipation. (5) Nausea & vomiting Assessment: Nausea and vomiting have improved quite a bit with the use of ondansetron sublingual. But he developed constipation. Plan: 1. Limit the use of ondansetron sublingual 2. I have instructed him how to use Olanzapin, Ativan and Compazine (see above section) (6) Leg edema, right Problem details: Patient used to bilateral lower extremity edema. However today he is having right-sided edema that is worse compared to the left side. Assessment and plan It is known that pancreatic cancer is associated with significant increased risk of venous thromboembolism. Given the asymmetry of lower extremity edema, we will proceed with Doppler study of the right lower extremity to exclude the possibility of DVT. (7) Hyperbilirubinemia Assessment and Plan: No further increase in the total bilirubin level. It is somewhat reassuring. Will need continued follow up.
[2018-05-02 14:30] VITALS: BP 118/83; PULSE 93; RESP 18; TEMP 36.4; O2SAT 99
[2018-05-02 14:40] LABS: Alanine Aminotransferase 146 IU/L (21-72); Albumin 3.4 g/dL (3.5-5.0); Albumin Globulin Ratio 1.3 (1.0-2.8); Alkaline Phosphatase 626 U/L (38-126); Aspartate Aminotransferase 177 IU/L (17-59); BUN Creatinine Ratio 18.8 (6-22); Bilirubin Total 3.7 mg/dL (0.2-1.3); Blood Urea Nitrogen 15 mg/dL (9-20); Calcium 8.7 mg/dL (8.4-10.2); Carbon Dioxide 28 mmol/L (22-32); Chloride 102 mmol/L (98-107); Estimated Glomerular Filt Rate > 60.0 mL/min (>60); Globulin 2.7 g/dL (1.7-4.1); Glucose 128 mg/dL (80-110); HEMOLYSIS < 15 (0-50); Potassium 3.9 mmol/L (3.4-5.1); Sodium 139 mmol/L (137-145); Total Protein 6.1 g/dL (6.3-8.2)
[2018-05-02 15:12] LABS: Neutrophils Absolute Manual 5624 /uL (3000-5900); Total Cells Counted 100
[2018-05-02 15:13] LABS: Anisocytosis 3+; Nucleated Red Blood Cells 6 #/Diff; Polychromasia 1+; Tear Drop Cells 1+
[2018-05-03 10:02] VITALS: BP 125/85; PULSE 89; RESP 16; TEMP 36.6; O2SAT 99
[2018-05-03] MEDS: ENOXAPARIN 100 MG/ML SYRINGE SUBCUT (10:51)
--- NOTE | 2018-05-03 13:54 | ONC.APRN.PN ---
PN -Subjective Interval history: 72-year-old gentleman with advanced pancreatic adenocarcinoma presents today for urgent/acute visit. He was evaluated yesterday May 02, [address] Martinez who identified acute right lower extremity edema. Patient was sent for Doppler ultrasound which demonstrated a thrombus within the popliteal vein, which does not extend into the femoral vein. The femoral vein, saphenous are patent. Patient presents to discuss these results. Patient is reporting ?only a little bit of pain? in his right lower extremity. He states he has not had any blood clots previously. He goes on to state he is currently being treated by Dr. Mcmahon ENT for many severe nose bleeds and is very reluctant to initiate anticoagulation. No bleeding within the last 7 days. The patient was last evaluated by Dr. Mcmahon about 1 week ago at which point he ?cauterized? both nares. Otherwise patient reports he is ?the same?. He denies chest pain, shortness of breath. He reports significant fatigue and weakness. Some nausea, no vomiting. Significantly diminished appetite although he states he was able to eat 1 Taco last night which was ?really good?. No cough, fever, chills. Aside from nose bleeds no unexplained bleeding or bruising. No issue with bladder or bowels. No new pain. No new lumps or bumps. It is noted recently patient has had very mild thrombocytopenia with platelets 77,000 April 18 however have recovered quite nicely, most recently May 02 platelets [id number]. Interval visit: The patient completed the C1D15 nab-paclitaxel and gemcitabine on 04/25/2018. Dose reduction of 50% of both nab-paclitaxel and gemcitabine were required for C1D8 and C1D15 treatment due to grade 2 thrombocytopenia . He presents here today for scheduled follow-up visit. During past one week, patient reported overall, he has been doing well. His nausea and vomiting has been under excellent control with the use of Zofran sublingual. He is not using any pain medications. Patient said that the eugene-umbilical pain has improved. Patient said that he is able to swallow pills without any difficulties. However, patient is complaining of significant constipation. He has been using [id number] stool softeners including Ex-Lax with limited effect. He denies fever or chills. Patient's jaundice has improved. Oncological History: Mr. Nakul Dempsey is a 72 year old male with medical problems most notable for hypertension, hyperlipidemia and lots of back problems with multiple surgeries. Patient reported that a couple of months ago, he started to experience abdominal pain, located around umbilicus, mild to moderate, and comes and goes. At the same time, patient has noticed significant decrease in appetite and also weight loss. According to patient he probably lost about 10 lb over the last couple of months. In addition patient has developed significant constipation. He claimed that he used to have very normal bowel movement daily. Patient denies bright red blood per rectum or black stool. Patient reports some gag reflex problems which he thought might be due to lisinopril. Therefore lisinopril was held. He denies any headache. Denies any double vision or blurred vision. He denies any nausea or vomiting. He denies any diarrhea. On 03/21/2018, he was evaluated at ER of for recurrent abdominal pain. CT scan of the abdomen and pelvis on Mar 21, 2018 showed a large heterogeneously enhancing mass measuring 4.8 x 5.5,x 4.9 cm arising from the tail of the pancreas highly suspicious for pancreatic cancer, multiple hepatic and splenic metastatic lesions, gastrohepatic, periportal, periaortic, and left mesenteric metastatic lymphadenopathy as well as a 9 mm T12 lytic lesion concerning for osseous metastasis. Therefore patient was referred to Medical Oncology for further evaluation. Patient came in here today accompanied by his and his daughter in law. Patient underwent CT scan of the chest on March 28, 2018. The scan showed no pulmonary mass lesion, but interval growth in size of multiple hepatic metastatic lesions, and stable mild upper abdominal adenopathy, stable appearance of a large pancreatic tail mass with associated subjacent splenic hypoenhancement focally, most likely representing early invasive change affecting either the parenchyma directly, or the blood flow to that portion of the parenchyma. His serum CA19-9 was 68318, CEA 13.1. On 03/29/2018, he underwent CT guided biopsy of the liver lesion. 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 Patient underwent port placement on April 06, [address] Smallwood. On the same day, Dr. Smallwood also performed EGD. No apparent malignant findings. He started palliative chemotherapy with nab-paclitaxel and gemcitabine on 04/11/2018. - Patient Self-Reported Symptoms SR Constitution: Weight loss/gain, Fatigue/Malaise SR ears, nose, mouth, throat issues: Cough, Nose bleeds, Changes in taste SR respiratory issues: Shortness of breath SR Gastrointestinal issues: Poor or no appetite, Change in bowel pattern, Nausea, Vomiting, Diarrhea, Constipation SR Genitourinary issues: Frequent urination SR Musculoskeletal issues: Difficulty walking SR Neuro issues: Difficulty balancing SR Endocrine issues: Excessive urination Home Medications and Allergies Home Medications Medication Instructions Recorded Confirmed Type MULTIVITAMIN (#MULTIPLE VITAMINS) 1 cap PO Q DAY #0 03/22/11 04/21/18 History zolpidem 5 mg tablet 5 mg PO BEDTIME PRN #20 tab 03/22/18 04/08/18 Rx alprazolam 1 mg tablet 1 mg PO Q8H PRN #45 tab 03/31/18 04/08/18 Rx hydromorphone 2 mg PO Q6H PRN #14 tab 04/06/18 04/21/18 Rx olanzapine 10 mg PO DAILY #16 tab 04/11/18 04/21/18 Rx prochlorperazine maleate 10 mg PO Q6H PRN #30 tab 04/11/18 04/21/18 Rx ondansetron [Zofran ODT] 4 mg PO Q6-8H PRN #30 tab 04/12/18 04/21/18 Rx dexamethasone 4 mg PO DAILY 04/14/18 04/14/18 History lorazepam 0.5 mg PO Q6HR PRN 04/14/18 04/21/18 History enoxaparin [Lovenox] 100 mg SUBCUT Q12H #10 ml 05/03/18 Rx Allergies Allergy/AdvReac Type Severity Reaction Status Date / Time Corticosteroids AdvReac Mild HICCUPS X Verified 04/04/18 08:14 (Glucocorticoids) 24 HRS walnut [WALNUT] AdvReac Mild canker Verified 04/04/18 08:14 sores in mouth Exam - Constitutional positive no acute distress, positive chronically ill appearing - Routine HEENT Exam Eye: Present: conjunctivae pink. Absent: conjunctival icterus, scleral injection ENT: Present: mucous membranes moist, oropharynx clear - Routine Neck Exam Present: supple. Absent: lymphadenopathy - Routine Respiratory Exam Present: Clear to auscultation bilaterally. Absent: rales, rhonchi, wheezes - Routine Cardiovascular Exam Present: RRR, S1, S2. Absent: murmur, gallop, rubs, JVD - Routine Abdominal Exam Present: soft, normoactive bowel sounds - Routine Extremities Exam Present: edema, pulses intact, normal capillary refill. Absent: calf tenderness Comments: 2+ RLE - Routine Skin Exam Present: intact, normal turgor. Absent: petechiae, rash - Routine Neurological Exam Present: alert, oriented X3 - Routine Psychiatric Exam Present: normal affect Results - Labs Laboratory Last Values WBC 7.6 X10^3/uL (4.5-11.0) 05/02/18 14:10 RBC 2.58 X10^6/uL (4.5-5.9) L 05/02/18 14:10 Hgb 8.6 g/dL (13.5-17.5) L 05/02/18 14:10 Hct 25.2 % (41-53) L 05/02/18 14:10 MCV 97.6 fL (80-100) D 05/02/18 14:10 MCH 33.4 PG (26-34) 05/02/18 14:10 MCHC 34.2 % (30-36) 05/02/18 14:10 RDW 21.8 % (11.6-14.8) H 05/02/18 14:10 Plt Count 111 X10^3/uL (150-400) L 05/02/18 14:10 Neut % (Auto) Not Reportable 05/02/18 14:10 Lymph % (Auto) Not Reportable 05/02/18 14:10 Sharkey % (Auto) Not Reportable 05/02/18 14:10 Eos % (Auto) Not Reportable 05/02/18 14:10 Baso % (Auto) Not Reportable 05/02/18 14:10 Neut # (Auto) 5600 /uL (5825-1276) 04/25/18 10:32 Total Counted 100 05/02/18 14:10 Seg Neutrophils % 72.0 % (38-70) H 05/02/18 14:10 Band Neutrophils % 2.0 % (3-7) L 05/02/18 14:10 Lymphocytes % (Manual) 14.0 % (25-45) L 05/02/18 14:10 Monocytes % (Manual) 12.0 % (2-11) H 05/02/18 14:10 Neutrophils # (Manual) 5624 /uL (2112-0984) 05/02/18 14:10 Nucleated RBCs 6 #/Diff (-0) H 05/02/18 14:10 RBC Morphology Not Reportable 05/02/18 14:10 Polychromasia 1+ H 05/02/18 14:10 Anisocytosis 3+ H 05/02/18 14:10 Tear Drop Cells 1+ H 05/02/18 14:10 PT 16.1 SECONDS (10.1-12.7) H 03/28/18 16:14 INR 1.5 (0.9-1.3) H 03/28/18 16:14 Sodium 139 mmol/L (137-145) 05/02/18 14:10 Potassium 3.9 mmol/L (3.4-5.1) 05/02/18 14:10 Chloride 102 mmol/L (98-107) 05/02/18 14:10 Carbon Dioxide 28 mmol/L (22-32) 05/02/18 14:10 BUN 15 mg/dL (9-20) 05/02/18 14:10 Creatinine 0.80 mg/dL (0.66-1.25) 05/02/18 14:10 Estimated GFR > 60.0 mL/min (>60) 05/02/18 14:10 BUN/Creatinine Ratio 18.8 (6-22) 05/02/18 14:10 Glucose 128 mg/dL (80-110) H 05/02/18 14:10 Calcium 8.7 mg/dL (8.4-10.2) 05/02/18 14:10 Total Bilirubin 3.7 mg/dL (0.2-1.3) H 05/02/18 14:10 AST 177 IU/L (17-59) H 05/02/18 14:10 ALT 146 IU/L (21-72) H 05/02/18 14:10 Alkaline Phosphatase 626 U/L (38-126) H 05/02/18 14:10 Total Protein 6.1 g/dL (6.3-8.2) L 05/02/18 14:10 Albumin 3.4 g/dL (3.5-5.0) L 05/02/18 14:10 Globulin 2.7 g/dL (1.7-4.1) 05/02/18 14:10 Albumin/Globulin Ratio 1.3 (1.0-2.8) 05/02/18 14:10 Carcinoembryonic Ag 13.1 ng/mL (0.1-3.0) H 03/28/18 10:59 CA 19-9 Antigen 37111 U/mL (< 34) H 03/28/18 10:59 - Imaging Additional studies: Procedures ANESTH INJECT-SPIN CANAL (11/19/09) Excision of Lumbar Vertebral Disc, Open Approach (06/18/16) Excision of Lumbosacral Disc, Open Approach (11/12/17) Extraction of Iliac Bone Marrow, Percutaneous Approach (11/12/17) Fusion of 2 or more Lumbar Vertebral Joints with Interbody Fusion Device, Anterior Approach, Anterior Column, Open Approach (06/18/16) Fusion of 2 or more Lumbar Vertebral Joints with Synthetic Substitute, Posterior Approach, Posterior Column, Open Approach (06/18/16) Fusion of Lumbosacral Joint with Autologous Tissue Substitute, Posterior Approach, Posterior Column, Open Approach (11/12/17) Fusion of Lumbosacral Joint with Interbody Fusion Device, Posterior Approach, Anterior Column, Open Approach (11/12/17) Fusion or refusion of 2-3 vertebrae (03/29/12) INJECT STEROID (11/19/09) Insertion of interbody spinal fusion device (03/29/12) Insertion or replacement of inflatable penile prosthesis (05/22/11) Lumbar and lumbosacral fusion of the anterior column, anterior technique (03/29/12) Other exploration and decompression of spinal canal (03/29/12) Release Lumbar Nerve, Open Approach (11/12/17) SPINAL CANAL INJECT NEC (11/19/09) Assessment and Plan (1) Pancreatic cancer Problem details: Primary: pancreatic tail. Metastasis: liver (bx confirmed); gastrohepatic, periportal, periaortic, and left mesenteric metastatic lymphadenopathy; as well as a 9 mm T12 lytic lesion. He started nab-paclitaxel and gemcitabine on 04/11/2018 Assessment: Dr martinez talked with the patient 05/02/18 about the laboratory tests from today. Patient's platelet counts have improved to 111. Patient clinically seems to be getting slightly better, especially the appetite. Patient's energy level has remained about the same. Patient's abdominal pain is under excellent control with pain medications. His liver function tests are also improving , but rather slowly. Overall speaking, I think probably he is responding to the chemotherapy with Nab-paclitaxel and gemcitabine. In addition the dosage he is now getting is probably the dosage he is able to tolerate. Dr Bullock plan is to continue for 2 cycles followed by interim CT scan analysis. Plan: 1. RTC in one week, check CBC, CMP, and C2D1 nab-pac/gem therapy (50% dose reduction) (2) Transaminitis Assessment and Plan: Likely due to the extensive hepatic metastasis. Slightly improving. We will continue to monitor and avoid hepatotoxic medications. (3) Anemia Assessment: The anemia most likely is related to the diagnosis metastatic cancer and to the cytoxic chemotherapy. Plan: Weekly check H/H Transfuse if H/H < 8/24. No blood transfusion indicated today (4) Constipation Problem details: Constipation likely is related to the use of Zofran. Patient currently is not on any narcotic. Assessment and plan Improved per pt report, will cont to monitor (5) Nausea & vomiting Assessment: Nausea and vomiting have improved quite a bit with the use of ondansetron sublingual. But he developed constipation. Plan: 1. Limit the use of ondansetron sublingual 2. I have instructed him how to use Olanzapin, Ativan and Compazine (see above section) (6) Hyperbilirubinemia Assessment and Plan: No further increase in the total bilirubin level. Remains somewhat reassuring. Will need continued follow up. (7) Deep vein blood clot of right lower extremity Current visit: Yes Status: Acute Patient presented with acute edema in his right lower extremity. Venous Doppler ultrasound demonstrated small deep vein thrombosis of the popliteal vein. Not extending. Patient is very reluctant to initiate anticoagulation reporting severe epistaxis recently. He is being treated by Dr. Mcmahon ENT. I placed a phone call to Dr. Mcmahon he has cauterized the patient's nose also provided the patient with nasal packing. He does feel it is safe to initiate anticoagulation. Plan at this point is low-molecular weight heparin Lovenox 1 milligram/kilogram q.12 hours x5 days. Per patient request we will repeat venous Doppler ultrasound of his right lower extremity. He is hopeful if clot has dissolved there will be no need for ongoing anticoagulation. I discussed with the patient increased risk of recurrent DVT in patients with metastatic malignancy they are at increased risk. Patient verbalizes understanding. He also understands DVT can result in PE, CVA resulting in severe morbidity or sudden . I expect the plan will be to continue anticoagulation however we will repeat doppler US, pt will discuss with Dr Martinez at subsequent visit. Pt asks today about his prognosis, asked how am I going to . he also asked about hospice and palliative care, all questions answrered to his satisfaction. POLST completed, pt is DNR with limited interventions. NO tube feeds. Pt also met with ADVERTISING EXECUTIVE Nancy Lara. The patient seems to have a very clear understanding of his prognosis. We discussed once again today his expected prognosis is 6 months. However, I reminded the patient there are always outliers with some patients dying sooner whether due to opportunistic infection and or disease progression. Additionally, there are patients who will live longer than 6 months. He seems to be tolerating chemotherapy better this cycle than previous cycle. We will continue to monitor very closely. It is the patient's wish to at home rather than in the hospital. - Time Spent with Patient 30 mins with pt 10 mins coordination of care with Dr Mcmahon and ADVERTISING EXECUTIVE 5 mins dictation
--- NOTE | 2018-05-03 14:00 | P.PNONC_ITS ---
PN -Subjective Interval history: 72-year-old gentleman with advanced pancreatic adenocarcinoma presents today for urgent/acute visit. He was evaluated yesterday May 02, [address] Martinez who identified acute right lower extremity edema. Patient was sent for Doppler ultrasound which demonstrated a thrombus within the popliteal vein, which does not extend into the femoral vein. The femoral vein, saphenous are patent. Patient presents to discuss these results. Patient is reporting ?only a little bit of pain? in his right lower extremity. He states he has not had any blood clots previously. He goes on to state he is currently being treated by Dr. Mcmahon ENT for many severe nose bleeds and is very reluctant to initiate anticoagulation. No bleeding within the last 7 days. The patient was last evaluated by Dr. Mcmahon about 1 week ago at which point he ?cauterized? both nares. Otherwise patient reports he is ?the same?. He denies chest pain, shortness of breath. He reports significant fatigue and weakness. Some nausea, no vomiting. Significantly diminished appetite although he states he was able to eat 1 Taco last night which was ?really good?. No cough, fever, chills. Aside from nose bleeds no unexplained bleeding or bruising. No issue with bladder or bowels. No new pain. No new lumps or bumps. It is noted recently patient has had very mild thrombocytopenia with platelets 77,000 April 18 however have recovered quite nicely, most recently May 02 platelets [id number]. Interval visit: The patient completed the C1D15 nab-paclitaxel and gemcitabine on 04/25/2018. Dose reduction of 50% of both nab-paclitaxel and gemcitabine were required for C1D8 and C1D15 treatment due to grade 2 thrombocytopenia . He presents here today for scheduled follow-up visit. During past one week, patient reported overall, he has been doing well. His nausea and vomiting has been under excellent control with the use of Zofran sublingual. He is not using any pain medications. Patient said that the eugene-umbilical pain has improved. Patient said that he is able to swallow pills without any difficulties. However, patient is complaining of significant constipation. He has been using over-the- counter stool softeners including Ex-Lax with limited effect. He denies fever or chills. Patient's jaundice has improved. Oncological History: Mr. Nakul Depmsey is a 72 year old male with medical problems most notable for hypertension, hyperlipidemia and lots of back problems with multiple surgeries. Patient reported that a couple of months ago, he started to experience abdominal pain, located around umbilicus, mild to moderate, and comes and goes. At the same time, patient has noticed significant decrease in appetite and also weight loss. According to patient he probably lost about 10 lb over the last couple of months. In addition patient has developed significant constipation. He claimed that he used to have very normal bowel movement daily. Patient denies bright red blood per rectum or black stool. Patient reports some gag reflex problems which he thought might be due to lisinopril. Therefore lisinopril was held. He denies any headache. Denies any double vision or blurred vision. He denies any nausea or vomiting. He denies any diarrhea. On 03/21/2018, he was evaluated at ER of for recurrent abdominal pain. CT scan of the abdomen and pelvis on Mar 21, 2018 showed a large heterogeneously enhancing mass measuring 4.8 x 5.5,x 4.9 cm arising from the tail of the pancreas highly suspicious for pancreatic cancer, multiple hepatic and splenic metastatic lesions, gastrohepatic, periportal, periaortic, and left mesenteric metastatic lymphadenopathy as well as a 9 mm T12 lytic lesion concerning for osseous metastasis. Therefore patient was referred to Medical Oncology for further evaluation. Patient came in here today accompanied by his and his daughter in law. Patient underwent CT scan of the chest on March 28, 2018. The scan showed no pulmonary mass lesion, but interval growth in size of multiple hepatic metastatic lesions, and stable mild upper abdominal adenopathy, stable appearance of a large pancreatic tail mass with associated subjacent splenic hypoenhancement focally, most likely representing early invasive change affecting either the parenchyma directly, or the blood flow to that portion of the parenchyma. His serum CA19-9 was [id number], CEA 13.1. On 03/29/2018, he underwent CT guided biopsy of the liver lesion. 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 Patient underwent port placement on April 06, [address] Smallwood. On the same day, Dr. Smallwood also performed EGD. No apparent malignant findings. He started palliative chemotherapy with nab-paclitaxel and gemcitabine on 04/11/2018. - Patient Self-Reported Symptoms SR Constitution: Weight loss/gain, Fatigue/Malaise SR ears, nose, mouth, throat issues: Cough, Nose bleeds, Changes in taste SR respiratory issues: Shortness of breath SR Gastrointestinal issues: Poor or no appetite, Change in bowel pattern, Nausea , Vomiting, Diarrhea, Constipation SR Genitourinary issues: Frequent urination SR Musculoskeletal issues: Difficulty walking SR Neuro issues: Difficulty balancing SR Endocrine issues: Excessive urination Home Medications and Allergies Home Medications Medication Instructions Recorded Confirmed Type MULTIVITAMIN (#MULTIPLE VITAMINS) 1 cap PO Q DAY #0 03/22/11 04/21/18 History zolpidem 5 mg tablet 5 mg PO BEDTIME PRN #20 tab 03/22/18 04/08/18 Rx alprazolam 1 mg tablet 1 mg PO Q8H PRN #45 tab 03/31/18 04/08/18 Rx hydromorphone 2 mg PO Q6H PRN #14 tab 04/06/18 04/21/18 Rx olanzapine 10 mg PO DAILY #16 tab 04/11/18 04/21/18 Rx prochlorperazine maleate 10 mg PO Q6H PRN #30 tab 04/11/18 04/21/18 Rx ondansetron [Zofran ODT] 4 mg PO Q6-8H PRN #30 tab 04/12/18 04/21/18 Rx dexamethasone 4 mg PO DAILY 04/14/18 04/14/18 History lorazepam 0.5 mg PO Q6HR PRN 04/14/18 04/21/18 History enoxaparin [Lovenox] 100 mg SUBCUT Q12H #10 ml 05/03/18 Rx Allergies Allergy/AdvReac Type Severity Reaction Status Date / Time Corticosteroids AdvReac Mild HICCUPS X Verified 04/04/18 08:14 (Glucocorticoids) 24 HRS walnut [WALNUT] AdvReac Mild canker Verified 04/04/18 08:14 sores in mouth Exam - Constitutional positive no acute distress, positive chronically ill appearing - Routine HEENT Exam Eye: Present: conjunctivae pink. Absent: conjunctival icterus, scleral injection ENT: Present: mucous membranes moist, oropharynx clear - Routine Neck Exam Present: supple. Absent: lymphadenopathy - Routine Respiratory Exam Present: Clear to auscultation bilaterally. Absent: rales, rhonchi, wheezes - Routine Cardiovascular Exam Present: RRR, S1, S2. Absent: murmur, gallop, rubs, JVD - Routine Abdominal Exam Present: soft, normoactive bowel sounds - Routine Extremities Exam Present: edema, pulses intact, normal capillary refill. Absent: calf tenderness Comments: 2+ RLE - Routine Skin Exam Present: intact, normal turgor. Absent: petechiae, rash - Routine Neurological Exam Present: alert, oriented X3 - Routine Psychiatric Exam Present: normal affect Results - Labs Laboratory Last Values WBC 7.6 X10^3/uL (4.5-11.0) 05/02/18 14:10 RBC 2.58 X10^6/uL (4.5-5.9) L 05/02/18 14:10 Hgb 8.6 g/dL (13.5-17.5) L 05/02/18 14:10 Hct 25.2 % (41-53) L 05/02/18 14:10 MCV 97.6 fL (80-100) D 05/02/18 14:10 MCH 33.4 PG (26-34) 05/02/18 14:10 MCHC 34.2 % (30-36) 05/02/18 14:10 RDW 21.8 % (11.6-14.8) H 05/02/18 14:10 Plt Count 111 X10^3/uL (150-400) L 05/02/18 14:10 Neut % (Auto) Not Reportable 05/02/18 14:10 Lymph % (Auto) Not Reportable 05/02/18 14:10 Parker % (Auto) Not Reportable 05/02/18 14:10 Eos % (Auto) Not Reportable 05/02/18 14:10 Baso % (Auto) Not Reportable 05/02/18 14:10 Neut # (Auto) 5600 /uL (0353-3266) 04/25/18 10:32 Total Counted 100 05/02/18 14:10 Seg Neutrophils % 72.0 % (38-70) H 05/02/18 14:10 Band Neutrophils % 2.0 % (3-7) L 05/02/18 14:10 Lymphocytes % (Manual) 14.0 % (25-45) L 05/02/18 14:10 Monocytes % (Manual) 12.0 % (2-11) H 05/02/18 14:10 Neutrophils # (Manual) 5624 /uL (2074-8889) 05/02/18 14:10 Nucleated RBCs 6 #/Diff (-0) H 05/02/18 14:10 RBC Morphology Not Reportable 05/02/18 14:10 Polychromasia 1+ H 05/02/18 14:10 Anisocytosis 3+ H 05/02/18 14:10 Tear Drop Cells 1+ H 05/02/18 14:10 PT 16.1 SECONDS (10.1-12.7) H 03/28/18 16:14 INR 1.5 (0.9-1.3) H 03/28/18 16:14 Sodium 139 mmol/L (137-145) 05/02/18 14:10 Potassium 3.9 mmol/L (3.4-5.1) 05/02/18 14:10 Chloride 102 mmol/L (98-107) 05/02/18 14:10 Carbon Dioxide 28 mmol/L (22-32) 05/02/18 14:10 BUN 15 mg/dL (9-20) 05/02/18 14:10 Creatinine 0.80 mg/dL (0.66-1.25) 05/02/18 14:10 Estimated GFR > 60.0 mL/min (>60) 05/02/18 14:10 BUN/Creatinine Ratio 18.8 (6-22) 05/02/18 14:10 Glucose 128 mg/dL (80-110) H 05/02/18 14:10 Calcium 8.7 mg/dL (8.4-10.2) 05/02/18 14:10 Total Bilirubin 3.7 mg/dL (0.2-1.3) H 05/02/18 14:10 AST 177 IU/L (17-59) H 05/02/18 14:10 ALT 146 IU/L (21-72) H 05/02/18 14:10 Alkaline Phosphatase 626 U/L (38-126) H 05/02/18 14:10 Total Protein 6.1 g/dL (6.3-8.2) L 05/02/18 14:10 Albumin 3.4 g/dL (3.5-5.0) L 05/02/18 14:10 Globulin 2.7 g/dL (1.7-4.1) 05/02/18 14:10 Albumin/Globulin Ratio 1.3 (1.0-2.8) 05/02/18 14:10 Carcinoembryonic Ag 13.1 ng/mL (0.1-3.0) H 03/28/18 10:59 CA 19-9 Antigen 36458 U/mL (< 34) H 03/28/18 10:59 - Imaging Additional studies: Procedures ANESTH INJECT-SPIN CANAL (11/19/09) Excision of Lumbar Vertebral Disc, Open Approach (06/18/16) Excision of Lumbosacral Disc, Open Approach (11/12/17) Extraction of Iliac Bone Marrow, Percutaneous Approach (11/12/17) Fusion of 2 or more Lumbar Vertebral Joints with Interbody Fusion Device, Anterior Approach, Anterior Column, Open Approach (06/18/16) Fusion of 2 or more Lumbar Vertebral Joints with Synthetic Substitute, Posterior Approach, Posterior Column, Open Approach (06/18/16) Fusion of Lumbosacral Joint with Autologous Tissue Substitute, Posterior Approach, Posterior Column, Open Approach (11/12/17) Fusion of Lumbosacral Joint with Interbody Fusion Device, Posterior Approach, Anterior Column, Open Approach (11/12/17) Fusion or refusion of 2-3 vertebrae (03/29/12) INJECT STEROID (11/19/09) Insertion of interbody spinal fusion device (03/29/12) Insertion or replacement of inflatable penile prosthesis (05/22/11) Lumbar and lumbosacral fusion of the anterior column, anterior technique () Other exploration and decompression of spinal canal (03/29/12) Release Lumbar Nerve, Open Approach (11/12/17) SPINAL CANAL INJECT NEC (11/19/09) Assessment and Plan (1) Pancreatic cancer Problem details: Primary: pancreatic tail. Metastasis: liver (bx confirmed); gastrohepatic, periportal, periaortic, and left mesenteric metastatic lymphadenopathy; as well as a 9 mm T12 lytic lesion. He started nab-paclitaxel and gemcitabine on 2017 Assessment: Dr martinez talked with the patient 05/02/18 about the laboratory tests from today. Patient's platelet counts have improved to 111. Patient clinically seems to be getting slightly better, especially the appetite. Patient's energy level has remained about the same. Patient's abdominal pain is under excellent control with pain medications. His liver function tests are also improving , but rather slowly. Overall speaking, I think probably he is responding to the chemotherapy with Nab-paclitaxel and gemcitabine. In addition the dosage he is now getting is probably the dosage he is able to tolerate. Dr Bullock plan is to continue for 2 cycles followed by interim CT scan analysis. Plan: 1. RTC in one week, check CBC, CMP, and C2D1 nab-pac/gem therapy (50% dose reduction) (2) Transaminitis Assessment and Plan: Likely due to the extensive hepatic metastasis. Slightly improving. We will continue to monitor and avoid hepatotoxic medications. (3) Anemia Assessment: The anemia most likely is related to the diagnosis metastatic cancer and to the cytoxic chemotherapy. Plan: Weekly check H/H Transfuse if H/H < 8/24. No blood transfusion indicated today (4) Constipation Problem details: Constipation likely is related to the use of Zofran. Patient currently is not on any narcotic. Assessment and plan Improved per pt report, will cont to monitor (5) Nausea & vomiting Assessment: Nausea and vomiting have improved quite a bit with the use of ondansetron sublingual. But he developed constipation. Plan: 1. Limit the use of ondansetron sublingual 2. I have instructed him how to use Olanzapin, Ativan and Compazine (see above section) (6) Hyperbilirubinemia Assessment and Plan: No further increase in the total bilirubin level. Remains somewhat reassuring. Will need continued follow up. (7) Deep vein blood clot of right lower extremity Current visit: Yes Status: Acute Patient presented with acute edema in his right lower extremity. Venous Doppler ultrasound demonstrated small deep vein thrombosis of the popliteal vein. Not extending. Patient is very reluctant to initiate anticoagulation reporting severe epistaxis recently. He is being treated by Dr. Mcmahon ENT. I placed a phone call to Dr. Mcmahon he has cauterized the patient's nose also provided the patient with nasal packing. He does feel it is safe to initiate anticoagulation. Plan at this point is low-molecular weight heparin Lovenox 1 milligram/kilogram q.12 hours x5 days. Per patient request we will repeat venous Doppler ultrasound of his right lower extremity. He is hopeful if clot has dissolved there will be no need for ongoing anticoagulation. I discussed with the patient increased risk of recurrent DVT in patients with metastatic malignancy they are at increased risk. Patient verbalizes understanding. He also understands DVT can result in PE, CVA resulting in severe morbidity or sudden . I expect the plan will be to continue anticoagulation however we will repeat doppler US, pt will discuss with Dr Martinez at subsequent visit. Pt asks today about his prognosis, asked how am I going to . he also asked about hospice and palliative care, all questions answrered to his satisfaction. POLST completed, pt is DNR with limited interventions. NO tube feeds. Pt also met with DIRECTOR OF ADULT EPILEPSY Nancy aLra. The patient seems to have a very clear understanding of his prognosis. We discussed once again today his expected prognosis is 6 months. However, I reminded the patient there are always outliers with some patients dying sooner whether due to opportunistic infection and or disease progression. Additionally , there are patients who will live longer than 6 months. He seems to be tolerating chemotherapy better this cycle than previous cycle. We will continue to monitor very closely. It is the patient's wish to at home rather than in the hospital. - Time Spent with Patient 30 mins with pt 10 mins coordination of care with Dr Mcmahon and DIRECTOR OF ADULT EPILEPSY 5 mins dictation
--- NOTE | 2018-05-04 14:00 | ONC.NAV ---
Late Entry: Visit 05/03/18 Description: Code Status, Goals Conversation Activity: Met with pt/DIFFUSION OPERATOR to discuss his feelings of frustration, hopelessness re: new DVT in his leg. He initially stated that he wanted to just let it run it's course, and of a heart attack. After discussing how treatable this is, and how dying by heart attack is not the peaceful, comfortable that he and his family were hoping for, he changed his mind and agreed that treating the blood clot was a good idea. Discussed code status-pt very clearly wants to be a NO CODE. Completed the POLST form and obtained signature from DIFFUSION OPERATOR, Nisha Gomez. CASING TIER sent a copy to medical records to scan into the EMR, and pt took his original home with him. No further needs indicated at this time. Plan: Ongoing emotional/coping support and assistance with care coordination as needed.
[2018-05-06 14:41] LABS: Cancer (Carbohydrate) Ag 19-9 286468 U/mL (< 34)
[2018-05-09 09:16] LABS: Add Manual Diff / Slide Review NO; Basophils Percent Auto 0.4 % (0-2); Eosinophils Percent Auto 0.9 % (2-4); Hematocrit 27.5 % (41-53); Hemoglobin 9.1 g/dL (13.5-17.5); Lymphocytes Percent Auto 12.6 % (25-40); Mean Corpuscular HGB Conc 33.1 % (30-36); Mean Corpuscular Hemoglobin 34.5 PG (26-34); Mean Corpuscular Volume 104.1 fL (80-100); Monocytes Percent Auto 15.2 % (3-14); Neutrophils Absolute Auto 4100 /uL (3000-5900); Neutrophils Percent Auto 70.9 % (50-75); Platelet Count 190 X10^3/uL (150-400); Red Blood Cell Count 2.65 X10^6/uL (4.5-5.9); Red Cell Distribution Width 26.2 % (11.6-14.8); White Blood Cell Count 5.8 X10^3/uL (4.5-11.0)
[2018-05-09 09:23] LABS: Alanine Aminotransferase 96 IU/L (21-72); Albumin Globulin Ratio 1.1 (1.0-2.8); Alkaline Phosphatase 546 U/L (38-126); Aspartate Aminotransferase 134 IU/L (17-59); BUN Creatinine Ratio 18.6 (6-22); Bilirubin Total 4.1 mg/dL (0.2-1.3); Blood Urea Nitrogen 13 mg/dL (9-20); Calcium 8.2 mg/dL (8.4-10.2); Carbon Dioxide 25 mmol/L (22-32); Chloride 104 mmol/L (98-107); Estimated Glomerular Filt Rate > 60.0 mL/min (>60); Globulin 2.7 g/dL (1.7-4.1); Glucose 241 mg/dL (80-110); HEMOLYSIS < 15 (0-50); Potassium 3.7 mmol/L (3.4-5.1); Sodium 138 mmol/L (137-145); Total Protein 5.7 g/dL (6.3-8.2)
[2018-05-09 10:14] LABS: Anisocytosis 3+
[2018-05-09 10:15] LABS: Poikilocytosis 2+; Polychromasia 1+
[2018-05-09 10:17] VITALS: BP 140/82; PULSE 90; RESP 18; TEMP 36.6; O2SAT 98
--- NOTE | 2018-05-09 10:27 | ONC.PN ---
PN -Subjective Interval history: 72-year-old gentleman with advanced pancreatic adenocarcinoma presents today for c2d1 [place]/Abraxane During his previous visit, he was found to have right popliteal deep vein thrombosis. Patient was started on Lovenox 100 mg twice daily. Patient said that he is giving himself the injection without any difficulties. He denies any chest pain. Patient does have exertional shortness of breath which has been about the same no changes. Patient clinically reports significant fatigue. He said his appetite last week was a lot better compared to 1 week ago. He is anticipating that his energy level and appetite will go down after today's chemotherapy. He denies any fever or chills. He continues to have nausea and is using lorazepam which seems to be working. He is constipated and is taking Metamucil with effect. Patient actually reports no severe abdominal pain no back pain. Patient occasionally experiences some sharp abdominal pain which is transient. She is also using chocolate marijuana with some good results. Oncological History: Mr. Nakul Dempsey is a 72 year old male with medical problems most notable for hypertension, hyperlipidemia and lots of back problems with multiple surgeries. Patient reported that a couple of months ago, he started to experience abdominal pain, located around umbilicus, mild to moderate, and comes and goes. At the same time, patient has noticed significant decrease in appetite and also weight loss. According to patient he probably lost about 10 lb over the last couple of months. In addition patient has developed significant constipation. He claimed that he used to have very normal bowel movement daily. Patient denies bright red blood per rectum or black stool. Patient reports some gag reflex problems which he thought might be due to lisinopril. Therefore lisinopril was held. He denies any headache. Denies any double vision or blurred vision. He denies any nausea or vomiting. He denies any diarrhea. On 03/21/2018, he was evaluated at ER of for recurrent abdominal pain. CT scan of the abdomen and pelvis on Mar 21, 2018 showed a large heterogeneously enhancing mass measuring 4.8 x 5.5,x 4.9 cm arising from the tail of the pancreas highly suspicious for pancreatic cancer, multiple hepatic and splenic metastatic lesions, gastrohepatic, periportal, periaortic, and left mesenteric metastatic lymphadenopathy as well as a 9 mm T12 lytic lesion concerning for osseous metastasis. Therefore patient was referred to Medical Oncology for further evaluation. Patient came in here today accompanied by his and his daughter in law. Patient underwent CT scan of the chest on March 28, 2018. The scan showed no pulmonary mass lesion, but interval growth in size of multiple hepatic metastatic lesions, and stable mild upper abdominal adenopathy, stable appearance of a large pancreatic tail mass with associated subjacent splenic hypoenhancement focally, most likely representing early invasive change affecting either the parenchyma directly, or the blood flow to that portion of the parenchyma. His serum CA19-9 was 60147, CEA 13.1. On 03/29/2018, he underwent CT guided biopsy of the liver lesion. 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 Patient underwent port placement on April 06, [address] Smallwood. On the same day, Dr. Smallwood also performed EGD. No apparent malignant findings. He started palliative chemotherapy with nab-paclitaxel and gemcitabine on 04/11/2018. The patient completed the C1D15 nab-paclitaxel and gemcitabine on 04/25/2018. Dose reduction of 50% of both nab-paclitaxel and gemcitabine were required for C1D8 and C1D15 treatment due to grade 2 thrombocytopenia . He presents here today for scheduled follow-up visit. During past one week, patient reported overall, he has been doing well. His nausea and vomiting has been under excellent control with the use of Zofran sublingual. He is not using any pain medications. Patient said that the eugene-umbilical pain has improved. Patient said that he is able to swallow pills without any difficulties. However, patient is complaining of significant constipation. He has been using [id number]-[id number] stool softeners including Ex-Lax with limited effect. He denies fever or chills. Patient's jaundice has improved. - Patient Self-Reported Symptoms SR Constitution: Weight loss/gain, Fatigue/Malaise SR ears, nose, mouth, throat issues: Cough, Nose bleeds, Changes in taste SR respiratory issues: Shortness of breath SR Gastrointestinal issues: Poor or no appetite, Change in bowel pattern, Nausea, Vomiting, Diarrhea, Constipation SR Genitourinary issues: Frequent urination SR Musculoskeletal issues: Difficulty walking SR Neuro issues: Difficulty balancing SR Endocrine issues: Excessive urination - Additional ROS All systems PM: reviewed and no additional remarkable complaints except as stated Home Medications and Allergies Home Medications Medication Instructions Recorded Confirmed Type MULTIVITAMIN (#MULTIPLE VITAMINS) 1 cap PO Q DAY #0 03/22/11 04/21/18 History zolpidem 5 mg tablet 5 mg PO BEDTIME PRN #20 tab 03/22/18 04/08/18 Rx hydromorphone 2 mg PO Q6H PRN #14 tab 04/06/18 04/21/18 Rx olanzapine 10 mg PO DAILY #16 tab 04/11/18 04/21/18 Rx prochlorperazine maleate 10 mg PO Q6H PRN #30 tab 04/11/18 04/21/18 Rx ondansetron [Zofran ODT] 4 mg PO Q6-8H PRN #30 tab 04/12/18 05/09/18 Rx dexamethasone 4 mg PO DAILY 04/14/18 04/14/18 History enoxaparin [Lovenox] 100 mg SUBCUT Q12H #60 ml 05/09/18 Rx lorazepam 0.5 mg PO Q6HR PRN #60 tab 05/09/18 Rx Allergies Allergy/AdvReac Type Severity Reaction Status Date / Time Corticosteroids AdvReac Mild HICCUPS X Verified 04/04/18 08:14 (Glucocorticoids) 24 HRS walnut [WALNUT] AdvReac Mild canker Verified 04/04/18 08:14 sores in mouth Exam Vital signs: Last Vital Signs Temp 97.9 F 05/09/18 10:17 Pulse 90 05/09/18 10:17 Resp 18 05/09/18 10:17 BP 140/82 05/09/18 10:17 Pulse Ox 98 05/09/18 10:17 ECOG 1 Narrative: Constitutional: Well developed, well nourished, not in any acute respiratory distress, average body habitus, well groomed, pleasant and cooperative. HEENT: Normocephalic atraumatic. Extraocular muscle movement intact. Pupils are round, equal and reactive to light and accommodations. Anicteric sclera. No hearing difficulty; Oral mucus membrane moist and without ulcers. Neck: Supple, symmetrical, and tracheal midline; No palpable thyromegaly and no palpable lymph nodes. Respiratory: No use of accessory muscles. Clear to auscultation, and no wheezes or rales or rubs. Cardiovascular: Regular rate and rhythm, S1 and S2 normal, no murmurs gallops or rubs. No JVD. No pitting edema of lower extremities. Abdomen: Soft, nontender, non-distended, bowel sounds normal, palpable hepatomeglay 8 cm below right costal margin along MCL. no hernia, no palpable masses. Lower extremities: 1+ ankle edema LEFT, 2+ edema on the RIGHT. Lymphatic: no palpable lymph nodes in the neck, axillae, or groins. Musculoskeletal: no clubbing, no cyanosis, no pitting edema. Skin: no rashes, no ulcers, no petechiae Neurological: Awake and alert and oriented x3. CN II-XII grossly intact. No focal motor or sensory deficit. Psychiatric: Good judgment, good insight, normal affect, normal thought process, cooperative, no depression, no anxiety. Results - Labs Laboratory Last Values WBC 5.8 X10^3/uL (4.5-11.0) 05/09/18 08:53 RBC 2.65 X10^6/uL (4.5-5.9) L 05/09/18 08:53 Hgb 9.1 g/dL (13.5-17.5) L 05/09/18 08:53 Hct 27.5 % (41-53) L 05/09/18 08:53 MCV 104.1 fL (80-100) H D 05/09/18 08:53 MCH 34.5 PG (26-34) H 05/09/18 08:53 MCHC 33.1 % (30-36) 05/09/18 08:53 RDW 26.2 % (11.6-14.8) H 05/09/18 08:53 Plt Count 190 X10^3/uL (150-400) 05/09/18 08:53 Neut % (Auto) 70.9 % (50-75) 05/09/18 08:53 Lymph % (Auto) 12.6 % (25-40) L 05/09/18 08:53 [place] % (Auto) 15.2 % (3-14) H 05/09/18 08:53 Eos % (Auto) 0.9 % (2-4) L 05/09/18 08:53 Baso % (Auto) 0.4 % (0-2) 05/09/18 08:53 Neut # (Auto) 4100 /uL (9170-9388) 05/09/18 08:53 Total Counted 100 05/02/18 14:10 Seg Neutrophils % 72.0 % (38-70) H 05/02/18 14:10 Band Neutrophils % 2.0 % (3-7) L 05/02/18 14:10 Lymphocytes % (Manual) 14.0 % (25-45) L 05/02/18 14:10 Monocytes % (Manual) 12.0 % (2-11) H 05/02/18 14:10 Neutrophils # (Manual) 5624 /uL (4144-1578) 05/02/18 14:10 Nucleated RBCs 6 #/Diff (-0) H 05/02/18 14:10 RBC Morphology See below 05/09/18 08:53 Polychromasia 1+ H 05/09/18 08:53 Poikilocytosis 2+ H 05/09/18 08:53 Anisocytosis 3+ H 05/09/18 08:53 Tear Drop Cells 1+ H 05/02/18 14:10 PT 16.1 SECONDS (10.1-12.7) H 03/28/18 16:14 INR 1.5 (0.9-1.3) H 03/28/18 16:14 Sodium 138 mmol/L (137-145) 05/09/18 08:53 Potassium 3.7 mmol/L (3.4-5.1) 05/09/18 08:53 Chloride 104 mmol/L (98-107) 05/09/18 08:53 Carbon Dioxide 25 mmol/L (22-32) 05/09/18 08:53 BUN 13 mg/dL (9-20) 05/09/18 08:53 Creatinine 0.70 mg/dL (0.66-1.25) 05/09/18 08:53 Estimated GFR > 60.0 mL/min (>60) 05/09/18 08:53 BUN/Creatinine Ratio 18.6 (6-22) 05/09/18 08:53 Glucose 241 mg/dL (80-110) H D 05/09/18 08:53 Calcium 8.2 mg/dL (8.4-10.2) L 05/09/18 08:53 Total Bilirubin 4.1 mg/dL (0.2-1.3) H 05/09/18 08:53 AST 134 IU/L (17-59) H 05/09/18 08:53 ALT 96 IU/L (21-72) H 05/09/18 08:53 Alkaline Phosphatase 546 U/L (38-126) H 05/09/18 08:53 Total Protein 5.7 g/dL (6.3-8.2) L 05/09/18 08:53 Albumin 3.0 g/dL (3.5-5.0) L 05/09/18 08:53 Globulin 2.7 g/dL (1.7-4.1) 05/09/18 08:53 Albumin/Globulin Ratio 1.1 (1.0-2.8) 05/09/18 08:53 Carcinoembryonic Ag 13.1 ng/mL (0.1-3.0) H 03/28/18 10:59 CA 19-9 Antigen 116606 U/mL (< 34) H 05/02/18 14:10 - Imaging Additional studies: Procedures ANESTH INJECT-SPIN CANAL (11/19/09) Excision of Lumbar Vertebral Disc, Open Approach (06/18/16) Excision of Lumbosacral Disc, Open Approach (11/12/17) Extraction of Iliac Bone Marrow, Percutaneous Approach (11/12/17) Fusion of 2 or more Lumbar Vertebral Joints with Interbody Fusion Device, Anterior Approach, Anterior Column, Open Approach (06/18/16) Fusion of 2 or more Lumbar Vertebral Joints with Synthetic Substitute, Posterior Approach, Posterior Column, Open Approach (06/18/16) Fusion of Lumbosacral Joint with Autologous Tissue Substitute, Posterior Approach, Posterior Column, Open Approach (11/12/17) Fusion of Lumbosacral Joint with Interbody Fusion Device, Posterior Approach, Anterior Column, Open Approach (11/12/17) Fusion or refusion of 2-3 vertebrae (03/29/12) INJECT STEROID (11/19/09) Insertion of interbody spinal fusion device (03/29/12) Insertion or replacement of inflatable penile prosthesis (05/22/11) Lumbar and lumbosacral fusion of the anterior column, anterior technique (03/29/12) Other exploration and decompression of spinal canal (03/29/12) Release Lumbar Nerve, Open Approach (11/12/17) SPINAL CANAL INJECT NEC (11/19/09) Assessment and Plan (1) Pancreatic cancer Problem details: Primary: pancreatic tail. Metastasis: liver (bx confirmed); gastrohepatic, periportal, periaortic, and left mesenteric metastatic lymphadenopathy; as well as a 9 mm T12 lytic lesion. He started nab-paclitaxel and gemcitabine on 04/11/2018. Assessment: I reviewed the laboratory results with the patient especially the tumor marker CA 19-9. His CA 19-9 has jumped dramatically compared to his previous level. I talked with the patient that it may indicate that his pancreatic cancer is not responding to the treatment. However I think it is too early in the course of the chemotherapy, and it might be also indicative of chemotherapy's disruptive effect. I talked with the patient that I will continue the second cycle of the chemotherapy as planned woth dosage adjustment as follows: gemcitabine from 50% of original dosage to 75%, Abraxane dosage remains at 50% of original. After the second cycle of the chemotherapy, my plan is to get a CT scan for analysis. I talked with the patient that if there is no response, I would highly recommend that we proceed palliative/hospice care. Patient voiced understanding. Today also talked time discussing with the patient about the possibility of clinical trials. Patient seems to be interested; however the transportation to [facility] is somewhat daunting task. Patient is considering the options. He asked about the possible life expectancy. I talked with him that it is hard to anticipated. However probably the we are looking at months. Patient voiced understanding. Plan: 1. Continue [place]/Abraxane x 6 cycles, C1D1: 04/11/2018 Ok to proceed to C2D1 with following dose adjustment: [place] 75% of original, Abraxane 50% 2. RTC in one week, check CBC, CMP, and Rx, need to evaluate the dosage (2) Deep vein blood clot of right lower extremity Assessment: I talked with the patient that the deep venous thrombosis of the right lower lower extremity. It is clearly related to the diagnosis of the pancreatic cancer. It is a known phenomenon associated with malignancy diagnosis. I completely agree with continuing the treatment with Lovenox. I talked with the patient that Lovenox is the first-line therapy for cancer related thromboembolism. Plan: Continue Lovenox 100 mg q12h subQ, 60# prescribed. (3) Hyperbilirubinemia Assessment and Plan: Slightly increased in the total bilirubin level. No abdominal pain. No fever. Will need continued follow up. (4) Transaminitis Assessment and Plan: Likely due to the extensive hepatic metastasis. Slightly improving. We will continue to monitor and avoid hepatotoxic medications. (5) Anemia Assessment: The anemia most likely is related to the diagnosis metastatic cancer and to the cytoxic chemotherapy. Plan: Weekly check H/H Transfuse if H/H < 8/24. No blood transfusion indicated today (6) Constipation Problem details: Constipation likely is related to the use of Zofran. Patient currently is not on any narcotic. Assessment and plan: Improved per pt report, will cont to monitor (7) Nausea & vomiting Assessment: Nausea and vomiting have improved quite a bit with the use of ondansetron sublingual. But he developed constipation. Plan: 1. Limit the use of ondansetron sublingual 2. I have instructed him how to use Olanzapin, Ativan and Compazine (see above section)
--- NOTE | 2018-05-09 10:39 | P.PNONC_ITS ---
PN -Subjective Interval history: 72-year-old gentleman with advanced pancreatic adenocarcinoma presents today for c2d1 Converse/Abraxane During his previous visit, he was found to have right popliteal deep vein thrombosis. Patient was started on Lovenox 100 mg twice daily. Patient said that he is giving himself the injection without any difficulties. He denies any chest pain. Patient does have exertional shortness of breath which has been about the same no changes. Patient clinically reports significant fatigue. He said his appetite last week was a lot better compared to 1 week ago. He is anticipating that his energy level and appetite will go down after today's chemotherapy. He denies any fever or chills. He continues to have nausea and is using lorazepam which seems to be working. He is constipated and is taking Metamucil with effect. Patient actually reports no severe abdominal pain no back pain. Patient occasionally experiences some sharp abdominal pain which is transient. She is also using chocolate marijuana with some good results. Oncological History: Mr. Nakul Dempsey is a 72 year old male with medical problems most notable for hypertension, hyperlipidemia and lots of back problems with multiple surgeries. Patient reported that a couple of months ago, he started to experience abdominal pain, located around umbilicus, mild to moderate, and comes and goes. At the same time, patient has noticed significant decrease in appetite and also weight loss. According to patient he probably lost about 10 lb over the last couple of months. In addition patient has developed significant constipation. He claimed that he used to have very normal bowel movement daily. Patient denies bright red blood per rectum or black stool. Patient reports some gag reflex problems which he thought might be due to lisinopril. Therefore lisinopril was held. He denies any headache. Denies any double vision or blurred vision. He denies any nausea or vomiting. He denies any diarrhea. On 03/21/2018, he was evaluated at ER of for recurrent abdominal pain. CT scan of the abdomen and pelvis on Mar 21, 2018 showed a large heterogeneously enhancing mass measuring 4.8 x 5.5,x 4.9 cm arising from the tail of the pancreas highly suspicious for pancreatic cancer, multiple hepatic and splenic metastatic lesions, gastrohepatic, periportal, periaortic, and left mesenteric metastatic lymphadenopathy as well as a 9 mm T12 lytic lesion concerning for osseous metastasis. Therefore patient was referred to Medical Oncology for further evaluation. Patient came in here today accompanied by his and his daughter in law. Patient underwent CT scan of the chest on March 28, 2018. The scan showed no pulmonary mass lesion, but interval growth in size of multiple hepatic metastatic lesions, and stable mild upper abdominal adenopathy, stable appearance of a large pancreatic tail mass with associated subjacent splenic hypoenhancement focally, most likely representing early invasive change affecting either the parenchyma directly, or the blood flow to that portion of the parenchyma. His serum CA19-9 was 60969, CEA 13.1. On 03/29/2018, he underwent CT guided biopsy of the liver lesion. 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 Patient underwent port placement on April 06, [address] Smallwood. On the same day, Dr. Smallwood also performed EGD. No apparent malignant findings. He started palliative chemotherapy with nab-paclitaxel and gemcitabine on 04/11/2018. The patient completed the C1D15 nab-paclitaxel and gemcitabine on 04/25/2018. Dose reduction of 50% of both nab-paclitaxel and gemcitabine were required for C1D8 and C1D15 treatment due to grade 2 thrombocytopenia . He presents here today for scheduled follow-up visit. During past one week, patient reported overall, he has been doing well. His nausea and vomiting has been under excellent control with the use of Zofran sublingual. He is not using any pain medications. Patient said that the eugene-umbilical pain has improved. Patient said that he is able to swallow pills without any difficulties. However, patient is complaining of significant constipation. He has been using over-the- counter stool softeners including Ex-Lax with limited effect. He denies fever or chills. Patient's jaundice has improved. - Patient Self-Reported Symptoms SR Constitution: Weight loss/gain, Fatigue/Malaise SR ears, nose, mouth, throat issues: Cough, Nose bleeds, Changes in taste SR respiratory issues: Shortness of breath SR Gastrointestinal issues: Poor or no appetite, Change in bowel pattern, Nausea , Vomiting, Diarrhea, Constipation SR Genitourinary issues: Frequent urination SR Musculoskeletal issues: Difficulty walking SR Neuro issues: Difficulty balancing SR Endocrine issues: Excessive urination - Additional ROS All systems PM: reviewed and no additional remarkable complaints except as stated Home Medications and Allergies Home Medications Medication Instructions Recorded Confirmed Type MULTIVITAMIN (#MULTIPLE VITAMINS) 1 cap PO Q DAY #0 03/22/11 04/21/18 History zolpidem 5 mg tablet 5 mg PO BEDTIME PRN #20 tab 03/22/18 04/08/18 Rx hydromorphone 2 mg PO Q6H PRN #14 tab 04/06/18 04/21/18 Rx olanzapine 10 mg PO DAILY #16 tab 04/11/18 04/21/18 Rx prochlorperazine maleate 10 mg PO Q6H PRN #30 tab 04/11/18 04/21/18 Rx ondansetron [Zofran ODT] 4 mg PO Q6-8H PRN #30 tab 04/12/18 05/09/18 Rx dexamethasone 4 mg PO DAILY 04/14/18 04/14/18 History enoxaparin [Lovenox] 100 mg SUBCUT Q12H #60 ml 05/09/18 Rx lorazepam 0.5 mg PO Q6HR PRN #60 tab 05/09/18 Rx Allergies Allergy/AdvReac Type Severity Reaction Status Date / Time Corticosteroids AdvReac Mild HICCUPS X Verified 04/04/18 08:14 (Glucocorticoids) 24 HRS walnut [WALNUT] AdvReac Mild canker Verified 04/04/18 08:14 sores in mouth Exam Vital signs: Last Vital Signs Temp 97.9 F 05/09/18 10:17 Pulse 90 05/09/18 10:17 Resp 18 05/09/18 10:17 BP 140/82 05/09/18 10:17 Pulse Ox 98 05/09/18 10:17 ECOG 1 Narrative: Constitutional: Well developed, well nourished, not in any acute respiratory distress, average body habitus, well groomed, pleasant and cooperative. HEENT: Normocephalic atraumatic. Extraocular muscle movement intact. Pupils are round, equal and reactive to light and accommodations. Anicteric sclera. No hearing difficulty; Oral mucus membrane moist and without ulcers. Neck: Supple, symmetrical, and tracheal midline; No palpable thyromegaly and no palpable lymph nodes. Respiratory: No use of accessory muscles. Clear to auscultation, and no wheezes or rales or rubs. Cardiovascular: Regular rate and rhythm, S1 and S2 normal, no murmurs gallops or rubs. No JVD. No pitting edema of lower extremities. Abdomen: Soft, nontender, non-distended, bowel sounds normal, palpable hepatomeglay 8 cm below right costal margin along MCL. no hernia, no palpable masses. Lower extremities: 1+ ankle edema LEFT, 2+ edema on the RIGHT. Lymphatic: no palpable lymph nodes in the neck, axillae, or groins. Musculoskeletal: no clubbing, no cyanosis, no pitting edema. Skin: no rashes, no ulcers, no petechiae Neurological: Awake and alert and oriented x3. CN II-XII grossly intact. No focal motor or sensory deficit. Psychiatric: Good judgment, good insight, normal affect, normal thought process , cooperative, no depression, no anxiety. Results - Labs Laboratory Last Values WBC 5.8 X10^3/uL (4.5-11.0) 05/09/18 08:53 RBC 2.65 X10^6/uL (4.5-5.9) L 05/09/18 08:53 Hgb 9.1 g/dL (13.5-17.5) L 05/09/18 08:53 Hct 27.5 % (41-53) L 05/09/18 08:53 MCV 104.1 fL (80-100) H D 05/09/18 08:53 MCH 34.5 PG (26-34) H 05/09/18 08:53 MCHC 33.1 % (30-36) 05/09/18 08:53 RDW 26.2 % (11.6-14.8) H 05/09/18 08:53 Plt Count 190 X10^3/uL (150-400) 05/09/18 08:53 Neut % (Auto) 70.9 % (50-75) 05/09/18 08:53 Lymph % (Auto) 12.6 % (25-40) L 05/09/18 08:53 [place] % (Auto) 15.2 % (3-14) H 05/09/18 08:53 Eos % (Auto) 0.9 % (2-4) L 05/09/18 08:53 Baso % (Auto) 0.4 % (0-2) 05/09/18 08:53 Neut # (Auto) 4100 /uL (2506-1631) 05/09/18 08:53 Total Counted 100 05/02/18 14:10 Seg Neutrophils % 72.0 % (38-70) H 05/02/18 14:10 Band Neutrophils % 2.0 % (3-7) L 05/02/18 14:10 Lymphocytes % (Manual) 14.0 % (25-45) L 05/02/18 14:10 Monocytes % (Manual) 12.0 % (2-11) H 05/02/18 14:10 Neutrophils # (Manual) 5624 /uL (5656-5653) 05/02/18 14:10 Nucleated RBCs 6 #/Diff (-0) H 05/02/18 14:10 RBC Morphology See below 05/09/18 08:53 Polychromasia 1+ H 05/09/18 08:53 Poikilocytosis 2+ H 05/09/18 08:53 Anisocytosis 3+ H 05/09/18 08:53 Tear Drop Cells 1+ H 05/02/18 14:10 PT 16.1 SECONDS (10.1-12.7) H 03/28/18 16:14 INR 1.5 (0.9-1.3) H 03/28/18 16:14 Sodium 138 mmol/L (137-145) 05/09/18 08:53 Potassium 3.7 mmol/L (3.4-5.1) 05/09/18 08:53 Chloride 104 mmol/L (98-107) 05/09/18 08:53 Carbon Dioxide 25 mmol/L (22-32) 05/09/18 08:53 BUN 13 mg/dL (9-20) 05/09/18 08:53 Creatinine 0.70 mg/dL (0.66-1.25) 05/09/18 08:53 Estimated GFR > 60.0 mL/min (>60) 05/09/18 08:53 BUN/Creatinine Ratio 18.6 (6-22) 05/09/18 08:53 Glucose 241 mg/dL (80-110) H D 05/09/18 08:53 Calcium 8.2 mg/dL (8.4-10.2) L 05/09/18 08:53 Total Bilirubin 4.1 mg/dL (0.2-1.3) H 05/09/18 08:53 AST 134 IU/L (17-59) H 05/09/18 08:53 ALT 96 IU/L (21-72) H 05/09/18 08:53 Alkaline Phosphatase 546 U/L (38-126) H 05/09/18 08:53 Total Protein 5.7 g/dL (6.3-8.2) L 05/09/18 08:53 Albumin 3.0 g/dL (3.5-5.0) L 05/09/18 08:53 Globulin 2.7 g/dL (1.7-4.1) 05/09/18 08:53 Albumin/Globulin Ratio 1.1 (1.0-2.8) 05/09/18 08:53 Carcinoembryonic Ag 13.1 ng/mL (0.1-3.0) H 03/28/18 10:59 CA 19-9 Antigen 194904 U/mL (< 34) H 05/02/18 14:10 - Imaging Additional studies: Procedures ANESTH INJECT-SPIN CANAL (11/19/09) Excision of Lumbar Vertebral Disc, Open Approach (06/18/16) Excision of Lumbosacral Disc, Open Approach (11/12/17) Extraction of Iliac Bone Marrow, Percutaneous Approach (11/12/17) Fusion of 2 or more Lumbar Vertebral Joints with Interbody Fusion Device, Anterior Approach, Anterior Column, Open Approach (06/18/16) Fusion of 2 or more Lumbar Vertebral Joints with Synthetic Substitute, Posterior Approach, Posterior Column, Open Approach (06/18/16) Fusion of Lumbosacral Joint with Autologous Tissue Substitute, Posterior Approach, Posterior Column, Open Approach (11/12/17) Fusion of Lumbosacral Joint with Interbody Fusion Device, Posterior Approach, Anterior Column, Open Approach (11/12/17) Fusion or refusion of 2-3 vertebrae (03/29/12) INJECT STEROID (11/19/09) Insertion of interbody spinal fusion device (03/29/12) Insertion or replacement of inflatable penile prosthesis (05/22/11) Lumbar and lumbosacral fusion of the anterior column, anterior technique () Other exploration and decompression of spinal canal (03/29/12) Release Lumbar Nerve, Open Approach (11/12/17) SPINAL CANAL INJECT NEC (11/19/09) Assessment and Plan (1) Pancreatic cancer Problem details: Primary: pancreatic tail. Metastasis: liver (bx confirmed); gastrohepatic, periportal, periaortic, and left mesenteric metastatic lymphadenopathy; as well as a 9 mm T12 lytic lesion. He started nab-paclitaxel and gemcitabine on 04/11/2018. Assessment: I reviewed the laboratory results with the patient especially the tumor marker CA 19-9. His CA 19-9 has jumped dramatically compared to his previous level. I talked with the patient that it may indicate that his pancreatic cancer is not responding to the treatment. However I think it is too early in the course of the chemotherapy, and it might be also indicative of chemotherapy's disruptive effect. I talked with the patient that I will continue the second cycle of the chemotherapy as planned woth dosage adjustment as follows: gemcitabine from 50% of original dosage to 75%, Abraxane dosage remains at 50% of original. After the second cycle of the chemotherapy, my plan is to get a CT scan for analysis. I talked with the patient that if there is no response, I would highly recommend that we proceed palliative/hospice care. Patient voiced understanding. Today also talked time discussing with the patient about the possibility of clinical trials. Patient seems to be interested; however the transportation to [facility] is somewhat daunting task. Patient is considering the options. He asked about the possible life expectancy. I talked with him that it is hard to anticipated. However probably the we are looking at months. Patient voiced understanding. Plan: 1. Continue Converse/Abraxane x 6 cycles, C1D1: 04/11/2018 Ok to proceed to C2D1 with following dose adjustment: Converse 75% of original, Abraxane 50% 2. RTC in one week, check CBC, CMP, and Rx, need to evaluate the dosage (2) Deep vein blood clot of right lower extremity Assessment: I talked with the patient that the deep venous thrombosis of the right lower lower extremity. It is clearly related to the diagnosis of the pancreatic cancer. It is a known phenomenon associated with malignancy diagnosis. I completely agree with continuing the treatment with Lovenox. I talked with the patient that Lovenox is the first-line therapy for cancer related thromboembolism. Plan: Continue Lovenox 100 mg q12h subQ, 60# prescribed. (3) Hyperbilirubinemia Assessment and Plan: Slightly increased in the total bilirubin level. No abdominal pain. No fever. Will need continued follow up. (4) Transaminitis Assessment and Plan: Likely due to the extensive hepatic metastasis. Slightly improving. We will continue to monitor and avoid hepatotoxic medications. (5) Anemia Assessment: The anemia most likely is related to the diagnosis metastatic cancer and to the cytoxic chemotherapy. Plan: Weekly check H/H Transfuse if H/H < 8/24. No blood transfusion indicated today (6) Constipation Problem details: Constipation likely is related to the use of Zofran. Patient currently is not on any narcotic. Assessment and plan: Improved per pt report, will cont to monitor (7) Nausea & vomiting Assessment: Nausea and vomiting have improved quite a bit with the use of ondansetron sublingual. But he developed constipation. Plan: 1. Limit the use of ondansetron sublingual 2. I have instructed him how to use Olanzapin, Ativan and Compazine (see above section)
[2018-05-09] MEDS: DEXAMETHASONE 10 MG/ML VIAL 8 MG IV (11:29)
[2018-05-09] MEDS: ONDANSETRON 8 MG in SODIUM CHLORIDE 0.9% 50 ML 216 ML IV (11:41)
[2018-05-09] MEDS: PACLITAXEL PROTEIN BOUND IV (12:35)
[2018-05-09] MEDS: SODIUM CHLORIDE 0.9% IV ×2 (12:35→14:21)
[2018-05-09] MEDS: GEMCITABINE IV (14:21)
[2018-05-16 10:07] LABS: Alanine Aminotransferase 101 IU/L (21-72); Albumin 3.1 g/dL (3.5-5.0); Albumin Globulin Ratio 1.1 (1.0-2.8); Alkaline Phosphatase 455 U/L (38-126); Aspartate Aminotransferase 153 IU/L (17-59); BUN Creatinine Ratio 25.7 (6-22); Bilirubin Total 5.5 mg/dL (0.2-1.3); Blood Urea Nitrogen 18 mg/dL (9-20); Calcium 8.4 mg/dL (8.4-10.2); Carbon Dioxide 24 mmol/L (22-32); Chloride 104 mmol/L (98-107); Estimated Glomerular Filt Rate > 60.0 mL/min (>60); Globulin 2.8 g/dL (1.7-4.1); Glucose 168 mg/dL (80-110); HEMOLYSIS < 15 (0-50); Potassium 3.7 mmol/L (3.4-5.1); Sodium 139 mmol/L (137-145); Total Protein 5.9 g/dL (6.3-8.2)
[2018-05-16 10:16] LABS: Hematocrit 24.4 % (41-53); Hemoglobin 8.3 g/dL (13.5-17.5); Mean Corpuscular HGB Conc 34.2 % (30-36); Mean Corpuscular Volume 105.4 fL (80-100); Platelet Count 100 X10^3/uL (150-400); Red Blood Cell Count 2.31 X10^6/uL (4.5-5.9); Red Cell Distribution Width 22.2 % (11.6-14.8); White Blood Cell Count 8.6 X10^3/uL (4.5-11.0)
[2018-05-16 10:22] LABS: Add Manual Diff / Slide Review YES
--- NOTE | 2018-05-16 10:40 | ONC.PN ---
PN -Subjective Interval history: 72-year-old gentleman with advanced pancreatic adenocarcinoma presents today for c2d8 Lyon/Abraxane. Patient said that since last chemotherapy, patient has been having nose bleed continuously for for 3 days before he was seen by Dr. Mcmahon. A rocket pocket was inserted into the right nose after cauterization according to patient. Today he is still having a rocket in his right nose. The bleeding seems to have stopped. Patient is to see Dr. Mcmahon this Wednesday. Because of the bleeding, patient decided himself that he would rather from sudden blood clot than from bleeding. Therefore he stopped taking Lovenox. In addition patient has reports that he has 0 energy. He was not able to walk by himself without any help. Otherwise patient reports no fever and no chills. Patient's abdominal pain is actually better than before. He denies any diarrhea. Patient does have some constipation. Patient said that his appetite is terrible. He is not eating anything only peaches or some fluids. His skin yellow discoloration has gotten worse. Oncological History: Mr. Nakul Dempsey is a 72 year old male with medical problems most notable for hypertension, hyperlipidemia and lots of back problems with multiple surgeries. Patient reported that a couple of months ago, he started to experience abdominal pain, located around umbilicus, mild to moderate, and comes and goes. At the same time, patient has noticed significant decrease in appetite and also weight loss. According to patient he probably lost about 10 lb over the last couple of months. In addition patient has developed significant constipation. He claimed that he used to have very normal bowel movement daily. Patient denies bright red blood per rectum or black stool. Patient reports some gag reflex problems which he thought might be due to lisinopril. Therefore lisinopril was held. He denies any headache. Denies any double vision or blurred vision. He denies any nausea or vomiting. He denies any diarrhea. On 03/21/2018, he was evaluated at ER of for recurrent abdominal pain. CT scan of the abdomen and pelvis on Mar 21, 2018 showed a large heterogeneously enhancing mass measuring 4.8 x 5.5,x 4.9 cm arising from the tail of the pancreas highly suspicious for pancreatic cancer, multiple hepatic and splenic metastatic lesions, gastrohepatic, periportal, periaortic, and left mesenteric metastatic lymphadenopathy as well as a 9 mm T12 lytic lesion concerning for osseous metastasis. Therefore patient was referred to Medical Oncology for further evaluation. Patient came in here today accompanied by his and his daughter in law. Patient underwent CT scan of the chest on March 28, 2018. The scan showed no pulmonary mass lesion, but interval growth in size of multiple hepatic metastatic lesions, and stable mild upper abdominal adenopathy, stable appearance of a large pancreatic tail mass with associated subjacent splenic hypoenhancement focally, most likely representing early invasive change affecting either the parenchyma directly, or the blood flow to that portion of the parenchyma. His serum CA19-9 was 43278, CEA 13.1. On 03/29/2018, he underwent CT guided biopsy of the liver lesion. 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 Patient underwent port placement on April 06, [address] Smallwood. On the same day, Dr. Smallwood also performed EGD. No apparent malignant findings. He started palliative chemotherapy with nab-paclitaxel and gemcitabine on 04/11/2018. The patient completed the C1D15 nab-paclitaxel and gemcitabine on 04/25/2018. Dose reduction of 50% of both nab-paclitaxel and gemcitabine were required for C1D8 and C1D15 treatment due to grade 2 thrombocytopenia . He presents here today for scheduled follow-up visit. During past one week, patient reported overall, he has been doing well. His nausea and vomiting has been under excellent control with the use of Zofran sublingual. He is not using any pain medications. Patient said that the eugene-umbilical pain has improved. Patient said that he is able to swallow pills without any difficulties. However, patient is complaining of significant constipation. He has been using [id number] stool softeners including Ex-Lax with limited effect. He denies fever or chills. Patient's jaundice has improved. - Patient Self-Reported Symptoms SR Constitution: Weight loss/gain, Fatigue/Malaise SR ears, nose, mouth, throat issues: Cough, Nose bleeds, Changes in taste SR respiratory issues: Shortness of breath SR Cardiovascular issues: Extreme swelling SR Gastrointestinal issues: Poor or no appetite, Change in bowel pattern, Nausea, Vomiting, Diarrhea, Constipation SR Genitourinary issues: Frequent urination SR Musculoskeletal issues: Difficulty walking SR Neuro issues: Difficulty balancing SR Endocrine issues: Excessive urination - Additional ROS All systems PM: reviewed and no additional remarkable complaints except as stated Home Medications and Allergies Home Medications Medication Instructions Recorded Confirmed Type MULTIVITAMIN (#MULTIPLE VITAMINS) 1 cap PO Q DAY #0 03/22/11 04/21/18 History zolpidem 5 mg tablet 5 mg PO BEDTIME PRN #20 tab 03/22/18 04/08/18 Rx hydromorphone 2 mg PO Q6H PRN #14 tab 04/06/18 04/21/18 Rx prochlorperazine maleate 10 mg PO Q6H PRN #30 tab 04/11/18 04/21/18 Rx ondansetron [Zofran ODT] 4 mg PO Q6-8H PRN #30 tab 04/12/18 05/09/18 Rx dexamethasone 4 mg PO DAILY 04/14/18 04/14/18 History enoxaparin [Lovenox] 100 mg SUBCUT Q12H #60 ml 05/09/18 Rx lorazepam 0.5 mg PO Q6HR PRN #60 tab 05/09/18 Rx olanzapine 10 mg PO DAILY #16 tab 05/09/18 Rx Allergies Allergy/AdvReac Type Severity Reaction Status Date / Time Corticosteroids AdvReac Mild HICCUPS X Verified 04/04/18 08:14 (Glucocorticoids) 24 HRS walnut [WALNUT] AdvReac Mild canker Verified 04/04/18 08:14 sores in mouth Exam Vital signs: Last Vital Signs Temp 98.0 F 05/16/18 10:43 Pulse 92 H 05/16/18 10:43 Resp 18 05/16/18 10:43 BP 125/70 05/16/18 10:43 Pulse Ox 99 05/16/18 10:43 ECOG 1 Narrative: Constitutional: Well developed, well nourished, not in any acute respiratory distress, well groomed, pleasant and cooperative, in wheelchair. HEENT: NCAT, EOMI, PERRLLA, icteric sclera noted. Oral mucus membrane moist and without ulcers. Neck: Supple, symmetrical, and tracheal midline; No palpable thyromegaly and no palpable lymph nodes. Respiratory: No use of accessory muscles. Clear to auscultation, and no wheezes or rales or rubs. Cardiovascular: Regular rate and rhythm, S1 and S2 normal, no murmurs gallops or rubs. No JVD. No pitting edema of lower extremities. Abdomen: Soft, nontender, non-distended, bowel sounds normal, palpable hepatomeglay 8 cm below right costal margin along MCL. no hernia, no palpable masses. Lower extremities: 1+ ankle edema LEFT, 2+ edema on the RIGHT. Lymphatic: no palpable lymph nodes in the neck, axillae, or groins. Musculoskeletal: no clubbing, no cyanosis, no pitting edema. Skin: no rashes, no ulcers, no petechiae Neurological: Awake and alert and oriented x3. CN II-XII grossly intact. No focal motor or sensory deficit. Psychiatric: Good judgment, good insight, normal affect, normal thought process, cooperative, no depression, no anxiety. Results - Labs Laboratory Last Values WBC 8.6 X10^3/uL (4.5-11.0) 05/16/18 09:38 RBC 2.31 X10^6/uL (4.5-5.9) L 05/16/18 09:38 Hgb 8.3 g/dL (13.5-17.5) L 05/16/18 09:38 Hct 24.4 % (41-53) L 05/16/18 09:38 MCV 105.4 fL (80-100) H 05/16/18 09:38 MCH 36.0 PG (26-34) H 05/16/18 09:38 MCHC 34.2 % (30-36) 05/16/18 09:38 RDW 22.2 % (11.6-14.8) H 05/16/18 09:38 Plt Count 100 X10^3/uL (150-400) L 05/16/18 09:38 Neut % (Auto) Not Reportable 05/16/18 09:38 Lymph % (Auto) Not Reportable 05/16/18 09:38 [place] % (Auto) Not Reportable 05/16/18 09:38 Eos % (Auto) Not Reportable 05/16/18 09:38 Baso % (Auto) Not Reportable 05/16/18 09:38 Neut # (Auto) 4100 /uL (3313-6009) 05/09/18 08:53 Total Counted 100 05/02/18 14:10 Seg Neutrophils % 72.0 % (38-70) H 05/02/18 14:10 Band Neutrophils % 2.0 % (3-7) L 05/02/18 14:10 Lymphocytes % (Manual) 14.0 % (25-45) L 05/02/18 14:10 Monocytes % (Manual) 12.0 % (2-11) H 05/02/18 14:10 Neutrophils # (Manual) 5624 /uL ([id number]) 05/02/18 14:10 Nucleated RBCs 6 #/Diff (-0) H 05/02/18 14:10 RBC Morphology See below 05/09/18 08:53 Polychromasia 1+ H 05/09/18 08:53 Poikilocytosis 2+ H 05/09/18 08:53 Anisocytosis 3+ H 05/09/18 08:53 Tear Drop Cells 1+ H 05/02/18 14:10 PT 16.1 SECONDS (10.1-12.7) H 03/28/18 16:14 INR 1.5 (0.9-1.3) H 03/28/18 16:14 Sodium 139 mmol/L (137-145) 05/16/18 09:38 Potassium 3.7 mmol/L (3.4-5.1) 05/16/18 09:38 Chloride 104 mmol/L (98-107) 05/16/18 09:38 Carbon Dioxide 24 mmol/L (22-32) 05/16/18 09:38 BUN 18 mg/dL (9-20) 05/16/18 09:38 Creatinine 0.70 mg/dL (0.66-1.25) 05/16/18 09:38 Estimated GFR > 60.0 mL/min (>60) 05/16/18 09:38 BUN/Creatinine Ratio 25.7 (6-22) H 05/16/18 09:38 Glucose 168 mg/dL (80-110) H 05/16/18 09:38 Calcium 8.4 mg/dL (8.4-10.2) 05/16/18 09:38 Total Bilirubin 5.5 mg/dL (0.2-1.3) H 05/16/18 09:38 AST 153 IU/L (17-59) H 05/16/18 09:38 ALT 101 IU/L (21-72) H 05/16/18 09:38 Alkaline Phosphatase 455 U/L (38-126) H 05/16/18 09:38 Total Protein 5.9 g/dL (6.3-8.2) L 05/16/18 09:38 Albumin 3.1 g/dL (3.5-5.0) L 05/16/18 09:38 Globulin 2.8 g/dL (1.7-4.1) 05/16/18 09:38 Albumin/Globulin Ratio 1.1 (1.0-2.8) 05/16/18 09:38 Carcinoembryonic Ag 13.1 ng/mL (0.1-3.0) H 03/28/18 10:59 CA 19-9 Antigen [id number] U/mL (< 34) H 05/02/18 14:10 - Imaging Additional studies: Procedures ANESTH INJECT-SPIN CANAL (11/19/09) Excision of Lumbar Vertebral Disc, Open Approach (06/18/16) Excision of Lumbosacral Disc, Open Approach (11/12/17) Extraction of Iliac Bone Marrow, Percutaneous Approach (11/12/17) Fusion of 2 or more Lumbar Vertebral Joints with Interbody Fusion Device, Anterior Approach, Anterior Column, Open Approach (06/18/16) Fusion of 2 or more Lumbar Vertebral Joints with Synthetic Substitute, Posterior Approach, Posterior Column, Open Approach (06/18/16) Fusion of Lumbosacral Joint with Autologous Tissue Substitute, Posterior Approach, Posterior Column, Open Approach (11/12/17) Fusion of Lumbosacral Joint with Interbody Fusion Device, Posterior Approach, Anterior Column, Open Approach (11/12/17) Fusion or refusion of 2-3 vertebrae (03/29/12) INJECT STEROID (11/19/09) Insertion of interbody spinal fusion device (03/29/12) Insertion or replacement of inflatable penile prosthesis (05/22/11) Lumbar and lumbosacral fusion of the anterior column, anterior technique (03/29/12) Other exploration and decompression of spinal canal (03/29/12) Release Lumbar Nerve, Open Approach (11/12/17) SPINAL CANAL INJECT NEC (11/19/09) Assessment and Plan (1) Pancreatic cancer Problem details: Primary: pancreatic tail. Metastasis: liver (bx confirmed); gastrohepatic, periportal, periaortic, and left mesenteric metastatic lymphadenopathy; as well as a 9 mm T12 lytic lesion. He started nab-paclitaxel and gemcitabine on 04/11/2018. Assessment: I reviewed the laboratory tests results with the patient. Patient's total bilirubin level as well as the liver function are increased compared to his previous visit. I talked with the patient these increase potentially indicate that the known intra hepatic metastasis probably is getting bigger. In addition clinically, patient has worsening yellowish discoloration, worsening energy level and worsening appetite. Patient's current ECOG performance score is about 2-3. I talked with him and his that in my opinion, the chemotherapy probably is not effective. I talked with them that I will proceed with a CT scan of the chest abdomen and pelvis to evaluate. If there is evidence of progression, I will talk with the patient and will discuss about the need for palliative and hospice care. Patient himself voiced understanding and agree with the plan. Plan: 1. Continue Lyon/Abraxane x 6 cycles, C1D1: 04/11/2018 Hold C2D8 today 2[address] CT CAP with contrast within one week 3. RONNA Cruz will discuss with patient about hospice care as requested by patient 4. RTC after scan is complete. (2) Deep vein blood clot of right lower extremity Assessment: I talked with the patient that the deep venous thrombosis of the right lower lower extremity is clearly related to the diagnosis of the pancreatic cancer. It is a known phenomenon associated with malignancy diagnosis. He was on Lovenox twice daily. I agree with patient that the risk of bleeding probably outweighs the risk of potential recurrent right lower extremity deep venous thrombosis. I agree with him to stop Lovenox. Patient will continue follow-up with Dr. Mcmahon as far as the nose bleed is concerned. If the nose bleed stops completely in the near future, we can discuss about resuming the treatment with Lovenox. Plan: Stop Lovenox 100 mg q12h subQ (3) Hyperbilirubinemia Assessment and Plan: Increased in the total bilirubin level. No abdominal pain. No fever. Will need continued follow up. (4) Transaminitis Assessment and Plan: Likely due to the extensive hepatic metastasis. Getting worse. We will continue to monitor and avoid hepatotoxic medications. (5) Anemia Assessment: The anemia most likely is related to the diagnosis metastatic cancer, cytoxic chemotherapy and nose bleeding. Patient clinically has severe fatigue which may be partially accounted for by the anemia. Plan: pRBC 2 units today. (6) Constipation Problem details: Constipation likely is related to the use of Zofran. Patient currently is not on any narcotic. Assessment and plan: Improved per pt report, will cont to monitor (7) Nausea & vomiting Assessment: Nausea and vomiting have improved quite a bit with the use of ondansetron sublingual. But he developed constipation. Plan: 1. Limit the use of ondansetron sublingual 2. I have instructed him how to use Olanzapin, Ativan and Compazine (see above section)
[2018-05-16 10:43] VITALS: BP 125/70; PULSE 92; RESP 18; TEMP 36.7; O2SAT 99
--- NOTE | 2018-05-16 10:43 | P.PNONC_ITS ---
PN -Subjective Interval history: 72-year-old gentleman with advanced pancreatic adenocarcinoma presents today for c2d8 Weakley/Abraxane. Patient said that since last chemotherapy, patient has been having nose bleed continuously for for 3 days before he was seen by Dr. Mcmahon. A rocket pocket was inserted into the right nose after cauterization according to patient. Today he is still having a rocket in his right nose. The bleeding seems to have stopped. Patient is to see Dr. Mcmahon this Wednesday. Because of the bleeding, patient decided himself that he would rather from sudden blood clot than from bleeding. Therefore he stopped taking Lovenox. In addition patient has reports that he has 0 energy. He was not able to walk by himself without any help. Otherwise patient reports no fever and no chills. Patient's abdominal pain is actually better than before. He denies any diarrhea. Patient does have some constipation. Patient said that his appetite is terrible. He is not eating anything only peaches or some fluids. His skin yellow discoloration has gotten worse. Oncological History: Mr. Nakul Dempsey is a 72 year old male with medical problems most notable for hypertension, hyperlipidemia and lots of back problems with multiple surgeries. Patient reported that a couple of months ago, he started to experience abdominal pain, located around umbilicus, mild to moderate, and comes and goes. At the same time, patient has noticed significant decrease in appetite and also weight loss. According to patient he probably lost about 10 lb over the last couple of months. In addition patient has developed significant constipation. He claimed that he used to have very normal bowel movement daily. Patient denies bright red blood per rectum or black stool. Patient reports some gag reflex problems which he thought might be due to lisinopril. Therefore lisinopril was held. He denies any headache. Denies any double vision or blurred vision. He denies any nausea or vomiting. He denies any diarrhea. On 03/21/2018, he was evaluated at ER of for recurrent abdominal pain. CT scan of the abdomen and pelvis on Mar 21, 2018 showed a large heterogeneously enhancing mass measuring 4.8 x 5.5,x 4.9 cm arising from the tail of the pancreas highly suspicious for pancreatic cancer, multiple hepatic and splenic metastatic lesions, gastrohepatic, periportal, periaortic, and left mesenteric metastatic lymphadenopathy as well as a 9 mm T12 lytic lesion concerning for osseous metastasis. Therefore patient was referred to Medical Oncology for further evaluation. Patient came in here today accompanied by his and his daughter in law. Patient underwent CT scan of the chest on March 28, 2018. The scan showed no pulmonary mass lesion, but interval growth in size of multiple hepatic metastatic lesions, and stable mild upper abdominal adenopathy, stable appearance of a large pancreatic tail mass with associated subjacent splenic hypoenhancement focally, most likely representing early invasive change affecting either the parenchyma directly, or the blood flow to that portion of the parenchyma. His serum CA19-9 was 76344, CEA 13.1. On 03/29/2018, he underwent CT guided biopsy of the liver lesion. 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 Patient underwent port placement on April 06, [address] Smallwood. On the same day, Dr. Smallwood also performed EGD. No apparent malignant findings. He started palliative chemotherapy with nab-paclitaxel and gemcitabine on 04/11/2018. The patient completed the C1D15 nab-paclitaxel and gemcitabine on 04/25/2018. Dose reduction of 50% of both nab-paclitaxel and gemcitabine were required for C1D8 and C1D15 treatment due to grade 2 thrombocytopenia . He presents here today for scheduled follow-up visit. During past one week, patient reported overall, he has been doing well. His nausea and vomiting has been under excellent control with the use of Zofran sublingual. He is not using any pain medications. Patient said that the eugene-umbilical pain has improved. Patient said that he is able to swallow pills without any difficulties. However, patient is complaining of significant constipation. He has been using over-the- counter stool softeners including Ex-Lax with limited effect. He denies fever or chills. Patient's jaundice has improved. - Patient Self-Reported Symptoms SR Constitution: Weight loss/gain, Fatigue/Malaise SR ears, nose, mouth, throat issues: Cough, Nose bleeds, Changes in taste SR respiratory issues: Shortness of breath SR Cardiovascular issues: Extreme swelling SR Gastrointestinal issues: Poor or no appetite, Change in bowel pattern, Nausea , Vomiting, Diarrhea, Constipation SR Genitourinary issues: Frequent urination SR Musculoskeletal issues: Difficulty walking SR Neuro issues: Difficulty balancing SR Endocrine issues: Excessive urination - Additional ROS All systems PM: reviewed and no additional remarkable complaints except as stated Home Medications and Allergies Home Medications Medication Instructions Recorded Confirmed Type MULTIVITAMIN (#MULTIPLE VITAMINS) 1 cap PO Q DAY #0 03/22/11 04/21/18 History zolpidem 5 mg tablet 5 mg PO BEDTIME PRN #20 tab 03/22/18 04/08/18 Rx hydromorphone 2 mg PO Q6H PRN #14 tab 04/06/18 04/21/18 Rx prochlorperazine maleate 10 mg PO Q6H PRN #30 tab 04/11/18 04/21/18 Rx ondansetron [Zofran ODT] 4 mg PO Q6-8H PRN #30 tab 04/12/18 05/09/18 Rx dexamethasone 4 mg PO DAILY 04/14/18 04/14/18 History enoxaparin [Lovenox] 100 mg SUBCUT Q12H #60 ml 05/09/18 Rx lorazepam 0.5 mg PO Q6HR PRN #60 tab 05/09/18 Rx olanzapine 10 mg PO DAILY #16 tab 05/09/18 Rx Allergies Allergy/AdvReac Type Severity Reaction Status Date / Time Corticosteroids AdvReac Mild HICCUPS X Verified 04/04/18 08:14 (Glucocorticoids) 24 HRS walnut [WALNUT] AdvReac Mild canker Verified 04/04/18 08:14 sores in mouth Exam Vital signs: Last Vital Signs Temp 98.0 F 05/16/18 10:43 Pulse 92 H 05/16/18 10:43 Resp 18 05/16/18 10:43 BP 125/70 05/16/18 10:43 Pulse Ox 99 05/16/18 10:43 ECOG 1 Narrative: Constitutional: Well developed, well nourished, not in any acute respiratory distress, well groomed, pleasant and cooperative, in wheelchair. HEENT: NCAT, EOMI, PERRLLA, icteric sclera noted. Oral mucus membrane moist and without ulcers. Neck: Supple, symmetrical, and tracheal midline; No palpable thyromegaly and no palpable lymph nodes. Respiratory: No use of accessory muscles. Clear to auscultation, and no wheezes or rales or rubs. Cardiovascular: Regular rate and rhythm, S1 and S2 normal, no murmurs gallops or rubs. No JVD. No pitting edema of lower extremities. Abdomen: Soft, nontender, non-distended, bowel sounds normal, palpable hepatomeglay 8 cm below right costal margin along MCL. no hernia, no palpable masses. Lower extremities: 1+ ankle edema LEFT, 2+ edema on the RIGHT. Lymphatic: no palpable lymph nodes in the neck, axillae, or groins. Musculoskeletal: no clubbing, no cyanosis, no pitting edema. Skin: no rashes, no ulcers, no petechiae Neurological: Awake and alert and oriented x3. CN II-XII grossly intact. No focal motor or sensory deficit. Psychiatric: Good judgment, good insight, normal affect, normal thought process , cooperative, no depression, no anxiety. Results - Labs Laboratory Last Values WBC 8.6 X10^3/uL (4.5-11.0) 05/16/18 09:38 RBC 2.31 X10^6/uL (4.5-5.9) L 05/16/18 09:38 Hgb 8.3 g/dL (13.5-17.5) L 05/16/18 09:38 Hct 24.4 % (41-53) L 05/16/18 09:38 MCV 105.4 fL (80-100) H 05/16/18 09:38 MCH 36.0 PG (26-34) H 05/16/18 09:38 MCHC 34.2 % (30-36) 05/16/18 09:38 RDW 22.2 % (11.6-14.8) H 05/16/18 09:38 Plt Count 100 X10^3/uL (150-400) L 05/16/18 09:38 Neut % (Auto) Not Reportable 05/16/18 09:38 Lymph % (Auto) Not Reportable 05/16/18 09:38 [place] % (Auto) Not Reportable 05/16/18 09:38 Eos % (Auto) Not Reportable 05/16/18 09:38 Baso % (Auto) Not Reportable 05/16/18 09:38 Neut # (Auto) 4100 /uL (8340-8730) 05/09/18 08:53 Total Counted 100 05/02/18 14:10 Seg Neutrophils % 72.0 % (38-70) H 05/02/18 14:10 Band Neutrophils % 2.0 % (3-7) L 05/02/18 14:10 Lymphocytes % (Manual) 14.0 % (25-45) L 05/02/18 14:10 Monocytes % (Manual) 12.0 % (2-11) H 05/02/18 14:10 Neutrophils # (Manual) 5624 /uL (5765-1784) 05/02/18 14:10 Nucleated RBCs 6 #/Diff (-0) H 05/02/18 14:10 RBC Morphology See below 05/09/18 08:53 Polychromasia 1+ H 05/09/18 08:53 Poikilocytosis 2+ H 05/09/18 08:53 Anisocytosis 3+ H 05/09/18 08:53 Tear Drop Cells 1+ H 05/02/18 14:10 PT 16.1 SECONDS (10.1-12.7) H 03/28/18 16:14 INR 1.5 (0.9-1.3) H 03/28/18 16:14 Sodium 139 mmol/L (137-145) 05/16/18 09:38 Potassium 3.7 mmol/L (3.4-5.1) 05/16/18 09:38 Chloride 104 mmol/L (98-107) 05/16/18 09:38 Carbon Dioxide 24 mmol/L (22-32) 05/16/18 09:38 BUN 18 mg/dL (9-20) 05/16/18 09:38 Creatinine 0.70 mg/dL (0.66-1.25) 05/16/18 09:38 Estimated GFR > 60.0 mL/min (>60) 05/16/18 09:38 BUN/Creatinine Ratio 25.7 (6-22) H 05/16/18 09:38 Glucose 168 mg/dL (80-110) H 05/16/18 09:38 Calcium 8.4 mg/dL (8.4-10.2) 05/16/18 09:38 Total Bilirubin 5.5 mg/dL (0.2-1.3) H 05/16/18 09:38 AST 153 IU/L (17-59) H 05/16/18 09:38 ALT 101 IU/L (21-72) H 05/16/18 09:38 Alkaline Phosphatase 455 U/L (38-126) H 05/16/18 09:38 Total Protein 5.9 g/dL (6.3-8.2) L 05/16/18 09:38 Albumin 3.1 g/dL (3.5-5.0) L 05/16/18 09:38 Globulin 2.8 g/dL (1.7-4.1) 05/16/18 09:38 Albumin/Globulin Ratio 1.1 (1.0-2.8) 05/16/18 09:38 Carcinoembryonic Ag 13.1 ng/mL (0.1-3.0) H 03/28/18 10:59 CA 19-9 Antigen 287684 U/mL (< 34) H 05/02/18 14:10 - Imaging Additional studies: Procedures ANESTH INJECT-SPIN CANAL (11/19/09) Excision of Lumbar Vertebral Disc, Open Approach (06/18/16) Excision of Lumbosacral Disc, Open Approach (11/12/17) Extraction of Iliac Bone Marrow, Percutaneous Approach (11/12/17) Fusion of 2 or more Lumbar Vertebral Joints with Interbody Fusion Device, Anterior Approach, Anterior Column, Open Approach (06/18/16) Fusion of 2 or more Lumbar Vertebral Joints with Synthetic Substitute, Posterior Approach, Posterior Column, Open Approach (06/18/16) Fusion of Lumbosacral Joint with Autologous Tissue Substitute, Posterior Approach, Posterior Column, Open Approach (11/12/17) Fusion of Lumbosacral Joint with Interbody Fusion Device, Posterior Approach, Anterior Column, Open Approach (11/12/17) Fusion or refusion of 2-3 vertebrae (03/29/12) INJECT STEROID (11/19/09) Insertion of interbody spinal fusion device (03/29/12) Insertion or replacement of inflatable penile prosthesis (05/22/11) Lumbar and lumbosacral fusion of the anterior column, anterior technique () Other exploration and decompression of spinal canal (03/29/12) Release Lumbar Nerve, Open Approach (11/12/17) SPINAL CANAL INJECT NEC (11/19/09) Assessment and Plan (1) Pancreatic cancer Problem details: Primary: pancreatic tail. Metastasis: liver (bx confirmed); gastrohepatic, periportal, periaortic, and left mesenteric metastatic lymphadenopathy; as well as a 9 mm T12 lytic lesion. He started nab-paclitaxel and gemcitabine on 04/11/2018. Assessment: I reviewed the laboratory tests results with the patient. Patient' s total bilirubin level as well as the liver function are increased compared to his previous visit. I talked with the patient these increase potentially indicate that the known intra hepatic metastasis probably is getting bigger. In addition clinically, patient has worsening yellowish discoloration, worsening energy level and worsening appetite. Patient's current ECOG performance score is about 2-3. I talked with him and his that in my opinion, the chemotherapy probably is not effective. I talked with them that I will proceed with a CT scan of the chest abdomen and pelvis to evaluate. If there is evidence of progression, I will talk with the patient and will discuss about the need for palliative and hospice care. Patient himself voiced understanding and agree with the plan. Plan: 1. Continue Weakley/Abraxane x 6 cycles, C1D1: 04/11/2018 Hold C2D8 today 2[address] CT CAP with contrast within one week 3. RONNA Cruz will discuss with patient about hospice care as requested by patient 4. RTC after scan is complete. (2) Deep vein blood clot of right lower extremity Assessment: I talked with the patient that the deep venous thrombosis of the right lower lower extremity is clearly related to the diagnosis of the pancreatic cancer. It is a known phenomenon associated with malignancy diagnosis. He was on Lovenox twice daily. I agree with patient that the risk of bleeding probably outweighs the risk of potential recurrent right lower extremity deep venous thrombosis. I agree with him to stop Lovenox. Patient will continue follow-up with Dr. Mcmahon as far as the nose bleed is concerned. If the nose bleed stops completely in the near future, we can discuss about resuming the treatment with Lovenox. Plan: Stop Lovenox 100 mg q12h subQ (3) Hyperbilirubinemia Assessment and Plan: Increased in the total bilirubin level. No abdominal pain. No fever. Will need continued follow up. (4) Transaminitis Assessment and Plan: Likely due to the extensive hepatic metastasis. Getting worse. We will continue to monitor and avoid hepatotoxic medications. (5) Anemia Assessment: The anemia most likely is related to the diagnosis metastatic cancer , cytoxic chemotherapy and nose bleeding. Patient clinically has severe fatigue which may be partially accounted for by the anemia. Plan: pRBC 2 units today. (6) Constipation Problem details: Constipation likely is related to the use of Zofran. Patient currently is not on any narcotic. Assessment and plan: Improved per pt report, will cont to monitor (7) Nausea & vomiting Assessment: Nausea and vomiting have improved quite a bit with the use of ondansetron sublingual. But he developed constipation. Plan: 1. Limit the use of ondansetron sublingual 2. I have instructed him how to use Olanzapin, Ativan and Compazine (see above section)
[2018-05-16 10:46] LABS: Anisocytosis 3+; Neutrophils Absolute Manual 6192 /uL (3000-5900); Nucleated Red Blood Cells 9 #/Diff; Poikilocytosis 1+; Polychromasia 2+; Total Cells Counted 100
--- NOTE | 2018-05-16 12:10 | ONC.NAV ---
Description: Coping Support, Hospice Info Request Activity: Met with pt following his provider visit with Dr. Mace. Pt will be getting a blood transfusion today, followed by a scan later this week. He is showing continued evidence of disease progression, functional decline, worsening appetite/ability to eat, and presents as significantly jaundiced at this appointment today. He and his have decided to pursue hospice, however will wait to see what the scan shows and make a plan with Dr. Mace at that time. They would like assistance from this HIDE SPLITTER to request a hospice informational visit. HIDE SPLITTER provided counseling for emotional and coping support, as well as answered all their initial questions about what to expect with hospice care. Will f/u with [facility] [place] pt's ONC records and request for info visit. Encouraged pt to reach out to me with any further support/assistance needs.
[2018-05-16 13:53] VITALS: BP 136/75; PULSE 79; RESP 16; TEMP 37.4
[2018-05-16 14:15] VITALS: BP 132/79; PULSE 78; RESP 16; TEMP 37
[2018-05-16 16:21] VITALS: BP 135/76; PULSE 84; RESP 16; TEMP 37.2
[2018-05-17 11:23] VITALS: BP 116/73; PULSE 81; RESP 17; TEMP 36.7
[2018-05-17 11:41] VITALS: BP 118/75; PULSE 82; RESP 18; TEMP 36.8
[2018-05-17 13:28] VITALS: BP 138/90; PULSE 76; RESP 16; TEMP 36.6
[2018-05-17] MEDS: ONDANSETRON 4 MG ODT PO (13:29)
--- NOTE | 2018-05-19 09:05 | DI.CT.S_ITS ---
PROCEDURE: CT CHEST ABD PEL W CON INDICATIONS: restage after treatment pancreatic cancer. TECHNIQUE: After the administration of oral and intravenous contrast, 5 mm thick sections acquired from the lung apices to the symphysis. 5 mm coronal and sagittal reformats were performed, with additional 7 mm coronal MIP reformats through the lungs. For radiation dose reduction, the following was used: automated exposure control, adjustment of mA and/or kV according to patient size. COMPARISON: [facility], CT, CT ABDOMEN PELVIS W CON, 03/21/2018, 12:49. [facility], CT, CT CHEST W CON, 03/28/2018, 10:25. FINDINGS: Image quality: Excellent. CHEST: Lungs and pleura: 3 mm calcified granuloma in the posterior aspect of right lower lobe is again seen, unchanged from prior study. No acute airspace opacities. No pleural effusions or pneumothorax. Central and peripheral airways appear patent and normal in caliber. Mediastinum: Heart size is normal. No pericardial effusion. No mediastinal or hilar adenopathy by size criteria. Thoracic aorta and central pulmonary arteries are normal in size. Atherosclerotic calcifications are noted throughout coronary vessels. Esophagus is normal in caliber. There is a small hiatal hernia. Chest wall: Left chest wall Port-A-Cath tip is in the SVC. No axillary or supraclavicular adenopathy by size criteria. Thyroid gland is within normal limits. ABDOMEN: Solid organs: Lobulated liver contour is seen with innumerable hypodense lesions scattered throughout liver parenchyma consistent with extensive liver metastasis, foot increased in size and numbers compared to previous study. Gallbladder is within normal limits. Biliary system is non dilated. There is interval increase in size of patient's known pancreatic tail mass, now measures up to 4.8 x 7.3 x 5.7 cm in size compared to 4.8 x 5.5 x 4.9 cm on previous study. Pancreatic head and body show no gross abnormality. Spleen is normal in size. Multiple hypodense areas involving anterior lateral aspect of spleen is again seen, not significantly changed in size and appearance from previous study and is concerning for splenic metastasis. No adrenal nodules. Kidneys demonstrate normal size and enhancement, without hydronephrosis. Peritoneum and bowel: Bowel loops demonstrate normal wall thickness and caliber. There is interval development of a small amount of ascites fluid adjacent to liver and spleen extending to bilateral pericolic gutter and in pelvis. No gross free air. Nodes and vessels: There is interval worsening of periportal and gastrohepatic lymphadenopathy now measures up to 1.9 cm in short axis diameter compared to 1.6 cm on previous study. There is interval development of multiple minute mesenteric lymph nodes new since previous study and measures up to 1.8 cm in short axis diameter. Previously described periaortic lymphadenopathy measures up to 1.4 cm in short axis diameter now measures approximately 1.5 cm in short axis diameter. Aorta and inferior vena cava are normal in size. Miscellaneous: No ventral hernias. PELVIS: Genitourinary: Bladder wall thickness is normal. Penile implant is again seen with left lower pelvic reservoir seen. Prostate is surgically absent. Miscellaneous: No inguinal hernias or adenopathy. Bones: Patient is status post prior transpedicular fusion of lumbar spine from L2-S1 levels. Alignment of lumbar spine is unchanged from prior study. Previously described 9 mm lytic lesion involving anterior margin of T12 is grossly unchanged. No new suspicious bony lesion is seen. No vertebral body compression fractures. IMPRESSION: 1. Interval increase in size of patient's known large heterogeneously enhancing pancreatic tail mass as described above. 2. Worsening metastatic hepatic lesions suggestive of progression of disease. 3. Persistent metastatic lesion involving the spleen, not significantly changed from prior study. 4. Worsening lymphadenopathy in upper abdomen, midabdomen mesentery and retroperitoneal space. 5. Bilateral lung garcia are clear. no gross mediastinal or hilar adenopathy. Dictated by: Julio Gutierrez M.D. on 05/19/2018 13:29 Approved by: Julio Gutierrez M.D. on 05/19/2018 at 14:20
--- NOTE | 2018-05-23 08:38 | ONC.PN ---
PN -Subjective Interval history: 72-year-old gentleman with advanced pancreatic adenocarcinoma. He has just completed 1 and half cycles of [place]/Abraxane, which was on hold given grade 2-3 fatigue and ECOG of 2-3. He underwent CT CAP for interim analysis on 05/19/2018, which unfortunately showed interval increase in size of patient's known large heterogeneously enhancing pancreatic tail mass and worsening metastatic hepatic lesions suggestive of disease progression, as well as persistent metastatic lesion involving the spleen and worsening lymphadenopathy in upper abdomen, mid abdomen mesentry and retroperitoneal space. No metastasis in the lungs. Clinically patient is complaining of significant low energy level. He is in wheelchair accompanied by his to the clinic today. Patient remarkably complaints no pain at all. Patient has some congestion in the lungs according to patient. No fever and no chills. One of the other complaints has been the lack of appetite. He said that everything tastes like cardboard. Over the weekend, patient has already talked with hospice care. But he has not decided yet. He saw Dr. Mcmahon last week and cauterized the right nose. He is going to see Dr. Mcmahon this and likely he will get cauterization to his left nostril. Patient said that once he stopped the Lovenox injection, the nose bleed has stopped. Oncological History: Mr. Nakul Dempsey is a 72 year old male with medical problems most notable for hypertension, hyperlipidemia and lots of back problems with multiple surgeries. He presented with months of mild to moderate intermittent [place]-umbilical abdominal pain, significant decreased appetite and weight loss. On evaluation at ER, CT scan of the abdomen and pelvis on 03/21/2018 showed a large heterogeneously enhancing mass measuring 4.8 x 5.5,x 4.9 cm arising from the tail of the pancreas highly suspicious for pancreatic cancer, multiple hepatic and splenic metastatic lesions, gastrohepatic, periportal, periaortic, and left mesenteric metastatic lymphadenopathy as well as a 9 mm T12 lytic lesion concerning for osseous metastasis. Patient underwent CT scan of the chest on March 28, 2018 that showed no pulmonary mass lesion, but interval growth in size of multiple hepatic metastatic lesions, and stable mild upper abdominal adenopathy, stable appearance of a large pancreatic tail mass with associated subjacent splenic hypoenhancement focally, most likely representing early invasive change affecting either the parenchyma directly, or the blood flow to that portion of the parenchyma. His serum CA19-9 was 34843, CEA 13.1. On 03/29/2018, he underwent CT guided biopsy of the liver lesion. 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 Patient underwent port placement on April 06, [address] Smallwood. On the same day, Dr. Smallwood also performed EGD. No apparent malignant findings. He started palliative chemotherapy with nab-paclitaxel and gemcitabine on 04/11/2018. Dose reduction of 50% of both nab-paclitaxel and gemcitabine were required for C1D8 and C1D15 treatment due to grade 2 thrombocytopenia. - Patient Self-Reported Symptoms SR Constitution: Weight loss/gain, Fatigue/Malaise SR eye issues: Double vision SR ears, nose, mouth, throat issues: Cough, Nose bleeds, Changes in taste SR respiratory issues: Shortness of breath SR Cardiovascular issues: Extreme swelling SR Gastrointestinal issues: Poor or no appetite, Change in bowel pattern, Nausea, Vomiting, Diarrhea, Constipation SR Musculoskeletal issues: Difficulty walking SR Neuro issues: Difficulty balancing - Additional ROS All systems PM: reviewed and no additional remarkable complaints except as stated Home Medications and Allergies Home Medications Medication Instructions Recorded Confirmed Type MULTIVITAMIN (#MULTIPLE VITAMINS) 1 cap PO Q DAY #0 03/22/11 05/23/18 History zolpidem 5 mg tablet 5 mg PO BEDTIME PRN #20 tab 03/22/18 05/23/18 Rx hydromorphone 2 mg PO Q6H PRN #14 tab 04/06/18 05/23/18 Rx prochlorperazine maleate 10 mg PO Q6H PRN #30 tab 04/11/18 05/23/18 Rx ondansetron [Zofran ODT] 4 mg PO Q6-8H PRN #30 tab 04/12/18 05/23/18 Rx dexamethasone 4 mg PO DAILY 04/14/18 05/23/18 History enoxaparin [Lovenox] 100 mg SUBCUT Q12H #60 ml 05/09/18 Rx lorazepam 0.5 mg PO Q6HR PRN #60 tab 05/09/18 05/23/18 Rx olanzapine 10 mg PO DAILY #16 tab 05/09/18 05/23/18 Rx Allergies Allergy/AdvReac Type Severity Reaction Status Date / Time Corticosteroids AdvReac Mild HICCUPS X Verified 04/04/18 08:14 (Glucocorticoids) 24 HRS walnut [WALNUT] AdvReac Mild canker Verified 04/04/18 08:14 sores in mouth Exam Vital signs: Last Vital Signs Temp 97.8 F 05/23/18 08:50 Pulse 101 H 05/23/18 08:50 Resp 20 05/23/18 08:50 BP 121/101 H 05/23/18 08:50 Pulse Ox 98 05/23/18 08:50 ECOG 1 Narrative: Constitutional: Well developed, well nourished, not in any acute respiratory distress, well groomed, pleasant and cooperative, in wheelchair, accompanied by his HEENT: NCAT, EOMI, PERRLLA, icteric sclera noted. Oral mucus membrane moist and without ulcers. Neck: Supple, symmetrical, and tracheal midline; No palpable thyromegaly and no palpable lymph nodes. Respiratory: No use of accessory muscles. Clear to auscultation, and no wheezes or rales or rubs. Cardiovascular: Regular rate and rhythm, S1 and S2 normal, no murmurs gallops or rubs. No JVD. No pitting edema of lower extremities. Abdomen: Soft, nontender, non-distended, bowel sounds normal, palpable hepatomeglay 8 cm below right costal margin along MCL. no hernia, no palpable masses. Lower extremities: 1+ ankle edema LEFT, 2+ edema on the RIGHT. Lymphatic: no palpable lymph nodes in the neck, axillae, or groins. Musculoskeletal: no clubbing, no cyanosis, no pitting edema. Skin: no rashes, no ulcers, no petechiae Neurological: Awake and alert and oriented x3. CN II-XII grossly intact. No focal motor or sensory deficit. Psychiatric: Good judgment, good insight, normal affect, normal thought process, cooperative, no depression, no anxiety. Results - Labs Laboratory Last Values WBC 8.6 X10^3/uL (4.5-11.0) 05/16/18 09:38 RBC 2.31 X10^6/uL (4.5-5.9) L 05/16/18 09:38 Hgb 8.3 g/dL (13.5-17.5) L 05/16/18 09:38 Hct 24.4 % (41-53) L 05/16/18 09:38 MCV 105.4 fL (80-100) H 05/16/18 09:38 MCH 36.0 PG (26-34) H 05/16/18 09:38 MCHC 34.2 % (30-36) 05/16/18 09:38 RDW 22.2 % (11.6-14.8) H 05/16/18 09:38 Plt Count 100 X10^3/uL (150-400) L 05/16/18 09:38 Neut % (Auto) Not Reportable 05/16/18 09:38 Lymph % (Auto) Not Reportable 05/16/18 09:38 [place] % (Auto) Not Reportable 05/16/18 09:38 Eos % (Auto) Not Reportable 05/16/18 09:38 Baso % (Auto) Not Reportable 05/16/18 09:38 Neut # (Auto) 4100 /uL (8982-6704) 05/09/18 08:53 Total Counted 100 05/16/18 09:38 Seg Neutrophils % 70.0 % (38-70) 05/16/18 09:38 Band Neutrophils % 2.0 % (3-7) L 05/16/18 09:38 Lymphocytes % (Manual) 15.0 % (25-45) L 05/16/18 09:38 Monocytes % (Manual) 13.0 % (2-11) H 05/16/18 09:38 Neutrophils # (Manual) 6192 /uL (2307-2070) H 05/16/18 09:38 Nucleated RBCs 9 #/Diff (-0) H 05/16/18 09:38 RBC Morphology Not Reportable 05/16/18 09:38 Polychromasia 2+ H 05/16/18 09:38 Poikilocytosis 1+ H 05/16/18 09:38 Anisocytosis 3+ H 05/16/18 09:38 Tear Drop Cells 1+ H 05/02/18 14:10 PT 16.1 SECONDS (10.1-12.7) H 03/28/18 16:14 INR 1.5 (0.9-1.3) H 03/28/18 16:14 Sodium 139 mmol/L (137-145) 05/16/18 09:38 Potassium 3.7 mmol/L (3.4-5.1) 05/16/18 09:38 Chloride 104 mmol/L (98-107) 05/16/18 09:38 Carbon Dioxide 24 mmol/L (22-32) 05/16/18 09:38 BUN 18 mg/dL (9-20) 05/16/18 09:38 Creatinine 0.70 mg/dL (0.66-1.25) 05/16/18 09:38 Estimated GFR > 60.0 mL/min (>60) 05/16/18 09:38 BUN/Creatinine Ratio 25.7 (6-22) H 05/16/18 09:38 Glucose 168 mg/dL (80-110) H 05/16/18 09:38 Calcium 8.4 mg/dL (8.4-10.2) 05/16/18 09:38 Total Bilirubin 5.5 mg/dL (0.2-1.3) H 05/16/18 09:38 AST 153 IU/L (17-59) H 05/16/18 09:38 ALT 101 IU/L (21-72) H 05/16/18 09:38 Alkaline Phosphatase 455 U/L (38-126) H 05/16/18 09:38 Total Protein 5.9 g/dL (6.3-8.2) L 05/16/18 09:38 Albumin 3.1 g/dL (3.5-5.0) L 05/16/18 09:38 Globulin 2.8 g/dL (1.7-4.1) 05/16/18 09:38 Albumin/Globulin Ratio 1.1 (1.0-2.8) 05/16/18 09:38 Carcinoembryonic Ag 13.1 ng/mL (0.1-3.0) H 03/28/18 10:59 CA 19-9 Antigen 913927 U/mL (< 34) H 05/02/18 14:10 Blood Type B Negative 05/16/18 10:30 Antibody Screen Negative 05/16/18 10:30 Crossmatch See Detail 05/16/18 10:30 - Imaging Additional studies: Procedures ANESTH INJECT-SPIN CANAL (11/19/09) Excision of Lumbar Vertebral Disc, Open Approach (06/18/16) Excision of Lumbosacral Disc, Open Approach (11/12/17) Extraction of Iliac Bone Marrow, Percutaneous Approach (11/12/17) Fusion of 2 or more Lumbar Vertebral Joints with Interbody Fusion Device, Anterior Approach, Anterior Column, Open Approach (06/18/16) Fusion of 2 or more Lumbar Vertebral Joints with Synthetic Substitute, Posterior Approach, Posterior Column, Open Approach (06/18/16) Fusion of Lumbosacral Joint with Autologous Tissue Substitute, Posterior Approach, Posterior Column, Open Approach (11/12/17) Fusion of Lumbosacral Joint with Interbody Fusion Device, Posterior Approach, Anterior Column, Open Approach (11/12/17) Fusion or refusion of 2-3 vertebrae (03/29/12) INJECT STEROID (11/19/09) Insertion of interbody spinal fusion device (03/29/12) Insertion or replacement of inflatable penile prosthesis (05/22/11) Lumbar and lumbosacral fusion of the anterior column, anterior technique (03/29/12) Other exploration and decompression of spinal canal (03/29/12) Release Lumbar Nerve, Open Approach (11/12/17) SPINAL CANAL INJECT NEC (11/19/09) Assessment and Plan (1) Pancreatic cancer Problem details: 1. Metastatic pancreatic adenocarcinoma: Primary: pancreatic tail. Metastasis: liver (bx confirmed); gastrohepatic, periportal, periaortic, and left mesenteric metastatic lymphadenopathy; as well as a 9 mm T12 lytic lesion. 2. He started nab-paclitaxel and gemcitabine on 04/11/2018. Assessment: Since we hold the chemotherapy since his last visit, overall patient clinically seems to be doing better. Patient has a little bit more appetite. He is drinking the protein shakes. Patient denies again no pain at home. Patient reports that the main problem is the energy level as well as the lack of appetite. Today I reviewed the CT scan results with the patient. Unfortunately, the CT scan showed significant progression of the underlying pancreatic cancer. I talked with the patient it indicates either that the chemotherapy is not working or that we have not treated her long enough yet. However given his performance status of 2-3, continued treatment may be difficult. I recommended that we continue to hold the chemotherapy for another 2 weeks and will have him come back and re-evaluate. I am thinking about restart gemcitabine or capecitabine. Patient voiced understanding. Plan: 1. Continue to hold chemotherapy 2. RTC in 2-3 weeks, CBC, CMP, CA 19-9 (2) Deep vein blood clot of right lower extremity Assessment: I talked with him today about the anticoagulation. I talked with him that I will wait until after the nose cauterization procedure is complete and the surgical wound has healed. Then we probably can restart the anticoagulation gingerly for example using Eliquis 2.5 mg twice daily. Patient voiced understanding. Plan: Stop Lovenox 100 mg q12h subQ (3) Hyperbilirubinemia Assessment and Plan: Increased in the total bilirubin level. No abdominal pain. No fever. Will need continued follow up. (4) Transaminitis Assessment and Plan: Likely due to the extensive hepatic metastasis. Getting worse. We will continue to monitor and avoid hepatotoxic medications. (5) Anemia Assessment: The anemia most likely is related to the diagnosis metastatic cancer, cytoxic chemotherapy and nose bleeding. Patient clinically has severe fatigue which may be partially accounted for by the anemia. Plan: pRBC 2 units today. (6) Constipation Problem details: Constipation likely is related to the use of Zofran. Patient currently is not on any narcotic. Assessment and plan: Improved per pt report, will cont to monitor (7) Nausea & vomiting Assessment: Nausea and vomiting have improved quite a bit with the use of ondansetron sublingual. But he developed constipation. Plan: 1. Limit the use of ondansetron sublingual 2. I have instructed him how to use Olanzapin, Ativan and Compazine (see above section)
--- NOTE | 2018-05-23 08:45 | P.PNONC_ITS ---
PN -Subjective Interval history: 72-year-old gentleman with advanced pancreatic adenocarcinoma. He has just completed 1 and half cycles of Kenney/Abraxane, which was on hold given grade 2-3 fatigue and ECOG of 2-[address]. [address] CAP for interim analysis on 05/19/2018 , which unfortunately showed interval increase in size of patient's known large heterogeneously enhancing pancreatic tail mass and worsening metastatic hepatic lesions suggestive of disease progression, as well as persistent metastatic lesion involving the spleen and worsening lymphadenopathy in upper abdomen, mid abdomen mesentry and retroperitoneal space. No metastasis in the lungs. Clinically patient is complaining of significant low energy level. He is in wheelchair accompanied by his to the clinic today. Patient remarkably complaints no pain at all. Patient has some congestion in the lungs according to patient. No fever and no chills. One of the other complaints has been the lack of appetite. He said that everything tastes like cardboard. Over the weekend, patient has already talked with hospice care. But he has not decided yet. He saw Dr. Mcmahon last week and cauterized the right nose. He is going to see Dr. Mcmahon this and likely he will get cauterization to his left nostril. Patient said that once he stopped the Lovenox injection, the nose bleed has stopped. Oncological History: Mr. Nakul Dempsey is a 72 year old male with medical problems most notable for hypertension, hyperlipidemia and lots of back problems with multiple surgeries. He presented with months of mild to moderate intermittent eugene-umbilical abdominal pain, significant decreased appetite and weight loss. On evaluation at ER, CT scan of the abdomen and pelvis on 03/21/2018 showed a large heterogeneously enhancing mass measuring 4.8 x 5.5,x 4.9 cm arising from the tail of the pancreas highly suspicious for pancreatic cancer, multiple hepatic and splenic metastatic lesions, gastrohepatic, periportal, periaortic, and left mesenteric metastatic lymphadenopathy as well as a 9 mm T12 lytic lesion concerning for osseous metastasis. Patient underwent CT scan of the chest on March 28, 2018 that showed no pulmonary mass lesion, but interval growth in size of multiple hepatic metastatic lesions, and stable mild upper abdominal adenopathy, stable appearance of a large pancreatic tail mass with associated subjacent splenic hypoenhancement focally, most likely representing early invasive change affecting either the parenchyma directly, or the blood flow to that portion of the parenchyma. His serum CA19-9 was [id number], CEA 13.1. On 03/29/2018, he underwent CT guided biopsy of the liver lesion. 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 Patient underwent port placement on April 06, [address] Smallwood. On the same day, Dr. Smallwood also performed EGD. No apparent malignant findings. He started palliative chemotherapy with nab-paclitaxel and gemcitabine on 04/11/2018. Dose reduction of 50% of both nab-paclitaxel and gemcitabine were required for C1D8 and C1D15 treatment due to grade 2 thrombocytopenia. - Patient Self-Reported Symptoms SR Constitution: Weight loss/gain, Fatigue/Malaise SR eye issues: Double vision SR ears, nose, mouth, throat issues: Cough, Nose bleeds, Changes in taste SR respiratory issues: Shortness of breath SR Cardiovascular issues: Extreme swelling SR Gastrointestinal issues: Poor or no appetite, Change in bowel pattern, Nausea , Vomiting, Diarrhea, Constipation SR Musculoskeletal issues: Difficulty walking SR Neuro issues: Difficulty balancing - Additional ROS All systems PM: reviewed and no additional remarkable complaints except as stated Home Medications and Allergies Home Medications Medication Instructions Recorded Confirmed Type MULTIVITAMIN (#MULTIPLE VITAMINS) 1 cap PO Q DAY #0 03/22/11 05/23/18 History zolpidem 5 mg tablet 5 mg PO BEDTIME PRN #20 tab 03/22/18 05/23/18 Rx hydromorphone 2 mg PO Q6H PRN #14 tab 04/06/18 05/23/18 Rx prochlorperazine maleate 10 mg PO Q6H PRN #30 tab 04/11/18 05/23/18 Rx ondansetron [Zofran ODT] 4 mg PO Q6-8H PRN #30 tab 04/12/18 05/23/18 Rx dexamethasone 4 mg PO DAILY 04/14/18 05/23/18 History enoxaparin [Lovenox] 100 mg SUBCUT Q12H #60 ml 05/09/18 Rx lorazepam 0.5 mg PO Q6HR PRN #60 tab 05/09/18 05/23/18 Rx olanzapine 10 mg PO DAILY #16 tab 05/09/18 05/23/18 Rx Allergies Allergy/AdvReac Type Severity Reaction Status Date / Time Corticosteroids AdvReac Mild HICCUPS X Verified 04/04/18 08:14 (Glucocorticoids) 24 HRS walnut [WALNUT] AdvReac Mild canker Verified 04/04/18 08:14 sores in mouth Exam Vital signs: Last Vital Signs Temp 97.8 F 05/23/18 08:50 Pulse 101 H 05/23/18 08:50 Resp 20 05/23/18 08:50 BP 121/101 H 05/23/18 08:50 Pulse Ox 98 05/23/18 08:50 ECOG 1 Narrative: Constitutional: Well developed, well nourished, not in any acute respiratory distress, well groomed, pleasant and cooperative, in wheelchair, accompanied by his HEENT: NCAT, EOMI, PERRLLA, icteric sclera noted. Oral mucus membrane moist and without ulcers. Neck: Supple, symmetrical, and tracheal midline; No palpable thyromegaly and no palpable lymph nodes. Respiratory: No use of accessory muscles. Clear to auscultation, and no wheezes or rales or rubs. Cardiovascular: Regular rate and rhythm, S1 and S2 normal, no murmurs gallops or rubs. No JVD. No pitting edema of lower extremities. Abdomen: Soft, nontender, non-distended, bowel sounds normal, palpable hepatomeglay 8 cm below right costal margin along MCL. no hernia, no palpable masses. Lower extremities: 1+ ankle edema LEFT, 2+ edema on the RIGHT. Lymphatic: no palpable lymph nodes in the neck, axillae, or groins. Musculoskeletal: no clubbing, no cyanosis, no pitting edema. Skin: no rashes, no ulcers, no petechiae Neurological: Awake and alert and oriented x3. CN II-XII grossly intact. No focal motor or sensory deficit. Psychiatric: Good judgment, good insight, normal affect, normal thought process , cooperative, no depression, no anxiety. Results - Labs Laboratory Last Values WBC 8.6 X10^3/uL (4.5-11.0) 05/16/18 09:38 RBC 2.31 X10^6/uL (4.5-5.9) L 05/16/18 09:38 Hgb 8.3 g/dL (13.5-17.5) L 05/16/18 09:38 Hct 24.4 % (41-53) L 05/16/18 09:38 MCV 105.4 fL (80-100) H 05/16/18 09:38 MCH 36.0 PG (26-34) H 05/16/18 09:38 MCHC 34.2 % (30-36) 05/16/18 09:38 RDW 22.2 % (11.6-14.8) H 05/16/18 09:38 Plt Count 100 X10^3/uL (150-400) L 05/16/18 09:38 Neut % (Auto) Not Reportable 05/16/18 09:38 Lymph % (Auto) Not Reportable 05/16/18 09:38 [place]house % (Auto) Not Reportable 05/16/18 09:38 Eos % (Auto) Not Reportable 05/16/18 09:38 Baso % (Auto) Not Reportable 05/16/18 09:38 Neut # (Auto) 4100 /uL (2620-9119) 05/09/18 08:53 Total Counted 100 05/16/18 09:38 Seg Neutrophils % 70.0 % (38-70) 05/16/18 09:38 Band Neutrophils % 2.0 % (3-7) L 05/16/18 09:38 Lymphocytes % (Manual) 15.0 % (25-45) L 05/16/18 09:38 Monocytes % (Manual) 13.0 % (2-11) H 05/16/18 09:38 Neutrophils # (Manual) 6192 /uL (3058-0716) H 05/16/18 09:38 Nucleated RBCs 9 #/Diff (-0) H 05/16/18 09:38 RBC Morphology Not Reportable 05/16/18 09:38 Polychromasia 2+ H 05/16/18 09:38 Poikilocytosis 1+ H 05/16/18 09:38 Anisocytosis 3+ H 05/16/18 09:38 Tear Drop Cells 1+ H 05/02/18 14:10 PT 16.1 SECONDS (10.1-12.7) H 03/28/18 16:14 INR 1.5 (0.9-1.3) H 03/28/18 16:14 Sodium 139 mmol/L (137-145) 05/16/18 09:38 Potassium 3.7 mmol/L (3.4-5.1) 05/16/18 09:38 Chloride 104 mmol/L (98-107) 05/16/18 09:38 Carbon Dioxide 24 mmol/L (22-32) 05/16/18 09:38 BUN 18 mg/dL (9-20) 05/16/18 09:38 Creatinine 0.70 mg/dL (0.66-1.25) 05/16/18 09:38 Estimated GFR > 60.0 mL/min (>60) 05/16/18 09:38 BUN/Creatinine Ratio 25.7 (6-22) H 05/16/18 09:38 Glucose 168 mg/dL (80-110) H 05/16/18 09:38 Calcium 8.4 mg/dL (8.4-10.2) 05/16/18 09:38 Total Bilirubin 5.5 mg/dL (0.2-1.3) H 05/16/18 09:38 AST 153 IU/L (17-59) H 05/16/18 09:38 ALT 101 IU/L (21-72) H 05/16/18 09:38 Alkaline Phosphatase 455 U/L (38-126) H 05/16/18 09:38 Total Protein 5.9 g/dL (6.3-8.2) L 05/16/18 09:38 Albumin 3.1 g/dL (3.5-5.0) L 05/16/18 09:38 Globulin 2.8 g/dL (1.7-4.1) 05/16/18 09:38 Albumin/Globulin Ratio 1.1 (1.0-2.8) 05/16/18 09:38 Carcinoembryonic Ag 13.1 ng/mL (0.1-3.0) H 03/28/18 10:59 CA 19-9 Antigen 083101 U/mL (< 34) H 05/02/18 14:10 Blood Type B Negative 05/16/18 10:30 Antibody Screen Negative 05/16/18 10:30 Crossmatch See Detail 05/16/18 10:30 - Imaging Additional studies: Procedures ANESTH INJECT-SPIN CANAL (11/19/09) Excision of Lumbar Vertebral Disc, Open Approach (06/18/16) Excision of Lumbosacral Disc, Open Approach (11/12/17) Extraction of Iliac Bone Marrow, Percutaneous Approach (11/12/17) Fusion of 2 or more Lumbar Vertebral Joints with Interbody Fusion Device, Anterior Approach, Anterior Column, Open Approach (06/18/16) Fusion of 2 or more Lumbar Vertebral Joints with Synthetic Substitute, Posterior Approach, Posterior Column, Open Approach (06/18/16) Fusion of Lumbosacral Joint with Autologous Tissue Substitute, Posterior Approach, Posterior Column, Open Approach (11/12/17) Fusion of Lumbosacral Joint with Interbody Fusion Device, Posterior Approach, Anterior Column, Open Approach (11/12/17) Fusion or refusion of 2-3 vertebrae (03/29/12) INJECT STEROID (11/19/09) Insertion of interbody spinal fusion device (03/29/12) Insertion or replacement of inflatable penile prosthesis (05/22/11) Lumbar and lumbosacral fusion of the anterior column, anterior technique () Other exploration and decompression of spinal canal (03/29/12) Release Lumbar Nerve, Open Approach (11/12/17) SPINAL CANAL INJECT NEC (11/19/09) Assessment and Plan (1) Pancreatic cancer Problem details: 1. Metastatic pancreatic adenocarcinoma: Primary: pancreatic tail. Metastasis: liver (bx confirmed); gastrohepatic, periportal, periaortic, and left mesenteric metastatic lymphadenopathy; as well as a 9 mm T12 lytic lesion. 2. He started nab-paclitaxel and gemcitabine on 04/11/2018. Assessment: Since we hold the chemotherapy since his last visit, overall patient clinically seems to be doing better. Patient has a little bit more appetite. He is drinking the protein shakes. Patient denies again no pain at home. Patient reports that the main problem is the energy level as well as the lack of appetite. Today I reviewed the CT scan results with the patient. Unfortunately , the CT scan showed significant progression of the underlying pancreatic cancer. I talked with the patient it indicates either that the chemotherapy is not working or that we have not treated her long enough yet. However given his performance status of 2-3, continued treatment may be difficult. I recommended that we continue to hold the chemotherapy for another 2 weeks and will have him come back and re-evaluate. I am thinking about restart gemcitabine or capecitabine. Patient voiced understanding. Plan: 1. Continue to hold chemotherapy 2. RTC in 2-3 weeks, CBC, CMP, CA 19-9 (2) Deep vein blood clot of right lower extremity Assessment: I talked with him today about the anticoagulation. I talked with him that I will wait until after the nose cauterization procedure is complete and the surgical wound has healed. Then we probably can restart the anticoagulation gingerly for example using Eliquis 2.5 mg twice daily. Patient voiced understanding. Plan: Stop Lovenox 100 mg q12h subQ (3) Hyperbilirubinemia Assessment and Plan: Increased in the total bilirubin level. No abdominal pain. No fever. Will need continued follow up. (4) Transaminitis Assessment and Plan: Likely due to the extensive hepatic metastasis. Getting worse. We will continue to monitor and avoid hepatotoxic medications. (5) Anemia Assessment: The anemia most likely is related to the diagnosis metastatic cancer , cytoxic chemotherapy and nose bleeding. Patient clinically has severe fatigue which may be partially accounted for by the anemia. Plan: pRBC 2 units today. (6) Constipation Problem details: Constipation likely is related to the use of Zofran. Patient currently is not on any narcotic. Assessment and plan: Improved per pt report, will cont to monitor (7) Nausea & vomiting Assessment: Nausea and vomiting have improved quite a bit with the use of ondansetron sublingual. But he developed constipation. Plan: 1. Limit the use of ondansetron sublingual 2. I have instructed him how to use Olanzapin, Ativan and Compazine (see above section)
[2018-05-23 08:50] VITALS: BP 121/101; PULSE 101; RESP 20; TEMP 36.6; O2SAT 98
--- NOTE | 2018-06-01 12:54 | PC.NURSE ---
apparently pt was in ED over the weekend and the MD thought he was very jaundice. Pt called because ED MD made reference to a special test that he could have either here or at [facility] and also recommended him to see a gastro MD. I explained to pt that Dr Mace had been contacted about his ED visit and had requested via pt notes that he would like to see him on and he could at that time discuss the special test and the need to see a gastro MD if warranted. I did tell pt that he has been jaundice that we are fully aware of this. I also explained that his cancer and its mets are what is causing this to occur. He understood this and will see Dr Mace for post ED visit at 230p on 06/02
[2018-06-02 14:56] VITALS: BP 136/75; PULSE 91; RESP 18; TEMP 36.4; O2SAT 98
--- NOTE | 2018-06-02 14:56 | ONC.PN ---
PN -Subjective Interval history: 72-year-old gentleman with advanced pancreatic adenocarcinoma. He has just completed 1 and half cycles of [place]/Abraxane, which was on hold given grade 2-3 fatigue and ECOG of 2-3. He underwent CT CAP for interim analysis on 05/19/2018, which unfortunately showed interval increase in size of patient's known large heterogeneously enhancing pancreatic tail mass and worsening metastatic hepatic lesions suggestive of disease progression, as well as persistent metastatic lesion involving the spleen and worsening lymphadenopathy in upper abdomen, mid abdomen mesentry and retroperitoneal space. No metastasis in the lungs. Clinically patient is complaining of significant low energy level. He is in wheelchair accompanied by his to the clinic today. Patient remarkably complaints no pain at all. Patient has some congestion in the lungs according to patient. No fever and no chills. One of the other complaints has been the lack of appetite. He said that everything tastes like cardboard. Over the weekend, patient has already talked with hospice care. But he has not decided yet. He saw Dr. Mcmahon last week and cauterized the right nose. He is going to see Dr. Mcmahon this and likely he will get cauterization to his left nostril. Patient said that once he stopped the Lovenox injection, the nose bleed has stopped. Oncological History: Mr. Nakul Dempsey is a 72 year old male with medical problems most notable for hypertension, hyperlipidemia and lots of back problems with multiple surgeries. He presented with months of mild to moderate intermittent eugene-umbilical abdominal pain, significant decreased appetite and weight loss. On evaluation at ER, CT scan of the abdomen and pelvis on 03/21/2018 showed a large heterogeneously enhancing mass measuring 4.8 x 5.5,x 4.9 cm arising from the tail of the pancreas highly suspicious for pancreatic cancer, multiple hepatic and splenic metastatic lesions, gastrohepatic, periportal, periaortic, and left mesenteric metastatic lymphadenopathy as well as a 9 mm T12 lytic lesion concerning for osseous metastasis. Patient underwent CT scan of the chest on March 28, 2018 that showed no pulmonary mass lesion, but interval growth in size of multiple hepatic metastatic lesions, and stable mild upper abdominal adenopathy, stable appearance of a large pancreatic tail mass with associated subjacent splenic hypoenhancement focally, most likely representing early invasive change affecting either the parenchyma directly, or the blood flow to that portion of the parenchyma. His serum CA19-9 was [id number], CEA 13.1. On 03/29/2018, he underwent CT guided biopsy of the liver lesion. 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 Patient underwent port placement on April 06, [address] Smallwood. On the same day, Dr. Smallwood also performed EGD. No apparent malignant findings. He started palliative chemotherapy with nab-paclitaxel and gemcitabine on 04/11/2018. Dose reduction of 50% of both nab-paclitaxel and gemcitabine were required for C1D8 and C1D15 treatment due to grade 2 thrombocytopenia. - Patient Self-Reported Symptoms SR Constitution: Weight loss/gain, Fatigue/Malaise SR eye issues: Double vision SR ears, nose, mouth, throat issues: Cough, Nose bleeds, Changes in taste SR respiratory issues: Shortness of breath SR Cardiovascular issues: Extreme swelling SR Gastrointestinal issues: Poor or no appetite, Change in bowel pattern, Nausea, Vomiting, Diarrhea, Constipation SR Genitourinary issues: Frequent urination SR Musculoskeletal issues: Difficulty walking SR Neuro issues: Difficulty balancing SR Endocrine issues: Excessive urination - Additional ROS All systems PM: reviewed and no additional remarkable complaints except as stated Home Medications and Allergies Home Medications Medication Instructions Recorded Confirmed Type MULTIVITAMIN (#MULTIPLE VITAMINS) 1 cap PO Q DAY #0 03/22/11 05/23/18 History hydromorphone 2 mg PO Q6H PRN #14 tab 04/06/18 05/23/18 Rx prochlorperazine maleate 10 mg PO Q6H PRN #30 tab 04/11/18 05/23/18 Rx ondansetron [Zofran ODT] 4 mg PO Q6-8H PRN #30 tab 04/12/18 05/23/18 Rx dexamethasone 4 mg PO DAILY 04/14/18 05/23/18 History enoxaparin [Lovenox] 100 mg SUBCUT Q12H #60 ml 05/09/18 Rx lorazepam 0.5 mg PO Q6HR PRN #60 tab 05/09/18 05/23/18 Rx olanzapine 10 mg PO DAILY #16 tab 05/09/18 05/23/18 Rx zolpidem [Ambien] 5 mg PO BEDTIME PRN #20 tab 06/02/18 Rx Allergies Allergy/AdvReac Type Severity Reaction Status Date / Time Corticosteroids AdvReac Mild HICCUPS X Verified 04/04/18 08:14 (Glucocorticoids) 24 HRS walnut [WALNUT] AdvReac Mild canker Verified 04/04/18 08:14 sores in mouth Results - Labs Laboratory Last Values WBC 8.6 X10^3/uL (4.5-11.0) 05/16/18 09:38 RBC 2.31 X10^6/uL (4.5-5.9) L 05/16/18 09:38 Hgb 8.3 g/dL (13.5-17.5) L 05/16/18 09:38 Hct 24.4 % (41-53) L 05/16/18 09:38 MCV 105.4 fL (80-100) H 05/16/18 09:38 MCH 36.0 PG (26-34) H 05/16/18 09:38 MCHC 34.2 % (30-36) 05/16/18 09:38 RDW 22.2 % (11.6-14.8) H 05/16/18 09:38 Plt Count 100 X10^3/uL (150-400) L 05/16/18 09:38 Neut % (Auto) Not Reportable 05/16/18 09:38 Lymph % (Auto) Not Reportable 05/16/18 09:38 [place] % (Auto) Not Reportable 05/16/18 09:38 Eos % (Auto) Not Reportable 05/16/18 09:38 Baso % (Auto) Not Reportable 05/16/18 09:38 Neut # (Auto) 4100 /uL (3558-7830) 05/09/18 08:53 Total Counted 100 05/16/18 09:38 Seg Neutrophils % 70.0 % (38-70) 05/16/18 09:38 Band Neutrophils % 2.0 % (3-7) L 05/16/18 09:38 Lymphocytes % (Manual) 15.0 % (25-45) L 05/16/18 09:38 Monocytes % (Manual) 13.0 % (2-11) H 05/16/18 09:38 Neutrophils # (Manual) 6192 /uL (7018-7528) H 05/16/18 09:38 Nucleated RBCs 9 #/Diff (-0) H 05/16/18 09:38 RBC Morphology Not Reportable 05/16/18 09:38 Polychromasia 2+ H 05/16/18 09:38 Poikilocytosis 1+ H 05/16/18 09:38 Anisocytosis 3+ H 05/16/18 09:38 Tear Drop Cells 1+ H 05/02/18 14:10 PT 16.1 SECONDS (10.1-12.7) H 03/28/18 16:14 INR 1.5 (0.9-1.3) H 03/28/18 16:14 Sodium 139 mmol/L (137-145) 05/16/18 09:38 Potassium 3.7 mmol/L (3.4-5.1) 05/16/18 09:38 Chloride 104 mmol/L (98-107) 05/16/18 09:38 Carbon Dioxide 24 mmol/L (22-32) 05/16/18 09:38 BUN 18 mg/dL (9-20) 05/16/18 09:38 Creatinine 0.70 mg/dL (0.66-1.25) 05/16/18 09:38 Estimated GFR > 60.0 mL/min (>60) 05/16/18 09:38 BUN/Creatinine Ratio 25.7 (6-22) H 05/16/18 09:38 Glucose 168 mg/dL (80-110) H 05/16/18 09:38 Calcium 8.4 mg/dL (8.4-10.2) 05/16/18 09:38 Total Bilirubin 5.5 mg/dL (0.2-1.3) H 05/16/18 09:38 AST 153 IU/L (17-59) H 05/16/18 09:38 ALT 101 IU/L (21-72) H 05/16/18 09:38 Alkaline Phosphatase 455 U/L (38-126) H 05/16/18 09:38 Total Protein 5.9 g/dL (6.3-8.2) L 05/16/18 09:38 Albumin 3.1 g/dL (3.5-5.0) L 05/16/18 09:38 Globulin 2.8 g/dL (1.7-4.1) 05/16/18 09:38 Albumin/Globulin Ratio 1.1 (1.0-2.8) 05/16/18 09:38 Carcinoembryonic Ag 13.1 ng/mL (0.1-3.0) H 03/28/18 10:59 CA 19-9 Antigen 051317 U/mL (< 34) H 05/02/18 14:10 Blood Type B Negative 05/16/18 10:30 Antibody Screen Negative 05/16/18 10:30 Crossmatch See Detail 05/16/18 10:30 - Imaging Additional studies: Procedures ANESTH INJECT-SPIN CANAL (11/19/09) Excision of Lumbar Vertebral Disc, Open Approach (06/18/16) Excision of Lumbosacral Disc, Open Approach (11/12/17) Extraction of Iliac Bone Marrow, Percutaneous Approach (11/12/17) Fusion of 2 or more Lumbar Vertebral Joints with Interbody Fusion Device, Anterior Approach, Anterior Column, Open Approach (06/18/16) Fusion of 2 or more Lumbar Vertebral Joints with Synthetic Substitute, Posterior Approach, Posterior Column, Open Approach (06/18/16) Fusion of Lumbosacral Joint with Autologous Tissue Substitute, Posterior Approach, Posterior Column, Open Approach (11/12/17) Fusion of Lumbosacral Joint with Interbody Fusion Device, Posterior Approach, Anterior Column, Open Approach (11/12/17) Fusion or refusion of 2-3 vertebrae (03/29/12) INJECT STEROID (11/19/09) Insertion of interbody spinal fusion device (03/29/12) Insertion or replacement of inflatable penile prosthesis (05/22/11) Lumbar and lumbosacral fusion of the anterior column, anterior technique (03/29/12) Other exploration and decompression of spinal canal (03/29/12) Release Lumbar Nerve, Open Approach (11/12/17) SPINAL CANAL INJECT NEC (11/19/09) Assessment and Plan (1) Pancreatic cancer Problem details: 1. Metastatic pancreatic adenocarcinoma: Primary: pancreatic tail. Metastasis: liver (bx confirmed); gastrohepatic, periportal, periaortic, and left mesenteric metastatic lymphadenopathy; as well as a 9 mm T12 lytic lesion. 2. He started nab-paclitaxel and gemcitabine on 04/11/2018. Assessment and Plan: Today I spent at least 30 min discussing with the patient and patient's about hospice care. I explained to the patient that hospice care is designed to help people have a better quality of time at the end of the life. Patient does not understand the role of the palliative care. I talked with him and his that palliative care is provided both by medical oncologists as well as hospice care. The difference is that hospice care will not allow active treatment towards the cancer itself. Patient is agreeable to get on to the hospice. As a matter of fact patient has been in contact and in conversation with hospice care team throughout the past couple of weeks. Patient clinically is without any pain, without any fever, no chills, no nausea no vomiting. Patient is eating and drinking. Patient said that he feels great and he was able to walk with the help of a walker. His said that they would like to see if they can live and celebrate his next birthday. The patient is willing to get more chemotherapy. I talked with the patient that the benefit of chemotherapy is minimal at most moderate. With single agent chemotherapy, statistically, the life can be prolonged by about 3 months or so. I do not think that he is able to tolerate combined chemotherapy. Patient said that he is willing to try. I will bring this patient back on 06/16/2017 for evaluation and resume the chemotherapy with single agent gemcitabine (2) Deep vein blood clot of right lower extremity Assessment: I talked with him today about the anticoagulation. I talked with him that I will wait until after the nose cauterization procedure is complete and the surgical wound has healed. Then we probably can restart the anticoagulation gingerly for example using Eliquis 2.5 mg twice daily. Patient voiced understanding. Plan: Continue to Lovenox 100 mg q12h subQ (3) Hyperbilirubinemia Assessment and Plan: Increased in the total bilirubin level. No abdominal pain. No fever. Will need continued follow up. (4) Transaminitis Assessment and Plan: Likely due to the extensive hepatic metastasis. Getting worse. We will continue to monitor and avoid hepatotoxic medications. (5) Anemia Assessment: The anemia most likely is related to the diagnosis metastatic cancer, cytotoxic chemotherapy and nose bleeding. Plan: Blood transfusion threshold: H/H 01/28
[2018-06-02 15:01] VITALS: BP 136/75; PULSE 91; RESP 18; TEMP 36.4; O2SAT 98
[2018-06-02 15:25] LABS: Add Manual Diff / Slide Review YES; Hematocrit 36.8 % (41-53); Hemoglobin 12.4 g/dL (13.5-17.5); Mean Corpuscular HGB Conc 33.6 % (30-36); Mean Corpuscular Hemoglobin 35.5 PG (26-34); Mean Corpuscular Volume 105.8 fL (80-100); Platelet Count 170 X10^3/uL (150-400); Red Blood Cell Count 3.48 X10^6/uL (4.5-5.9)
[2018-06-02 15:35] LABS: Hypochromasia 1+; Macrocytosis 1+; Neutrophils Absolute Manual 17670 /uL (3000-5900); Total Cells Counted 100
[2018-06-02 15:37] LABS: Alanine Aminotransferase 119 IU/L (21-72); Albumin 3.1 g/dL (3.5-5.0); Alkaline Phosphatase 642 U/L (38-126); Aspartate Aminotransferase 204 IU/L (17-59); BUN Creatinine Ratio 42.5 (6-22); Bilirubin Total 12.4 mg/dL (0.2-1.3); Blood Urea Nitrogen 34 mg/dL (9-20); Calcium 9.2 mg/dL (8.4-10.2); Carbon Dioxide 23 mmol/L (22-32); Chloride 104 mmol/L (98-107); Estimated Glomerular Filt Rate > 60.0 mL/min (>60); Globulin 3.1 g/dL (1.7-4.1); Glucose 163 mg/dL (80-110); HEMOLYSIS < 15 (0-50); Potassium 4.5 mmol/L (3.4-5.1); Sodium 138 mmol/L (137-145); Total Protein 6.2 g/dL (6.3-8.2)
--- NOTE | 2018-06-09 12:54 | ONC.NAV ---
Description: T/C, Care Coordination re: transfer to hospice Activity: Pt called this am to report that he crashed over the night last night, has had a severe increase in pain, is having yellow drainage (not sure from where), and is functionally unable to get in to his appointment today. He requests assistance with expediting his hospice admission. BURRING MACHINE OPERATOR contacted [facility], who were able to make arrangements for pt to be admitted tomorrow morning. We cancelled his appointment here today in clinic, and client care manager Becky is following up with providing medication instructions for for symptom management/comfort until hospice can get started tomorrow morning. BURRING MACHINE OPERATOR offered coping and emotional support for pt, as well as wished he and his family well from our [facility] team. No additional care coordination needs identified at this time.
--- NOTE | 2018-06-09 16:26 | PC.NURSE ---
Currently plan is for pt to be admitted to hospice on 06/10. in the meantime, pt needs some sx management for both increasing pain and sleep. After reviewing his medication list, and the pt looking thru his pills at home, it was determined that the pt was issued an increase to his oxycodone 5mg tabs to a 10mg tab for pain. Pt has trying to not take these but due to the current situation he has opted to do so for relief. Pt still also has in his possession some of the 5mg tabs so I explained to him he could either take 2 of the 5's or just 1 of the 10mg tablet. Not both. He repeated this to me several times so his understanding was intact. He also had some dilaudid 4mg tablets but I told him those were pretty strong and he stated he did not want to use those. So when our conversation came to an end, he was on board with either using 2 5mg tabs or 1 10 mg tab for relief ever 4-6 hrs as needed for pain. Hospice will then be in tomorrow to manage things the rest of the way. He thanked me and I did the same telling him it was my pleasure in meeting and treating him over the last few months.
--- NOTE | 2018-06-10 14:01 | ONC.NAV ---
Description: T/C-Care Coordination Activity: Pt's [id number], Romi, called wanting more information about pt's status and hospice admission today. This SURVEILLANCE OPERATOR called her back and left her a message encouraging her to call back if she still had questions. Also informed her that this SURVEILLANCE OPERATOR called the hand driller who admitted pt to hospice services this am and requested that she call Romi re:hospice and questions concerning care plan.
--- NOTE | 2018-06-16 10:12 | ONC.NAV ---
*Sent bereavement card.
== END ==
PROVIDERS: PCP Family Medicine; Visit Provider Internal Medicine Hematology & Oncology
DX: C25.2 Malignant neoplasm of tail of pancreas (principal); C78.7 Secondary malignant neoplasm of liver and intrahepatic bile duct; C78.89 Secondary malignant neoplasm of other digestive organs; C77.8 Secondary and unspecified malignant neoplasm of lymph nodes of multiple regions; I82.401 Acute embolism and thrombosis of unspecified deep veins of right lower extremity; E80.6 Other disorders of bilirubin metabolism; R74.0 Nonspecific elevation of levels of transaminase and lactic acid dehydrogenase [LDH]; D64.9 Anemia, unspecified
CPT/HCPCS: 36415; 36430; 36592; 71260; 74177; 80053; 82378; 85025; 85049; 85610; 86301; 86850; 86900; 86901; 96360; 96361; 96372; 96375; 96413; 96417; 96523; 97802; 99205; 99214; 99215; P9016; J1100; J1650; J2060; J2405; J9201; J9264; Q9967